=== PATIENT | female | born 1950 | race Caucasian/White ===

== ENCOUNTER 2023-09-30 16:57 | Inpatient (IN) | payer OTHER, SELFPAY ==
[2023-09-30] VITALS (10 sets, daily range): BP systolic 121–159; BP diastolic 58–87; BMI 33.6; BMI 32.7
[2023-09-30] MEDS: ZOFRAN 4 MG IV (11:13)
[2023-09-30 11:35] LABS: % Basophils 0.6 % (0-2); % Eosinophils 1.1 % (0-6); % Immature Granulocytes 0.6 % (0-0.5); % Lymphocytes 16.3 % (20.5-51.1); % Monocytes 6.3 % (1.7-9.3); % Neutrophils 75.1 % (42.2-75.2); Absolute Eosinophils 0.1 10^3/uL (0-0.7); Absolute Lymphocytes 0.9 10^3/uL (1.2-3.4); Absolute Monocytes 0.3 10^3/uL (0.1-0.6); Absolute Neutrophils 3.9 10^3/uL (1.4-6.5); Hematocrit 38.8 % (37.0-47.0); Hemoglobin 13.8 g/dL (12.0-16.0); Mean Corp Hgb Conc. 35.6 g/dL (33.0-37.0); Mean Corpuscular Hgb 33.4 pg (27.0-31.0); Mean Corpuscular Volume 93.9 fL (81.0-99.0); Nucleated Red Blood Cells % 0 %; Red Blood Cell Count 4.13 10^6/uL (4.20-5.40); Red Cell Dist. Width 13.9 % (11.5-14.5); White Blood Cell Count 5.2 10^3/uL (4.8-10.8)
--- NOTE | 2023-09-30 11:46 | ED.GENMED ---
History of Present Illness
General
Chief Complaint: Chest Pain
Source: patient
Exam Limitations: none
Time Seen by Provider: 09/30/23 11:06
Nursing documentation reviewed up to this point in time: agreed with
History of Present Illness
History of Present Illness:
73 y/o F with h/o , cardiomyopathy , stroke with L sided hemiparesis, nonambulatory
lives at home with son who is primary caregiver
here with nausea and epigastric pain around 8 am after pt was already awake
she had not yet had her breakfast. she say the pain was coming in waves and initially she thought it was GERD but didn't really feel too similar
then she felt it get better so she thought it was gone. then the pain returned and she had nausea and thought it could be her heart
her son called 911 and they told her to take baby aspirin but she couldn't chew them becuase she doesn' thave teeth so she spit them out
sh ehas not had chest pain, back pain, black stool
she has not had known GI bleed before, she doesn't remmeber having previous endoscoppy
she still has her gallbladder
only previous surgery is a hysterectomy
previous charts from earlier visits show that pt has sludge in her GB and elevated liver enzymes. she also has had pancreatitis
Past History
Past History
ED Past Medical History: CVA (Left sided weakness), HTN, Hypercholesterolemia, Psychiatric (Depression) and Other (Nonischemic cardiomyopathy, Fracture ankle, GJ tube, gastroparesis C-diff)
ED Past Surgical History: Gynecological (Hysterectomy)
Social History
Tobacco: Non-smoker
Alcohol: Daily (Beer 4)
Personal:
Living: correction ([facility] and [facility])
Employment: Not employed
Family History
Family History: Other (Noncontributory)
Review of Systems
Review of Systems
Allergies reviewed?: Yes
All Other Systems: Not applicable
Phy Exam
Physical Exam
Physical Exam:
GENERAL: Alert, comfortable
Neck: supple
CARDIAC: Regular rate and rhythm +systolic murmur
LUNGS: Clear breath sounds bilaterally, no acute respiratory distress, no wheezes/rales/rhonchi
ABDOMEN: Soft, epigastric and RUQ tenderness, no guarding, no rebound, neg cash's
rectal: stool heme neg light brown
NEUROLOGICAL: Alert and oriented, no focal neuro deficits
SKIN: Warm and dry, skin intact.
PSYCH: Normal and appropriate interaction.
Scores
Heart Score for Chest Pain Patients
STEMI patient?: No
History: Slightly or Non-Suspicious
ECG: Nonspecific Repolarization
Age: >/= 65 years
Risk Factors: 1 or 2 Risk Factors
Troponin: </= Normal Limit
Heart Score for Chest Pain Patients: 4
Heart Score Risk: 20.3% MACE over next 6 weeks
Course
Orders/Labs/Results
Orders:
Orders
09/30/23 11:00
Electrocardiogram (*1) Urgent
Reason for Study: Chest Pain
Cardiac Monitoring- Treatment ONCE
EKG- Treatment ONCE
IV Insert/Care/Rem.- Treatment PRN
O2 Therapy [RESP] Urgent
Titrate/Wean O2 to maintain O2 sat greater than (%): 90
Special Instructions: Maintain sats >/=90%
Pulse Ox/spot Check [RESP] Urgent
Quantity: 1
Special Instructions: ON ROOM AIR
09/30/23 11:10
Complete Blood Count/With Diff Urgent
Ondansetron Injectable [Zofran] 4 mg IV NOW STA
09/30/23 11:11
Ondansetron Injectable [Zofran] 4 mg .ROUTE .STK-MED ONE
09/30/23 11:33
Add On- LAB Urgent
Tests Added?: lipase
Pantoprazole [Protonix IV] 40 mg IV NOW STA
09/30/23 12:02
Comprehensive Metabolic Panel Urgent
Direct Bilirubin Urgent
Comment: ADD ON
Lipase Urgent
Comment: ADD ON
Troponin I Urgent
09/30/23 12:35
CT Abd/Pel (IV only)-DH only Urgent
Comment:
Reason For Exam: vomiting, h/o alcohol abuse ,pancreatitis
09/30/23 14:00
Lactated Ringers [Lr] 500 ml IV 100 mls/hr
09/30/23 Dinner
Clear Liquid
At Your Request: Full Participation
09/30/23 16:15
Admit/Transfer Patient As Directed
Co-Sign Provider:
Level of Care: Inpatient admission
Assign to:: Medical/Surgical
Physician / Group: Steven Ellison
Diagnosis: Acute pancreatitis, elevated LFTs
Reason for Hospitalization: Acute pancreatitis, possible gallstone etiology. Will need MRCP and possible ERCP
while here
Expected length of stay greater than two midnights?: Yes
ELOS- Estimated Length of Stay in days: 3
I certify the patient meets the requirements for IP care: Yes
PRN Pain Medication Management As Directed
May give lesser potent ordered pain med per pt: Yes
preference::
Protocol:: Medication orders for pain may be administered in a
manner that supports deferring to patient preference
when the pt is:
- Requesting an ordered lesser potent pain medication.
Least to most potent pain medications are defined
as: acetaminophen < NSAID < tramadol < opioids
(morphine, oxycodone, hydromorphone).
- Requesting a lesser dose of the same medication IF
ORDERED.
- Requesting a less intrusive route of administration
if both routes are prescribed by the provider (PO <
IV).
09/30/23 16:17
Code Status As Directed
Resuscitation Status: Full Code
09/30/23 17:00
Lactated Ringers [Lr] 1,000 ml IV 150 mls/hr
09/30/23 17:54
Famotidine [Pepcid] 20 mg PO DAILYPRN PRN
Morphine Sulfate 1 mg IV Q6HPRN PRN
Morphine Sulfate 2 mg IV Q6HPRN PRN
09/30/23 17:54
GASTROINTESTINAL CONSULT Routine
Consulting Provider: Paz Serrano
Was physician already notified: Yes
Reason for consult: Pancreatitis, biliary obstruction
Activity As Directed
Activity Level: Out of Bed-Early Mobility
I&O [Intake/ Output] As Directed
Frequency: q12h
Sequential Compression Device [Pneumatic Compression Sleeves] As Directed
Type: Knee high
DX Deep Vein Thrombosis Video Routine
09/30/23 18:45
Ondansetron Injectable [Zofran] 4 mg IV Q6HPRN PRN
09/30/23 18:46
Acetaminophen [Tylenol] 650 mg PO Q6HPRN PRN
09/30/23 20:00
Carvedilol [Coreg] 3.125 mg PO BID
09/30/23 22:00
Gabapentin [Neurontin] 800 mg PO HS
Lisinopril [Zestril] 20 mg PO HS
10/01/23 Breakfast
NPO
Allow oral meds: No
Allow clear liquids: No
10/01/23 06:46
Complete Blood Count/With Diff IN AM
10/01/23 08:00
Amlodipine [Norvasc] 10 mg PO DAILY
Cholecalciferol (Vitamin D3) [VITAMIN D3 (cholecalciferol)] 25 mcg PO DAILY
Abnormal Lab Results
09/30/23 09/30/23
11:10 12:02
RBC 4.13 L 10^6/uL
(4.20-5.40)
MCH 33.4 H pg
(27.0-31.0)
Plt Count 55 L 10^3/uL
(130-400)
MPV 11.3 H fL
(7.4-10.4)
Absolute Lymphs (auto) 0.9 L 10^3/uL
(1.2-3.4)
Immature Gran % 0.6 H %
(0-0.5)
Lymphocytes % 16.3 L %
(20.5-51.1)
Potassium 3.4 L mmol/L
(3.5-5.1)
Chloride 113 H mmol/L
(98-107)
Glucose 126 H mg/dl
(70-99)
Total Bilirubin 4.3 H mg/dl
(0.2-1.3)
Direct Bilirubin 2.9 H mg/dl
(0.0-0.4)
AST 212 H U/L
(14-36)
ALT 92 H U/L
(0-35)
Alkaline Phosphatase 171 H U/L
(38-126)
Lipase > 4000 H* U/L
(23-300)
09/30/23 11:10
09/30/23 12:02
Vital Signs
Initial and Last Documented VS:
Initial Vital Signs
Temp Pulse Resp Pulse Ox
98.2 F 74 16 96
09/30/23 11:01 09/30/23 11:01 09/30/23 11:01 09/30/23 11:01
Last Documented Vital Signs
Temp Pulse Resp BP Pulse Ox
98.3 F 75 12 128/58 95
10/01/23 07:05 10/01/23 07:05 10/01/23 07:05 10/01/23 07:05 10/01/23 07:05
MDM/Problems Addressed
Differential Diagnosis Includes:
pancreatitis, GI bleed, gerd, gastritis, gallstones
MDM/Problems Addressed:
73 y/o F with h/o former CVA, nonambulatory, aortic stenosis; minimal alcohol use now (used to be heavier)
epigastric pain and nausea this morning; does have known sluge/stones in gb on previous imaging; vomited x 1 on arrival, looked a little coffee grounds but her stool was heme neg
epigastric tenderness, no fever, stable vitals
ekg is abnormal but unchanged, trop neg
has had previous transaminitis and bili elevation which are elevated again today higher than most recent and lipase is >4000;
vomiting resolved with zofran, getting LR;
ct shows acute pancreatitis
may need gb imaging
s/o medicine
*Critical Care Note
Total Time (30-74mins, 75-104mins- exclusive of procedures): Not Applicable
ED Attending Note
-
Portions of this chart may have been created with voice recognition software.� Occasional wrong word or��sound alike� substitutions may have occurred due to the inherent limitations of voice recognition software.
Discharge Plan
Departure
Patient Disposition: Admit
Date of Disposition: 09/30/23
Time of Disposition: 15:18
Admit to: Med/Surg
Presentation/result/management discussed w/ accepting MD/DO: Hospitalist
Patient with high blood pressure during this ER visit?: No
Condition: Fair
Covid-19: Not Applicable
Discharge Problem:
Acute pancreatitis
Interventions
Interventions:
*Risk Screen - Suicide Last Done: 09/30/23 18:22
*General Assessment Last Done: 09/30/23 11:01
*Neglect/Abuse Screening Last Done: 09/30/23 11:01
*ED COVID-19 Vaccine History Last Done: 09/30/23 18:22
*Nursing Disposition Last Done: 09/30/23 17:58
ED- Cardiac Assessment Last Done: 09/30/23 11:01
Discharge Date and Time
Discharge Date/Time: 09/30/23 17:58
[2023-09-30 11:49] LABS: Mean Platelet Volume 11.3 fL (7.4-10.4); Platelet Count 55 10^3/uL (130-400)
[2023-09-30] MEDS: PROTONIX IV 40 MG IV (11:49)
[2023-09-30 12:31] LABS: ALT (SGPT) 92 U/L (0-35); AST (SGOT) 212 U/L (14-36); Albumin 3.5 g/dl (3.5-5.0); Alkaline Phosphatase 171 U/L (38-126); Blood Urea Nitrogen 9 mg/dl (7-17); Carbon Dioxide 24 mmol/L (22-30); Chloride 113 mmol/L (98-107); Estimated Creatinine Clearance 89 ml/min; Glucose 126 mg/dl (70-99); Potassium 3.4 mmol/L (3.5-5.1); Sodium 143 mmol/L (135-145); Total Bilirubin 4.3 mg/dl (0.2-1.3); Total Protein 7.2 g/dl (6.3-8.2); eGFR > 60.00
[2023-09-30 12:42] LABS: Troponin I < 0.012 ng/ml
[2023-09-30 13:57] LABS: Lipase > 4000 U/L (23-300)
--- NOTE | 2023-09-30 14:15 | PHANOTE ---
med rec note- patient explained that she only take her blood pressure medication when there home visit from her pcp office which in unusually once a month in the beginning of the month.
[2023-09-30] MEDS: LR 500 IV (14:42)
--- NOTE | 2023-09-30 16:08 | HPS.HSE ---
Family Physician
-
Family Physician: JESÚS Hercules
Chief Complaint
-
Epigastric pain, nausea
History of Present Illness
73-year-old female with ASCVD, aortic stenosis, HTN, HLD, alcohol use, malnutrition, H/O CVA with residual left-sided hemiparesis, H/O nonischemic cardiomyopathy (preserved EF on last echo), H/O GJ tube s/p removal, S/P MATTHEW that presented to the ED
today with complaint of pain in the abdomen
She presented to the ED with her son who is primary caregiver. States that the symptoms of epigastric pain started around 8 AM after the patient awoken. She was yet to eat breakfast, stated that the pain was coming in waves initially. Thought it
was consistent with GERD symptoms however later thought it could be her heart so her son called 911 and gave her a baby aspirin. Of note, the patient does not have teeth so she spit them out and did not take the aspirin. She denies chest pain,
dyspnea, back pain, bloody stools, melena. States that she still has her gallbladder. Previous studies have shown sludge in gallbladder. Mentions that she did have an occurrence of pancreatitis in the past.
Upon arrival to the ED she was afebrile, hemodynamically stable, on room air. Initial pertinent labs included platelet count of 55, potassium 3.4, ALP 171, total bilirubin 4.3, AST 212, ALT 92, lipase 4000. CT A/P was ordered, however images not
yet available and report is pending. In the ED she was started on IV fluids, given 40 mg pantoprazole and 4 mg IV Zofran
Medical History
Past Medical History
Past Medical History: Reports CAD, CHF, CVA, HTN and Hypercholesterolemia
Past Surgical History: Reports Gynocological
Additional Past Surgical History:
H/O PEG
Social History
Tobacco: Non-smoker
Alcohol: Occasional (Former heavy alcohol use, now occasional 'twisted tea')
Drug: None
Family History
Family History: Not pertinent
Allergies / Home Medications
Allergies reflects when Allergies were last updated in [facility].
Home Medications with original date entered in [facility]
Allergy/Medication List:
NKDA
Review of Systems
-
A 12 point ROS was completed and negative except as noted: Yes
Constitutional: Reports No Symptoms
Respiratory: Reports No Symptoms
Cardiac: Reports No Symptoms
Abdomen/GI: Reports Abdominal Pain and Nausea; Denies Diarrhea, Bloody Stools or Black Stools
: Reports No Symptoms
Musculoskeletal: Reports No Symptoms
Skin: Reports No Symptoms
Neurological: Reports No Symptoms
Endocrine: Reports No Symptoms
Hematologic/Lymphatic: Reports No Symptoms
Physical Exam
Vital Signs
Vital Signs
Temp Pulse Resp BP Pulse Ox
98.2 F 73 18 122/58 93
09/30/23 11:01 09/30/23 16:00 09/30/23 16:00 09/30/23 16:00 09/30/23 12:45
Physical Exam
General: Well Nourished and Pain; No Respiratory Distress
HEENT: NormoCephalic, Anicteric, Moist mucous membranes and Atraumatic
Respiratory: Clear and Non Labored Respirations; No Wheezes, Rales, Rhonchi or Accessory Resp Muscle Use
Cardiac: S1/S2 and Regular Rhythm; No Murmur, Rub, Gallop, Peripheral Edema or JVD
GI: Soft, Non Distended, Normal Bowel Sounds and Tender (Epigastrum, no peritoneal signs); No Organomegaly
Musculoskeletal: No Clubbing, No Cyanosis and No Edema
Skin: Warm and Dry; No Rash or Jaundice
Neuro: AO x 3, Cranial Nerves Intact and No Sensory Deficits
Laboratory Results
-
09/30/23 11:10
09/30/23 12:02
Laboratory Results
Total Bilirubin 4.3 mg/dl (0.2-1.3) H 09/30/23 12:02
AST 212 U/L (14-36) H 09/30/23 12:02
ALT 92 U/L (0-35) H 09/30/23 12:02
Alkaline Phosphatase 171 U/L (38-126) H 09/30/23 12:02
Troponin I < 0.012 ng/ml 09/30/23 12:02
Lipase > 4000 U/L (23-300) H* 09/30/23 12:02
Data Reviewed
-
Diagnostic Radiology: Image Personally Visualized and interpreted
Lab Data: Labs Reviewed by me and Discussed with Patient
Impression/Plan
-
#Acute pancreatitis -- suspect gallstone etiology
#Elevated LFTs -- cholestatic pattern; suspect choledocholithiasis
-Presented with epigastric pain that began this morning after awakening
-Associated with nausea, denies any fevers or chills, no blood in the stool
-ED labs showed cholestatic pattern of LFT elevation, lipase >4000
-Does still have her gallbladder, previous scans showed sludge
-[place] score is very low; [place] score 0; low risk mortality
Plan
-Start IVF maintenance fluids at 150 mL/h for goal Hct <44%
-Follow-up CT results to rule out extrinsic causes of biliary obstruction
-Order MRCP to assess biliary duct anatomy
-Trend daily LFTs, avoid hepatotoxic agents as able
-Clear liquid diet for now, NPO after midnight
-PRNs for analgesia and antiemesis
-Consider surgery consult for cholecystectomy
#Thrombocytopenia -- DDx reactive/consumptive v. chronic process
-Platelet count on arrival was 55, no signs or symptoms of bleeding or clotting
-Per review of previous CBC, has persistently had low platelets back to November of 2017
-Platelet count on average seems to be near 80-90, which may represent baseline
-With previous drinking history, question if she has cirrhosis
-No recent heparin, suspicion for HIT very low; suspicion for hemolysis low
Plan
-Trend daily CBC, consider supportive transfusions if worsening or bleeding develops
-Follow-up CT images to assess for features of cirrhosis/portal hypertension
-Follow-up peripheral smear
-Avoid chemical DVT prophylaxis for now
#ASCVD
#HLD
-Diffuse vascular disease with CAD/PAD/carotid disease/CVA history
-Current medications do not include aspirin or statin currently
-No signs of acute ischemia causing this presentation
#Aortic stenosis
-No recent TTE/CLAU in system, last was in 2018
-Suspect this is not clinically severe disease per exam
#Hypertension
-Home medications include lisinopril, carvedilol, amlodipine
-No known hypertensive systemic disease, last echo without LVH
-Blood pressure on arrival 121/61 mmHg
#Alcohol use
-Previously was a heavy drinker though denies current heavy usage
-Will monitor for signs of withdrawal, consider as needed Ativan
#H/O nonischemic cardiomyopathy
-Unclear etiology; mentioned to not be ischemic even despite extensive ASCVD history; last TTE with LVEF >55%
-Home medications currently include NEEL inhibitor, beta-loretta; no statin or antiplatelet therapy
-Is not currently on any standing dose diuretic therapy
DVT prophylaxis: SCDs
Diet: Clear liquids, n.p.o. after midnight
CODE STATUS: Full code
Disposition: Admit to Med/Surg
I will be admitting Sonya Patrick to general med/surgery for acute pancreatitis with presumed choledocholithiasis. I have spoken to the emergency department staff and the GI consultants in regards to the case. She is at elevated risk for
morbidity and mortality due to acute pancreatitis of likely obstructive origin. Will need admission for symptomatic control, trending of LFTs, MRCP and possible ERCP while here. May also require cholecystectomy if gallstone etiology of
pancreatitis confirmed.
[2023-09-30] MEDS: LR 1000 IV (16:37)
--- NOTE | 2023-09-30 16:39 | CON.GI ---
Addendum entered and electronically signed by Paz Serrano MD 09/30/23 20:23:
I saw and examined the patient.
The APARTMENT MAINTENANCE SUPERVISOR or PA's note was reviewed and I agree with the note.
Comment: 73-year-old female with history of CVA and left-sided weakness, history of gastroparesis-needing GJ tube previously, C. difficile, presenting with sudden onset epigastric abdominal pain which started around 8 AM this morning, nausea and 1
episode of vomit. No previous similar results. Prior to this episode, reports feeling well. No abdominal pain, heartburn, trouble swallowing. She is bedbound and has a diaper and reports having normal stool in the diaper without any constipation
or diarrhea. No blood in the stool or black stool. In the emergency room, CBC shows normal hemoglobin, platelets low at 55, seems to be chronic,, mild hypokalemia, elevated LFTs including total bilirubin of 4.3, AST of 212, ALT of 92, alkaline
phosphatase of 171 lipase of more than 4000.History of elevated LFTs in 2018 including total bilirubin between 2.5 and 5, AST, ALT in the 200-400 range, alkaline phosphatase in the 200-600 range, repeat LFTs in 2020 in normal range
CT scan of the abdomen pelvis with IV contrast only in the emergency room, minor peripancreatic edematous changes suggestive of acute hepatitis without any fluid collections, multicystic pelvic lesions noted.
Patient admitted in 2018 at that time possibly significant alcohol use, elevated LFTs noted with workup including MRI/liver biopsy.
MRI in 2018 for elevated LFTs showing large amount of sludge in the gallbladder lumen mild evidence of pancreatic empiric pancreatic edema suggestive of acute pancreatitis.Abdominal ultrasound in 2018 also showing moderate amount of sludge and
stones in the gallbladder. 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
Patient denies any previous history of pancreatitis.
-Acute epigastric pain, elevated LFTs, elevated lipase suggesting acute pancreatitis
Imaging showed mild pancreatitis without any fluid collections
Rule out gallstones causing pancreatitis, patient denies any significant alcohol use
Monitor LFTs, lipase
Will do abdominal ultrasound to look for possible gallstones causing mild pancreatitis.
If LFTs continue to trend up, will do MRI/MRCP.
Okay for clear liquid diet. IV hydration, monitor creatinine/hematocrit
If no further pain, will advance as tolerated to low-fat diet.
Will follow-up on triglyceride levels
Previous workup for elevated LFTs including hepatitis serologies, AMA, ASMA, LK M, celiac panel negative In 2018 and prior liver biopsy showing possible drug-induced liver disease
Previous history of gastroparesis needing GJ tube but currently resolved.
Chronic thrombocytosis, unclear etiology.
Will follow
-
Original Note:
Consultation
-
Date/Time Consultation Requested: 09/30/23 1620
Date/Time Consultation Performed: 09/30/23 1640
Requesting Provider: Steven Ellison MD
Performing Provider: JESÚS Stephens, Paz Serrano MD
Reason for Consultation: pancreatitis
Medical History
Chief Complaint / HPI
Chief Complaint: abdominal pain
History of Present Illness:
Pt is a 73yo with hx CVA with left sided weakness, , HTN, hypercholesterolemia, depression, nonischemic CM, prior GJ tube gastroparesis(now improved), c-diff, prior hysterectomy with onset of epigastric abdominal pain. No prior pain in past.
Pain was severe up to 8/10 and improved after ER evaluation. On admission noted with K 3.4, with elevated LFT's and lipase( bili 4.3, AST 212, ALT 92, alk phos 171 and lipase >4000). Pt also noted with continued low platelets 55,000.
At this time patient admits to vomiting on admission and occasional GERD. She denies current dysphagia, diarrhea, constipation, blood or black in stools. + ETOH use heavy prior to CVA now 1 drink every 2 weeks. No change in medication or
family hx pancreatic CA. Hx EGD/colon in 2018. No anticoagulation prior to admission.
Past Medical History
Past Medical History: CVA (left sided weakness ), HTN, Hypercholesterolemia, Valvular Disease (), Psychiatric (depression ) and Other (Nonischemic cardiomyopathy, Fracture ankle, GJ tube with initial T fastener placement, gastroparesis,
esophagitis, C-diff, gastritis, duodenitis, chronic thrombocytopenia)
Past Surgical History: Gynecological (hysterectomy)
Social History
Tobacco: Non-Smoker
Alcohol: Occasional (1 drink every 2 weeks heavy prior to CVA)
Drug: None
Living: With Family (son)
Employment: Retired
Family History
Family History: Other (no family hx pancreatitis or pancreatic problems mother with hx ag )
Allergies / Home Medications
Allergy/AdvReac Type Severity Reaction Status Date / Time
No Known Drug Allergies Allergy Unknown Verified 10/21/20 16:31
�Medication �Instructions �Recorded
amlodipine 10 mg tablet 10 mg PO DAILY Blood pressure 10/21/20
carvedilol 3.125 mg tablet 3.125 mg PO BID Heart Failure 10/21/20
famotidine 20 mg tablet 20 mg PO DAILYPRN PRN indigestion 10/23/20
lisinopril 20 mg tablet 20 mg PO HS Blood pressure 10/23/20
multivitamin-ferrous 1 ea PO DAILY Supplement 10/23/20
fumarate-folic acid 18 mg-400 mcg
tablet (Centrum)
potassium chloride 10 mEq 10 meq PO DAILY ##30 10/24/20
tablet,extended release
sodium bicarbonate 650 mg tablet 650 mg PO BID #100 tabs 10/24/20
cholecalciferol (vitamin D3) 25 25 mcg PO DAILY 09/30/23
mcg (1,000 unit) tablet (Vitamin
D3)
gabapentin 400 mg capsule 800 mg PO HS 09/30/23
Review of Systems
-
History Source: Patient
Constitutional: Reports No Symptoms
EENT: Reports No Symptoms
Respiratory: Reports No Symptoms
Cardiac: Reports No Symptoms
Abdomen/GI: Reports Abdominal Pain, Nausea and Vomiting
: Reports No Symptoms
Musculoskeletal: Reports No Symptoms
Skin: Reports No Symptoms
Neurological: Reports Weakness (left sided )
Endocrine: Reports No Symptoms
Hematologic/Lymphatic: Reports No Symptoms
Vital Signs
Temp Pulse Resp BP Pulse Ox
98.2 F 73 18 122/58 93
09/30/23 11:01 09/30/23 16:00 09/30/23 16:00 09/30/23 16:00 09/30/23 12:45
Physical Exam
Exam
General: Well Developed, Well Nourished and No Apparent Distress
HEENT: Normocephalic and Anicteric
Respiratory: Clear
Cardiac: Regular Rhythm
GI: Soft, Non Distended and Normal Bowel Sounds
Genito-urinary: No Costovertebral Tender
Musculoskeletal: No Clubbing and No Cyanosis
Skin: Warm and Dry
Neuro: Awake, Alert, AO x 3 and Other (left shilpa )
Psych: Calm
Results
WBC 5.2 10^3/uL (4.8-10.8) 09/30/23 11:10
Hgb 13.8 g/dL (12.0-16.0) 09/30/23 11:10
Hct 38.8 % (37.0-47.0) 09/30/23 11:10
MCV 93.9 fL (81.0-99.0) 09/30/23 11:10
Plt Count 55 10^3/uL (130-400) L 09/30/23 11:10
Absolute Neuts (auto) 3.9 10^3/uL (1.4-6.5) 09/30/23 11:10
Sodium 143 mmol/L (135-145) 09/30/23 12:02
Potassium 3.4 mmol/L (3.5-5.1) L 09/30/23 12:02
Chloride 113 mmol/L (98-107) H 09/30/23 12:02
Carbon Dioxide 24 mmol/L (22-30) 09/30/23 12:02
BUN 9 mg/dl (7-17) 09/30/23 12:02
Creatinine 0.6 mg/dL (0.6-1.0) 09/30/23 12:02
Calcium 9.0 mg/dl (8.4-10.2) 09/30/23 12:02
Total Bilirubin 4.3 mg/dl (0.2-1.3) H 09/30/23 12:02
AST 212 U/L (14-36) H 09/30/23 12:02
ALT 92 U/L (0-35) H 09/30/23 12:02
Alkaline Phosphatase 171 U/L (38-126) H 09/30/23 12:02
Lipase > 4000 U/L (23-300) H* 09/30/23 12:02
Diagnostic Image Results:
Prior GI Procedures:
EGD: 12/2017 - Normal duodenal bulb and second portion of the
duodenum.
- Erythematous mucosa in the greater curvature of the
gastric body and lesser curvature of the gastric body.
Biopsied.
- Small hiatal hernia.
- LA Grade A reflux esophagitis.
- 300 ml of bilious gastric fluid.
- A gastric tube was found in the stomach.
- S/P placement of 3 T fasteners percutaneously using
endoscopic guidance by Dr Tony
Colonoscopy: 11/2017 - Non-bleeding external and internal hemorrhoids.
- Poor prep unable to rule out small <5mm polyps
- No specimens collected.
Assessment / Plan
-
Pt is a 73yo with hx CVA with left sided weakness, , HTN, hypercholesterolemia, depression, nonischemic CM, prior GJ tube gastroparesis(now improved), c-diff, prior hysterectomy with onset of epigastric abdominal pain. No prior pain in past.
Pain was severe up to 8/10 and improved after ER evaluation. On admission noted with K 3.4, with elevated LFT's and lipase( bili 4.3, AST 212, ALT 92, alk phos 171 and lipase >4000). Pt also noted with continued low platelets 55,000.
-sudden onset of epigastric abdominal pain
-elevated LFT's and lipase
-thrombocytopenia, etiology unclear
-hypokalemia
other medical problems:
-CVA
-
-HTN
-GERD
-hypercholesterolemia
-depression
-non ischemic CM
-prior GJ tube
-gastroparesis
-c-diff
-hysterectomy
PLAN:
Etiology of pain with elevated LFT and lipase related to pancreatitis- gallstone, ETOH(pt reports only minimal use), no medication, calcium normal on admission vs other
await CT may need MRI/MRCP
trend labs
aggressive IVF cont LR at 150ml/hr
pain control- already feeling improved
NPO
add TG in AM if etiology unclear add IGG4
Etiology of low platelets unclear - albumin normal, check INR in AM
will follow
-
-
Thank you for consultation and allowing me to participate in the patient's care. Please call the decoration checker GI physician during the after hours with any questions or concerns.
--- NOTE | 2023-09-30 18:45 | PTCARENOTE ---
Received pt from ER.Pt awake, alert and oriented x3. pt was having nausea with epigastric pain in ER, improved since arrival to floor. Pt VSS 96% on RA.Pt is bedbound at baseline, weakness in left arm and leg r/t previous CVA. Pt oriented to room,
call casarez within reach, plan of care continues.
[2023-09-30 20:49] LABS: Direct Bilirubin 2.9 mg/dl (0.0-0.4)
[2023-09-30] MEDS: ZESTRIL 20 MG PO (20:51)
[2023-09-30] MEDS: COREG 3.125 MG PO (20:51)
[2023-09-30] MEDS: KCL 40 MEQ PO (22:31)
[2023-09-30] MEDS: NEURONTIN 800 MG PO (22:32)
[2023-10-01] MEDS: LR 1000 IV ×3 (00:12→12:44)
[2023-10-01 03:10] VITALS: BP 115/57
[2023-10-01 06:00] VITALS: BMI 33.0
[2023-10-01 07:05] VITALS: BP 128/58
[2023-10-01 07:33] LABS: PT 15.3 Sec (11.4-14.6)
[2023-10-01 07:34] LABS: % Basophils 0.3 % (0-2); % Eosinophils 0.9 % (0-6); % Immature Granulocytes 0.3 % (0-0.5); % Lymphocytes 17.9 % (20.5-51.1); % Monocytes 7.4 % (1.7-9.3); % Neutrophils 73.2 % (42.2-75.2); Absolute Lymphocytes 0.6 10^3/uL (1.2-3.4); Absolute Monocytes 0.3 10^3/uL (0.1-0.6); Absolute Neutrophils 2.6 10^3/uL (1.4-6.5); Hematocrit 33.8 % (37.0-47.0); Hemoglobin 11.5 g/dL (12.0-16.0); Mean Corpuscular Hgb 32.8 pg (27.0-31.0); Mean Corpuscular Volume 96.3 fL (81.0-99.0); Mean Platelet Volume 10.7 fL (7.4-10.4); Nucleated Red Blood Cells % 0 %; Platelet Count 40 10^3/uL (130-400); Red Blood Cell Count 3.51 10^6/uL (4.20-5.40); Red Cell Dist. Width 14.2 % (11.5-14.5); White Blood Cell Count 3.5 10^3/uL (4.8-10.8)
[2023-10-01 08:14] LABS: ALT (SGPT) 91 U/L (0-35); AST (SGOT) 176 U/L (14-36); Alkaline Phosphatase 156 U/L (38-126); Blood Urea Nitrogen 7 mg/dl (7-17); Calcium 9.1 mg/dl (8.4-10.2); Carbon Dioxide 25 mmol/L (22-30); Chloride 110 mmol/L (98-107); Direct Bilirubin 4.9 mg/dl (0.0-0.4); Estimated Creatinine Clearance 76 ml/min; Glucose 93 mg/dl (70-99); Potassium 4.2 mmol/L (3.5-5.1); Sodium 139 mmol/L (135-145); Total Bilirubin 6.5 mg/dl (0.2-1.3); Total Protein 6.3 g/dl (6.3-8.2); Triglycerides 66 mg/dl (10-149); eGFR > 60.00
[2023-10-01] MEDS: DESENEX/MITRAZOL/ZEASORB 1 APPLIC TOPICAL ×2 (09:13→20:28)
[2023-10-01] MEDS: COREG PO (09:14)
[2023-10-01] MEDS: NORVASC PO (09:14)
[2023-10-01] MEDS: VITAMIN D3 (cholecalciferol) PO (09:14)
--- NOTE | 2023-10-01 11:45 | W.PN.GI.CBS2 ---
Addendum entered and electronically signed by Paz Serrano MD 10/01/23 13:35:
I saw and examined the patient.
The AGRICULTURAL AGENT or PA's note was reviewed and I agree with the note.
Comment: Patient without any abdominal pain, nausea or vomiting. Had a bowel movement yesterday morning but not since. Passing gas. No fevers or chills.
10/01/23 MRI/MRCP-Choledocholithiasis with 4 stones present in the common bile duct with the largest measuring 7 mm. There is associated dilation of the common bile duct measuring 8 mm.
There is peripancreatic edema likely due to acute pancreatitis. There are multiple enlarged upper abdominal lymph nodes measuring up to 1.2 cm in short axis which are likely reactive.
Will need ERCP which will be done tomorrow. Subsequent lap ag.
Patient with platelet count of 40 with underlying chronic thrombocytopenia. Heme evaluation requested and consideration of platelet transfusion if platelets still low prior to ERCP tomorrow.
Primary team aware. N.p.o. past midnight.
Continue to monitor LFTs and lipase. If fevers or elevated white count, need to start antibiotics.
Will follow
Original Note:
Today's Communication / Plan
-
Await reults MRI
As per plan
Assessment / Plan
-
Pt is a 73yo with hx CVA with left sided weakness, , HTN, hypercholesterolemia, depression, nonischemic CM, prior GJ tube gastroparesis(now improved), c-diff, prior hysterectomy with onset of epigastric abdominal pain. No prior pain in past.
Pain was severe up to 10/02 and improved after ER evaluation. On admission noted with K 3.4, with elevated LFT's and lipase( bili 4.3, AST 212, ALT 92, alk phos 171 and lipase >4000). Pt also noted with continued low platelets 55,000.
-sudden onset of epigastric abdominal pain
-elevated LFT's and lipase
-thrombocytopenia, etiology unclear
-hypokalemia
other medical problems:
-CVA
-
-HTN
-GERD
-hypercholesterolemia
-depression
-non ischemic CM
-prior GJ tube
-gastroparesis
-c-diff
-hysterectomy
PLAN:
Etiology of pain with elevated LFT and lipase related to pancreatitis- gallstone, ETOH(pt reports only minimal use), no medication, calcium normal on admission vs other
Await results of MRI/MRCP
trend labs
aggressive IVF cont LR at 150ml/hr
pain control- already feeling improved
Start clear liquid diet
Check IgG4
Trend PLT, consider Heme consult.
Incentive sprirometer
will follow
Subjective
Subjective
Date of Service: October 01, 2023
Patient with RUQ tenderness and bilirubinuria. WBC count low 3.5, PLT 40, INR 1.2, T Bili 6.5 (4.3), D Bili 4.9 (2.9), AST 176 (212) ALT 91 (92), ALk Phos 156 (171), Trig 66. Patient had MRI/MRCP. Results pending.
Objective
Data Reviewed
Laboratory Data:
Laboratory Results
10/01/23 06:46
10/01/23 06:46
Laboratory Results
PT 15.3 Sec (11.4-14.6) H 10/01/23 06:46
INR 1.20 10/01/23 06:46
Total Bilirubin 6.5 mg/dl (0.2-1.3) H D 10/01/23 06:46
AST 176 U/L (14-36) H 10/01/23 06:46
ALT 91 U/L (0-35) H 10/01/23 06:46
Alkaline Phosphatase 156 U/L (38-126) H 10/01/23 06:46
Lipase > 4000 U/L (23-300) H* 09/30/23 12:02
Vital Signs and I&O:
Vital Signs
Temp Pulse Resp BP Pulse Ox
98.3 F 75 12 128/55 95
10/01/23 07:05 10/01/23 09:14 10/01/23 07:05 10/01/23 09:14 10/01/23 11:20
I&O
09/30/23 10/01/23 10/02/23
06:59 06:59 06:59
Intake Total 480 / 480
Output Total 200 / 200
Balance 280 / 280
Physical Exam
Physical Exam
HEENT: Anicteric
Cardiology: Normal Sinus Rhythm
Pulmonary: Clear (anterior)
GI: Soft, Non Distended, Tender (RUQ) and Normal Bowel Sounds
Neuro: Non Focal
--- NOTE | 2023-10-01 12:12 | W.PN.HOSP.TC ---
Today's Communication/Plan
-
N.p.o. pending GI assessment, may need ERCP today versus tomorrow
Trend LFTs daily, avoid hepatotoxins
Plan for surgery consult for cholecystectomy
Assessment / Plan
Assessment / Plan
#Acute gallstone pancreatitis -- Colby score 0, [place] score low
#Choledocholithiasis
-Presented with epigastric pain, cholestatic LFT elevation with worsening this morning
-Associated with nausea, CT A/P showed pancreatic inflammation, lipase >4000
-Does still have her gallbladder, previous scans showed sludge though suspicion for stones remains high
-MRCP this morning showed 4 gallstones in the CBD with CBD dilation
-Remains on IV fluids at 150 mL/h, clinically her pain has improved labs were sent
-Remains hemodynamically stable, no fevers, WBC count stable
Plan
-Continue IVF maintenance fluids at 150 mL/h for goal Hct <44%
-Trend daily LFTs, avoid hepatotoxic agents as able
-NPO pending GI evaluation today, likely need ERCP
-PRNs for analgesia and antiemesis
-Plan for surgery consultation for cholecystectomy
#Chronic thrombocytopenia
-Platelet count on arrival was 55, no signs or symptoms of bleeding or clotting
-Platelet count on average seems to be near 80-90, which may represent baseline
-With previous drinking history, question if she has cirrhosis, imaging showed splenomegaly
-No recent heparin, suspicion for HIT very low; suspicion for hemolysis low
-Stable and chronic
#ASCVD
#HLD
-Diffuse vascular disease with CAD/PAD/carotid disease/CVA history
-Current medications do not include aspirin or statin currently
-No signs of acute ischemia causing this presentation
#Aortic stenosis
-No recent TTE/CLAU in system, last was in 2018
-Suspect this is not clinically severe disease per exam
#Hypertension
-Home medications include lisinopril, carvedilol, amlodipine
-No known hypertensive systemic disease, last echo without LVH
-Blood pressure on arrival 121/61 mmHg
#Alcohol use
-Previously was a heavy drinker though denies current heavy usage
-Will monitor for signs of withdrawal, consider as needed Ativan
#H/O nonischemic cardiomyopathy
-Unclear etiology; mentioned to not be ischemic even despite extensive ASCVD history; last TTE with LVEF >55%
-Home medications currently include NEEL inhibitor, beta-loretta; no statin or antiplatelet therapy
-Is not currently on any standing dose diuretic therapy
DVT prophylaxis: SCDs
Diet: Clear liquids, n.p.o. after midnight
CODE STATUS: Full code
Anticipated Discharge: > 48 hours
Subjective/Interval History
-
Date of Service: October 01, 2023
Seen and examined at the bedside. She states that she feels well and wants to go home. LFTs continue to rise with jump in bilirubin this morning. MRCP demonstrating evidence of choledocholithiasis with 4 stones mentioned in the CBD with
associated CBD dilation.
When speaking with the patient she denies any fevers or chills, chest pain, shortness of breath, palpitations, lightheadedness, nausea or vomiting, diarrhea, paresthesias, abdominal pain. Did have some reproducible epigastric pain to palpation
Objective Data
-
Labs:
Laboratory Results
10/01/23
06:46
WBC 3.5 L
Hgb 11.5 L
Hct 33.8 L
Plt Count 40 L D
PT 15.3 H
INR 1.20
Sodium 139
Potassium 4.2
Chloride 110 H
Carbon Dioxide 25
BUN 7
Creatinine 0.7
Glucose 93
Calcium 9.1
Total Bilirubin 6.5 H D
AST 176 H
ALT 91 H
Alkaline Phosphatase 156 H
Vital Signs:
Vital Signs
Temp Pulse Resp BP Pulse Ox
98.3 F 75 12 128/55 95
10/01/23 07:05 10/01/23 09:14 10/01/23 07:05 10/01/23 09:14 10/01/23 11:20
I&O
09/30/23 10/01/23 10/02/23
06:59 06:59 06:59
Intake Total 480 / 480
Output Total 200 / 200
Balance 280 / 280
Review of Systems
-
History Source: Patient
All other systems: Reviewed and negative
Physical Exam
-
General: No Apparent Distress, Comfortable and Obese; Negative Pain
HEENT: Normocephalic, Atraumatic, Moist Mucous Membranes and Anicteric
Respiratory: Clear to Auscultation and Non Labored Respirations; Negative Wheezes, Rales or Rhonchi
Cardiac: Regular Rhythm, S1/S2 and Murmur (2/6 ROYA at RUSB)
GI: Soft, Nondistended, Normal Bowel Sounds and Tender (Tenderness to deep epigastric palpation, no peritoneal signs)
Musculoskeletal: No Clubbing, No Cyanosis and No Edema
Skin: Warm and Dry; Negative Rash or Jaundice
Neuro: AO x 3, Nonfocal/Grossly Intact and Central Nerve's Intact
Data Reviewed
-
MRI: Report Reviewed by me
Labs: Labs Reviewed by me and Discussed with Patient
[2023-10-01] MEDS: TYLENOL 650 MG PO ×2 (13:43→20:26)
[2023-10-01 15:10] VITALS: BP 115/57
[2023-10-01] MEDS: COREG 3.125 MG PO (20:25)
[2023-10-01] MEDS: ZESTRIL 20 MG PO (20:27)
[2023-10-01] MEDS: NEURONTIN 800 MG PO (22:11)
[2023-10-01 23:34] VITALS: BP 105/59
[2023-10-02] VITALS (15 sets, daily range): BP systolic 112–152; BP diastolic 46–69; BMI 33.5
[2023-10-02] MEDS: LR 1000 IV ×2 (01:16→09:18)
--- NOTE | 2023-10-02 08:12 | CON.ONC ---
Documented by User: JESÚS Paula 10/02/23 10:28
Impression
Impression
-acute onset of epigastric abdominal pain
-elevated LFT's and lipase
-thrombocytopenia
-mild normocytic anemia
-leukopenia/lymphopenia
-splenomegaly
Plan
Plan
acute pancreatitis per GI
check DIC panel
monitor for infection
check iron studies, retic, B12, folate
Consider platelet transfusion prior to ERCP if platelet count <50,000 to reduce risk of bleeding
Patient History
History of Present Illness
Consulted by Dr. Steven Ellison
Consult reason thrombocytopenia
73yo female presented 09/29 with acute onset abdominal pain. Her symptoms started at 8am upon awaking on the day of presentation. She tells me that her discomfort is in her epigastric region and associated with nausea, and vomiting x1 prior to
eating breakfast. The pain was initially intermittent, however, her son was concerned for a cardiac etiology of pain so called EMS. Initial evaluation showed platelet count of 55, ALP 171, total bilirubin 4.3, AST 212, ALT 92, lipase 4000. In the
ED she was started on IV fluids, given 40 mg pantoprazole and 4 mg IV Zofran. Her CT ab/pelvis without contrast shows an enlarged spleen at 16cm, possible acute pancreatitis , multicystic b/l true pelvic lesions measuring 8cm on the right and 4cm on
the left, possible mild bilateral renal atrophy, bilateral subcentimeter low-attenuation renal lesions too small to characterize. MRI of the abdomen revealed Choledocholithiasis with 4 stones present in the common bile duct with the largest
measuring 7 mm. There is associated dilation of the common bile duct measuring 8 mm. There is peripancreatic edema likely due to acute pancreatitis. There are multiple enlarged upper abdominal lymph nodes measuring up to 1.2 cm in short axis which
are likely reactive. There is a 1.1 cm stone within the right UPJ with associated mild right-sided hydronephrosis. There are additional left-sided UPJ stones measuring up to 7 mm without associated hydronephrosis. There is edema and enhancement
along the bilateral ureters which may be due to the above-described stones however infection cannot be excluded. Partially visualized multiseptated cystic lesions within the bilateral adnexa, larger on the right. 7 mm T2 hyperintense focus within
the lateral right hepatic lobe which demonstrates enhancement. This is nonspecific and may represent small shunt or a small flash filling hemangioma however consider follow-up to ensure stability.
Thrombocytopenia appears somewhat intermittent and perhaps chronic with platelet count 60-70,000 in September 2020 and 45-120,000 in November 2017. She also chronic leukopenia and anemia. Leukopenia seems more related to lymphopenia. Hgb range in
2017 was 7.5g/dL-9.5g/dL. Hgb range in 2020 was 11.5g/dL-12.6g/dL. There results reflect hospitalizations that she was treated for infections. She had a liver biopsy December 2017 that was diagnostic for chronic hepatitis, portal fibrosis, acute
pericholangitis, and mild bile duct proliferation.
Clinically, denies fever, chills, cough, sob at rest, weight loss, or changes in appetite. Her nausea has resolved. She reports bedbound at baseline. She denies any overt bleeding.
Afebrile, no hypoxia, no hypotension
Past-Medical/Surgical History
Past Medical History: CVA (left sided weakness ), HTN, Hypercholesterolemia, Valvular Disease (), Psychiatric (depression ) and Other (Nonischemic cardiomyopathy, Fracture ankle, GJ tube with initial T fastener placement, gastroparesis,
esophagitis, C-diff, gastritis, duodenitis, chronic thrombocytopenia)
Past Surgical History: Gynecological (hysterectomy)
Social Former 'heavy' ETOH, now 1-2 ETOH weekly, retired, non-smoker
Family: non-contributory
Patient Medication
�Medication �Instructions �Recorded �Confirmed �Last Taken �Type
amlodipine 10 mg tablet 10 mg PO DAILY Blood pressure 10/21/20 09/30/23 Unknown History
carvedilol 3.125 mg tablet 3.125 mg PO BID Heart Failure 10/21/20 09/30/23 10/21/20 History
famotidine 20 mg tablet 20 mg PO DAILYPRN PRN indigestion 10/23/20 09/30/23 Unknown History
lisinopril 20 mg tablet 20 mg PO HS Blood pressure 10/23/20 09/30/23 Unknown History
multivitamin-ferrous 1 ea PO DAILY Supplement 10/23/20 09/30/23 09/29/23 History
fumarate-folic acid 18 mg-400 mcg
tablet (Centrum)
potassium chloride 10 mEq 10 meq PO DAILY ##30 10/24/20 09/30/23 09/29/23 Rx
tablet,extended release
sodium bicarbonate 650 mg tablet 650 mg PO BID #100 tabs 10/24/20 09/30/23 09/29/23 Rx
cholecalciferol (vitamin D3) 25 25 mcg PO DAILY 09/30/23 09/30/23 Unknown History
mcg (1,000 unit) tablet (Vitamin
D3)
gabapentin 400 mg capsule 800 mg PO HS 09/30/23 09/30/23 09/29/23 History
Active Medications
Generic Name Dose Route Start Last Admin
Trade Name Freq PRN Reason Stop Dose Admin
Acetaminophen 650 mg 09/30/23 18:46 10/01/23 20:26
Acetaminophen 325 Mg Tablet PO 10/28/23 18:45 650 mg
Q6HPRN PRN Administration
mild pain/ fever>100.5F
Amlodipine Besylate 10 mg 10/01/23 08:00 10/01/23 09:14
Amlodipine 10 Mg Tablet PO 10/29/23 07:59 Not Given
DAILY AMANDEEP
Carvedilol 3.125 mg 09/30/23 20:00 10/01/23 20:25
Carvedilol 3.125 Mg Tablet PO 10/28/23 19:59 3.125 mg
BID AMANDEEP Administration
Cholecalciferol 25 mcg 10/01/23 08:00 10/01/23 09:14
Cholecalciferol (Vitamin D3) 25 Mcg Tablet (1,000 Units) PO 10/29/23 07:59 Not Given
DAILY AMANDEEP
Famotidine 20 mg 09/30/23 17:54
Famotidine 20 Mg Tablet PO 10/28/23 17:53
DAILYPRN PRN
indigestion
Gabapentin 800 mg 09/30/23 22:00 10/01/23 22:11
Gabapentin 400 Mg Capsule PO 10/28/23 21:59 800 mg
HS AMANDEEP Administration
Lactated Ringer's 1,000 mls @ 150 mls/hr 10/02/23 02:00 10/02/23 03:04
Lr IV Not Given
.[id number] AMANDEEP
Lactated Ringer's 1,000 mls @ 80 mls/hr 10/02/23 08:00
Lr IV
.[id number] AMANDEEP
Lisinopril 20 mg 09/30/23 22:00 10/01/23 20:27
Lisinopril 20 Mg Tablet PO 10/28/23 21:59 20 mg
HS AMANDEEP Administration
Miconazole Nitrate 0 applic 10/01/23 08:00 10/01/23 20:28
Miconazole Powder Bottle TOPICAL 10/29/23 07:59 1 applic
BID AMANDEEP Administration
Morphine Sulfate 2 mg 09/30/23 17:54
Morphine 2 Mg/Ml Syringe IV 10/14/23 17:53
Q6HPRN PRN
Severe pain
Morphine Sulfate 1 mg 09/30/23 17:54
Morphine 2 Mg/Ml Syringe IV 10/14/23 17:53
Q6HPRN PRN
moderate pain
Ondansetron HCl 4 mg 09/30/23 18:45
Ondansetron 4 Mg/2 Ml Vial IV 10/28/23 18:44
Q6HPRN PRN
NAUSEA/VOMITING
Sodium Chloride 0 flush 09/30/23 22:00
Sodium Chloride 0.9% (Flush) Syringe IV 10/28/23 21:59
PER PROTOCOL AMANDEEP
Review of Systems
-
Review of systems notable for HPI, otherwise negative
Physical Exam
-
General: No Apparent Distress and Conversant
HEENT: Moist Mucous Membranes and Other (no teeth); Negative Jaundice
Cardiology: S1 and S2
Pulmonary: Clear
GI: Soft
Extremities: Pulses Present and Other (poor podiatry care); Negative Edema
Neurology: Other (left hemiparesis)
Skin: Warm
Labs
Lab Results
WBC 3.5 10^3/uL (4.8-10.8) L 10/01/23 06:46
RBC 3.51 10^6/uL (4.20-5.40) L 10/01/23 06:46
Hgb 11.5 g/dL (12.0-16.0) L 10/01/23 06:46
Hct 33.8 % (37.0-47.0) L 10/01/23 06:46
MCV 96.3 fL (81.0-99.0) 10/01/23 06:46
MCH 32.8 pg (27.0-31.0) H 10/01/23 06:46
MCHC 34.0 g/dL (33.0-37.0) 10/01/23 06:46
RDW 14.2 % (11.5-14.5) 10/01/23 06:46
Plt Count 40 10^3/uL (130-400) L D 10/01/23 06:46
MPV 10.7 fL (7.4-10.4) H 10/01/23 06:46
Abs Immat Gran (auto) 0.0 10^3/uL (0-0.05) 10/01/23 06:46
Absolute Neuts (auto) 2.6 10^3/uL (1.4-6.5) 10/01/23 06:46
Absolute Lymphs (auto) 0.6 10^3/uL (1.2-3.4) L 10/01/23 06:46
Absolute Monos (auto) 0.3 10^3/uL (0.1-0.6) 10/01/23 06:46
Absolute Eos (auto) 0.0 10^3/uL (0-0.7) 10/01/23 06:46
Absolute Basos (auto) 0.0 10^3/uL (0-0.2) 10/01/23 06:46
Immature Gran % 0.3 % (0-0.5) 10/01/23 06:46
Neutrophils % 73.2 % (42.2-75.2) 10/01/23 06:46
Lymphocytes % 17.9 % (20.5-51.1) L 10/01/23 06:46
Monocytes % 7.4 % (1.7-9.3) 10/01/23 06:46
Eosinophils % 0.9 % (0-6) 10/01/23 06:46
Basophils % 0.3 % (0-2) 10/01/23 06:46
Creatinine 0.7 mg/dL (0.6-1.0) 10/01/23 06:46
Vital Signs
Vital Signs
Temp Pulse Resp BP Pulse Ox
97.9 F 61 18 105/59 96
10/01/23 23:34 10/01/23 23:34 10/01/23 23:34 10/01/23 23:34 10/01/23 23:34

Documented by User: Steven Pearl MD 10/02/23 12:34
Plan
Plan
acute pancreatitis per GI
check DIC panel
monitor for infection
check iron studies, retic, B12, folate
Consider platelet transfusion prior to ERCP if platelet count <50,000 to reduce risk of bleeding
Hematology Addendum:
Patient seen and evaluated and agree w/ DATA PROCESSOR note and plan as outlined
-chronic thrombocytopenia dating back several years w/ h/o chronic liver disease
-plts lower than baseline - 39,000 today - potentially related to ongoing gallstone pancreatitis
-for plt transfution prior to ERCP today
-additional laboratory studies pending
-follow CBC
[2023-10-02 08:16] LABS: INR 1.23; PT 15.4 Sec (11.4-14.6)
[2023-10-02 08:36] LABS: % Basophils 0.3 % (0-2); % Eosinophils 1.7 % (0-6); % Immature Granulocytes 0.3 % (0-0.5); % Lymphocytes 18.6 % (20.5-51.1); % Monocytes 7.8 % (1.7-9.3); % Neutrophils 71.3 % (42.2-75.2); Absolute Eosinophils 0.1 10^3/uL (0-0.7); Absolute Lymphocytes 0.6 10^3/uL (1.2-3.4); Absolute Monocytes 0.2 10^3/uL (0.1-0.6); Absolute Neutrophils 2.1 10^3/uL (1.4-6.5); Hematocrit 33.4 % (37.0-47.0); Hemoglobin 11.7 g/dL (12.0-16.0); Mean Corpuscular Hgb 33.4 pg (27.0-31.0); Mean Corpuscular Volume 95.4 fL (81.0-99.0); Mean Platelet Volume 11.8 fL (7.4-10.4); Nucleated Red Blood Cells % 0 %; Platelet Count 39 10^3/uL (130-400); Red Cell Dist. Width 14.1 % (11.5-14.5)
[2023-10-02 08:55] LABS: ALT (SGPT) 106 U/L (0-35); AST (SGOT) 211 U/L (14-36); Alkaline Phosphatase 160 U/L (38-126); Blood Urea Nitrogen 5 mg/dl (7-17); Calcium 8.8 mg/dl (8.4-10.2); Carbon Dioxide 27 mmol/L (22-30); Chloride 109 mmol/L (98-107); Direct Bilirubin 4.9 mg/dl (0.0-0.4); Estimated Creatinine Clearance 89 ml/min; Glucose 88 mg/dl (70-99); Lipase 226 U/L (23-300); Potassium 3.9 mmol/L (3.5-5.1); Sodium 139 mmol/L (135-145); Total Bilirubin 6.6 mg/dl (0.2-1.3); Total Protein 6.5 g/dl (6.3-8.2); eGFR > 60.00
[2023-10-02 09:00] LABS: Fibrinogen 306 MG/DL (199-459)
[2023-10-02 09:03] LABS: D-Dimer 0.55 ug/mlFEU (0.00-0.50)
[2023-10-02] MEDS: NORVASC 10 MG PO (09:18)
[2023-10-02] MEDS: COREG 3.125 MG PO ×2 (09:18→20:20)
[2023-10-02] MEDS: VITAMIN D3 (cholecalciferol) 25 MCG PO (09:18)
[2023-10-02] MEDS: DESENEX/MITRAZOL/ZEASORB 1 APPLIC TOPICAL ×2 (09:19→20:21)
--- NOTE | 2023-10-02 09:47 | CON.GS ---
Addendum entered and electronically signed by Paul Byrd MD 10/02/23 13:46:
Patient is a 73 yo F with a PMH of HTN, , CVA with residual LEFT hemiparesis, chronic thrombocytopenia, s/p MATTHEW, and prior issues with failure to thrive and gastroparesis s/p endoscopically placed G-tube by Dr. Tony back in 2018. Ms. Patrick
presented to the hospital with upper abdominal pain radiating to her back. Symptoms came on acutely 2 days ago. She reports persistent discomfort. She denies any prior attacks of epigastric or RUQ abdominal pain. She denies any issues with
tolerating oral intake. No nausea or vomiting. No fevers or chills. She denies any jaundice, pale stools, or tea colored urine.
Gen: NAD
Abd: soft, tender to palpation in epigastrium, obese, non-peritoneal, prior G-tube site well healed
Patient is a 73 yo F p/w choledocholithiasis and gallstone pancreatitis
Natural history and pathophysiology of biliary and stone disease was briefly reviewed. The role of cholecystectomy in preventing future episodes of cholecystitis, choledocholithiasis, gallstone pancreatitis was reviewed. She is at increased risk
for operative complications given her obesity, thrombocytopenia, and general medical condition. Plans for ERCP with stent placement today. She will need clearance of her CBD at a later date following correction of her thrombocytopenia. Timing and
desire to proceed with cholecystectomy TBD. Will continue to follow.
-- GI consult noted, plan for ERCP today
-- NPO, IVF
-- Zosyn
-- Timing of cholecystectomy TBD
Original Note:
Consultation
-
Date/Time Consultation Requested: 10/02/23 0802
Requesting Provider: Jeet
Reason for Consultation: Eval for Cholecystectomy, Gallstone panc/choledocho
Medical History
-
Chief Complaint: Abdominal discomfort
History of Present Illness:
Ms Patrick is a 73 yo female with a h/o CVA with residual left hemiparesis, HTN, , known to our service from an admission in 2018 with FTT with endoscopically placed G-tube by Dr. Tony at that time which has subsequently been removed who
presented 2 days ago with upper right/epigastric abdominal pain which radiated into her back. She notes she began vomiting on admission but denies active nausea. She has been afebrile with stable vital signs. She notes pain has improved since
presentation. She has had elevated LFT's in the past in the setting of heavy ETOH use with significantly elevated LFTs this admission as well with MRCP done in follow up demonstrating choledocholithiasis. She is seen in evaluation today for
discussion of cholecystectomy.
Past Medical History
Past Medical History: CVA (left hemiparesis ), HTN, Valvular Disease (as) and Other (NICM, gastroparesis, thrombocytopenia)
Past Surgical History: Gynecological (MATTHEW) and Other (G-tube for FTT 2018: subsequently removed)
Social History
Tobacco: Non-Smoker
Alcohol: Occasional (former heavy drinker now drinks twisted tea about once a week)
Living: With Family (lives with her son)
Family History
Family History: Reviewed & Not Pertinent
Allergies / Home Medications
Allergy/AdvReac Type Severity Reaction Status Date / Time
No Known Drug Allergies Allergy Unknown Verified 10/21/20 16:31
�Medication �Instructions �Recorded �Confirmed �Type
amlodipine 10 mg tablet 10 mg PO DAILY Blood pressure 10/21/20 09/30/23 History
carvedilol 3.125 mg tablet 3.125 mg PO BID Heart Failure 10/21/20 09/30/23 History
famotidine 20 mg tablet 20 mg PO DAILYPRN PRN indigestion 10/23/20 09/30/23 History
lisinopril 20 mg tablet 20 mg PO HS Blood pressure 10/23/20 09/30/23 History
multivitamin-ferrous 1 ea PO DAILY Supplement 10/23/20 09/30/23 History
fumarate-folic acid 18 mg-400 mcg
tablet (Centrum)
potassium chloride 10 mEq 10 meq PO DAILY ##30 10/24/20 09/30/23 Rx
tablet,extended release
sodium bicarbonate 650 mg tablet 650 mg PO BID #100 tabs 10/24/20 09/30/23 Rx
cholecalciferol (vitamin D3) 25 25 mcg PO DAILY 09/30/23 09/30/23 History
mcg (1,000 unit) tablet (Vitamin
D3)
gabapentin 400 mg capsule 800 mg PO HS 09/30/23 09/30/23 History
Review of Systems
-
History Source: Patient
All other systems: Negative unless noted
A 10 point review of systems was completed, and was negative except as per HPI.
Physical Exam
Vital Signs
Temp Pulse Resp BP Pulse Ox
99.3 F 70 16 131/60 94
10/02/23 07:05 10/02/23 09:18 10/02/23 07:05 10/02/23 09:18 10/02/23 09:11
10/01/23 10/02/23 10/03/23
06:59 06:59 06:59
Actual Weight 84.425 kg 85.814 kg
Body Mass Index (BMI) 33.5
Lab Results
10/02/23 06:57
10/02/23 06:57
WBC 3.0 10^3/uL (4.8-10.8) L 10/02/23 06:57
Hgb 11.7 g/dL (12.0-16.0) L 10/02/23 06:57
Hct 33.4 % (37.0-47.0) L 10/02/23 06:57
Plt Count 39 10^3/uL (130-400) L 10/02/23 06:57
Abs Immat Gran (auto) 0.0 10^3/uL (0-0.05) 10/02/23 06:57
Neutrophils % 71.3 % (42.2-75.2) 10/02/23 06:57
Physical Exam
General: Well Developed and Comfortable
HEENT: Moist Mucous Membranes
Respiratory: Non Labored Respirations
GI: Soft, Tender (mild epigastric) and Other (enlarged liver)
Skin: Warm and Dry
Neuro: Awake, Alert, AO x 3 and Other (left facial droop/hemiparesis)
Data Reviewed
-
CT Scan: Image Personally Visualized and interpreted, Report Reviewed by me, Discussed with Physician and Discussed with Patient
MRI: Image Personally Visualized and interpreted, Report Reviewed by me, Discussed with Physician and Discussed with Patient
Labs: Labs Reviewed by me, Discussed with Physician and Discussed with Patient
Old Records: Reviewed
Assessment / Plan
-
Ms Patrick is a 73 yo female with a h/o CVA with residual left hemiparesis, HTN, , G-tube by Dr. Tony for FTT in 2018 which was subsequently able to be removed and prior ETOH abuse now reporting 1-2x week ETOH consuption who presented with
epigastric and right abdominal pain radiating into her back
AFVSS
She has had elevated LFT's in the past in the setting of heavy ETOH use with significantly elevated LFTs this admission as well.
MRCP with choledocholithiasis with no further stones noted within the gallbladder with no acute cholecystitis. Incidentally there are bilateral UPJ stones on the MRCP vs pelvic calcifications noted on CT on admission.
ERCP planned with gastroenterology today
Acute on chronic thrombocytopenia present and being followed by hematology
--Ongoing discussion with patient and family regarding if benefit of surgical cholecystectomy to prevent future stones outweigh risks. Will follow her recovery from ERCP expectantly.
--Appreciate hematology addressing thrombocytopenia, currently platelets too low for surgery
--Medical management as per primary team
--- NOTE | 2023-10-02 10:56 | W.PN.HOSP.TC ---
Addendum entered and electronically signed by Steven Ellison DO 10/02/23 11:02:
Subjective: Seen at the bedside, no acute events overnight. She denies any active pain, denies nausea or vomiting as well. Denies any acute complaints, ERCP planned for today.
ROS: Negative unless otherwise stated above
Physical exam:
NAD, AAO x 4 obese female
Clear to auscultation, nonlabored breathing
RRR, normal S1 and S2, 2/6 ROYA at RUSB
Soft, nontender to deep palpation, nondistended, slightly reduced bowel sounds
No gross deformity, 2+ pulses, no edema
No new focal deficits, cranial nerves grossly intact
Calm, oriented
Original Note:
Today's Communication/Plan
-
Transfusion of platelets for goal >50,000 with ERCP plan
ERCP to be performed today
Surgery consulted for cholecystectomy consideration
Trend LFTs daily
Assessment / Plan
Assessment / Plan
#Acute gallstone pancreatitis -- Colby score 0, Whittier score low
#Choledocholithiasis
-Presented with epigastric pain, cholestatic LFT elevation with worsening this morning
-Associated with nausea, CT A/P showed pancreatic inflammation, lipase >4000
-Does still have her gallbladder, previous scans showed sludge though suspicion for stones remains high
-MRCP this morning showed 4 gallstones in the CBD with CBD dilation
-Remains on IV fluids at 150 mL/h, clinically her pain has improved labs were sent
-Remains hemodynamically stable, no fevers, WBC count stable
Plan
-Continue IVF maintenance fluids at 150 mL/h for goal Hct <44%
-Trend daily LFTs, avoid hepatotoxic agents as able
-NPO pending GI evaluation today, likely need ERCP
-PRNs for analgesia and antiemesis
-Plan for surgery consultation for cholecystectomy
#Thrombocytopenia -- suspect chronic, previous labs with baseline 70-90
-Platelet count on arrival was 55, no signs or symptoms of bleeding or clotting
-With EtOH history, question if she has cirrhosis, imaging showed splenomegaly
-No recent heparin, suspicion for HIT very low; suspicion for hemolysis low
-Hematology following, recommended nutritional workup and R/O with DIC
-DIC panel was unremarkable, nutritional panel ordered for tomorrow morning
-Ordered unit of platelets for transfusion, with ERCP plan today
Plan
-Follow-up iron studies, reticulocytes, B12, folate tomorrow morning
-Monitor daily PT/INR, PTT, fibrinogen level
-Trend CBC, supportive transfusions as needed
#ASCVD
#HLD
-Diffuse vascular disease with CAD/PAD/carotid disease/CVA history
-Current medications do not include aspirin or statin currently
-No signs of acute ischemia causing this presentation
#Aortic stenosis
-No recent TTE/CLAU in system, last was in 2018
-Suspect this is not clinically severe disease per exam
#Hypertension
-Home medications include lisinopril, carvedilol, amlodipine
-No known hypertensive systemic disease, last echo without LVH
-Blood pressure on arrival 121/61 mmHg
#Alcohol use
-Previously was a heavy drinker though denies current heavy usage
-Will monitor for signs of withdrawal, consider as needed Ativan
#H/O nonischemic cardiomyopathy
-Unclear etiology; mentioned to not be ischemic even despite extensive ASCVD history; last TTE with LVEF >55%
-Home medications currently include NEEL inhibitor, beta-loretta; no statin or antiplatelet therapy
-Is not currently on any standing dose diuretic therapy
DVT prophylaxis: SCDs
Diet: Clear liquids, n.p.o. after midnight
CODE STATUS: Full code
Anticipated Discharge: 24 - 48 hours
Subjective/Interval History
-
Date of Service: October 02, 2023
Objective Data
-
Labs:
Laboratory Results
10/02/23
06:57
WBC 3.0 L
Hgb 11.7 L
Hct 33.4 L
Plt Count 39 L
PT 15.4 H
INR 1.23
Sodium 139
Potassium 3.9
Chloride 109 H
Carbon Dioxide 27
BUN 5 L
Creatinine 0.6
Glucose 88
Calcium 8.8
Total Bilirubin 6.6 H
AST 211 H
ALT 106 H
Alkaline Phosphatase 160 H
Vital Signs:
Vital Signs
Temp Pulse Resp BP Pulse Ox
99.3 F 70 16 131/60 94
10/02/23 07:05 10/02/23 09:18 10/02/23 07:05 10/02/23 09:18 10/02/23 09:11
I&O
10/01/23 10/02/23 10/03/23
06:59 06:59 06:59
Intake Total 480 / 480 2220 / 2220
Output Total 200 / 200 1800 / 1800
Balance 280 / 280 420 / 420
[2023-10-02 11:00] LABS: Urine Albumin Negative (Neg - Trace); Urine Bilirubin Negative (Negative); Urine Character Clear (Clear); Urine Color Yellow; Urine Glucose Negative (Negative); Urine Ketone Negative (Negative); Urine Leukocyte Negative (Negative); Urine Nitrite Negative (Negative); Urine Occult Blood 1+ (Negative); Urine Urobilinogen 1+ (Neg - 1+)
--- NOTE | 2023-10-02 11:06 | W.PN.UPDATE ---
Update Note
Progress Note Update
discussed with hematology, Dr. Vela and patient. Still with low platelets. Plan is platelet transfusion today then ERCP with stent placement for decompression. Will need repeat ERCP when Platelets improved for removal of stones. Pt agreeable
and aware of risk/benefits of procedure.
[2023-10-02 11:20] LABS: Urine Mucus Few; Urine Squamous Cell >30 /LPF (Few)
[2023-10-02 11:25] LABS: Urine Red Blood Cell 30-40 /HPF (0-2); Urine White Cell 0-2 /HPF (0-5)
--- NOTE | 2023-10-02 12:27 | PTOTSP ---
orders recieved, spoke with pt. pt reports being total care regarding functional, physical tasks. pt reports she spends most of her time in bed, lounge chair and requires total assistance for transfers. her son is her caregiver. pt declines any
acute OT needs, will sign off.
--- NOTE | 2023-10-02 12:56 | PTOTSP ---
Patient reports son is her caregiver and dependently transfers her occasionally to a wheelchair, she spends all her time in bed/lounge chair, physical therapy is not warranted, will sign off.
--- NOTE | 2023-10-02 14:22 | PTCARENOTE ---
Platelets unit # [id number] infusing via Rt AC site without sx of infiltration, VSS, no adverse reactions noted. Will continue to monitor.
--- NOTE | 2023-10-02 16:31 | PTCARENOTE ---
Pt AAO x3, moves Rt arm /leg; LUE/LLE hemiparesis; Lt arm contracted. Does not assist w/positioning. VSS. On room air- pulse ox 95%, no SOB noted. Abd obese, non-tender, pt remains NPO for ERCP. Incont large amts jairo urine; Purewick in place.
Platelet infusion completed without adverse effect. resting in bed at present; awaiting ERCP. IVF's RL @ 80 ml/hr infusing via Rt AC site without sx of infiltration. Will continue to monitor.
--- NOTE | 2023-10-02 18:39 | PTCARENOTE ---
Received pt from PACU s/p ERCP via stretcher, accompanied by PACU staff x2. Pt AAO x3, moves RUE/RLE; has Lt hemiparesis/Lt arm contracted. VSS. On room air- pulse ox 93%, lungs with decreased BS posteriorly, no SOB noted. Abd obese, soft, to
remain NPO except meds/ice chips. Incont urine, Purewick replaced. Afebrile, warm and dry, Lt sacral foam intact. IV RL @ 80 ml/hr infusing via Rt AC site without sx of infiltration. Resting comfortably at present. Will continue to monitor.
[2023-10-02] MEDS: ZESTRIL 20 MG PO (20:20)
[2023-10-02] MEDS: NEURONTIN 800 MG PO (22:07)
[2023-10-03 03:24] VITALS: BP 156/80
[2023-10-03] MEDS: LR 1000 IV (05:16)
[2023-10-03 05:52] VITALS: BMI 33.5
[2023-10-03 07:10] VITALS: BP 146/68
[2023-10-03] MEDS: COREG 3.125 MG PO ×2 (08:13→20:20)
[2023-10-03] MEDS: VITAMIN D3 (cholecalciferol) 25 MCG PO (08:13)
[2023-10-03] MEDS: NORVASC 10 MG PO (08:13)
[2023-10-03] MEDS: DESENEX/MITRAZOL/ZEASORB 1 APPLIC TOPICAL ×2 (08:13→20:19)
[2023-10-03] MEDS: LR IV (08:14)
[2023-10-03 08:23] LABS: APTT 33.5 Sec (23.4-35.0); INR 1.17; PT 14.7 Sec (11.4-14.6)
[2023-10-03 08:26] LABS: Fibrinogen 385 MG/DL (199-459)
[2023-10-03 08:52] LABS: ALT (SGPT) 95 U/L (0-35); AST (SGOT) 134 U/L (14-36); Albumin 3.1 g/dl (3.5-5.0); Alkaline Phosphatase 159 U/L (38-126); Blood Urea Nitrogen 10 mg/dl (7-17); Calcium 8.6 mg/dl (8.4-10.2); Carbon Dioxide 20 mmol/L (22-30); Chloride 108 mmol/L (98-107); Direct Bilirubin 1.9 mg/dl (0.0-0.4); Estimated Creatinine Clearance 89 ml/min; Glucose 120 mg/dl (70-99); Iron 67 ug/dl (37-170); Potassium 3.8 mmol/L (3.5-5.1); Sodium 136 mmol/L (135-145); Total Bilirubin 3.1 mg/dl (0.2-1.3); Total Protein 6.7 g/dl (6.3-8.2); eGFR > 60.00
[2023-10-03 08:55] LABS: Hematocrit 31.9 % (37.0-47.0); Hemoglobin 11.4 g/dL (12.0-16.0); Mean Corp Hgb Conc. 35.7 g/dL (33.0-37.0); Mean Corpuscular Hgb 33.8 pg (27.0-31.0); Mean Corpuscular Volume 94.7 fL (81.0-99.0); Mean Platelet Volume 11.6 fL (7.4-10.4); Platelet Count 49 10^3/uL (130-400); Red Blood Cell Count 3.37 10^6/uL (4.20-5.40); Red Cell Dist. Width 13.5 % (11.5-14.5); White Blood Cell Count 1.8 10^3/uL (4.8-10.8)
[2023-10-03 09:15] LABS: Percent Saturation 31 % (20-50); Total Iron Binding Capacity 211 ug/dl (265-497)
[2023-10-03 09:33] LABS: Vitamin B12 419 pg/ml (239-931)
[2023-10-03 09:57] LABS: % Immature Granulocytes 0.5 % (0-0.5); % Lymphocytes 16.3 % (20.5-51.1); % Monocytes 2.7 % (1.7-9.3); % Neutrophils 80.5 % (42.2-75.2); Absolute Lymphocytes 0.3 10^3/uL (1.2-3.4); Absolute Monocytes 0.1 10^3/uL (0.1-0.6); Absolute Neutrophils 1.5 10^3/uL (1.4-6.5); Nucleated Red Blood Cells % 0 %
[2023-10-03 10:09] LABS: Reticulocyte Count 2.4 % (0.4-2.8)
[2023-10-03 10:47] LABS: Folate 7.7 ng/ml (2.76-20)
--- NOTE | 2023-10-03 11:30 | W.PN.GI.CBS2 ---
Today's Communication / Plan
-
clear liquids
trend labs
repeat ERCP next week
Assessment / Plan
-
Pt is a 73yo with hx CVA with left sided weakness, , HTN, hypercholesterolemia, depression, nonischemic CM, prior GJ tube gastroparesis(now improved), c-diff, prior hysterectomy with onset of epigastric abdominal pain. No prior pain in past.
Pain was severe up to 10/02 and improved after ER evaluation. On admission noted with K 3.4, with elevated LFT's and lipase( bili 4.3, AST 212, ALT 92, alk phos 171 and lipase >4000). Pt also noted with continued low platelets 55,000.
-sudden onset of epigastric abdominal pain
-elevated LFT's and lipase
-thrombocytopenia, etiology unclear
-hypokalemia
other medical problems:
-CVA
-
-HTN
-GERD
-hypercholesterolemia
-depression
-non ischemic CM
-prior GJ tube
-gastroparesis
-c-diff
-hysterectomy
PLAN:
Acute GS pancreatitis with choledocholithiasis
Status post ERCP 10/01 with stent placement, sphincterotomy not performed because of thrombocytopenia.
LFTS are trending down and pain is improved, lipase normalized
Will need repeat ERCP next week once platelet count is improved with Dr. Berman to remove the stones and for sphincterotomy
Eventual cholecystectomy timing per surgery
Will start clear liquids today and advance to low-fat diet as tolerated
Now also with leukopenia hematology on board
Check IgG4- P, nl Calcium and TG nl
Subjective
Subjective
Date of Service: October 03, 2023
Denies abdominal pain, status post ERCP yesterday with stent placement, LFTs are trending down
Objective
Data Reviewed
Laboratory Data:
Laboratory Results
10/03/23 06:52
10/03/23 06:52
Laboratory Results
PT 14.7 Sec (11.4-14.6) H 10/03/23 06:52
INR 1.17 10/03/23 06:52
APTT 33.5 Sec (23.4-35.0) 10/03/23 06:52
Total Bilirubin 3.1 mg/dl (0.2-1.3) H D 10/03/23 06:52
AST 134 U/L (14-36) H 10/03/23 06:52
ALT 95 U/L (0-35) H 10/03/23 06:52
Alkaline Phosphatase 159 U/L (38-126) H 10/03/23 06:52
Lipase 226 U/L (23-300) 10/02/23 06:57
Vital Signs and I&O:
Vital Signs
Temp Pulse Resp BP Pulse Ox
97.3 F 60 16 143/65 100
10/03/23 07:10 10/03/23 08:13 10/03/23 07:10 10/03/23 08:13 10/03/23 10:12
I&O
10/02/23 10/03/23 10/04/23
06:59 06:59 06:59
Intake Total 2220 / 2220 1309 / 1309
Output Total 1800 / 1800 1450 / 1450
Balance 420 / 420 -141 / -141
10/02/23 ERCP
Impression: - A filling defect consistent with multiple stones was
seen on the cholangiogram.
- The common bile duct was moderately dilated.
- The examination was suspicious for
choledocholithiasis. Removal was not attempted (
severe thrombocytopenia- platelets this am 39k )
- One plastic stent was placed into the common bile
duct.
Physical Exam
Physical Exam
Cardiology: Normal Sinus Rhythm and Murmur (ROYA)
Pulmonary: Clear
GI: Soft, Non Distended, Non Tender and Normal Bowel Sounds
--- NOTE | 2023-10-03 12:03 | W.PN.HOSP.TC ---
Today's Communication/Plan
-
Trend daily LFTs and CBC
Plan for repeat ERCP next week
Planning for cholecystectomy with surgery
Supportive transfusions of platelets as needed for procedures
Assessment / Plan
Assessment / Plan
#Acute gallstone pancreatitis -- Col[place] score 0, [place] score low
#Choledocholithiasis -- S/P ERCP with biliary stent
-Associated with nausea, CT A/P showed pancreatic inflammation, lipase >4000
-MRCP showed 4 gallstones in the CBD with CBD dilation; no signs of extrinsic compression on CT
-Was treated with aggressive IV fluids, analgesics for pancreatitis; GI consulted for ERCP
-S/p ERCP with stent placement yesterday, LFTs downtrending today, lipase normalized
-Remains hemodynamically stable, no fevers
Plan
-Plan for repeat ERCP and stone removal next week
-Trend daily LFTs, avoid hepatotoxic agents as able
-Continue with clear liquid diet for now
-PRNs for analgesia and antiemesis
-Planning for cholecystectomy with surgery
#Pancytopenia -- Likely multifactorial; chronic thrombocytopenia, mild anemia, new leukopenia
#Chronic thrombocytopenia -- suspect chronic, previous labs with baseline 70-90 though has been normal on occasion
-No signs of iron deficiency or other nutritional deficiency on labs today; labs yesterday without signs of DIC
-Previous labs do show chronicity to thrombocytopenia, previously in 70-90 range
-Developed a new leukopenia this morning; hemoglobin has been stable and mildly low
-Suspect leukopenia is reactive to her choledocholithiasis/pancreatitis
Plan
-Heme following, can consider outpatient bone marrow biopsy if indicated
-Will defer full serological workup for now
-Trend daily CBC, supportive transfusions if needed
-Platelet goal for ERCP, cholecystectomy >50
#ASCVD
#HLD
-Diffuse vascular disease with CAD/PAD/carotid disease/CVA history
-Current medications do not include aspirin or statin currently
-No signs of acute ischemia causing this presentation
#Aortic stenosis
-No recent TTE/CLAU in system, last was in 2018
-Suspect this is not clinically severe disease per exam
#Hypertension
-Home medications include lisinopril, carvedilol, amlodipine
-No known hypertensive systemic disease, last echo without LVH
-BP has been adequately controlled for hospitalization
#Alcohol use
-Previously was a heavy drinker though denies current heavy usage
-Will monitor for signs of withdrawal, consider as needed Ativan
#H/O nonischemic cardiomyopathy
-Unclear etiology; mentioned to not be ischemic even despite extensive ASCVD history; last TTE with LVEF >55%
-Home medications currently include NEEL inhibitor, beta-loretta; no statin or antiplatelet therapy
-Not currently on any standing dose diuretic therapy
DVT prophylaxis: SCDs
Diet: Clear liquids, n.p.o. after midnight
CODE STATUS: Full code
Anticipated Discharge: > 48 hours
Subjective/Interval History
-
Date of Service: October 03, 2023
Seen and examined at bedside. No acute events. ERCP yesterday with successful with stent placed. She feels well today and has no acute complaints. Denies any active abdominal pain, nausea, vomiting, diarrhea, other gastrointestinal complaints
including bleeding. She denies chest pain, shortness of breath, fevers or chills, paresthesias, weakness.
States that when she is able to eat real food again that she would like a bag of sour cream and onion chips. I advised her that she could have a diet as a treat when she is through this, but should not have that as part of her routine diet
Objective Data
-
Labs:
Laboratory Results
10/03/23
06:52
WBC 1.8 L*
Hgb 11.4 L
Hct 31.9 L
Plt Count 49 L D
PT 14.7 H
INR 1.17
APTT 33.5
Sodium 136
Potassium 3.8
Chloride 108 H
Carbon Dioxide 20 L
BUN 10
Creatinine 0.5 L
Glucose 120 H
Calcium 8.6
Total Bilirubin 3.1 H D
AST 134 H
ALT 95 H
Alkaline Phosphatase 159 H
Vital Signs:
Vital Signs
Temp Pulse Resp BP Pulse Ox
97.3 F 60 16 143/65 100
10/03/23 07:10 10/03/23 08:13 10/03/23 07:10 10/03/23 08:13 10/03/23 10:12
I&O
10/02/23 10/03/23 10/04/23
06:59 06:59 06:59
Intake Total 2220 / 2220 1309 / 1309
Output Total 1800 / 1800 1450 / 1450
Balance 420 / 420 -141 / -141
Review of Systems
-
History Source: Patient
All other systems: Reviewed and negative
Physical Exam
-
General: No Apparent Distress and Comfortable
HEENT: Normocephalic, Atraumatic, Moist Mucous Membranes and Anicteric
Respiratory: Clear to Auscultation and Non Labored Respirations
Cardiac: Regular Rhythm, S1/S2 and Murmur (Systolic, 3/6); Negative Rub or Gallop
GI: Soft, Nontender, Nondistended and Normal Bowel Sounds
Musculoskeletal: No Clubbing, No Cyanosis and No Edema
Skin: Warm and Dry; Negative Rash or Jaundice
Neuro: AO x 3, Nonfocal/Grossly Intact and Central Nerve's Intact
Data Reviewed
-
Labs: Labs Reviewed by me
[2023-10-03] MEDS: TYLENOL 650 MG PO (15:13)
[2023-10-03 15:16] VITALS: BP 136/56
--- NOTE | 2023-10-03 17:17 | CM ---
ELIZABETH met with Sonya to complete IA. She lives with her son in a ranch style home with no entry steps. Sonya's son is her caregiver. Sonya has been in need of total care at home; dependent with transfers, stays mainly in bed/recliner. She has also
had [facility] in the past.
CM will follow to coordinate needs based on hospital course. Sonya anticipates one of her sons will pick her up at discharge.
Plan: Discharge to home, possible referral to [facility].
[2023-10-03] MEDS: ZESTRIL 20 MG PO (21:20)
[2023-10-03] MEDS: NEURONTIN 800 MG PO (21:20)
[2023-10-03 23:43] VITALS: BP 139/64
[2023-10-04 04:15] LABS: IgG Subclass 4 80 mg/dL (1-123)
[2023-10-04 06:00] VITALS: BMI 33.7
[2023-10-04 07:05] VITALS: BP 134/65
[2023-10-04 08:01] LABS: % Immature Granulocytes 0.4 % (0-0.5); % Lymphocytes 17.9 % (20.5-51.1); % Neutrophils 75.7 % (42.2-75.2); Absolute Lymphocytes 0.5 10^3/uL (1.2-3.4); Absolute Monocytes 0.2 10^3/uL (0.1-0.6); Hematocrit 34.3 % (37.0-47.0); Mean Corpuscular Hgb 33.9 pg (27.0-31.0); Mean Corpuscular Volume 96.9 fL (81.0-99.0); Mean Platelet Volume 10.9 fL (7.4-10.4); Nucleated Red Blood Cells % 0 %; Platelet Count 59 10^3/uL (130-400); Red Blood Cell Count 3.54 10^6/uL (4.20-5.40); Red Cell Dist. Width 13.5 % (11.5-14.5); White Blood Cell Count 2.7 10^3/uL (4.8-10.8)
[2023-10-04 08:18] LABS: ALT (SGPT) 85 U/L (0-35); AST (SGOT) 118 U/L (14-36); Albumin 3.2 g/dl (3.5-5.0); Alkaline Phosphatase 163 U/L (38-126); Blood Urea Nitrogen 12 mg/dl (7-17); Carbon Dioxide 25 mmol/L (22-30); Chloride 109 mmol/L (98-107); Direct Bilirubin 1.4 mg/dl (0.0-0.4); Estimated Creatinine Clearance 90 ml/min; Glucose 102 mg/dl (70-99); Potassium 3.5 mmol/L (3.5-5.1); Sodium 139 mmol/L (135-145); Total Bilirubin 2.4 mg/dl (0.2-1.3); Total Protein 6.7 g/dl (6.3-8.2); eGFR > 60.00
[2023-10-04] MEDS: VITAMIN D3 (cholecalciferol) 25 MCG PO (08:37)
[2023-10-04] MEDS: NORVASC 10 MG PO (08:37)
[2023-10-04] MEDS: COREG 3.125 MG PO ×2 (08:39→19:55)
[2023-10-04] MEDS: DESENEX/MITRAZOL/ZEASORB 1 APPLIC TOPICAL ×2 (08:39→19:53)
[2023-10-04] MEDS: KCL 270 MEQ IV (08:40)
[2023-10-04] MEDS: TYLENOL 650 MG PO ×2 (08:41→16:08)
--- NOTE | 2023-10-04 10:44 | W.PN.HOSP.TC ---
Today's Communication/Plan
-
Start low-fat diet
Trend daily LFTs
Plan for ERCP with stone removal this week
Plan for cholecystectomy
Platelet goal >50
Assessment / Plan
Assessment / Plan
#Acute gallstone pancreatitis -- Colby score 0, [place] score low
#Choledocholithiasis -- S/P ERCP with biliary stent
-Associated with nausea, CT A/P showed pancreatic inflammation, lipase >4000
-MRCP showed 4 gallstones in the CBD with CBD dilation; no signs of extrinsic compression on CT
-Was treated with aggressive IV fluids, analgesics for pancreatitis; GI consulted for ERCP
-S/p ERCP with stent placement yesterday, LFTs downtrending today, lipase normalized
-Remains hemodynamically stable, no fevers, not symptomatic
Plan
-Plan for repeat ERCP and stone removal this week
-Trend daily LFTs, avoid hepatotoxic agents as able
-Continue with low-fat diet
-PRNs for analgesia and antiemesis
-Planning for cholecystectomy with surgery
#H/O Fatty liver -- Alcohol vs metabolic/NAFLD
-Patient states she has a history of fatty liver, unspecified etiology
-Suspect that this is progressed to cirrhosis with her blood counts
-Should have follow-up outpatient with GI for further evaluation, elastography
Plan
-Ordered lipid panel for tomorrow, consider statin
-Consider inpatient ultrasound if deemed beneficial
#Pancytopenia -- Likely multifactorial; chronic thrombocytopenia, mild anemia, new leukopenia
#Chronic thrombocytopenia -- suspect chronic, previous labs with baseline 70-90 though has been normal on occasion
-No signs of iron deficiency or other nutritional deficiency on labs today; labs yesterday without signs of DIC
-Developed a new leukopenia, suspect leukopenia is reactive to her choledocholithiasis/pancreatitis
-Improving, WBC count and platelets are both uptrending now
-Consider hematology follow-up, may need BM biopsy
-Platelet goal for procedures this week > 50
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
#HLD
-Diffuse vascular disease with CAD/PAD/carotid disease/CVA history
-Current medications do not include aspirin or statin currently
-No signs of acute ischemia causing this presentation
#Aortic stenosis
-No recent TTE/CLAU in system, last was in 2018
-Suspect this is not clinically severe disease per exam
#Hypertension
-Home medications include lisinopril, carvedilol, amlodipine
-No known hypertensive systemic disease, last echo without LVH
-BP has been adequately controlled for hospitalization
#Alcohol use
-Previously was a heavy drinker though denies current heavy usage
-Will monitor for signs of withdrawal, consider as needed Ativan
#H/O nonischemic cardiomyopathy
-Unclear etiology; mentioned to not be ischemic even despite extensive ASCVD history; last TTE with LVEF >55%
-Home medications currently include NEEL inhibitor, beta-loretta; no statin or antiplatelet therapy
-Not currently on any standing dose diuretic therapy
DVT prophylaxis: SCDs
Diet: Low-fat diet
CODE STATUS: Full code
Anticipated Discharge: > 48 hours
Subjective/Interval History
-
Date of Service: October 04, 2023
Seen and examined at bedside. No acute events. LFTs continue to downtrend. She feels well today and denies any acute complaints. No abdominal pain, no fevers or chills, no chest pain, no nausea/vomiting/diarrhea, no urinary issues.
She states that she wants to go home. I spoke with her about how finishing up her procedures here would likely prevent her from having to come back to the hospital, ultimately leading to her being home more.
Objective Data
-
Labs:
Laboratory Results
10/04/23
06:46
WBC 2.7 L
Hgb 12.0
Hct 34.3 L
Plt Count 59 L D
Sodium 139
Potassium 3.5
Chloride 109 H
Carbon Dioxide 25
BUN 12
Creatinine 0.6
Glucose 102 H
Calcium 9.0
Total Bilirubin 2.4 H
AST 118 H
ALT 85 H
Alkaline Phosphatase 163 H
Vital Signs:
Vital Signs
Temp Pulse Resp BP Pulse Ox
97.8 F 56 18 134/65 95
10/04/23 07:05 10/04/23 07:05 10/04/23 07:05 10/04/23 07:05 10/04/23 07:05
I&O
10/03/23 10/04/23 10/05/23
06:59 06:59 06:59
Intake Total 1309 / 1309 540 / 540
Output Total 1450 / 1450 1075 / 1075
Balance -141 / -141 -535 / -535
Review of Systems
-
History Source: Patient
All other systems: Reviewed and negative
Physical Exam
-
General: No Apparent Distress, Comfortable and Obese
HEENT: Normocephalic, Atraumatic, Moist Mucous Membranes and Anicteric
Respiratory: Clear to Auscultation and Non Labored Respirations; Negative Wheezes or Rales
Cardiac: Regular Rhythm, S1/S2 and Murmur; Negative Rub or Gallop
GI: Soft, Nontender, Nondistended and Normal Bowel Sounds
Musculoskeletal: No Clubbing, No Cyanosis and No Edema
Skin: Warm and Dry; Negative Rash or Jaundice
Neuro: AO x 3, Nonfocal/Grossly Intact and Central Nerve's Intact
Data Reviewed
-
Labs: Labs Reviewed by me and Discussed with Patient
--- NOTE | 2023-10-04 10:46 | W.PN.GI.CBS2 ---
Today's Communication / Plan
-
trend labs
low fat diet
Assessment / Plan
-
Pt is a 73yo with hx CVA with left sided weakness, , HTN, hypercholesterolemia, depression, nonischemic CM, prior GJ tube gastroparesis(now improved), c-diff, prior hysterectomy with onset of epigastric abdominal pain. No prior pain in past.
Pain was severe up to 10/02 and improved after ER evaluation. On admission noted with K 3.4, with elevated LFT's and lipase( bili 4.3, AST 212, ALT 92, alk phos 171 and lipase >4000). Pt also noted with continued low platelets 55,000.
-sudden onset of epigastric abdominal pain
-elevated LFT's and lipase
-thrombocytopenia, etiology unclear
-hypokalemia
other medical problems:
-CVA
-
-HTN
-GERD
-hypercholesterolemia
-depression
-non ischemic CM
-prior GJ tube
-gastroparesis
-c-diff
-hysterectomy
PLAN:
Acute GS pancreatitis with choledocholithiasis
Status post ERCP 10/01 with stent placement, sphincterotomy not performed because of thrombocytopenia.
LFTS are trending down and pain is improved, lipase normalized
Will need repeat ERCP next week once platelet count is improved with Dr. Berman to remove the stones and for sphincterotomy
Eventual cholecystectomy timing per surgery
Will advance diet to low-fat diet as tolerated
Now also with leukopenia - improving, hematology on board
Check IgG4- P, nl Calcium and TG nl
Subjective
Subjective
Date of Service: October 04, 2023
Denies abdominal pain, tolerating clear liquids, platelet count is improving
Objective
Data Reviewed
Laboratory Data:
Laboratory Results
10/04/23 06:46
10/04/23 06:46
Laboratory Results
PT 14.7 Sec (11.4-14.6) H 10/03/23 06:52
INR 1.17 10/03/23 06:52
APTT 33.5 Sec (23.4-35.0) 10/03/23 06:52
Total Bilirubin 2.4 mg/dl (0.2-1.3) H 10/04/23 06:46
AST 118 U/L (14-36) H 10/04/23 06:46
ALT 85 U/L (0-35) H 10/04/23 06:46
Alkaline Phosphatase 163 U/L (38-126) H 10/04/23 06:46
Lipase 226 U/L (23-300) 10/02/23 06:57
Vital Signs and I&O:
Vital Signs
Temp Pulse Resp BP Pulse Ox
97.8 F 56 18 134/65 95
10/04/23 07:05 10/04/23 07:05 10/04/23 07:05 10/04/23 07:05 10/04/23 07:05
I&O
10/03/23 10/04/23 10/05/23
06:59 06:59 06:59
Intake Total 1309 / 1309 540 / 540
Output Total 1450 / 1450 1075 / 1075
Balance -141 / -141 -535 / -535
Physical Exam
Physical Exam
Cardiology: Normal Sinus Rhythm
Pulmonary: Clear
GI: Soft, Non Distended, Non Tender and Normal Bowel Sounds
[2023-10-04 15:05] VITALS: BP 113/53
--- NOTE | 2023-10-04 16:24 | CHAP ---
Ms. Patrick was quietly accepting of her situation. She welcomed prayer. Emotional and spiritual support provided.
[2023-10-04] MEDS: NEURONTIN 800 MG PO (22:41)
[2023-10-04] MEDS: ZESTRIL 20 MG PO (22:41)
[2023-10-04 23:36] VITALS: BP 113/54
[2023-10-05] MEDS: TYLENOL 650 MG PO ×2 (05:49→20:55)
[2023-10-05 05:52] VITALS: BMI 33.7
[2023-10-05 06:55] LABS: % Eosinophils 0.5 % (0-6); % Immature Granulocytes 0.5 % (0-0.5); % Lymphocytes 35.6 % (20.5-51.1); % Monocytes 10.5 % (1.7-9.3); % Neutrophils 52.9 % (42.2-75.2); Absolute Lymphocytes 0.8 10^3/uL (1.2-3.4); Absolute Monocytes 0.2 10^3/uL (0.1-0.6); Absolute Neutrophils 1.2 10^3/uL (1.4-6.5); Hematocrit 32.6 % (37.0-47.0); Mean Corp Hgb Conc. 33.7 g/dL (33.0-37.0); Mean Corpuscular Hgb 33.2 pg (27.0-31.0); Mean Corpuscular Volume 98.5 fL (81.0-99.0); Nucleated Red Blood Cells % 0 %; Platelet Count 60 10^3/uL (130-400); Red Blood Cell Count 3.31 10^6/uL (4.20-5.40); Red Cell Dist. Width 14.3 % (11.5-14.5); White Blood Cell Count 2.2 10^3/uL (4.8-10.8)
[2023-10-05 07:05] LABS: ALT (SGPT) 89 U/L (0-35); AST (SGOT) 115 U/L (14-36); Albumin 2.9 g/dl (3.5-5.0); Alkaline Phosphatase 141 U/L (38-126); Blood Urea Nitrogen 12 mg/dl (7-17); Calcium 8.7 mg/dl (8.4-10.2); Carbon Dioxide 27 mmol/L (22-30); Chloride 110 mmol/L (98-107); Direct Bilirubin 0.9 mg/dl (0.0-0.4); Estimated Creatinine Clearance 77 ml/min; Glucose 85 mg/dl (70-99); Potassium 3.6 mmol/L (3.5-5.1); Sodium 141 mmol/L (135-145); Total Bilirubin 1.5 mg/dl (0.2-1.3); Total Protein 6.1 g/dl (6.3-8.2); eGFR > 60.00
[2023-10-05 07:57] VITALS: BP 128/63
[2023-10-05] MEDS: VITAMIN D3 (cholecalciferol) 25 MCG PO (08:14)
[2023-10-05] MEDS: DESENEX/MITRAZOL/ZEASORB 1 APPLIC TOPICAL ×2 (08:14→20:54)
[2023-10-05] MEDS: NORVASC 10 MG PO (08:15)
[2023-10-05] MEDS: COREG 3.125 MG PO ×2 (08:15→20:56)
--- NOTE | 2023-10-05 09:11 | W.PN.GS2 ---
Addendum entered and electronically signed by Paul Byrd MD 10/05/23 10:43:
Patient seen and examined.
No complaints. Abdominal pain has improved. No nausea or vomiting. No fevers.
Gen: NAD
Abd: soft, NT/ND, obese, non-peritoneal, negative Collins's sign
Patient is a 73 yo F p/w gallstone pancreatitis and choledocholithiasis
PPD#3 s/p ERCP with stent placement only d/t low platelets
AFVSS
LFT's improving
Platelet count improving (hematology following)
--GI following for ERCP for sphincterotomy and stone removal, NPO for possible procedure today
--Will plan lap cholecystectomy at some point after ERCP pending stability of platelet count
Original Note:
Today's Communication / Plan
-
--
Assessment / Plan
-
73 yo female with PMH of HTN, , CVA with residual LEFT hemiparesis, chronic thrombocytopenia, s/p MATTHEW and prior Gtube for FTT now presenting with choledocholithiasis and gallstone pancreatitis.
S/P ERCP 10/01 with stent placement only d/t low platelets
AFVSS
LFT's improving
Platelet count improving (hematology following)
--GI following for ERCP for sphincterotomy and stone removal, NPO for possible procedure today
--Will plan lap cholecystectomy at some point after ERCP pending stability of platelet count
Subjective Data
-
Date of Service: October 05, 2023
Patient seen and examined at bedside with Dr. Byrd. Denies n/v. Feeling much better since ERCP. Tolerated regular diet yesterday.
Objective Data
-
Intake and Output
10/04/23 10/05/23 10/06/23
06:59 06:59 06:59
Intake Total 540 / 540 600 / 600
Output Total 1075 / 1075 550 / 550
Balance -535 / -535 50 / 50
Intake:
Oral fluids 540 / 540 600 / 600
Output:
Urine, Voided 1075 / 1075 550 / 550
Other:
How many times incontinent 2 2
MODERATE amount urine
How many times incontinent 1
SATURATED amount urine
Vital Signs
Temp Pulse Resp BP Pulse Ox
97.9 F 54 18 128/63 97
10/05/23 07:57 10/05/23 08:15 10/05/23 07:57 10/05/23 08:15 10/05/23 07:57
Lab Results
10/05/23 04:48
10/05/23 04:48
Calcium 8.7 mg/dl (8.4-10.2) 10/05/23 04:48
Total Bilirubin 1.5 mg/dl (0.2-1.3) H 10/05/23 04:48
Direct Bilirubin 0.9 mg/dl (0.0-0.4) H 10/05/23 04:48
AST 115 U/L (14-36) H 10/05/23 04:48
ALT 89 U/L (0-35) H 10/05/23 04:48
Alkaline Phosphatase 141 U/L (38-126) H 10/05/23 04:48
Total Protein 6.1 g/dl (6.3-8.2) L 10/05/23 04:48
Albumin 2.9 g/dl (3.5-5.0) L 10/05/23 04:48
Physical Exam
-
NAD
ABD soft, nt, nd
--- NOTE | 2023-10-05 09:11 | W.PN.ONC2 ---
Today's Communication / Plan
-
monitor CBC
Impression
Impression
-acute onset of epigastric abdominal pain
-elevated LFT's and lipase
-thrombocytopenia
-mild normocytic anemia
-leukopenia/lymphopenia
-splenomegaly
Plan
Plan
acute pancreatitis
s/p ERCP with stent placement 10/01
repeat ERCP planned with Dr. Berman to remove the stones and for sphincterotomy
Eventual cholecystectomy timing per surgery
Chronic thrombocytopenia. No evidence of chronic DIC. No B12 or folate deficiency.
monitor for infection
Subjective/Objective
Chief Complaint
none
Subjective
denies pain, nausea or bleeding
Vital Signs:
Vital Signs
Temp Pulse Resp BP Pulse Ox
97.9 F 54 18 128/63 97
10/05/23 07:57 10/05/23 08:15 10/05/23 07:57 10/05/23 08:15 10/05/23 07:57
Lab Results:
Laboratory Data
WBC 2.2 10^3/uL (4.8-10.8) L* 10/05/23 04:48
Hgb 11.0 g/dL (12.0-16.0) L 10/05/23 04:48
Plt Count 60 10^3/uL (130-400) L 10/05/23 04:48
PT 14.7 Sec (11.4-14.6) H 10/03/23 06:52
INR 1.17 10/03/23 06:52
APTT 33.5 Sec (23.4-35.0) 10/03/23 06:52
eGFR > 60.00 10/05/23 04:48
Physical Exam
General: No Apparent Distress and Conversant
HEENT: Moist Mucous Membranes and Other (no teeth); Negative Jaundice
Cardiology: S1 and S2
Pulmonary: Clear
GI: Soft
Extremities: Pulses Present and Other (poor podiatry care); Negative Edema
Neurology: Other (left hemiparesis)
Skin: Warm
Review of Systems
Review of Systems
review of systems notable for subjective, otherwise negative
--- NOTE | 2023-10-05 09:44 | W.PN.HOSP.TC ---
Today's Communication/Plan
-
see bold
Assessment / Plan
Assessment / Plan
#Acute gallstone pancreatitis -- Col[place] score 0, [place] score low
#Choledocholithiasis -- S/P ERCP with biliary stent
-Associated with nausea, CT A/P showed pancreatic inflammation, lipase >4000
-MRCP showed 4 gallstones in the CBD with CBD dilation; no signs of extrinsic compression on CT
-Was treated with aggressive IV fluids, analgesics for pancreatitis; GI consulted for ERCP
-S/p ERCP with stent placement 10/01, LFTs downtrending today, lipase normalized
-Remains hemodynamically stable, no fevers, not symptomatic
-Will need repeat ERCP with sphincterotomy this week, followed by cholecystectomy by general surgery
#H/O Fatty liver -- Alcohol vs metabolic/NAFLD
-Patient states she has a history of fatty liver, unspecified etiology
-Suspect that this is progressed to cirrhosis with her blood counts
-Should have follow-up outpatient with GI for further evaluation, elastography
#Pancytopenia -- Likely multifactorial; chronic thrombocytopenia, mild anemia, new leukopenia
#Chronic thrombocytopenia -- suspect chronic, previous labs with baseline 70-90 though has been normal on occasion
-No signs of iron deficiency or other nutritional deficiency on labs today; labs yesterday without signs of DIC
-Developed a new leukopenia, suspect leukopenia is reactive to her choledocholithiasis/pancreatitis
-Improving, WBC count and platelets are both uptrending now
-Appreciate hematology input, no evidence of DIC, no B12 or folate deficiency
-Platelet goal for procedures this week > 50
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
#HLD
-Diffuse vascular disease with CAD/PAD/carotid disease/CVA history
-Current medications do not include aspirin or statin currently
-No signs of acute ischemia causing this presentation
#Aortic stenosis
-No recent TTE/CLAU in system, last was in 2018
-Suspect this is not clinically severe disease per exam
#Hypertension
-Home medications include lisinopril, carvedilol, amlodipine
#Alcohol use
-Previously was a heavy drinker though denies current heavy usage
-Will monitor for signs of withdrawal, consider as needed Ativan
#H/O nonischemic cardiomyopathy
-Unclear etiology; mentioned to not be ischemic even despite extensive ASCVD history; last TTE with LVEF >55%
-Home medications currently include NEEL inhibitor, beta-loretta; no statin or antiplatelet therapy
-Not currently on any standing dose diuretic therapy
#Chronic ambulatory dysfunction
Wheelchair-bound, son provides all care
DVT prophylaxis�subcu heparin
Full code
Total time spent to see the patient on the floor, examine the patient, review data and lab results, discuss treatment plan with patient, nursing staff around 38 minutes.
Physical Exam
General: Obese, no acute distress
HEENT: Normocephalic, Atraumatic, EOMI, MMM
Respiratory: Clear to Auscultation bilaterally
Cardiac: Normal S1/S2, Regular Rate and Rhythm
GI: Soft, Nontender, Nondistended, Normal Bowel Sounds
Extremities: No Clubbing, Cyanosis
Musculoskeletal: Atrophy of bilateral lower extremities noted
Neuro: Nonfocal/Grossly Intact
Psych: Calm, Cooperative
Anticipated Discharge: > 48 hours
Subjective/Interval History
-
Date of Service: October 05, 2023
Patient denies pain, denies nausea, denies vomiting. No diarrhea, no constipation. No fever.
Objective Data
-
Labs:
Laboratory Results
10/05/23
04:48
WBC 2.2 L*
Hgb 11.0 L
Hct 32.6 L
Plt Count 60 L
Sodium 141
Potassium 3.6
Chloride 110 H
Carbon Dioxide 27
BUN 12
Creatinine 0.7
Glucose 85
Calcium 8.7
Total Bilirubin 1.5 H
AST 115 H
ALT 89 H
Alkaline Phosphatase 141 H
Vital Signs:
Vital Signs
Temp Pulse Resp BP Pulse Ox
97.9 F 54 18 128/63 97
10/05/23 07:57 10/05/23 08:15 10/05/23 07:57 10/05/23 08:15 10/05/23 07:57
I&O
10/04/23 10/05/23 10/06/23
06:59 06:59 06:59
Intake Total 540 / 540 600 / 600
Output Total 1075 / 1075 550 / 550
Balance -535 / -535 50 / 50
[2023-10-05 17:45] VITALS: BP 127/70; BP 128/63
[2023-10-05 18:00] VITALS: BP 129/60
[2023-10-05 18:38] VITALS: BP 97/54
--- NOTE | 2023-10-05 19:21 | PTCARENOTE ---
At 1800, pt back from GI lab s/p ERCP. pt is AAO*3, Vss room air. pt denies any pain or discomfort. pt on clears. oriented to the room. call casarez within the reach. plan of care ongoing.
[2023-10-05] MEDS: NEURONTIN 800 MG PO (20:55)
[2023-10-05] MEDS: ZESTRIL 20 MG PO (20:56)
[2023-10-05 23:23] VITALS: BP 102/49
[2023-10-06] VITALS (14 sets, daily range): BP systolic 40–160; BP diastolic 49–88; BMI 33.7
[2023-10-06 07:04] LABS: Hematocrit 31.9 % (37.0-47.0); Hemoglobin 11.7 g/dL (12.0-16.0); Mean Corp Hgb Conc. 36.7 g/dL (33.0-37.0); Mean Corpuscular Hgb 34.3 pg (27.0-31.0); Mean Corpuscular Volume 93.5 fL (81.0-99.0); Mean Platelet Volume 10.4 fL (7.4-10.4); Platelet Count 58 10^3/uL (130-400); Red Blood Cell Count 3.41 10^6/uL (4.20-5.40); Red Cell Dist. Width 14.4 % (11.5-14.5); White Blood Cell Count 1.9 10^3/uL (4.8-10.8)
[2023-10-06 07:42] LABS: ALT (SGPT) 117 U/L (0-35); AST (SGOT) 176 U/L (14-36); Albumin 2.9 g/dl (3.5-5.0); Alkaline Phosphatase 179 U/L (38-126); Blood Urea Nitrogen 8 mg/dl (7-17); Calcium 8.2 mg/dl (8.4-10.2); Carbon Dioxide 24 mmol/L (22-30); Chloride 112 mmol/L (98-107); Estimated Creatinine Clearance 90 ml/min; Glucose 83 mg/dl (70-99); Potassium 3.4 mmol/L (3.5-5.1); Sodium 140 mmol/L (135-145); Total Bilirubin 1.7 mg/dl (0.2-1.3); Total Protein 6.2 g/dl (6.3-8.2); eGFR > 60.00
[2023-10-06] MEDS: DESENEX/MITRAZOL/ZEASORB 1 APPLIC TOPICAL ×2 (08:23→21:40)
[2023-10-06] MEDS: NORVASC 10 MG PO (08:28)
[2023-10-06] MEDS: VITAMIN D3 (cholecalciferol) 25 MCG PO (08:28)
[2023-10-06] MEDS: COREG 3.125 MG PO ×2 (08:29→19:47)
[2023-10-06] MEDS: TYLENOL 650 MG PO (08:34)
--- NOTE | 2023-10-06 08:37 | W.PN.GS2 ---
Today's Communication / Plan
-
-- Laparoscopic cholecystectomy with possible cholangiogram
Assessment / Plan
-
73 yo female with PMH of HTN, , CVA with residual LEFT hemiparesis, chronic thrombocytopenia, s/p MATTHEW and prior Gtube for FTT now presenting with choledocholithiasis and gallstone pancreatitis.
S/P ERCP 10/01 with stent placement only d/t low platelets
S/P ERCP 10/04 with stone removal
AFVSS
LFT's and bilirubin slight bump following ERCP
Platelet count improving (>50 K for surgery), leukopenia noted likely stress response, Heme following
The natural history and pathophysiology of biliary stone disease was discussed. Role of cholecystectomy in preventing future episodes of cholecystitis, choledocholithiasis, gallstone pancreatitis have been previously reviewed. She has recovered
well from her previous ERCPs and is currently symptom-free. Her platelet count is greater than 50K. Recommending plan for cholecystectomy.
Plan for a laparoscopic cholecystectomy with possible cholangiogram. The procedure itself, as well as the risks, benefits, and alternatives was discussed. Specifically, we discussed the risks of bleeding, infection, injury to surrounding
structures (bowel, bile duct), CBD injury, need for open procedure. Typical postprocedure recovery was discussed. All questions answered. Consent signed.
-- Laparoscopic cholecystectomy with possible cholangiogram
-- Antibiotics: Ancef for prophylaxis
-- NPO, IVF
Subjective Data
-
Date of Service: October 06, 2023
No complaints. Denies abdominal pain. No nausea or emesis. No fevers.
Objective Data
-
Intake and Output
10/05/23 10/06/23 10/07/23
06:59 06:59 06:59
Intake Total 600 / 600 580 / 580
Output Total 550 / 550 1125 / 1125
Balance 50 / 50 -545 / -545
Intake:
Oral fluids 600 / 600 480 / 480
IV fluids (Total) 100 / 100
LR 100 / 100
Output:
Urine, Voided 550 / 550 1125 / 1125
Other:
How many times incontinent 2
MODERATE amount urine
How many times incontinent 1
SATURATED amount urine
Vital Signs
Temp Pulse Resp BP Pulse Ox
97.9 F 60 16 140/67 94
10/06/23 07:20 10/06/23 08:28 10/06/23 07:20 10/06/23 08:28 10/06/23 07:20
Lab Results
10/06/23 06:35
10/06/23 06:35
Calcium 8.2 mg/dl (8.4-10.2) L 10/06/23 06:35
Total Bilirubin 1.7 mg/dl (0.2-1.3) H 10/06/23 06:35
Direct Bilirubin 0.9 mg/dl (0.0-0.4) H 10/05/23 04:48
AST 176 U/L (14-36) H 10/06/23 06:35
ALT 117 U/L (0-35) H 10/06/23 06:35
Alkaline Phosphatase 179 U/L (38-126) H 10/06/23 06:35
Total Protein 6.2 g/dl (6.3-8.2) L 10/06/23 06:35
Albumin 2.9 g/dl (3.5-5.0) L 10/06/23 06:35
Physical Exam
-
Gen: NAD
Abd: soft, NT/ND, non-peritoneal, prior incision (G-tube site) well healed
--- NOTE | 2023-10-06 08:43 | W.PN.GI.CBS2 ---
Today's Communication / Plan
-
trend LFTS
low fat diet
timing of CCY per surgery
Assessment / Plan
-
Pt is a 73yo with hx CVA with left sided weakness, , HTN, hypercholesterolemia, depression, nonischemic CM, prior GJ tube gastroparesis(now improved), c-diff, prior hysterectomy with onset of epigastric abdominal pain. No prior pain in past.
Pain was severe up to 10/02 and improved after ER evaluation. On admission noted with K 3.4, with elevated LFT's and lipase( bili 4.3, AST 212, ALT 92, alk phos 171 and lipase >4000). Pt also noted with continued low platelets 55,000.
-sudden onset of epigastric abdominal pain
-elevated LFT's and lipase
-thrombocytopenia, etiology unclear
-hypokalemia
other medical problems:
-CVA
-
-HTN
-GERD
-hypercholesterolemia
-depression
-non ischemic CM
-prior GJ tube
-gastroparesis
-c-diff
-hysterectomy
PLAN:
Acute GS pancreatitis with choledocholithiasis
Status post ERCP 10/01 with stent placement, s/p repeat ERCP 10/04 with stent removal, sphincterotomy and stone extraction
Lipase normalized LFTs were trending down slight bump today
Eventual cholecystectomy timing per surgery
Will advance diet to low-fat diet
IgG4-80 (nl), nl Calcium and TG nl
Will s/o and will be available as needed
Subjective
Subjective
Date of Service: October 06, 2023
Denies pain no nausea or vomiting tolerated clear liquids yesterday
Objective
Data Reviewed
Laboratory Data:
Laboratory Results
10/06/23 06:35
10/06/23 06:35
Laboratory Results
PT 14.7 Sec (11.4-14.6) H 10/03/23 06:52
INR 1.17 10/03/23 06:52
APTT 33.5 Sec (23.4-35.0) 10/03/23 06:52
Total Bilirubin 1.7 mg/dl (0.2-1.3) H 10/06/23 06:35
AST 176 U/L (14-36) H 10/06/23 06:35
ALT 117 U/L (0-35) H 10/06/23 06:35
Alkaline Phosphatase 179 U/L (38-126) H 10/06/23 06:35
Lipase 226 U/L (23-300) 10/02/23 06:57
Vital Signs and I&O:
Vital Signs
Temp Pulse Resp BP Pulse Ox
97.9 F 60 16 140/67 94
10/06/23 07:20 10/06/23 08:28 10/06/23 07:20 10/06/23 08:28 10/06/23 07:20
I&O
10/05/23 10/06/23 10/07/23
06:59 06:59 06:59
Intake Total 600 / 600 580 / 580
Output Total 550 / 550 1125 / 1125
Balance 50 / 50 -545 / -545
10/05/23 ERCP
Impression: - One stent from the biliary tree was seen in the
major papilla.
- Multiple filling defects consistent with stones were
seen on the cholangiogram.
- The upper third of the main bile duct was mildly
dilated.
- Choledocholithiases were found. Complete removal was
accomplished by biliary sphincterotomy and balloon
extraction.
- One stent was removed from the biliary tree.
- A biliary sphincterotomy was performed.
- The biliary tree was swept.
Physical Exam
Physical Exam
Cardiology: Normal Sinus Rhythm
Pulmonary: Clear
GI: Soft, Non Distended, Non Tender and Normal Bowel Sounds
--- NOTE | 2023-10-06 09:25 | W.PN.HOSP.TC ---
Today's Communication/Plan
-
For cholecystectomy today
Assessment / Plan
Assessment / Plan
#Acute gallstone pancreatitis -- Colby score 0, [place] score low
#Choledocholithiasis -- S/P ERCP with biliary stent
-Associated with nausea, CT A/P showed pancreatic inflammation, lipase >4000
-MRCP showed 4 gallstones in the CBD with CBD dilation; no signs of extrinsic compression on CT
-Was treated with aggressive IV fluids, analgesics for pancreatitis; GI consulted for ERCP
-S/p ERCP with stent placement 10/01, LFTs downtrending today, lipase normalized
-S/p repeat ERCP with sphincterotomy 10/04
-For cholecystectomy today
#H/O Fatty liver -- Alcohol vs metabolic/NAFLD
-Patient states she has a history of fatty liver, unspecified etiology
-Suspect that this is progressed to cirrhosis with her blood counts
-Should have follow-up outpatient with GI for further evaluation, elastography
#Pancytopenia -- Likely multifactorial; chronic thrombocytopenia, mild anemia, new leukopenia
#Chronic thrombocytopenia -- suspect chronic, previous labs with baseline 70-90 though has been normal on occasion
-No signs of iron deficiency or other nutritional deficiency on labs today; labs yesterday without signs of DIC
-Developed a new leukopenia, suspect leukopenia is reactive to her choledocholithiasis/pancreatitis
-Improving, WBC count and platelets are both uptrending now
-Appreciate hematology input, no evidence of DIC, no B12 or folate deficiency
-Platelet goal for procedures this week > 50
Hypokalemia
-Replete, recheck a.m.
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
#HLD
-Diffuse vascular disease with CAD/PAD/carotid disease/CVA history
-No on aspirin or statin currently
-No signs of acute ischemia causing this presentation
#Aortic stenosis
-No recent TTE/CLAU in system, last was in 2018
-Suspect this is not clinically severe disease per exam
#Hypertension
-Continue home medications include lisinopril, carvedilol, amlodipine
#Alcohol use
-Previously was a heavy drinker though denies current heavy usage
-Will monitor for signs of withdrawal, consider as needed Ativan
#H/O nonischemic cardiomyopathy
-Unclear etiology; mentioned to not be ischemic even despite extensive ASCVD history; last TTE with LVEF >55%
-Home medications currently include NEEL inhibitor, beta-loretta; no statin or antiplatelet therapy
-Not currently on any standing dose diuretic therapy
#Chronic ambulatory dysfunction
Wheelchair-bound, son provides all care
DVT prophylaxis�subcu heparin
Full code
Total time spent to see the patient on the floor, examine the patient, review data and lab results, discuss treatment plan with patient, nursing staff around 39 minutes.
Physical Exam
General: Obese, no acute distress
HEENT: Normocephalic, Atraumatic, EOMI, MMM
Respiratory: Clear to Auscultation bilaterally
Cardiac: Normal S1/S2, Regular Rate and Rhythm
GI: Soft, Nontender, Nondistended, Normal Bowel Sounds
Extremities: No Clubbing, Cyanosis
Musculoskeletal: Atrophy of bilateral lower extremities noted
Neuro: Nonfocal/Grossly Intact
Psych: Calm, Cooperative
Anticipated Discharge: Within 24 hours
Subjective/Interval History
-
Date of Service: October 06, 2023
No abdominal pain, no nausea, no vomiting. No chest pain, no shortness of breath. No fever.
Objective Data
-
Labs:
Laboratory Results
10/06/23
06:35
WBC 1.9 L*
Hgb 11.7 L
Hct 31.9 L
Plt Count 58 L
Sodium 140
Potassium 3.4 L
Chloride 112 H
Carbon Dioxide 24
BUN 8
Creatinine 0.5 L
Glucose 83
Calcium 8.2 L
Total Bilirubin 1.7 H
AST 176 H
ALT 117 H
Alkaline Phosphatase 179 H
Vital Signs:
Vital Signs
Temp Pulse Resp BP Pulse Ox
97.9 F 60 16 140/67 94
10/06/23 07:20 10/06/23 08:28 10/06/23 07:20 10/06/23 08:28 10/06/23 07:20
I&O
10/05/23 10/06/23 10/07/23
06:59 06:59 06:59
Intake Total 600 / 600 580 / 580
Output Total 550 / 550 1125 / 1125
Balance 50 / 50 -545 / -545
--- NOTE | 2023-10-06 09:44 | W.PN.ONC2 ---
Today's Communication / Plan
-
daily CBC with differential
Impression
Impression
-Acute GS pancreatitis with choledocholithiasis
-pancytopenia -chronic thrombocytopenia, mild normocytic anemia, leukopenia/lymphopenia
-splenomegaly
Plan
Plan
acute pancreatitis
s/p ERCP with stent placement 10/01 and repeat ERCP 10/04 with stent removal, sphincterotomy and stone extraction
Eventual cholecystectomy timing per surgery
Pancytopenia -No evidence of chronic DIC. No B12 or folate deficiency. Splenomegaly. Hx ETOH/chronic liver dz. s/p 1unit SDP 10/01 prior to ERCP for plt <50
UTI management per primary service
Subjective/Objective
Chief Complaint
no new complaints
Subjective
denies pain
Vital Signs:
Vital Signs
Temp Pulse Resp BP Pulse Ox
97.9 F 60 16 140/67 94
10/06/23 07:20 10/06/23 08:28 10/06/23 07:20 10/06/23 08:28 10/06/23 08:00
Lab Results:
Laboratory Data
WBC 1.9 10^3/uL (4.8-10.8) L* 10/06/23 06:35
Hgb 11.7 g/dL (12.0-16.0) L 10/06/23 06:35
Plt Count 58 10^3/uL (130-400) L 10/06/23 06:35
PT 14.7 Sec (11.4-14.6) H 10/03/23 06:52
INR 1.17 10/03/23 06:52
APTT 33.5 Sec (23.4-35.0) 10/03/23 06:52
eGFR > 60.00 10/06/23 06:35
Physical Exam
General: No Apparent Distress and Conversant
HEENT: Moist Mucous Membranes and Other (no teeth); Negative Jaundice
Cardiology: S1 and S2
Pulmonary: Clear
GI: Soft
Extremities: Pulses Present and Other (poor podiatry care); Negative Edema
Neurology: Other (left hemiparesis)
Skin: Warm
Review of Systems
Review of Systems
ROS notable for subjective, otherwise negative
--- NOTE | 2023-10-06 11:20 | PN.CDI ---
CDI
- -
CDI:
Physician Documentation Request
Admit Date: 09/30/23 16:57
Dear Doctor Do,
Patient admitted for gallstone pancreatitis.
10/01 PT/OT/SP Note: 'pt reports being total care regarding functional, physical tasks. pt reports she spends most of her time in bed, lounge chair and requires total assistance for transfers.'
10/02 Case Management note: 'Sonya has been in need of total care at home; dependent with transfers, stays mainly in bed/recliner.'
10/04 Hospitalist PN: 'Chronic ambulatory dysfunction, Wheelchair-bound, son provides all care'
Which, if any, of the following is a likely etiology of the above abnormalities and treatment rendered:
- Functional quadriplegia (complete immobility due to severe physical disability or iudmmao-[id number] cause)
- Age related weakness or frailty - without complete immobility
- Generalized weakness - indicate known or suspected etiology
- Other (please specify):
- Unable to determine
Use of terms such as suspected, likely, concern for, or probable (associated with a specific diagnosis that is being evaluated, monitored, or treated as if it exists) are acceptable and can be coded in the inpatient setting, when documented at the
time of discharge.
Thank you,
Evelyn Pelayo RN, BSN
CDI Specialist
Available via [facility] text
Please use your independent medical judgment in providing your response.
--- NOTE | 2023-10-06 11:57 | W.SUR.PREOP ---
Pre-Operative Surgical Note
-
I have examined this patient prior to the performance of the scheduled procedure.
The patient's condition is unchanged from the time of the current History and
Physical and the patient is able to undergo the scheduled procedure.
--- NOTE | 2023-10-06 12:15 | CM ---
Sonya continues hospitalization s/p ERCP on 10/01 and a repeat ERCP on 10/04. Plan for laparoscopic cholecystectomy with possible cholangiogram anticipated today.
Attempted to meet with Sonya prior to procedure; she was sleeping soundly and did not wake. Will attempt again later today prior to procedure if able.
--- NOTE | 2023-10-06 16:05 | W.IMMPOSTOP ---
Addendum entered and electronically signed by Paul Byrd MD 10/07/23 07:43:
[facility]# [id number]
Original Note:
Surgical Immed Post Op Note
-
Primary Surgeon: Carson
Assisting Surgeon: None
Pre-op Diagnosis: Choledocholithiasis
Post-op Diagnosis: Choledocholithiasis
Procedure Performed: Laparoscopic cholecystectomy with IOC
Anesthesia Type: General
Specimen / Cultures:
1. Gallbladder
Estimated Blood Loss: 101 cc
Complications: None
Operative Findings:
1. Chronically inflamed GB with omental adhesions and thickened wall
2. Critical view, IOC with anatomy confirmed and no filling defects
3. Diffuse ooze, hemostasis well maintained at conclusion of procedure, Surgicel left in operative bed, 19 Fr BABAR into operative field
[2023-10-06] MEDS: SUBLIMAZE 25 MCG IV ×2 (16:14→16:29)
--- NOTE | 2023-10-06 17:30 | PTCARENOTE ---
Pt returned from PACU.Report from Mai PIÑA, Pt awake, alert and oriented x3. Pt VSS 98% on 3L. Pt c/o 8-10/10 pain in right abd, medicated per orders, Pt has 4 lap sites with surgi glue and BABAR to right Abd. No active bleeding noted. Repeat CBC
stable. Pt oriented to room, call casarez with reach, sister at bedside, plan of care continues.
[2023-10-06 17:41] LABS: Hematocrit 37.9 % (37.0-47.0); Hemoglobin 13.5 g/dL (12.0-16.0); Mean Corp Hgb Conc. 35.6 g/dL (33.0-37.0); Mean Corpuscular Hgb 33.8 pg (27.0-31.0); Mean Corpuscular Volume 94.8 fL (81.0-99.0); Mean Platelet Volume 10.7 fL (7.4-10.4); Platelet Count 68 10^3/uL (130-400); Red Cell Dist. Width 14.8 % (11.5-14.5); White Blood Cell Count 4.6 10^3/uL (4.8-10.8)
[2023-10-06] MEDS: NORMOSOL-R 1000 IV (17:44)
[2023-10-06] MEDS: MORPHINE SULFATE 2 MG IV (17:52)
[2023-10-06] MEDS: ANESTHETIC LOZENGE 1 LOZENGE PO (19:47)
[2023-10-06] MEDS: KCL 40 MEQ PO (19:47)
[2023-10-06] MEDS: ULTRAM 50 MG PO (19:47)
[2023-10-06] MEDS: NEURONTIN 800 MG PO (21:40)
[2023-10-06] MEDS: ZESTRIL 20 MG PO (21:41)
[2023-10-07 03:18] VITALS: BP 143/74
[2023-10-07] MEDS: NORMOSOL-R 1000 IV ×2 (05:05→13:34)
[2023-10-07] MEDS: NORMOSOL-R IV (05:07)
[2023-10-07 06:00] VITALS: BMI 33.8
[2023-10-07] MEDS: MORPHINE SULFATE 2 MG IV ×2 (06:09→21:42)
[2023-10-07 07:20] VITALS: BP 132/71
--- NOTE | 2023-10-07 07:31 | W.PN.GS2 ---
Today's Communication / Plan
-
-- LFD
-- Labs pending
-- OK for DC later today if tolerates diet and labs look OK
-- Plan for DC BABAR prior to DC
-- DC instructions updated
Assessment / Plan
-
73 yo female with PMH of HTN, , CVA with residual LEFT hemiparesis, chronic thrombocytopenia, s/p MATTHEW and prior Gtube for FTT now presenting with choledocholithiasis and gallstone pancreatitis.
S/P ERCP / with stent placement only d/t low platelets
S/P ERCP 12 with stone removal
POD#1 s/p laparoscopic cholecystectomy with IOC
AFVSS
LFT's and bilirubin slight bump following ERCP, repeat pending today
Platelet >50 K, leukopenia noted likely stress response, Heme following
Recovering well, no post-operative concerns
-- LFD
-- Pain control: Tylenol and Tramadol
-- IVF
-- Labs pending
-- OK for DC later today if tolerates diet and labs look OK
-- Plan for DC BABAR prior to DC
-- DC instructions updated
Subjective Data
-
Date of Service: October 07, 2023
Imaging point. Reports some abdominal soreness. Denies nausea or vomiting. No fevers. Denies dizziness or lightheadedness.
Objective Data
-
Intake and Output
10/06/23 10/07/23 10/08/23
06:59 06:59 06:59
Intake Total 580 / 580 1420 / 1420
Output Total 1125 / 1125 940 / 940
Balance -545 / -545 480 / 480
Intake:
Oral fluids 480 / 480 120 / 120
IV fluids (Total) 100 / 100 1300 / 1300
LR 100 / 100
NS 100 / 100
Output:
Drain Output (Total) 140 / 140
Right Lower Abdomen Pankaj- 140 / 140
Vann
Urine, Voided 1125 / 1125 800 / 800
Other:
How many times incontinent 2
SMALL amount urine
How many times incontinent 1 3
SATURATED amount urine
Vital Signs
Temp Pulse Resp BP Pulse Ox
98.0 F 75 24 143/74 93
10/07/23 03:18 10/07/23 03:18 10/07/23 03:18 10/07/23 03:18 10/07/23 03:18
Calcium 8.2 mg/dl (8.4-10.2) L 10/06/23 06:35
Total Bilirubin 1.7 mg/dl (0.2-1.3) H 10/06/23 06:35
Direct Bilirubin 0.9 mg/dl (0.0-0.4) H 10/05/23 04:48
AST 176 U/L (14-36) H 10/06/23 06:35
ALT 117 U/L (0-35) H 10/06/23 06:35
Alkaline Phosphatase 179 U/L (38-126) H 10/06/23 06:35
Total Protein 6.2 g/dl (6.3-8.2) L 10/06/23 06:35
Albumin 2.9 g/dl (3.5-5.0) L 10/06/23 06:35
Physical Exam
-
Gen: NAD
Abd: soft, soft, mild tenderness, ND, non-peritoneal, incisions c/d/i - no eryethema, ecchymosis or drainage, BABAR serosang, non-bilious
--- NOTE | 2023-10-07 08:35 | W.PN.HOSP.TC ---
Today's Communication/Plan
-
Discharge home tomorrow
Assessment / Plan
Assessment / Plan
#Acute gallstone pancreatitis -- Colby score 0, [place] score low
#Choledocholithiasis -- S/P ERCP with biliary stent
-Associated with nausea, CT A/P showed pancreatic inflammation, lipase >4000
-MRCP showed 4 gallstones in the CBD with CBD dilation; no signs of extrinsic compression on CT
-Was treated with aggressive IV fluids, analgesics for pancreatitis; GI consulted for ERCP
-S/p ERCP with stent placement 10/01, LFTs downtrending today, lipase normalized
-S/p repeat ERCP with sphincterotomy 10/04
-Status postcholecystectomy 10/05
-Patient is dependent on her son for all care, plan for discharge home tomorrow 10/07
#H/O Fatty liver -- Alcohol vs metabolic/NAFLD
-Patient states she has a history of fatty liver, unspecified etiology
-Suspect that this is progressed to cirrhosis with her blood counts
-Should have follow-up outpatient with GI for further evaluation, elastography
#Pancytopenia -- Likely multifactorial; chronic thrombocytopenia, mild anemia, new leukopenia
#Chronic thrombocytopenia -- suspect chronic, previous labs with baseline 70-90 though has been normal on occasion
-No signs of iron deficiency or other nutritional deficiency on labs today; labs yesterday without signs of DIC
-Developed a new leukopenia, suspect leukopenia is reactive to her choledocholithiasis/pancreatitis
-Improving, WBC count and platelets are both uptrending now
-Appreciate hematology input, no evidence of DIC, no B12 or folate deficiency
-Platelet goal for procedures > 50
Hypokalemia
-Repleted and resolved
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
#HLD
-Diffuse vascular disease with CAD/PAD/carotid disease/CVA history
-No on aspirin or statin currently
-No signs of acute ischemia causing this presentation
#Aortic stenosis
-No recent TTE/CLAU in system, last was in 2018
-Suspect this is not clinically severe disease per exam
#Hypertension
-Continue home medications include lisinopril, carvedilol, amlodipine
#Alcohol use
-Previously was a heavy drinker though denies current heavy usage
-Will monitor for signs of withdrawal, consider as needed Ativan
#H/O nonischemic cardiomyopathy
-Unclear etiology; mentioned to not be ischemic even despite extensive ASCVD history; last TTE with LVEF >55%
-Home medications currently include NEEL inhibitor, beta-loretta; no statin or antiplatelet therapy
-Not currently on any standing dose diuretic therapy
# Functional quadriplegia
Wheelchair-bound, son provides all care
DVT prophylaxis�subcu lovenox
Full code
Updated family 10/06
Total time spent to see the patient on the floor, examine the patient, review data and lab results, discuss treatment plan with patient, nursing staff around 41 minutes.
Physical Exam
General: Obese, no acute distress
HEENT: Normocephalic, Atraumatic, EOMI, MMM
Respiratory: Clear to Auscultation bilaterally
Cardiac: Normal S1/S2, Regular Rate and Rhythm
GI: Soft, appropriately tender, mildly distended, normal bowel sounds
Drain in place, incisions clean/dry/intact
Extremities: No Clubbing, Cyanosis
Musculoskeletal: Atrophy of bilateral lower extremities noted
Neuro: Nonfocal/Grossly Intact
Psych: Calm, Cooperative
Anticipated Discharge: Within 24 hours
Subjective/Interval History
-
Date of Service: October 07, 2023
Patient reports her pain is tolerable. No gas, no bowel movement. No fever, no vomiting.
Objective Data
-
Labs:
Laboratory Results
10/07/23
08:09
WBC Pending
Hgb Pending
Hct Pending
Plt Count Pending
Sodium Pending
Potassium Pending
Chloride Pending
Carbon Dioxide Pending
BUN Pending
Creatinine Pending
Glucose Pending
Calcium Pending
Total Bilirubin Pending
AST Pending
ALT Pending
Alkaline Phosphatase Pending
Vital Signs:
Vital Signs
Temp Pulse Resp BP Pulse Ox
98.0 F 70 20 132/71 97
10/07/23 07:20 10/07/23 07:20 10/07/23 07:20 10/07/23 07:20 10/07/23 07:20
I&O
10/06/23 10/07/23 10/08/23
06:59 06:59 06:59
Intake Total 580 / 580 1420 / 1420
Output Total 1125 / 1125 940 / 940
Balance -545 / -545 480 / 480
[2023-10-07 09:00] LABS: Hematocrit 32.2 % (37.0-47.0); Hemoglobin 11.5 g/dL (12.0-16.0); Mean Corp Hgb Conc. 35.7 g/dL (33.0-37.0); Mean Corpuscular Hgb 33.8 pg (27.0-31.0); Mean Corpuscular Volume 94.7 fL (81.0-99.0); Platelet Count 57 10^3/uL (130-400); Red Cell Dist. Width 14.6 % (11.5-14.5); White Blood Cell Count 2.8 10^3/uL (4.8-10.8)
[2023-10-07] MEDS: COREG 3.125 MG PO ×2 (09:20→21:40)
[2023-10-07] MEDS: NORVASC 10 MG PO (09:20)
[2023-10-07] MEDS: DESENEX/MITRAZOL/ZEASORB 1 APPLIC TOPICAL ×2 (09:20→21:43)
[2023-10-07] MEDS: VITAMIN D3 (cholecalciferol) 25 MCG PO (09:20)
[2023-10-07] MEDS: ULTRAM 50 MG PO (09:30)
[2023-10-07 10:36] LABS: ALT (SGPT) 93 U/L (0-35); AST (SGOT) 118 U/L (14-36); Albumin 2.9 g/dl (3.5-5.0); Alkaline Phosphatase 162 U/L (38-126); Blood Urea Nitrogen 8 mg/dl (7-17); Calcium 7.8 mg/dl (8.4-10.2); Carbon Dioxide 23 mmol/L (22-30); Chloride 109 mmol/L (98-107); Estimated Creatinine Clearance 90 ml/min; Glucose 102 mg/dl (70-99); Potassium 3.9 mmol/L (3.5-5.1); Sodium 138 mmol/L (135-145); Total Bilirubin 1.3 mg/dl (0.2-1.3); Total Protein 6.1 g/dl (6.3-8.2); eGFR > 60.00
[2023-10-07 11:46] VITALS: BP 125/71
[2023-10-07 15:51] VITALS: BP 118/65
[2023-10-07] MEDS: LOVENOX 40 MG SC (16:34)
[2023-10-07] MEDS: ROXICODONE 5 MG PO (16:36)
--- NOTE | 2023-10-07 17:40 | PTCARENOTE ---
Patient refusing to be repositioned. RN explained the importance of repositioning, patient agreeable to be turned. Roxicodone given for abdominal pain 08/02 with good relief.
[2023-10-07] MEDS: ZESTRIL 20 MG PO (21:39)
[2023-10-07] MEDS: NEURONTIN 800 MG PO (21:40)
[2023-10-07 23:58] VITALS: BP 129/75
[2023-10-08] MEDS: NORMOSOL-R IV (00:24)
[2023-10-08] MEDS: TYLENOL 650 MG PO (06:07)
[2023-10-08] MEDS: ROXICODONE 5 MG PO ×3 (06:08→17:22)
[2023-10-08 07:05] VITALS: BP 138/58
[2023-10-08 08:20] LABS: Hematocrit 33.8 % (37.0-47.0); Mean Corp Hgb Conc. 35.5 g/dL (33.0-37.0); Mean Corpuscular Hgb 33.8 pg (27.0-31.0); Mean Corpuscular Volume 95.2 fL (81.0-99.0); Mean Platelet Volume 11.1 fL (7.4-10.4); Platelet Count 78 10^3/uL (130-400); Red Blood Cell Count 3.55 10^6/uL (4.20-5.40); Red Cell Dist. Width 14.9 % (11.5-14.5); White Blood Cell Count 4.1 10^3/uL (4.8-10.8)
[2023-10-08 08:45] LABS: ALT (SGPT) 86 U/L (0-35); AST (SGOT) 108 U/L (14-36); Albumin 3.1 g/dl (3.5-5.0); Alkaline Phosphatase 165 U/L (38-126); Blood Urea Nitrogen 7 mg/dl (7-17); Calcium 8.5 mg/dl (8.4-10.2); Carbon Dioxide 22 mmol/L (22-30); Chloride 111 mmol/L (98-107); Estimated Creatinine Clearance 90 ml/min; Glucose 80 mg/dl (70-99); Potassium 3.5 mmol/L (3.5-5.1); Sodium 138 mmol/L (135-145); Total Bilirubin 1.5 mg/dl (0.2-1.3); Total Protein 6.3 g/dl (6.3-8.2); eGFR > 60.00
[2023-10-08] MEDS: COREG 3.125 MG PO (08:45)
[2023-10-08] MEDS: VITAMIN D3 (cholecalciferol) 25 MCG PO (08:45)
[2023-10-08] MEDS: NORVASC 10 MG PO (08:45)
[2023-10-08] MEDS: DESENEX/MITRAZOL/ZEASORB 1 APPLIC TOPICAL (08:47)
--- NOTE | 2023-10-08 08:49 | W.PN.SURGUPD ---
Surgical Update
Surgical Update
Patient seen and examined this a.m.
She offers no complaints. Tolerating dietary advancement.
Postoperative pain controlled.
No nausea, no vomiting.
AFVSS
NAD AAOx3
ABD: Soft, obese, mild incisional tenderness. No rebound rigidity or guarding.
BABAR light serosanguineous fluid. Nonbilious, nonbloody.
A/P: POD #2 status post lap ag with normal IOC
Doing well with postoperative recovery
CBC counts recovering
BABAR removed
Stable for discharge on low-fat diet from surgical standpoint. Outpatient follow-up with Dr. Myrick. Surgical discharge instructions reviewed with patient
--- NOTE | 2023-10-08 08:52 | W.PN.HOSP.TC ---
Today's Communication/Plan
-
Discharge today
Assessment / Plan
Assessment / Plan
#Acute gallstone pancreatitis -- Colby score 0, Tejinder score low
#Choledocholithiasis -- S/P ERCP with biliary stent
-Associated with nausea, CT A/P showed pancreatic inflammation, lipase >4000
-MRCP showed 4 gallstones in the CBD with CBD dilation; no signs of extrinsic compression on CT
-Was treated with aggressive IV fluids, analgesics for pancreatitis; GI consulted for ERCP
-S/p ERCP with stent placement 10/01, LFTs downtrending today, lipase normalized
-S/p repeat ERCP with sphincterotomy 10/04
-Status post cholecystectomy 10/05
-Patient is dependent on her son for all care, plan for discharge home today 10/07
-Drains removed 10/07, f/u w/ surg in office in 2 weeks, PCP in 1 week
#H/O Fatty liver -- Alcohol vs metabolic/NAFLD
-Patient states she has a history of fatty liver, unspecified etiology
-Suspect that this is progressed to cirrhosis with her blood counts
-Should have follow-up outpatient with GI for further evaluation, elastography
#Pancytopenia -- Likely multifactorial; chronic thrombocytopenia, mild anemia, new leukopenia
#Chronic thrombocytopenia -- suspect chronic, previous labs with baseline 70-90 though has been normal on occasion
-No signs of iron deficiency or other nutritional deficiency on labs today; labs yesterday without signs of DIC
-Developed a new leukopenia, suspect leukopenia is reactive to her choledocholithiasis/pancreatitis
-Improving, WBC count and platelets are both uptrending now
-Appreciate hematology input, no evidence of DIC, no B12 or folate deficiency
-Platelet goal for procedures > 50
Hypokalemia
-Repleted and resolved
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
#HLD
-Diffuse vascular disease with CAD/PAD/carotid disease/CVA history
-No on aspirin or statin currently
-No signs of acute ischemia causing this presentation
#Aortic stenosis
-No recent TTE/CLAU in system, last was in 2018
-Suspect this is not clinically severe disease per exam
#Hypertension
-Continue home medications include lisinopril, carvedilol, amlodipine
#Alcohol use
-Previously was a heavy drinker though denies current heavy usage
-Will monitor for signs of withdrawal, consider as needed Ativan
#H/O nonischemic cardiomyopathy
-Unclear etiology; mentioned to not be ischemic even despite extensive ASCVD history; last TTE with LVEF >55%
-Home medications currently include NEEL inhibitor, beta-loretta; no statin or antiplatelet therapy
-Not currently on any standing dose diuretic therapy
# Functional quadriplegia
Wheelchair-bound, son provides all care
DVT prophylaxis�subcu lovenox
Full code
Updated family 10/06
Physical Exam
General: Obese, no acute distress
HEENT: Normocephalic, Atraumatic, EOMI, MMM
Respiratory: Clear to Auscultation bilaterally
Cardiac: Normal S1/S2, Regular Rate and Rhythm
GI: Soft, appropriately tender, mildly distended, normal bowel sounds, incisions clean/dry/intact
Extremities: No Clubbing, Cyanosis
Musculoskeletal: Atrophy of bilateral lower extremities noted
Neuro: Nonfocal/Grossly Intact
Psych: Calm, Cooperative
Anticipated Discharge: Today
Subjective/Interval History
-
Date of Service: October 08, 2023
Objective Data
-
Labs:
Laboratory Results
10/08/23
06:28
WBC 4.1 L
Hgb 12.0
Hct 33.8 L
Plt Count 78 L D
Sodium 138
Potassium 3.5
Chloride 111 H
Carbon Dioxide 22
BUN 7
Creatinine 0.6
Glucose 80
Calcium 8.5
Total Bilirubin 1.5 H
AST 108 H
ALT 86 H
Alkaline Phosphatase 165 H
Vital Signs:
Vital Signs
Temp Pulse Resp BP Pulse Ox
97.6 F 59 20 138/58 95
10/08/23 07:05 10/08/23 07:05 10/08/23 07:05 10/08/23 07:05 10/08/23 07:05
I&O
10/07/23 10/08/23 10/09/23
06:59 06:59 06:59
Intake Total 1420 / 1420 1760 / 1760
Output Total 940 / 940 760 / 760 600 / 600
Balance 480 / 480 1000 / 1000 -600 / -600
[2023-10-08] MEDS: KCL 20 MEQ PO (10:33)
[2023-10-08 10:36] VITALS: BMI 36.4
--- NOTE | 2023-10-08 11:00 | W.DCSUMMARY ---
Discharge Summary
Discharge Data
Date of Admission: 09/30/23
Date of Discharge: 10/08/23
-
Pending Results: No
Hospital Course
Discharge diagnosis:
Acute gallstone pancreatitis
Choledocholithiasis
Transaminitis
Pancytopenia
Chronic thrombocytopenia
Hypokalemia
Coronary artery disease
Hyperlipidemia
Aortic stenosis
Benign essential hypertension
History of heavy alcohol use
History of nonischemic cardiomyopathy
Functional quadriplegia
Consults: GI, hematology, general surgery
Procedures:
10/02/2023 ERCP with stent placement
10/05/2023 ERCP with sphincterotomy
10/06/2023 laparoscopic cholecystectomy
Abd MRI:
Choledocholithiasis with 4 stones present in the common bile duct with the largest measuring 7 mm. There is associated dilation of the common bile duct measuring 8 mm.
There is peripancreatic edema likely due to acute pancreatitis. There are multiple enlarged upper abdominal lymph nodes measuring up to 1.2 cm in short axis which are likely reactive.
There is a 1.1 cm stone within the right UPJ with associated mild right-sided hydronephrosis. There are additional left-sided UPJ stones measuring up to 7 mm without associated hydronephrosis. There is edema and enhancement along the bilateral
ureters which may be due to the above-described stones however infection cannot be excluded. Recommend correlation with urinalysis.
Partially visualized multiseptated cystic lesions within the bilateral adnexa, larger on the right.
7 mm T2 hyperintense focus within the lateral right hepatic lobe which demonstrates enhancement. This is nonspecific and may represent small shunt or a small flash filling hemangioma however consider follow-up to ensure stability.
Hospital course:
73-year-old female with ASCVD, aortic stenosis, HTN, HLD, alcohol use, malnutrition, H/O CVA with residual left-sided hemiparesis, H/O nonischemic cardiomyopathy (preserved EF on last echo), and H/O GJ tube s/p removal, who presented with abdominal
pain, was found to have gallstone pancreatitis.
Patient was seen in conjunction with GI. She received bowel rest, IV fluids, supportive care. Abdominal MRI confirms choledocholithiasis. She underwent 2 ERCPs, her LFTs trended down.
Patient was noted to have pancytopenia with chronic thrombocytopenia. She was seen in conjunction with hematology. There is no evidence of DIC, no B12 or folate deficiency. She does have splenomegaly. Her platelets dipped as low as 39. She
received 1 unit of SDP on 10/01 prior to her ERCP for platelets less than 50. Her platelets improved to greater than 50, and she could have her procedures. Her platelets were monitored, and was 78 on the day of discharge.
Patient was seen in conjunction with general surgery, and underwent laparoscopic cholecystectomy on 10/06/2023. She did well postoperatively. She tolerated her diet. Her pain was controlled.
Patient has functional quadriplegia. She lives at home and is wheelchair-bound. Her son provides all her care for her. She will be discharged home with home care.
Patient is medically stable and cleared by general surgery for discharge. She needs to eat a low-fat diet, and follow-up with general surgery in the office in 2 weeks. She also needs to follow-up with her primary care doctor in 1 week.
Disposition: Home with home care
Discharge planning: Required 43 minutes
Discharge Plan
-
Patient Disposition: Home with Home Care
Discharge Diagnosis/Procedures: Choledocholithiasis s/p ERCP and laparoscopic cholecystectomy with cholangiogram, pancreatitis, history of fatty liver, pancytopenia, hypokalemia
Diet: Low Fat
Activity: No strenuous activity
Additional Activity: No heavy lifting (>20 lbs) or strenuous activities for 2 weeks postoperatively
Driving Restrictions: No driving if too sore taking narcotics
Bathing Restrictions: OK to Shower
Wound Care: Keep incisions clean and dry. Glue will flake off in 2 to 3 weeks. Stitches will dissolve. Cover all drain site with dry gauze and tape as needed.
Activity Restrictions/Additional Instructions:
Call for fevers (>100.5), nausea or vomiting, worsening abdominal pain, yellowing of the eyes or skin.
Follow-up with your primary care doctor in 1 week, general surgery in the office in 2 weeks, and GI in 4-6 weeks for fatty liver.
Referrals:
Paul Byrd MD [Active] - in two to four weeks
Edilma Collins CRNP [Family Provider] - in one week
Paz Serrano MD [Active] - in four to six weeks
Prescriptions:
New
oxycodone 5 mg Tablet
5 mg PO Q4HPRN PRN (Reason: severe pain) Qty: 20 0RF
polyethylene glycol 3350 17 gram/dose powder
17 g PO DAILY Qty: 510 0RF
Continued
carvedilol 3.125 MG tablet
3.125 mg PO BID
amlodipine 10 MG tablet
10 mg PO DAILY
lisinopril 20 MG tablet
20 mg PO HS
famotidine 20 MG tablet
20 mg PO DAILYPRN PRN (Reason: indigestion)
Centrum 1 EACH tablet
1 ea PO DAILY
potassium chloride 10 MEQ tablet extended release
10 meq PO DAILY Qty: 30 0RF
gabapentin 400 mg Capsule
800 mg PO HS
cholecalciferol (vitamin D3) [Vitamin D3] 25 mcg (1,000 unit) Tablet
25 mcg PO DAILY
Discontinued
sodium bicarbonate 650 MG tablet
650 mg PO BID Qty: 100 0RF
Discharge Orders:
Discharge Patient (As Directed); Ordered 10/08/23
Ordered By: Willie uAgustine
Discharge Date and Time
Print Language: NAMIBIAN
--- NOTE | 2023-10-08 13:15 | VNURNOTE ---
Home Health Liaison spoke with patient over the phone to discuss [facility] nurse/therapy, visits, schedule and homebound status. Patient is agreeable and understands that visits at home will be 1-2 x per week to assess and teach medical management.
Patient is aware that [facility] will contact them for start of care within a few days after discharge from . This author received updates the she was told the patient doesn't have running water at home and mice and bugs in the house. This author spoke
to the patient directly and she stated that she ran out of oil and has no running HOT water. She denies that it is a financial issues. [facility] Athletic Monitor Patricia notified. [facility] referral completed in [facility].
--- NOTE | 2023-10-08 14:41 | CM ---
ELIZABETH met with Sonya earlier today to discuss discharge to home. Several family members were there at the time, however none were able to speak to how Sonya would return home. In the past her son would come to pick her up, but he is not able to do so
today.
One of the family members pulled me aside outside the room to report concerns about discharge to home. Concerns include bugs and mice visible in the home and ignored as a problem. There is no running water, the electricity frequently gets
disconnected, and recently there was a letter delivered regarding foreclosure on the home.
It is reported that there are several adults living in the home with Sonya and her son; including children. It was also reported that the adults appear to be impaired with drug or alcohol usage.
Family member advised that a report would be made to the [facility] for investigation.
Referral made to [facility] for services at home after discharge. Above concerns shared with them and case has been accepted.
ELIZABETH called [facility] to report the above reported concerns. I spoke to Shena to provide the reported concerns.
Ambulance transport will be arranged for discharge to home today.
Plan: Discharge to [facility] with [facility] via ambulance.
--- NOTE | 2023-10-08 15:16 | CM ---
Sonya is ready for discharge to home; family unable to transport and with bedbound status, ambulance transport is being arranged. Sonya will let her family know when she is going to be leaving.
Ambulance PMNC completed along with transport picking machine operator form.
Plan: Discharge to home via ambulance and [facility] to provide services.
[2023-10-08 15:25] VITALS: BP 107/60
[2023-10-08] MEDS: LOVENOX 40 MG SC (17:22)
--- NOTE | 2023-10-09 11:38 | CM ---
Call received from Feng, [employer] Protective power lineworker with [facility]. He was interested in clarification about the home circumstances as well as discharge plan.
I advised Feng that Sonya was discharged home on 10/08/2023 via ambulance with referral to [facility] and start of care anticipated in 2-3 days after discharge. Feng will be going out to the home today to investigate the concerns raised by Sonya's
granddaughter.
No further CM intervention at this time.
== END 2023-10-08 19:32 | disposition home health service (06) | DRG 417 ==
LOC: 4 EAST ACU 16:57
PROVIDERS: Internal Medicine Gastroenterology; Nurse Practitioner; Nurse Practitioner Acute Care; Nurse Practitioner Adult Health; Registered Nurse; ADMITTING PHYSICIAN Internal Medicine; ATTENDING PHYSICIAN Family Medicine; CONSULT PHYSICIAN Internal Medicine Gastroenterology; CONSULT PHYSICIAN Internal Medicine Hematology & Oncology; CONSULT PHYSICIAN Surgery; EMERGENCY PHYSICIAN Student in an Organized Health Care Education/Training Program; FAMILY PHYSICIAN Nurse Practitioner Adult Health
PROC: BF141ZZ Fluoroscopy of Gallbladder, Bile Ducts and Pancreatic Ducts using Low Osmolar Contrast (ICD-10-PCS; 2023-09-30)
PROC: 0FT44ZZ Resection of Gallbladder, Percutaneous Endoscopic Approach (ICD-10-PCS; 2023-09-30)
PROC: 30233R1 Transfusion of Nonautologous Platelets into Peripheral Vein, Percutaneous Approach (ICD-10-PCS; 2023-10-02)
PROC: 0F798DZ Dilation of Common Bile Duct with Intraluminal Device, Via Natural or Artificial Opening Endoscopic (ICD-10-PCS; 2023-10-02)
PROC: 0FC98ZZ Extirpation of Matter from Common Bile Duct, Via Natural or Artificial Opening Endoscopic (ICD-10-PCS; 2023-10-05)
DX: K85.10 Biliary acute pancreatitis without necrosis or infection (principal); R53.2 Functional quadriplegia; K80.61 Calculus of gallbladder and bile duct with cholecystitis, unspecified, with obstruction; D61.818 Other pancytopenia; I42.8 Other cardiomyopathies; I69.354 Hemiplegia and hemiparesis following cerebral infarction affecting left non-dominant side; E46 Unspecified protein-calorie malnutrition; N13.2 Hydronephrosis with renal and ureteral calculous obstruction; I50.9 Heart failure, unspecified; D75.839 Thrombocytosis, unspecified; K66.0 Peritoneal adhesions (postprocedural) (postinfection); I25.10 Atherosclerotic heart disease of native coronary artery without angina pectoris; E78.00 Pure hypercholesterolemia, unspecified; I35.0 Nonrheumatic aortic (valve) stenosis; E87.6 Hypokalemia; K21.00 Gastro-esophageal reflux disease with esophagitis, without bleeding; F32.A Depression, unspecified; K31.84 Gastroparesis; Z99.3 Dependence on wheelchair; I11.0 Hypertensive heart disease with heart failure; Z46.59 Encounter for fitting and adjustment of other gastrointestinal appliance and device; R62.7 Adult failure to thrive; Z74.01 Bed confinement status
CPT/HCPCS: 88304; 74177; 74183; 74300; 74330; 76000; 80048; 80053; 80076; 81003; 81015; 82248; 82607; 82728; 82746; 82787; 83540; 83550; 83690; 84478; 84484; 85025; 85027; 85045; 85379; 85384; 85610; 85730; 86850; 86900; 86901; 93005; 96361; 96374; 96375; 99285; A9575; C1769; C2625; P9073; Q9967

== ENCOUNTER 2024-02-21 16:00 | Inpatient (IN) | payer OTHER, SELFPAY ==
[2024-02-21] VITALS (11 sets, daily range): BP systolic 98–139; BP diastolic 44–98; BMI 28.4; BMI 28.3
[2024-02-21] MEDS: ZOFRAN 4 MG IV (11:55)
[2024-02-21 12:15] LABS: % Basophils 0.6 % (0-2); % Eosinophils 1.1 % (0-6); % Immature Granulocytes 1.1 % (0-0.5); % Lymphocytes 29.8 % (20.5-51.1); % Monocytes 5.6 % (1.7-9.3); % Neutrophils 61.8 % (42.2-75.2); Absolute Lymphocytes 1.1 10^3/uL (1.2-3.4); Absolute Monocytes 0.2 10^3/uL (0.1-0.6); Absolute Neutrophils 2.2 10^3/uL (1.4-6.5); Hematocrit 35.5 % (37.0-47.0); Hemoglobin 13.1 g/dL (12.0-16.0); Mean Corp Hgb Conc. 36.9 g/dL (33.0-37.0); Mean Corpuscular Hgb 35.8 pg (27.0-31.0); Mean Platelet Volume 11.3 fL (7.4-10.4); Nucleated Red Blood Cells % 0 %; Platelet Count 45 10^3/uL (130-400); Red Blood Cell Count 3.66 10^6/uL (4.20-5.40); Red Cell Dist. Width 16.3 % (11.5-14.5); White Blood Cell Count 3.6 10^3/uL (4.8-10.8)
[2024-02-21 12:45] LABS: ALT (SGPT) 26 U/L (0-35); AST (SGOT) 74 U/L (14-36); Albumin 3.3 g/dl (3.5-5.0); Alkaline Phosphatase 63 U/L (38-126); Blood Urea Nitrogen 7 mg/dl (7-17); Calcium 8.6 mg/dl (8.4-10.2); Carbon Dioxide 20 mmol/L (22-30); Chloride 105 mmol/L (98-107); Estimated Creatinine Clearance 85 ml/min; Glucose 93 mg/dl (70-99); Lipase 223 U/L (23-300); Potassium 2.6 mmol/L (3.5-5.1); Sodium 138 mmol/L (135-145); Total Bilirubin 1.9 mg/dl (0.2-1.3); Total Protein 7.6 g/dl (6.3-8.2); eGFR > 60.00
[2024-02-21] MEDS: MAGNESIUM SULFATE 100 IV (13:13)
[2024-02-21] MEDS: KCL 40 MEQ PO (13:16)
--- NOTE | 2024-02-21 13:55 | ED.GENMED ---
History of Present Illness
General
Chief Complaint: Abdominal Symptoms
Source: patient
Exam Limitations: none
Time Seen by Provider: 02/21/24 11:34
Nursing documentation reviewed up to this point in time: agreed with
History of Present Illness
History of Present Illness:
73 y/o h/o , CHF, HTN, HLD, strok e with L sided weakness
here from home
vomiting for 10 days
intermittently but she says she really hasn't kep tmuch down in t2 days
her doctor makes house calls and visited her about 4-5 days ago an wanted her to come in but pt refused; she also empirically started oral macrobid desptie that pt has not had any mention of urinary symtoms
pt had previous gallstone pancreatiis and had ERCP and cholecysstectomy in september
she used to drink alcohol but tells me she doesn't any more
she has no focal abdomiank lpai
no cp, sob, fever, chills, dysuria
Past History
Past History
ED Past Medical History: CVA (Left sided weakness), HTN, Hypercholesterolemia, Psychiatric (Depression) and Other (Nonischemic cardiomyopathy, Fracture ankle, GJ tube, gastroparesis C-diff)
ED Past Surgical History: Gynecological (Hysterectomy)
Social History
Tobacco: Non-smoker
Alcohol: Daily (Beer 4)
Personal:
[facility]
Employment: Not employed
Family History
Family History: Other (Noncontributory)
Review of Systems
Review of Systems
Allergies reviewed?: Yes
All Other Systems: Not applicable
Phy Exam
Physical Exam
Physical Exam:
GENERAL: Alert , actively vomiting bilious emesis
EYE: pupils equal and reactive
NECK: Supple
ENT: o/p clr, mmm.
CARDIAC: Regular rate and rhythm .
LUNGS: Clear breath sounds bilaterally, no acute respiratory distress, no wheezes/rales/rhonchi
ABDOMEN: Soft, mildly distended but nontender, no r/g, no cvat, normal bowel sounds
NEUROLOGICAL: Alert and oriented, no focal neuro deficits
SKIN: Warm and dry, skin intact.
MUSCULOSKELETAL: Mild pitting trace edema lower extremities, well perfused. neg patricia's sign
PSYCH: Normal and appropriate interaction.
Course
Orders/Labs/Results
Orders:
Orders
02/21/24 11:48
Ondansetron Injectable [Zofran] 4 mg .ROUTE .STK-MED ONE
02/21/24 11:54
Electrocardiogram (*1) Urgent
Reason for Study: Tachycardia
02/21/24 11:55
EKG- Treatment ONCE
Ondansetron Injectable [Zofran] 4 mg IV NOW STA
02/21/24 11:57
Complete Blood Count/With Diff Routine
Comprehensive Metabolic Panel Urgent
Lipase Urgent
02/21/24 11:59
CT Abd/Pel (IV only)-[facility] only Urgent
Comment:
Reason For Exam: vomiting x 10 days, ho pancreatitis; ag previo
02/21/24 13:02
Add On- LAB Urgent
Tests Added?: magnesium
Magnesium Sulfate 1 G/D5w [Magnesium Sulfate] 1 gm in 100 ml IV NOW
02/21/24 13:06
Potassium Chloride [KCl] 40 meq PO NOW STA
02/21/24 13:34
Potassium Chloride [KCl] 40 meq 0.9% Sodium Chloride 250 ml [Nss] 250 ml IV NOW
02/21/24 14:00
Flush (0.9% Sodium Chloride) [Flush (Nss)] See Dose Instructions IV PER PROTOCOL
02/21/24 Dinner
NPO
Allow oral meds: Yes
Allow clear liquids: Sips of Clears
02/21/24 15:22
Admit/Transfer Patient As Directed
Co-Sign Provider:
Level of Care: Inpatient admission
Assign to:: Medical/Surgical
Physician / Group: catalina
Diagnosis: acute pancolitis
Reason for Hospitalization: pancolitis, portal vein thrombosis
Expected length of stay greater than two midnights?: Yes
ELOS- Estimated Length of Stay in days: 2
I certify the patient meets the requirements for IP care: Yes
PRN Pain Medication Management As Directed
May give lesser potent ordered pain med per pt: Yes
preference::
Protocol:: Medication orders for pain may be administered in a
manner that supports deferring to patient preference
when the pt is:
- Requesting an ordered lesser potent pain medication.
Least to most potent pain medications are defined
as: acetaminophen < NSAID < tramadol < opioids
(morphine, oxycodone, hydromorphone).
- Requesting a lesser dose of the same medication IF
ORDERED.
- Requesting a less intrusive route of administration
if both routes are prescribed by the provider (PO <
IV).
02/21/24 15:23
Code Status As Directed
Resuscitation Status: Do not resuscitate
Reached after discussion with pt or family/Healthcare POA: Yes
DNR Bracelet Application ONCE
02/21/24 16:34
Acetaminophen [Tylenol] 650 mg PO Q6HPRN PRN
Famotidine [Pepcid] 20 mg PO DAILYPRN PRN
02/21/24 16:34
GASTROINTESTINAL CONSULT Routine
Consulting Provider: Romana Vela
Was physician already notified: Yes
Activity As Directed
Activity Level: As Tolerated
Sequential Compression Device [Pneumatic Compression Sleeves] As Directed
Type: Knee high
Vital Signs As Directed
Frequency: Per unit guidelines
DX Deep Vein Thrombosis Video Routine
02/21/24 20:00
Carvedilol [Coreg] 3.125 mg PO BID
02/21/24 22:00
Gabapentin [Neurontin] 800 mg PO HS
Lisinopril [Zestril] 20 mg PO HS
02/22/24 07:35
Complete Blood Count/With Diff IN AM
Comprehensive Metabolic Panel IN AM
02/22/24 08:00
Amlodipine [Norvasc] 10 mg PO DAILY
Multivitamin [Theragran] 1 tablet PO DAILY
Abnormal Lab Results
02/21/24
11:57
WBC 3.6 L 10^3/uL
(4.8-10.8)
RBC 3.66 L 10^6/uL
(4.20-5.40)
Hct 35.5 L %
(37.0-47.0)
MCH 35.8 H pg
(27.0-31.0)
RDW 16.3 H %
(11.5-14.5)
Plt Count 45 L 10^3/uL
(130-400)
MPV 11.3 H fL
(7.4-10.4)
Absolute Lymphs (auto) 1.1 L 10^3/uL
(1.2-3.4)
Immature Gran % 1.1 H %
(0-0.5)
Potassium 2.6 L* mmol/L
(3.5-5.1)
Carbon Dioxide 20 L mmol/L
(22-30)
Creatinine 0.5 L mg/dL
(0.6-1.0)
Total Bilirubin 1.9 H mg/dl
(0.2-1.3)
AST 74 H U/L
(14-36)
Albumin 3.3 L g/dl
(3.5-5.0)
02/21/24 11:57
02/21/24 11:57
Vital Signs
Initial and Last Documented VS:
Initial Vital Signs
Temp Pulse Resp BP Pulse Ox
36.4 C 95 18 139/85 98
02/21/24 11:25 02/21/24 11:25 02/21/24 11:25 02/21/24 11:25 02/21/24 11:25
Last Documented Vital Signs
Temp Pulse Resp BP Pulse Ox
36.6 C 77 17 126/72 97
02/24/24 07:00 02/24/24 07:00 02/24/24 07:00 02/24/24 07:00 02/24/24 07:00
MDM/Problems Addressed
Differential Diagnosis Includes:
SBO, uti, pancreatitis, gastrtiis; dehydration
MDM/Problems Addressed:
73-year-old female coming from home history of CHF preserved EF, hypertension, hyperlipidemia, aortic insufficiency, stroke left-sided weakness and gallstone pancreatitis status postcholecystectomy several months ago presents for vomiting over the
past 10 days intermittently. Patient had few days in the middle where she was not vomiting but it picked up recently. She is on empiric antibiotics for presumed UTI despite the fact that she has no urinary tract symptoms. Patient is on her last
day of Macrobid. She was vomiting repeatedly today and had been told by her doctor who did a housecall that if she continued to vomit she needs to come in. Patient has some PVCs on the monitor and was mildly tachycardic but she was vomiting
initially. She has no focal abdominal tenderness but some distention. Her labs show a potassium of 2.6
She had already received a dose of Zofran
Her QT is prolonged at 538 so she was given empiric magnesium and potassium repletion. Her magnesium level is pending. Her AST is down from previous and her lipase is normal. Her CT shows findings consistent with a colitis. She also has a
nonocclusive portal vein thrombosis. She is not anticoagulated
Will admit for IV fluids, electrolytes,
*Critical Care Note
Total Time (30-74mins, 75-104mins- exclusive of procedures): Not Applicable
ED Attending Note
-
Portions of this chart may have been created with voice recognition software.� Occasional wrong word or��sound alike� substitutions may have occurred due to the inherent limitations of voice recognition software.
Discharge Plan
Departure
Patient Disposition: Admit
Date of Disposition: 02/21/24
Time of Disposition: 14:36
Admit to: Telemetry
Presentation/result/management discussed w/ accepting MD/DO: Hospitalist
Condition: Fair
Covid-19: Not Applicable
Discharge Problem:
Acute hypokalemia, Thrombocytopenia, Vomiting, Prolonged QT interval
Interventions
Interventions:
*Risk Screen - Suicide Last Done: 02/21/24 12:00
*General Assessment Last Done: 02/21/24 12:00
*Neglect/Abuse Screening Last Done: 02/21/24 12:00
ED- Fall Risk Assessment Last Done: 02/21/24 16:32
*ED COVID-19 Vaccine History Last Done: 02/21/24 12:00
*Nursing Disposition Last Done: 02/21/24 16:32
FP-Zvavte-Sceqvlvzeg Assessment Last Done: 02/21/24 12:00
Discharge Date and Time
Discharge Date/Time: 02/21/24 16:59
[2024-02-21] MEDS: KCL 270 MEQ IV (14:44)
--- NOTE | 2024-02-21 15:30 | HPS.HSE ---
Family Physician
-
Family Physician: Edilma Collins PA-C
Chief Complaint
-
vomiting
History of Present Illness
73-year-old female past medical history of likely alcoholic cirrhosis, CVA with left-sided weakness, hypertension, hypercholesteremia, depression, nonischemic cardiomyopathy, gallstone pancreatitis, choledocholithiasis, hepatic steatosis,
pancytopenia, nonobstructive CAD, aortic stenosis, hypertension, alcohol use disorder, functional quadriplegia, presenting with vomiting for 10 days. She has not able to keep much down in the past 2 days. Denies diarrhea. Denies fevers or chills.
Denies chest pain or shortness of breath.
She has not had any alcohol in 3 weeks. She denies smoking.
Her primary care physician visited her at her home and noted abdominal tenderness with palpation to started Bactrim 5 days ago for presumed UTI. Patient denied urinary symptoms at any time.
Medical History
Past Medical History
Past Medical History: Reports Other (alcoholic cirrhosis, CVA with left-sided weakness, hypertension, hypercholesteremia, depression, nonischemic cardiomyopathy, gallstone pancreatitis, choledocholithiasis, hepatic steatosis, pancytopenia,
nonobstructive CAD, aortic stenosis, hypertension, alcohol use disorder, functional quadriplegia)
Past Surgical History: Reports Other (Gynecological (Hysterectomy))
Social History
Tobacco: Non-smoker
Alcohol: Former
Drug: None
Family History
Family History: Not pertinent
Allergies / Home Medications
Allergies reflects when Allergies were last updated in [facility].
Home Medications with original date entered in [facility]
Allergy/Medication List:
Allergies
Allergy/AdvReac Type Severity Reaction Status Date / Time
No Known Drug Allergies Allergy Unknown Verified 10/21/20 16:31
Home Medications
amlodipine 10 mg tablet 10 mg PO DAILY Blood pressure 10/21/20
carvedilol 3.125 mg tablet 3.125 mg PO BID Heart Failure 10/21/20
famotidine 20 mg tablet 20 mg PO DAILYPRN PRN indigestion 10/23/20
lisinopril 20 mg tablet 20 mg PO HS Blood pressure 10/23/20
gabapentin 400 mg capsule 800 mg PO HS 09/30/23
acetaminophen 325 mg tablet 650 mg PO Q6HPRN PRN mild pain 02/21/24
nitrofurantoin monohydrate/macrocrystals 100 mg capsule 100 mg PO BID 02/21/24
therapeutic multivitamin 1 tab PO DAILY 02/21/24
Review of Systems
-
History Source: Patient
A 12 point ROS was completed and negative except as noted: Yes
Constitutional: Reports No Symptoms
EENT: Reports No Symptoms
Respiratory: Reports No Symptoms
Cardiac: Reports No Symptoms
Abdomen/GI: Reports See HPI
: Reports No Symptoms
Musculoskeletal: Reports No Symptoms
Skin: Reports No Symptoms
Neurological: Reports No Symptoms
Endocrine: Reports No Symptoms
Hematologic/Lymphatic: Reports No Symptoms
Psych: Reports No Symptoms
Physical Exam
Vital Signs
Vital Signs
Temp Pulse Resp BP Pulse Ox
97.5 F 85 19 115/98 98
02/21/24 11:25 02/21/24 13:15 02/21/24 13:15 02/21/24 13:00 02/21/24 13:15
Physical Exam
General: Well Developed, Well Nourished and No Apparent Distress
HEENT: NormoCephalic, Moist mucous membranes and Atraumatic
Respiratory: Clear
Cardiac: S1/S2 and Regular Rhythm; No Murmur or Rub
GI: Soft, Non Distended, Normal Bowel Sounds and Tender (diffusely ); No Organomegaly
Rectal: Deferred by Provider
Musculoskeletal: No Clubbing, No Cyanosis and No Edema
Skin: No Rash
Neuro: Nonfocal/grossly intact
Laboratory Results
-
02/21/24 11:57
02/21/24 11:57
Laboratory Results
Total Bilirubin 1.9 mg/dl (0.2-1.3) H 02/21/24 11:57
AST 74 U/L (14-36) H 02/21/24 11:57
ALT 26 U/L (0-35) 02/21/24 11:57
Alkaline Phosphatase 63 U/L (38-126) 02/21/24 11:57
Lipase 223 U/L (23-300) 02/21/24 11:57
Data Reviewed
-
Lab Data: Labs Reviewed by me
Old Records: Reviewed
Impression/Plan
-
IMPRESSION:
PLAN:
# Acute pancolitis possibly infectious colitis
-No diarrhea
-N.p.o.
-Hold off antibiotics
-Check stool studies if diarrhea
-GI consulted
# Severe hypokalemia secondary to GI loss
-Potassium repletion
-Check magnesium
-Magnesium empirically being given
# Portal vein thrombosis
-Difficult to anticoagulate due to thrombocytopenia
-GI input
# Recent treatment for UTI
-Doubt she ever had UTI, hold Bactrim
Former alcohol use disorder
-Patient denies any alcohol use
-Continue gabapentin
History of gallstone pancreatitis
History of choledocholithiasis
Hepatic steatosis/cirrhosis likely secondary to alcohol
Pancytopenia
-Counts roughly stable
CAD likely nonobstructive
Nonischemic cardiomyopathy
Aortic stenosis
Essential hypertension
-Continue amlodipine
-Continue lisinopril
-Continue Coreg
Hyperlipidemia
Functional quadriplegia
History of CVA with left-sided weakness
Anxiety/depression
DNR/DNI
DVT prophylaxis�heparin
Regular diet
--- NOTE | 2024-02-21 16:40 | PTCARENOTE ---
Received pt from ED via stretcher. Pt pulled over to bed with assist x3. AAOx3. No complaints of pain. VSS. K rider infusing. L sided paralysis. Assessed and oriented to room. Pt verbalized understanding of call casarez. Call casarez within close reach.
[2024-02-21 19:49] LABS: Magnesium 1.9 mg/dl (1.6-2.3)
[2024-02-21] MEDS: COREG 3.125 MG PO (20:28)
[2024-02-21] MEDS: DESENEX/MITRAZOL/ZEASORB 1 APPLIC TOPICAL (20:29)
[2024-02-21] MEDS: NEURONTIN 800 MG PO (21:52)
[2024-02-21] MEDS: ZESTRIL 20 MG PO (21:52)
[2024-02-22] VITALS (7 sets, daily range): BP systolic 93–111; BP diastolic 44–67; BMI 27.7
--- NOTE | 2024-02-22 08:52 | W.PN.HOSP.TC ---
Addendum entered and electronically signed by Julio Matos MD 02/22/24 13:32:
Acute pancolitis, no further vomiting episodes no diarrheal episodes. Likely has resolved at this point.
Start clear liquid diet advance as tolerated
GI consulted
Severe hypokalemia secondary to GI losses
Slowly improving now 3.1 from 2.6
Continue to aggressively replete with 120 mEq and p.o. and IV formulation to be provided today
Portal vein thrombosis�acute
She is chronically thrombocytopenic with a platelet count of less than 50. Unable to provide any anticoagulation at this time due to this fact. Will consult hematology for additional recommendations. GI following and they also recommended
hematology
Original Note:
Today's Communication/Plan
-
.
Assessment / Plan
Assessment / Plan
Ms. Sonya Patrick is a 73yoF h nonischemic cardiomyopathy, CAD, aortic stenosis, HTN, HLD, functional quadriplegia, and hx alcohol use disorder admitted for hypokalemia and prolonged vomiting.
Acute pancolitis possibly infectious colitis
-No diarrhea
-advance diet as tolerated
-Hold off antibiotics for now
-Check stool studies if diarrhea develops
-GI consulted
Severe hypokalemia secondary to GI loss
- Potassium repletion
- magnesium wnl
- Mg was empirically given
Portal vein thrombosis
-Difficult to anticoagulate due to thrombocytopenia
-GI, hematology consulted
Recent treatment for UTI
-Unlikely she ever had UTI, hold nitrofurantoin
Former alcohol use disorder
-Patient denies any current alcohol use
-Continue gabapentin
Pancytopenia
-Counts roughly stable
Nonischemic cardiomyopathy
Aortic stenosis
CAD
HTN/HLD
-Continue amlodipine
-Continue lisinopril
-Continue Coreg
Functional quadriplegia
History of CVA with left-sided weakness
- monitor
Anxiety/depression
- monitor
Diet: clear liquid
DVT ppx: heparin
Code status: DNR/DNI
Anticipated Discharge: > 48 hours
Subjective/Interval History
-
Date of Service: February 22, 2024
Ms. Sonya Patrick is a 73yoF pmh nonischemic cardiomyopathy, CAD, aortic stenosis, HTN, HLD, functional quadriplegia, and hx alcohol use disorder admitted for hypokalemia and prolonged vomiting. Pt vomited for 10 days prior to admission. PCP did a
home visit 4-5 days earlier, urged her to come into the ED, and started her on nitrofurantoin despite no UTI sx.
Objective Data
-
Labs:
Laboratory Results
02/22/24
07:35
WBC Pending
Hgb Pending
Hct Pending
Plt Count Pending
Sodium Pending
Potassium Pending
Chloride Pending
Carbon Dioxide Pending
BUN Pending
Creatinine Pending
Glucose Pending
Calcium Pending
Total Bilirubin Pending
AST Pending
ALT Pending
Alkaline Phosphatase Pending
Vital Signs:
Vital Signs
Temp Pulse Resp BP Pulse Ox
97.9 F 67 16 97/49 94
02/22/24 07:43 02/22/24 08:49 02/22/24 07:43 02/22/24 08:49 02/22/24 07:43
[2024-02-22] MEDS: COREG PO ×2 (09:02→20:23)
[2024-02-22] MEDS: NORVASC PO (09:03)
[2024-02-22] MEDS: THERAGRAN 1 TABLET PO (09:03)
[2024-02-22] MEDS: DESENEX/MITRAZOL/ZEASORB 1 APPLIC TOPICAL ×2 (09:03→20:26)
[2024-02-22 09:43] LABS: % Basophils 0.8 % (0-2); % Immature Granulocytes 1.8 % (0-0.5); % Monocytes 8.5 % (1.7-9.3); % Neutrophils 57.9 % (42.2-75.2); Absolute Immature Granulocytes 0.1 10^3/uL (0-0.05); Absolute Lymphocytes 1.2 10^3/uL (1.2-3.4); Absolute Monocytes 0.3 10^3/uL (0.1-0.6); Absolute Neutrophils 2.2 10^3/uL (1.4-6.5); Hematocrit 31.3 % (37.0-47.0); Hemoglobin 11.1 g/dL (12.0-16.0); Mean Corp Hgb Conc. 35.5 g/dL (33.0-37.0); Mean Corpuscular Hgb 36.3 pg (27.0-31.0); Mean Corpuscular Volume 102.3 fL (81.0-99.0); Mean Platelet Volume 10.1 fL (7.4-10.4); Nucleated Red Blood Cells % 0 %; Platelet Count 47 10^3/uL (130-400); Red Blood Cell Count 3.06 10^6/uL (4.20-5.40); Red Cell Dist. Width 17.3 % (11.5-14.5); White Blood Cell Count 3.9 10^3/uL (4.8-10.8)
[2024-02-22 09:56] LABS: ALT (SGPT) 23 U/L (0-35); AST (SGOT) 51 U/L (14-36); Albumin 2.6 g/dl (3.5-5.0); Alkaline Phosphatase 62 U/L (38-126); Blood Urea Nitrogen 8 mg/dl (7-17); Calcium 8.1 mg/dl (8.4-10.2); Carbon Dioxide 17 mmol/L (22-30); Chloride 110 mmol/L (98-107); Estimated Creatinine Clearance 81 ml/min; Glucose 76 mg/dl (70-99); Potassium 3.1 mmol/L (3.5-5.1); Sodium 140 mmol/L (135-145); Total Bilirubin 1.4 mg/dl (0.2-1.3); Total Protein 6.2 g/dl (6.3-8.2); eGFR > 60.00
[2024-02-22] MEDS: KCL 520 MEQ IV (13:50)
--- NOTE | 2024-02-22 15:25 | CON.GI ---
Addendum entered and electronically signed by Karsten Lucero MD 02/22/24 20:11:
I saw and examined the patient.
The FORECLOSURE [employer]ALEGAL or PA's note was reviewed and I agree with the note.
Comment: 73-year-old female past medical history of stroke, wheelchair-bound, aortic stenosis, cardiomyopathy, gastroparesis with prior PEG placement pancytopenia who presents with nausea and vomiting. PCP was concerned for UTI and she was placed
on Bactrim. Nausea and vomiting have improved and she has tolerated clear liquids today. If her n/v improve, we can advance her diet tomorrow. N/v may be from a gastroenteritis or possibly related to the UTI.
Incidentally, she was found on CT scan to have a nonocclusive thrombus in the distal main portal vein extending to the right portal vein. Reviewing her prior imaging from her MRI and CT in September there is no mention of a portal vein thrombosis at
that time. Her liver was previously normal in morphology on her MRI in September 2023. She did have a liver biopsy done in 2017 which showed chronic hepatitis with portal fibrosis and mild bile duct proliferation felt likely drug-induced liver
injury. Per patient, she previously did drink a case of beer a day for years unclear when she stopped this but she states more recently she drinks 2-3 beers a day and the last 2 to 3 weeks she has not drank at all. She thinks perhaps she was told
she had cirrhosis in past. the CT scan, the liver is within normal limits however there is report of possible prominent enhancement along distal esophagus possible paraesophageal varices. She does have chronic thrombocytopenia. Coags are normal.
I do not suspect her nausea and vomiting are related to her portal vein thrombosis but rather this was a incidental finding. I discussed with patient, she does not want any procedures done in regards to potential EGD. She did have an ERCP done
earlier this year in September 2023 for choledocholithiasis but I do not see an endoscopy performed at that time. She will likely benefit from a FibroScan outpatient to further evaluate for possible cirrhosis. Hematology and oncology have been
consulted and we can discuss with them tomorrow regarding possible anticoagulation although given the fact that she may have cirrhosis will need to weigh risks and benefits of potential bleeding and ideally would do EGD prior to assess for varices.
Also given her severe thrombocytopenia, nonocclusive PVT, asymptomatic most likely would not recommend AC at this time.
Also incidentally pancolitis noted on CT. No diarrhea if has diarrhea recommend stool studies.
Upon discharge, outpatient GI follow up will be needed.
Original Note:
Consultation
-
Date/Time Consultation Requested: 02/21/24 1634
Date/Time Consultation Performed: 02/22/24 1500
Requesting Provider: Dr. Zimmerman
Performing Provider: Dr. Lucero/JESÚS Javier
Reason for Consultation: pancolitis
Medical History
Chief Complaint / HPI
Chief Complaint: abdominal pain
History of Present Illness:
73yo with hx CVA with left sided weakness, wheelchair bound, , HTN, hypercholesterolemia, depression, nonischemic CM, prior GJ tube gastroparesis with removal, c-diff, pancreatitis, ETOH use (states she recently has not had as much as in the
past), pancytopenia, s/p ERCP 10/02/23 with stent placement, lap cholecystectomy 10/06/23 presents to the emergency room for a 2-week history of vomiting. The patient states that she has been unable to keep much down. She would sip on some liquids.
She was seen by her PCP at home visit and it was felt that she may have had a UTI. She was prescribed Bactrim. Patient denied any dysuria or pelvic discomfort. She has had no diarrhea. We are asked to wait for pancolitis seen on imaging. At the
present time the patient is tolerating clear liquids. She denies any sick contacts within her house. She states she lives with 6 family members. None of them are sick. She denies any fevers, chills, melena, hematochezia, hematemesis, dysphagia
or dyne aphasia. No early satiety or unintentional weight loss. She denies any changes in medication except for the recent antibiotic that was prescribed to her. She does state that she stopped drinking alcohol a couple weeks ago. She states she
lost the taste for beer and did have a twisted tea. WBC 3.9, hemoglobin 11.1, hematocrit 31.3, platelets 47, sodium 140, potassium 3.1 (up from 2.6), chloride 101, CO2 17, BUN 8, creatinine 0.6, glucose 76, calcium 8.1, magnesium 1.9, total
bilirubin 1.4, direct 0.5, AST 51 (down from 74), ALT 23, ALT 62, albumin 2.6.
Past Medical History
Past Medical History: CVA (left sided weakness ), HTN, Hypercholesterolemia, Valvular Disease (), Psychiatric (depression ) and Other (Nonischemic cardiomyopathy, Fracture ankle, GJ tube with initial T fastener placement, gastroparesis,
esophagitis, C-diff, gastritis, duodenitis, chronic thrombocytopenia)
Past Surgical History: Gynecological (hysterectomy)
Social History
Tobacco: Non-Smoker
Alcohol: Occasional (1 drink every 2 weeks heavy prior to CVA)
Drug: None
Living: With Family (son)
Employment: Retired
Family History
Family History: Other (no family hx pancreatitis or pancreatic problems mother with hx ag )
Allergies / Home Medications
Allergy/AdvReac Type Severity Reaction Status Date / Time
No Known Drug Allergies Allergy Unknown Verified 10/21/20 16:31
�Medication �Instructions �Recorded
amlodipine 10 mg tablet 10 mg PO DAILY Blood pressure 10/21/20
carvedilol 3.125 mg tablet 3.125 mg PO BID Heart Failure 10/21/20
famotidine 20 mg tablet 20 mg PO DAILYPRN PRN indigestion 10/23/20
lisinopril 20 mg tablet 20 mg PO HS Blood pressure 10/23/20
gabapentin 400 mg capsule 800 mg PO HS pain 09/30/23
acetaminophen 325 mg tablet 650 mg PO Q6HPRN PRN mild pain 02/21/24
nitrofurantoin 100 mg PO BID infection/UTI 02/21/24
monohydrate/macrocrystals 100 mg
capsule
therapeutic multivitamin 1 tab PO DAILY Supplement 02/21/24
Review of Systems
-
All other systems: A 12 pt ROS was Negative except as stated above in HPI
Vital Signs
Temp Pulse Resp BP Pulse Ox
98 F 70 16 107/67 94
02/22/24 11:09 02/22/24 11:09 02/22/24 11:09 02/22/24 11:09 02/22/24 11:09
Physical Exam
Exam
General: No Apparent Distress
HEENT: Anicteric
Respiratory: Clear (Anterior)
Cardiac: Regular Rhythm
GI: Soft, Non Tender, Non Distended and Normal Bowel Sounds
Skin: Warm and Dry
Neuro: AO x 3
Psych: Calm
Results
WBC 3.9 10^3/uL (4.8-10.8) L 02/22/24 07:35
Hgb 11.1 g/dL (12.0-16.0) L 02/22/24 07:35
Hct 31.3 % (37.0-47.0) L 02/22/24 07:35
MCV 102.3 fL (81.0-99.0) H 02/22/24 07:35
Plt Count 47 10^3/uL (130-400) L 02/22/24 07:35
Absolute Neuts (auto) 2.2 10^3/uL (1.4-6.5) 02/22/24 07:35
Sodium 140 mmol/L (135-145) 02/22/24 07:35
Potassium 3.1 mmol/L (3.5-5.1) L 02/22/24 07:35
Chloride 110 mmol/L (98-107) H 02/22/24 07:35
Carbon Dioxide 17 mmol/L (22-30) L 02/22/24 07:35
BUN 8 mg/dl (7-17) 02/22/24 07:35
Creatinine 0.6 mg/dL (0.6-1.0) 02/22/24 07:35
Calcium 8.1 mg/dl (8.4-10.2) L 02/22/24 07:35
Total Bilirubin 1.4 mg/dl (0.2-1.3) H 02/22/24 07:35
AST 51 U/L (14-36) H 02/22/24 07:35
ALT 23 U/L (0-35) 02/22/24 07:35
Alkaline Phosphatase 62 U/L (38-126) 02/22/24 07:35
Lipase 223 U/L (23-300) 02/21/24 11:57
Diagnostic Image Results:
CT abdomen and pelvis with IV contrast only:Lower Chest: Bibasilar atelectasis, more pronounced on the left.. No pleural effusion. Coronary artery calcifications.
Abdomen:
Liver: within normal limits.
Bile Ducts: Within normal limits.
Gallbladder: Surgically absent.
Pancreas: Within normal limits.
Spleen: Enlarged measuring 15.6 cm, similar to prior.
Adrenals: No discrete nodule.
Kidneys/Ureters: Mildly atrophic. There are multiple stones within the left renal hilum as well as a stone in the right renal hilum which measures 2 1.5 cm on the right, similar to prior. There is no hydronephrosis. There are additional
nonobstructing stones bilaterally. Bilateral renal cysts.
Bowel: No obstruction. There is wall thickening with mild mucosal hyperenhancement throughout the colon most pronounced in the ascending and transverse colon. Scattered colonic diverticulosis. Normal appendix.
Peritoneum: No ascites or free air.
Reproductive Organs: There is an unchanged multicystic lesion within the right adnexa measuring 7.9 x 4.3 x 3.6 cm, similar to prior. There is similar appearance of the multicystic lesion within the left adnexa measuring 4.3 x 3.0 x 3.2 cm.
Bladder: Mildly distended.
Vessels: Moderate scattered atherosclerotic calcifications. There is prominent enhancement along the distal esophagus favored to represent paraesophageal varices. There is a filling defect within the distal main portal vein extending into the right
portal vein.
Retroperitoneum: Within normal limits.
Abdominal Wall: Within normal limits.
Bones: No suspicious lesions. Diffuse osteopenia. There is a mild superior endplate deformity of the L1 vertebral body, unchanged from prior. There is multilevel moderate degenerative changes.
Prior GI Procedures:
EGD: 12/2017 - Normal duodenal bulb and second portion of the
duodenum.
- Erythematous mucosa in the greater curvature of the
gastric body and lesser curvature of the gastric body.
Biopsied.
- Small hiatal hernia.
- LA Grade A reflux esophagitis.
- 300 ml of bilious gastric fluid.
- A gastric tube was found in the stomach.
- S/P placement of 3 T fasteners percutaneously using
endoscopic guidance by Dr Tony
Colonoscopy: 11/2017 - Non-bleeding external and internal hemorrhoids.
- Poor prep unable to rule out small <5mm polyps
- No specimens collected.
ERCP 10/05/2023 (Dr. Berman): - One stent from the biliary tree was seen in the
major papilla.
- Multiple filling defects consistent with stones were
seen on the cholangiogram.
- The upper third of the main bile duct was mildly
dilated.
- Choledocholithiases were found. Complete removal was
accomplished by biliary sphincterotomy and balloon
extraction.
- One stent was removed from the biliary tree.
- A biliary sphincterotomy was performed.
- The biliary tree was swept.
Assessment / Plan
-
73yo with hx CVA with left sided weakness, wheelchair bound, , HTN, hypercholesterolemia, depression, nonischemic CM, prior GJ tube gastroparesis with removal, c-diff, pancreatitis, ETOH use (states she recently has not had as much as in the
past), pancytopenia, s/p ERCP 10/02/23 with stent placement, lap cholecystectomy 10/06/23 presents to the emergency room for a 2-week history of vomiting. The patient states that she has been unable to keep much down. She would sip on some liquids.
She was seen by her PCP at home visit and it was felt that she may have had a UTI. She was prescribed Bactrim. Patient denied any dysuria or pelvic discomfort. She has had no diarrhea. We are asked to wait for pancolitis seen on imaging. At the
present time the patient is tolerating clear liquids.
Impression:
Nausea/vomiting-> resolved, tolerating clear liquids
Pancolitis seen on CT imaging, no bowel movement
Hypokalemia-> repletion as per internal medicine
Portal vein thrombosis-> hematology to evaluate
Thrombocytopenia
CT with prominent enhancement along the distal esophagus favored to represent paraesophageal varices.
History of alcohol use
Plan:
-Obtain ultrasound of abdomen, rule out cirrhosis. All prior imaging of liver including MRI in September and current CT without signs of cirrhosis.
-Hematology consult pending
-Clear liquids, advance as tolerated
-Stool studies if with diarrhea
-Check PT/INR
-Trend labs
-Patient already on Coreg twice daily
-Famotidine 20 mg daily
-Further recommendations to be forthcoming
-
-
Thank you for consultation and allowing me to participate in the patient's care. Please call the applications packager GI physician during the after hours with any questions or concerns.
[2024-02-22 15:45] LABS: Direct Bilirubin 0.5 mg/dl (0.0-0.4)
[2024-02-22 16:25] LABS: INR 1.18; PT 15.5 Sec (11.4-14.6)
[2024-02-22] MEDS: KCL ELIXIR 40 MEQ PO (17:03)
[2024-02-22 17:45] LABS: Alcohol None Detected
--- NOTE | 2024-02-22 21:59 | CON.ONC ---
Impression
Impression
Portal vein thrombosis, new since 09/30/23
Nausea/vomiting, now improved
Alcoholic cirrhosis
Possible esophageal varices
Splenomegaly
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
Macrocytic anemia
Alcoholism, states she only has an occasional drink with her son
Plan
Plan
Patient's cytopenias, with thrombocytopenia out of proportion to anemia, are consistent with splenic sequestration.
In this setting, patients may not have bleeding complications as total body platelet number may be normal.
Nevertheless, with platelets less than 50 and no symptoms of acute portal vein thrombosis such as abdominal pain, would err on the side of caution and not start anticoagulation.
Ideally she would be reimaged in the next 6 to 8 weeks with consideration of anticoagulation at that time if clot is noted to have progressed.
Thank you for consult, will follow along with you
Patient History
History of Present Illness
Patient is a 73-year-old woman with history of alcoholic cirrhosis, CVA with left-sided weakness, wheelchair-bound, and multiple other medical issues. She came to the hospital with a 10-day history of vomiting. Imaging was consistent with
enteritis but also incidentally noted nonocclusive thrombus in distal main portal vein extending to the right portal vein. There was a suggestion of esophageal varices. Spleen was noted to be enlarged at 15.6 cm, similar to prior. Patient denies
black tarry stools or coffee-ground emesis. She denies abdominal pain. She has no prior history of blood clots and is unaware of any family history. We are consulted regarding the possibility of anticoagulation. Patient denies falls at home. It
sounds as though her home situation is somewhat chaotic with multiple generations living in a 2 bedroom home.
Past-Medical/Surgical History
Past Medical History:
CVA (left sided weakness ), HTN, Hypercholesterolemia, Valvular Disease (), Psychiatric (depression ) and Other (Nonischemic cardiomyopathy, Fracture ankle, GJ tube with initial T fastener placement, gastroparesis, esophagitis, C-diff, gastritis,
duodenitis, chronic thrombocytopenia)
Past Surgical History:
Gynecological (hysterectomy)
Social History
Tobacco: Non-Smoker
Alcohol: Occasional (1 drink every 2 weeks heavy prior to CVA)
Drug: None
Living: With Family (son)
Employment: Retired
Family History
Family History: Denies family history of cancer or blood disorders
Patient Medication
�Medication �Instructions �Recorded �Confirmed �Last Taken �Type
amlodipine 10 mg tablet 10 mg PO DAILY Blood pressure 10/21/20 02/21/24 02/20/24 History
carvedilol 3.125 mg tablet 3.125 mg PO BID Heart Failure 10/21/20 02/21/24 02/20/24 History
famotidine 20 mg tablet 20 mg PO DAILYPRN PRN indigestion 10/23/20 02/21/24 Unknown History
lisinopril 20 mg tablet 20 mg PO HS Blood pressure 10/23/20 02/21/24 02/20/24 History
gabapentin 400 mg capsule 800 mg PO HS pain 09/30/23 02/21/24 02/20/24 History
acetaminophen 325 mg tablet 650 mg PO Q6HPRN PRN mild pain 02/21/24 02/21/24 Unknown History
nitrofurantoin 100 mg PO BID infection/UTI 02/21/24 02/21/24 02/21/24 History
monohydrate/macrocrystals 100 mg
capsule
therapeutic multivitamin 1 tab PO DAILY Supplement 02/21/24 02/21/24 02/20/24 History
Active Medications
Generic Name Dose Route Start Last Admin
Trade Name Freq PRN Reason Stop Dose Admin
Acetaminophen 650 mg 02/21/24 16:34
Acetaminophen 325 Mg Tablet PO 03/20/24 16:33
Q6HPRN PRN
mild pain
Amlodipine Besylate 10 mg 02/22/24 08:00 02/22/24 09:03
Amlodipine 10 Mg Tablet PO 03/21/24 07:59 Not Given
DAILY AMANDEEP
Carvedilol 3.125 mg 02/21/24 20:00 02/22/24 20:23
Carvedilol 3.125 Mg Tablet PO 03/20/24 19:59 Not Given
BID AMANDEEP
Famotidine 20 mg 02/21/24 16:34
Famotidine 20 Mg Tablet PO 03/20/24 16:33
DAILYPRN PRN
indigestion
Gabapentin 800 mg 02/21/24 22:00 02/21/24 21:52
Gabapentin 400 Mg Capsule PO 03/20/24 21:59 800 mg
HS AMANDEEP Administration
Lisinopril 20 mg 02/21/24 22:00 02/21/24 21:52
Lisinopril 20 Mg Tablet PO 03/20/24 21:59 20 mg
HS AMANDEEP Administration
Miconazole Nitrate 0 applic 02/21/24 20:00 02/22/24 20:26
Miconazole Powder Bottle TOPICAL 03/20/24 19:59 1 applic
BID AMANDEEP Administration
Multivitamins Therapeutic 1 tablet 02/22/24 08:00 02/22/24 09:03
Multivitamin Tablet PO 03/21/24 07:59 1 tablet
DAILY AMANDEEP Administration
Sodium Chloride 0 flush 02/21/24 14:00
Sodium Chloride 0.9% (Flush) Syringe IV 03/20/24 13:59
PER PROTOCOL AMANDEEP
Trimethobenzamide HCl 200 mg 02/21/24 18:29
Trimethobenzamide 200 Mg/2 Ml Vial IM 03/20/24 18:28
Q8HPRN PRN
NAUSEA / VOMITING
Review of Systems
-
History Source: Patient
All Other Systems: Reviewed and Negative
Constitutional: Reports Fatigue and Weakness
EENT: Reports No Symptoms
Respiratory: Reports No Symptoms
Cardiac: Reports No Symptoms
GI: Reports Nausea and Vomiting; Denies Abdominal Pain, Diarrhea, Bloody Stools or Black Stools
Breast: Reports No Symptoms
: Reports No Symptoms
Musculoskeletal: Reports Muscle Weakness
Skin: Reports No Symptoms
Neuro: Reports Weakness
Endocrine: Reports No Symptoms
Hematologic/Lymphatic: Reports No Symptoms
Allergy / Immunology: Reports No Symptoms
Psych: Reports No Symptoms
Physical Exam
-
Patient is sleepy but arousable, chronically ill-appearing
Heart rate and rhythm regular
Lungs clear
Abdomen soft and nontender
Extremities no edema
Labs
Lab Results
WBC 3.9 10^3/uL (4.8-10.8) L 02/22/24 07:35
RBC 3.06 10^6/uL (4.20-5.40) L 02/22/24 07:35
Hgb 11.1 g/dL (12.0-16.0) L 02/22/24 07:35
Hct 31.3 % (37.0-47.0) L 02/22/24 07:35
MCV 102.3 fL (81.0-99.0) H 02/22/24 07:35
MCH 36.3 pg (27.0-31.0) H 02/22/24 07:35
MCHC 35.5 g/dL (33.0-37.0) 02/22/24 07:35
RDW 17.3 % (11.5-14.5) H 02/22/24 07:35
Plt Count 47 10^3/uL (130-400) L 02/22/24 07:35
MPV 10.1 fL (7.4-10.4) 02/22/24 07:35
Abs Immat Gran (auto) 0.1 10^3/uL (0-0.05) H 02/22/24 07:35
Absolute Neuts (auto) 2.2 10^3/uL (1.4-6.5) 02/22/24 07:35
Absolute Lymphs (auto) 1.2 10^3/uL (1.2-3.4) 02/22/24 07:35
Absolute Monos (auto) 0.3 10^3/uL (0.1-0.6) 02/22/24 07:35
Absolute Eos (auto) 0.0 10^3/uL (0-0.7) 02/22/24 07:35
Absolute Basos (auto) 0.0 10^3/uL (0-0.2) 02/22/24 07:35
Immature Gran % 1.8 % (0-0.5) H 02/22/24 07:35
Neutrophils % 57.9 % (42.2-75.2) 02/22/24 07:35
Lymphocytes % 30.0 % (20.5-51.1) 02/22/24 07:35
Monocytes % 8.5 % (1.7-9.3) 02/22/24 07:35
Eosinophils % 1.0 % (0-6) 02/22/24 07:35
Basophils % 0.8 % (0-2) 02/22/24 07:35
Creatinine 0.6 mg/dL (0.6-1.0) 02/22/24 07:35
Vital Signs
Vital Signs
Temp Pulse Resp BP Pulse Ox
97.7 F 78 20 111/45 97
02/22/24 19:43 02/22/24 19:43 02/22/24 19:43 02/22/24 20:23 02/22/24 20:30
[2024-02-22] MEDS: NEURONTIN 800 MG PO (22:58)
[2024-02-22] MEDS: ZESTRIL PO (22:58)
[2024-02-23] MEDS: ZESTRIL PO (00:04)
[2024-02-23 03:16] VITALS: BP 99/51
[2024-02-23 05:54] VITALS: BMI 28.0
[2024-02-23 07:35] VITALS: BP 130/58
--- NOTE | 2024-02-23 07:58 | W.PN.HOSP.TC ---
Addendum entered and electronically signed by Julio Matos MD 02/23/24 16:21:
Acute pancolitis, no further vomiting episodes no diarrheal episodes. Likely has resolved at this point.
Start clear liquid diet advance as tolerated
GI following
Severe hypokalemia secondary to GI losses
resolved.
Portal vein thrombosis�acute
She is chronically thrombocytopenic with a platelet count of less than 50. Unable to provide any anticoagulation at this time due to this fact. Will consult hematology for additional recommendations. GI following and they also recommended
hematology
Reepat imaging in 6-8 weeks if no related symtpoms or if symtpoms repeat imaging study sooner
If tolerates diet DC home
Original Note:
Today's Communication/Plan
-
.
Assessment / Plan
Assessment / Plan
Ms. Sonya Patrick is a 73yoF h nonischemic cardiomyopathy, CAD, aortic stenosis, HTN, HLD, functional quadriplegia, and hx alcohol use disorder admitted for hypokalemia and prolonged vomiting.
Acute pancolitis possibly infectious colitis
-No diarrhea
-advance diet as tolerated
-Hold off antibiotics for now
-Check stool studies if diarrhea develops
-GI consulted
Severe hypokalemia secondary to GI loss
- Potassium repletion
- magnesium wnl
- Mg was empirically given
Portal vein thrombosis
-Difficult to anticoagulate due to thrombocytopenia
-not anticoagulating
-GI, hematology consulted
Recent treatment for UTI
-Unlikely she ever had UTI, hold nitrofurantoin
Former alcohol use disorder
-Patient denies any current alcohol use
-Continue gabapentin
Pancytopenia
-Counts roughly stable
Nonischemic cardiomyopathy
Aortic stenosis
CAD
HTN/HLD
-Continue amlodipine
-Continue lisinopril
-Continue Coreg
Functional quadriplegia
History of CVA with left-sided weakness
- monitor
Anxiety/depression
- monitor
Diet: low residue
DVT ppx: heparin
Code status: DNR/DNI
Anticipated Discharge: Within 24 hours
Subjective/Interval History
-
Date of Service: February 23, 2024
Ms. Sonya Patrick is a 73yoF pmh nonischemic cardiomyopathy, CAD, aortic stenosis, HTN, HLD, functional quadriplegia, and hx alcohol use disorder admitted for hypokalemia and prolonged vomiting. No acute overnight events.
Objective Data
-
Labs:
Laboratory Results
02/23/24
06:58
WBC Pending
Hgb Pending
Hct Pending
Plt Count Pending
Sodium Pending
Potassium Pending
Chloride Pending
Carbon Dioxide Pending
BUN Pending
Creatinine Pending
Glucose Pending
Calcium Pending
Total Bilirubin Pending
AST Pending
ALT Pending
Alkaline Phosphatase Pending
Vital Signs:
Vital Signs
Temp Pulse Resp BP Pulse Ox
98.2 F 73 18 130/58 98
02/23/24 07:35 02/23/24 07:35 02/23/24 07:35 02/23/24 07:35 02/23/24 07:35
I&O
02/22/24 02/23/24 02/24/24
06:59 06:59 06:59
Intake Total 540 / 540
Output Total 50 / 50
Balance 490 / 490
Review of Systems
-
History Source: Patient
Constitutional: Reports No Symptoms
EENT: Reports No Symptoms Reported
Respiratory: Reports No Symptoms
Cardiac: Reports No Symptoms
Abdomen/GI: Reports No Symptoms
Genitourinary: Reports No Symptoms
Musculoskeletal: Reports No Symptoms
Skin: Reports No Symptoms
Neuro: Reports No Symptoms
Hematologic / Lymphatic: Reports No Symptoms
Physical Exam
-
General: Well Developed, Well Nourished and Comfortable
HEENT: Normocephalic, Atraumatic and Moist Mucous Membranes
Respiratory: Clear to Auscultation
Cardiac: Regular Rhythm, S1/S2 and Murmur
GI: Soft, Nontender, Nondistended and Other (hypoactive BS)
Musculoskeletal: No Clubbing, No Cyanosis and No Edema
Skin: Warm and Dry
Neuro: AO x 3
Psych: Calm
[2024-02-23 08:07] LABS: Hematocrit 33.1 % (37.0-47.0); Hemoglobin 12.4 g/dL (12.0-16.0); Mean Corp Hgb Conc. 37.5 g/dL (33.0-37.0); Mean Corpuscular Hgb 37.7 pg (27.0-31.0); Mean Corpuscular Volume 100.6 fL (81.0-99.0); Red Blood Cell Count 3.29 10^6/uL (4.20-5.40); Red Cell Dist. Width 17.1 % (11.5-14.5)
[2024-02-23 08:35] LABS: Platelet Count 49 10^3/uL (130-400)
[2024-02-23] MEDS: NORVASC 10 MG PO (09:21)
[2024-02-23] MEDS: COREG 3.125 MG PO ×2 (09:21→20:23)
[2024-02-23] MEDS: THERAGRAN 1 TABLET PO (09:21)
[2024-02-23] MEDS: DESENEX/MITRAZOL/ZEASORB 1 APPLIC TOPICAL ×2 (09:22→20:23)
--- NOTE | 2024-02-23 09:53 | W.PN.ONC ---
Today's Communication / Plan
-
Patient's cytopenias, with thrombocytopenia out of proportion to anemia, are consistent with splenic sequestration.
In this setting, patients may not have bleeding complications as total body platelet number may be normal.
Nevertheless, with platelets less than 50 and no symptoms of acute portal vein thrombosis such as abdominal pain, would err on the side of caution and not start anticoagulation.
Would consider re-imaging if any signs/symptoms suggestive of progression
Will sign off
Impression
Impression
Portal vein thrombosis, nonocclusive, new since 09/30/23
Nausea/vomiting, now improved
Alcoholic cirrhosis
Possible esophageal varices
Splenomegaly
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
Macrocytic anemia
Alcoholism, states she only has an occasional drink with her son
Plan
Plan
Patient's cytopenias, with thrombocytopenia out of proportion to anemia, are consistent with splenic sequestration.
In this setting, patients may not have bleeding complications as total body platelet number may be normal.
Nevertheless, with platelets less than 50 and no symptoms of acute portal vein thrombosis such as abdominal pain, would err on the side of caution and not start anticoagulation.
Would consider re-imaging if any signs/symptoms suggestive of progression
Will sign off
Subjective/Objective
Subjective/Objective
feeling better, appetite good, eating without difficulty
Vital Signs:
Vital Signs
Temp Pulse Resp BP Pulse Ox
98.2 F 73 18 130/58 98
02/23/24 07:35 02/23/24 07:35 02/23/24 07:35 02/23/24 07:35 02/23/24 07:35
Lab Results:
Laboratory Data
WBC 4.0 10^3/uL (4.8-10.8) L 02/23/24 06:58
Hgb 12.4 g/dL (12.0-16.0) 02/23/24 06:58
Plt Count 49 10^3/uL (130-400) L 02/23/24 06:58
PT 15.5 Sec (11.4-14.6) H 02/22/24 15:56
INR 1.18 02/22/24 15:56
eGFR Cancelled 02/23/24 06:58
[2024-02-23 11:16] VITALS: BP 104/76
--- NOTE | 2024-02-23 12:03 | CM ---
Addendum entered by TEJA Billingsley 02/23/24 19:00:
Received notification that patient's granddaughter will not be able to worm picker. Per RN, she stated that attending stated he would get an ambulance. Discussed with 3 friends hospitalcoating and embossing unit operator. Patient will have to wait for family as she does not meet criteria
for ambulance.
Addendum entered by KATHERINE BillingsleyW 02/23/24 17:05:
Received notification from RN that resident stated patient medically stable for discharge. Met with patient, she signed IMM. Its now on chart. Patient stated that she needed family to be called to pick her up. Called patient's son however there was
an outgoing message that stated number no longer in service. Placed a call to patient's granddaughter, Yonny # in chart who stated that she has too many medical concerns and does not want patient home until they are addressed. Attending
updated as well as RN.
Original Note:
Met with patient to obtain information for assessment. Patient stated that she lives in a single one story home with ramp access and a basement. She lives with two of her sons and 4 of her grandchildren. Her son Lauri, assists patient with
bathing, dressing, all ADLs and personal care. He does the laundry, production supervisor off shift, cooking and cleaning. He transports her to her appointments and does all of the shopping. Patient uses a w/c and stated that she is not ambulatory at baseline.
Patient has not had VN services.
She has not been to SNF.
She has a prescription plan and uses, [facility] for all medications.
Patient's PCP is, Edilma Romero.
Patient stated that she would like to return home when stable and does not anticipate any needs at discharge.
Plan: Case management will continue to follow and assist with discharge planning. Home when stable. She stated that her family will transport home.
[2024-02-23 12:19] LABS: ALT (SGPT) 25 U/L (0-35); AST (SGOT) 58 U/L (14-36); Albumin 2.8 g/dl (3.5-5.0); Alkaline Phosphatase 72 U/L (38-126); Blood Urea Nitrogen 7 mg/dl (7-17); Calcium 8.5 mg/dl (8.4-10.2); Carbon Dioxide 17 mmol/L (22-30); Chloride 111 mmol/L (98-107); Direct Bilirubin 0.6 mg/dl (0.0-0.4); Estimated Creatinine Clearance 82 ml/min; Glucose 116 mg/dl (70-99); Sodium 137 mmol/L (135-145); Total Bilirubin 1.6 mg/dl (0.2-1.3); Total Protein 6.9 g/dl (6.3-8.2); eGFR > 60.00
--- NOTE | 2024-02-23 13:20 | W.PN.GI.CBS2 ---
Addendum entered and electronically signed by Delta Chowdhury DO 02/23/24 15:41:
I saw and examined the patient.
The RADIOISOTOPE TECHNICIAN's note was reviewed and I agree with the note as detailed below.
Comment: Patient is currently refusing any further imaging including recent US and offered possible repeat MRI as well but declining any further testing. Offered patient an EGD as well for risk-stratification given concern for PVT particularly if
anticoagulation were to be started as patient should have an endoscopic evaluation to r/o any EV or GV especially given CT imaging with concern for varices. Discussed with patient extensively this AM regarding this. Reviewed Hematology recs and in
further agreement in holding of anticoagulation if patient declines further testing, severe thrombocytopenia and refusal of EGD. Ultimately, should have outpatient follow-up given her suspected chronic liver disease with an eventual Fibroscan given
concern for cirrhosis. Although I am somewhat concerned about her adherence to follow-up as an outpatient. Otherwise, patient is without any symptoms of diarrhea or other findings to suggest colitis. Personally reviewed imaging and suspect likely
clinically from portal colopathy secondary to portal-HTN rather than colitis. However, if concern for loose stools and/or diarrhea would obtain stool studies.
See rest of care as outlined below.
GI team will sign-off. Please call back with any questions or concerns.
Original Note:
Today's Communication / Plan
-
as per plan
Assessment / Plan
-
73yo with hx CVA with left sided weakness, wheelchair bound, , HTN, hypercholesterolemia, depression, nonischemic CM, prior GJ tube gastroparesis with removal, c-diff, pancreatitis, ETOH use (states she recently has not had as much as in the
past), pancytopenia, s/p ERCP 10/02/23 with stent placement, lap cholecystectomy 10/06/23 presents to the emergency room for a 2-week history of vomiting. The patient states that she has been unable to keep much down. She would sip on some liquids.
She was seen by her PCP at home visit and it was felt that she may have had a UTI. She was prescribed Bactrim. Patient denied any dysuria or pelvic discomfort. She has had no diarrhea. We are asked to wait for pancolitis seen on imaging. Patient
tolerating diet. No BMs. Previous hx of ETOH abuse with cessation about 3 weeks ago. he was found on CT scan to have a nonocclusive thrombus in the distal main portal vein extending to the right portal vein. Reviewing her prior imaging from her MRI
and CT in September there is no mention of a portal vein thrombosis at that time. Her liver was previously normal in morphology on her MRI in September 2023. She did have a liver biopsy done in 2018 which showed chronic hepatitis with portal fibrosis
and mild bile duct proliferation felt likely drug-induced liver injury. Patient does not wish to have US at this time. But may follow up as outpatient for FibroScan. Possible prominent enhancement along distal esophagus possible paraesophageal
varices. She does have chronic thrombocytopenia. Coags are normal. She is on Coreg as outpatient. Patient is declining EGD. She did have an ERCP done earlier this year in September 2023 for choledocholithiasis but I do not see an endoscopy performed
at that time. No anticoagulation was recommended for non occlusive PVT.
Impression:
Nausea/vomiting-> resolved, tolerating full liquid diet and now being advanced to solid
Pancolitis seen on CT imaging, no bowel movement
Hypokalemia-> repletion as per internal medicine
Portal vein thrombosis-> hematology evaluated, no abd pain. no role for AC per Heme.
Thrombocytopenia --> seen by Heme and felt to se secondary to splenic sequestration
CT with prominent enhancement along the distal esophagus favored to represent paraesophageal varices--> Patient declines EGD. On Coreg already per PCP for HTN.
History of alcohol use--> recent cessation 3 weeks ago.
Plan:
-Outpatient follow up recommended. Would like patient to have FibroScan.
-Patient declining EGD and US at present time.
-Stool studies if with diarrhea
-Famotidine 20 mg daily
Subjective
Subjective
Date of Service: February 23, 2024
Patient tolerating diet without any further N/V. She denies any abdominal pain. No stools at the present time. Discussed having US abdomen and she does not want any testing to keep her in the hospital longer. Discussed FibroScan as an outpatient.
told her about the test, what it is for, how it is performed. Discussed this is to evaluate for possible cirrhosis. She said that she would consider this. I told her that we would leave our information in her DC paperwork for follow up.
Objective
Data Reviewed
Laboratory Data:
Laboratory Results
02/23/24 06:58
02/23/24 11:24
Laboratory Results
PT 15.5 Sec (11.4-14.6) H 02/22/24 15:56
INR 1.18 02/22/24 15:56
Magnesium 1.9 mg/dl (1.6-2.3) 02/21/24 19:22
Total Bilirubin 1.6 mg/dl (0.2-1.3) H 02/23/24 11:24
AST 58 U/L (14-36) H 02/23/24 11:24
ALT 25 U/L (0-35) 02/23/24 11:24
Alkaline Phosphatase 72 U/L (38-126) 02/23/24 11:24
Lipase 223 U/L (23-300) 02/21/24 11:57
Vital Signs and I&O:
Vital Signs
Temp Pulse Resp BP Pulse Ox
98.2 F 76 16 104/76 97
02/23/24 11:16 02/23/24 11:16 02/23/24 11:16 02/23/24 11:16 02/23/24 11:16
I&O
02/22/24 02/23/24 02/24/24
06:59 06:59 06:59
Intake Total 540 / 540
Output Total 50 / 50
Balance 490 / 490
Physical Exam
Physical Exam
Cardiology: Normal Sinus Rhythm
Pulmonary: Clear (anterior)
GI: Soft, Non Distended, Non Tender and Normal Bowel Sounds
[2024-02-23 15:20] VITALS: BP 105/57
--- NOTE | 2024-02-23 16:24 | W.DCSUMMARY ---
Discharge Summary
Discharge Data
Date of Admission: 02/21/24
Date of Discharge: 02/24/24
-
Pending Results: No
Hospital Course
Discharging Physician : Dr. Niyah Garcia, Dr. Julio Matos
Disposition : home
Primary care physician : Edilma Collins PA-C
Principal Discharge diagnosis : pancolitis
Chronic Discharge diagnosis : nonischemic cardiomyopathy, CAD, aortic stenosis, HTN, HLD, functional quadriplegia, and hx alcohol use disorder
Hospital Course : Admitted 02/20 for intractable vomiting and hypokalemia. Pt vomited for 10 days prior to admission. PCP did a home visit 4-5 days earlier, urged her to come into the ED, and started her on nitrofurantoin. Pt last vomited in the
ED, never had diarrhea. Hypokalemia resolved. Pt tolerated advancing diet. Hemodynamically stable, afebrile.
Important imaging findings :
CT abdomen/pelvis:
There is nonocclusive thrombus within the distal main portal vein extending into the right portal veins.
There is pancolonic wall thickening and mucosal hyperenhancement with surrounding stranding favored to represent colitis.
Mild bilateral renal atrophy with nonobstructing stones bilaterally which measures up to 1.5 cm in the right renal pelvis and 0.9 cm in the left renal pelvis, similar to prior.
Stable cystic lesions in the bilateral adnexa measuring up to 7.9 cm on the right and 4.3 cm in the left.
Splenomegaly, similar to prior.
Procedure findings : n/a
Discharge Plan
-
Patient Disposition: Home (Routine Discharge)
Discharge Diagnosis/Procedures: Pancolitis
Condition: Good
Diet: As tolerated
Additional Diets: Continue advancing your diet as tolerated at home.
Activity: As tolerated
Driving Restrictions: As prior to admission
Bathing Restrictions: None
Activity Restrictions/Additional Instructions:
Please have your PCP repeat a CT scan of your abdomen and pelvis in 6-8 weeks.
Instructions: Lowering the risk of a blood clot, Low-FODMAP diet
Referrals:
Romana Vela MD [Active] - in four to six weeks (FibroScan )
Edilma Collins PA-C [Family Provider] - in one week
Prescriptions:
Continued
carvedilol 3.125 MG tablet
3.125 mg PO BID
amlodipine 10 MG tablet
10 mg PO DAILY
lisinopril 20 MG tablet
20 mg PO HS
famotidine 20 MG tablet
20 mg PO DAILYPRN PRN (Reason: indigestion)
gabapentin 400 mg Capsule
800 mg PO HS
acetaminophen 325 mg Tablet
650 mg PO Q6HPRN PRN (Reason: mild pain)
therapeutic multivitamin Tablet
1 tab PO DAILY
Discontinued
nitrofurantoin monohyd/m-cryst 100 mg capsule
100 mg PO BID
Discharge Orders:
Discharge Patient (As Directed); Ordered 02/23/24
Ordered By: Niyah Garcia
Discharge Date and Time
Print Language: SERBIAN
[2024-02-23 19:18] VITALS: BP 116/65
[2024-02-23] MEDS: ZESTRIL 20 MG PO (22:26)
[2024-02-23] MEDS: NEURONTIN 800 MG PO (22:26)
[2024-02-23 23:15] VITALS: BP 100/63
[2024-02-24 03:56] VITALS: BP 121/90
[2024-02-24 06:00] VITALS: BMI 28.4
[2024-02-24 06:58] LABS: Hematocrit 32.9 % (37.0-47.0); Hemoglobin 12.1 g/dL (12.0-16.0); Mean Corp Hgb Conc. 36.8 g/dL (33.0-37.0); Mean Corpuscular Hgb 36.9 pg (27.0-31.0); Mean Corpuscular Volume 100.3 fL (81.0-99.0); Mean Platelet Volume 10.5 fL (7.4-10.4); Platelet Count 54 10^3/uL (130-400); Red Blood Cell Count 3.28 10^6/uL (4.20-5.40); Red Cell Dist. Width 17.1 % (11.5-14.5)
[2024-02-24 07:00] VITALS: BP 126/72
[2024-02-24 07:14] LABS: ALT (SGPT) 27 U/L (0-35); AST (SGOT) 65 U/L (14-36); Albumin 2.6 g/dl (3.5-5.0); Alkaline Phosphatase 63 U/L (38-126); Blood Urea Nitrogen 7 mg/dl (7-17); Calcium 8.5 mg/dl (8.4-10.2); Carbon Dioxide 19 mmol/L (22-30); Chloride 112 mmol/L (98-107); Estimated Creatinine Clearance 82 ml/min; Glucose 104 mg/dl (70-99); Potassium 3.9 mmol/L (3.5-5.1); Sodium 138 mmol/L (135-145); Total Bilirubin 1.5 mg/dl (0.2-1.3); Total Protein 6.3 g/dl (6.3-8.2); eGFR > 60.00
[2024-02-24] MEDS: THERAGRAN 1 TABLET PO (07:52)
[2024-02-24] MEDS: NORVASC 10 MG PO (07:52)
[2024-02-24] MEDS: COREG 3.125 MG PO (07:52)
[2024-02-24] MEDS: DESENEX/MITRAZOL/ZEASORB 1 APPLIC TOPICAL (07:54)
--- NOTE | 2024-02-24 08:31 | W.PN.HOSP.TC ---
Addendum entered and electronically signed by Julio Matos MD 02/24/24 11:56:
dc home. unclear as to why she was not discharged home last night
but today she is cleared
no furthr nv
electrolyte abnormalities resolved
pvt will need repeat imaging in 6-8weeks
-as thrombocytopenic and asymptomatic no indication for AC per Hem
Original Note:
Today's Communication/Plan
-
.
Assessment / Plan
Assessment / Plan
Ms. Sonya Patrick is a 73yoF h nonischemic cardiomyopathy, CAD, aortic stenosis, HTN, HLD, functional quadriplegia, and hx alcohol use disorder admitted for hypokalemia and prolonged vomiting.
Acute pancolitis possibly infectious colitis
-No diarrhea
-advance diet as tolerated
-Hold off antibiotics for now
-Check stool studies if diarrhea develops
-GI consulted
Severe hypokalemia secondary to GI loss
- Potassium repletion
- magnesium wnl
- Mg was empirically given
Portal vein thrombosis
-Difficult to anticoagulate due to thrombocytopenia
-not anticoagulating
-GI, hematology consulted
Recent treatment for UTI
-Unlikely she ever had UTI, hold nitrofurantoin
Former alcohol use disorder
-Patient denies any current alcohol use
-Continue gabapentin
Pancytopenia
-Counts roughly stable
Nonischemic cardiomyopathy
Aortic stenosis
CAD
HTN/HLD
-Continue amlodipine
-Continue lisinopril
-Continue Coreg
Functional quadriplegia
History of CVA with left-sided weakness
- monitor
Anxiety/depression
- monitor
Diet: low residue
DVT ppx: heparin
Code status: DNR/DNI
Anticipated Discharge: Today
Subjective/Interval History
-
Date of Service: February 24, 2024
Ms. Sonya Patrick is a 73yoF pmh nonischemic cardiomyopathy, CAD, aortic stenosis, HTN, HLD, functional quadriplegia, and hx alcohol use disorder admitted for hypokalemia and prolonged vomiting. Pt refused to eat low residue diet. Transportation
unable to be set up yesterday for discharge. Granddaughter is able to pick her up today.
Objective Data
-
Labs:
Laboratory Results
02/24/24
06:13
WBC 4.0 L
Hgb 12.1
Hct 32.9 L
Plt Count 54 L
Sodium 138
Potassium 3.9
Chloride 112 H
Carbon Dioxide 19 L
BUN 7
Creatinine 0.4 L
Glucose 104 H
Calcium 8.5
Total Bilirubin 1.5 H
AST 65 H
ALT 27
Alkaline Phosphatase 63
Vital Signs:
Vital Signs
Temp Pulse Resp BP Pulse Ox
97.8 F 77 17 126/72 97
02/24/24 07:00 02/24/24 07:00 02/24/24 07:00 02/24/24 07:00 02/24/24 07:00
I&O
02/23/24 02/24/24 02/25/24
06:59 06:59 06:59
Intake Total 540 / 540 840 / 840
Output Total 50 / 50 250 / 250
Balance 490 / 490 590 / 590
Review of Systems
-
History Source: Patient
Constitutional: Reports No Symptoms
EENT: Reports No Symptoms Reported
Respiratory: Reports No Symptoms
Cardiac: Reports No Symptoms
Abdomen/GI: Reports No Symptoms
Genitourinary: Reports No Symptoms
Musculoskeletal: Reports No Symptoms
Skin: Reports No Symptoms
Neuro: Reports No Symptoms
Endocrine: Reports No Symptoms
Hematologic / Lymphatic: Reports No Symptoms
Physical Exam
-
General: Well Developed, Well Nourished and Comfortable
HEENT: Normocephalic, Atraumatic and Moist Mucous Membranes
Respiratory: Clear to Auscultation
Cardiac: Regular Rhythm and S1/S2
GI: Soft, Nontender, Nondistended and Normal Bowel Sounds
Musculoskeletal: No Clubbing, No Cyanosis and No Edema
Skin: Warm and Dry
Neuro: AO x 3
Psych: Calm
--- NOTE | 2024-02-24 08:32 | W.DCSUMMARY ---
Documented by User: Niyah Garcia DO, Resident 02/24/24 10:39
Discharge Summary
Discharge Data
Date of Admission: 02/21/24
Date of Discharge: 02/24/24
-
Pending Results: No
Hospital Course
Discharging Physician : Dr. Niyah Garcia, Dr. Julio Matos
Disposition : home
Primary care physician : Edilma Collins PA-C
Principal Discharge diagnosis : pancolitis
Chronic Discharge diagnosis : nonischemic cardiomyopathy, CAD, aortic stenosis, HTN, HLD, functional quadriplegia, and hx alcohol use disorder
Hospital Course : Admitted 02/20 for intractable vomiting and hypokalemia. Pt vomited for 10 days prior to admission. PCP did a home visit 4-5 days earlier, urged her to come into the ED, and started her on nitrofurantoin. Pt last vomited in the
ED, never had diarrhea. Hypokalemia resolved. Pt tolerated advancing diet. Hemodynamically stable, afebrile.
Important imaging findings :
CT abdomen/pelvis:
There is nonocclusive thrombus within the distal main portal vein extending into the right portal veins.
There is pancolonic wall thickening and mucosal hyperenhancement with surrounding stranding favored to represent colitis.
Mild bilateral renal atrophy with nonobstructing stones bilaterally which measures up to 1.5 cm in the right renal pelvis and 0.9 cm in the left renal pelvis, similar to prior.
Stable cystic lesions in the bilateral adnexa measuring up to 7.9 cm on the right and 4.3 cm in the left.
Splenomegaly, similar to prior.
Procedure findings : n/a
Discharge Plan
-
Patient Disposition: Home (Routine Discharge)
Discharge Diagnosis/Procedures: Pancolitis
Condition: Good
Diet: As tolerated
Additional Diets: Continue advancing your diet as tolerated at home.
Activity: As tolerated
Driving Restrictions: As prior to admission
Bathing Restrictions: None
Activity Restrictions/Additional Instructions:
Please have your PCP repeat a CT scan of your abdomen and pelvis in 6-8 weeks.
Instructions: Lowering the risk of a blood clot, Low-FODMAP diet
Referrals:
Romana Vela MD [Active] - in four to six weeks (FibroScan )
Edilma Collins PA-C [Family Provider] - in one week
Prescriptions:
Continued
carvedilol 3.125 MG tablet
3.125 mg PO BID
amlodipine 10 MG tablet
10 mg PO DAILY
lisinopril 20 MG tablet
20 mg PO HS
famotidine 20 MG tablet
20 mg PO DAILYPRN PRN (Reason: indigestion)
gabapentin 400 mg Capsule
800 mg PO HS
acetaminophen 325 mg Tablet
650 mg PO Q6HPRN PRN (Reason: mild pain)
therapeutic multivitamin Tablet
1 tab PO DAILY
Discontinued
nitrofurantoin monohyd/m-cryst 100 mg capsule
100 mg PO BID
Discharge Orders:
Discharge Patient (As Directed); Ordered 02/24/24
Ordered By: Niyah Garcia
Discharge Date and Time
Discharge Date/Time: 02/24/24 10:46
Print Language: CHINESE

Documented by User: Julio Matos MD 02/24/24 11:54
Discharge Summary
Discharge Data
Date of Admission: 02/21/24
Date of Discharge: 02/24/24
Discharge Plan
-
Patient Disposition: Home (Routine Discharge)
Discharge Diagnosis/Procedures: Pancolitis
Condition: Good
Diet: As tolerated
Additional Diets: Continue advancing your diet as tolerated at home.
Activity: As tolerated
Driving Restrictions: As prior to admission
Bathing Restrictions: None
Activity Restrictions/Additional Instructions:
Please have your PCP repeat a CT scan of your abdomen and pelvis in 6-8 weeks.
Instructions: Lowering the risk of a blood clot, Low-FODMAP diet
Referrals:
Romana Vela MD [Active] - in four to six weeks (FibroScan )
Edilma Collins PA-C [Family Provider] - in one week
Prescriptions:
Continued
carvedilol 3.125 MG tablet
3.125 mg PO BID
amlodipine 10 MG tablet
10 mg PO DAILY
lisinopril 20 MG tablet
20 mg PO HS
famotidine 20 MG tablet
20 mg PO DAILYPRN PRN (Reason: indigestion)
gabapentin 400 mg Capsule
800 mg PO HS
acetaminophen 325 mg Tablet
650 mg PO Q6HPRN PRN (Reason: mild pain)
therapeutic multivitamin Tablet
1 tab PO DAILY
Discontinued
nitrofurantoin monohyd/m-cryst 100 mg capsule
100 mg PO BID
Discharge Orders:
Discharge Patient (As Directed); Ordered 02/24/24
Ordered By: Niyah Garcia
Discharge Date and Time
Discharge Date/Time: 02/24/24 10:46
Print Language: CHINESE
== END 2024-02-24 10:46 | disposition home or self-care (01) | DRG 391 ==
LOC: 3 WEST ACU 16:00
PROVIDERS: Nurse Practitioner; Physician Assistant; ADMITTING PHYSICIAN Hospitalist; ATTENDING PHYSICIAN Hospitalist; EMERGENCY PHYSICIAN Emergency Medicine; FAMILY PHYSICIAN Physician Assistant Medical; OTHER PHYSICIAN Internal Medicine Gastroenterology; OTHER PHYSICIAN Internal Medicine Hematology & Oncology
DX: A09 Infectious gastroenteritis and colitis, unspecified (principal); I81 Portal vein thrombosis; R53.2 Functional quadriplegia; I42.8 Other cardiomyopathies; D61.818 Other pancytopenia; I85.10 Secondary esophageal varices without bleeding; J98.11 Atelectasis; I50.9 Heart failure, unspecified; E78.00 Pure hypercholesterolemia, unspecified; I11.0 Hypertensive heart disease with heart failure; F32.A Depression, unspecified; E87.6 Hypokalemia; R94.31 Abnormal electrocardiogram [ECG] [EKG]; K70.30 Alcoholic cirrhosis of liver without ascites; K76.0 Fatty (change of) liver, not elsewhere classified; N28.1 Cyst of kidney, acquired; K57.30 Diverticulosis of large intestine without perforation or abscess without bleeding; M85.80 Other specified disorders of bone density and structure, unspecified site; K44.9 Diaphragmatic hernia without obstruction or gangrene; D53.9 Nutritional anemia, unspecified; N26.1 Atrophy of kidney (terminal); N20.0 Calculus of kidney; R16.1 Splenomegaly, not elsewhere classified; K21.00 Gastro-esophageal reflux disease with esophagitis, without bleeding; I35.0 Nonrheumatic aortic (valve) stenosis; I25.10 Atherosclerotic heart disease of native coronary artery without angina pectoris; F10.20 Alcohol dependence, uncomplicated; F41.9 Anxiety disorder, unspecified; Z66 Do not resuscitate; Z99.3 Dependence on wheelchair; Z90.49 Acquired absence of other specified parts of digestive tract; Z86.73 Personal history of transient ischemic attack (TIA), and cerebral infarction without residual deficits
CPT/HCPCS: 74177; 80053; 82077; 82248; 83690; 83735; 85025; 85027; 85610; 93005; 96365; 96367; 96375; 99285; Q9967

== ENCOUNTER 2024-04-09 18:32 | Inpatient (IN) | payer MEDICARE, OTHER, SELFPAY ==
[2024-04-09] VITALS (10 sets, daily range): BP systolic 93–137; BP diastolic 64–113; BMI 27.1; BMI 24.3
[2024-04-09 15:01] LABS: ALT (SGPT) 24 U/L (0-35); AST (SGOT) 55 U/L (14-36); Albumin 3.2 g/dl (3.5-5.0); Alkaline Phosphatase 76 U/L (38-126); Blood Urea Nitrogen 12 mg/dl (7-17); Carbon Dioxide 11 mmol/L (22-30); Chloride 104 mmol/L (98-107); Estimated Creatinine Clearance 80 ml/min; Glucose 97 mg/dl (70-99); Lipase 173 U/L (23-300); Potassium 3.1 mmol/L (3.5-5.1); Sodium 136 mmol/L (135-145); Total Bilirubin 2.4 mg/dl (0.2-1.3); Total Protein 7.7 g/dl (6.3-8.2); eGFR > 60.00
[2024-04-09 15:08] LABS: % Basophils 0.5 % (0-2); % Eosinophils 0.5 % (0-6); % Immature Granulocytes 1.5 % (0-0.5); % Lymphocytes 30.1 % (20.5-51.1); % Monocytes 8.1 % (1.7-9.3); % Neutrophils 59.3 % (42.2-75.2); Absolute Immature Granulocytes 0.1 10^3/uL (0-0.05); Absolute Lymphocytes 1.2 10^3/uL (1.2-3.4); Absolute Monocytes 0.3 10^3/uL (0.1-0.6); Absolute Neutrophils 2.4 10^3/uL (1.4-6.5); Hematocrit 35.5 % (37.0-47.0); Hemoglobin 13.4 g/dL (12.0-16.0); Mean Corp Hgb Conc. 37.7 g/dL (33.0-37.0); Mean Corpuscular Volume 95.4 fL (81.0-99.0); Mean Platelet Volume 9.6 fL (7.4-10.4); Nucleated Red Blood Cells % 0.5 %; Platelet Count 87 10^3/uL (130-400); Red Blood Cell Count 3.72 10^6/uL (4.20-5.40); Red Cell Dist. Width 13.7 % (11.5-14.5); White Blood Cell Count 4.1 10^3/uL (4.8-10.8)
--- NOTE | 2024-04-09 15:46 | ED.GENMED ---
History of Present Illness
General
Chief Complaint: Abdominal Pain
Time Seen by Provider: 04/09/24 15:28
History of Present Illness
History of Present Illness:
Patient is a 73-year-old woman with history of CHF, hypertension, hyperlipidemia presenting to the emergency room with vomiting. Patient states that she has been having problems with vomiting in the past month. It did resolve up until 3 days ago
when it restarted. She has countless episodes of vomiting. She did have 1 episode of diarrhea today. No fevers or chills. No recent travel. No recent sick contacts. She does feel dehydrated. However she denies any lightheadedness or dizziness.
Past History
Past History
ED Past Medical History: CVA (Left sided weakness), HTN, Hypercholesterolemia, Psychiatric (Depression) and Other (Nonischemic cardiomyopathy, Fracture ankle, GJ tube, gastroparesis C-diff)
ED Past Surgical History: Gynecological (Hysterectomy)
Social History
Tobacco: Non-smoker
Alcohol: Daily (Beer 4)
Personal:
Living: skilled nursing ([facility]
Employment: Not employed
Family History
Family History: Other (Noncontributory)
Phy Exam
Physical Exam
Physical Exam:
GENERAL: in no acute distress
HEENT: normocephalic, extraocular movements intact, dry oral mucosa
NECK: normal inspection
RESPIRATORY: no respiratory distress, clear to auscultation bilaterally
CARDIOVASCULAR: regular rhythm, tachycardic rate
ABDOMEN/: soft, non-distended, diffusely tender,, no rebound or guarding
EXTREMITIES: non-tender, no edema/swelling
NEUROLOGIC: awake and alert, moves all extremities
SKIN: warm
Course
Orders/Labs/Results
Orders:
Orders
04/09/24 14:37
Complete Blood Count/With Diff Urgent
Comprehensive Metabolic Panel Urgent
Direct Bilirubin Urgent
Comment: ADDON
Lipase Urgent
04/09/24 15:04
CT Abd/pelvis W Iv Cont Urgent
Comment:
Reason For Exam: Abdominal pain, Nausea, Vomiting
04/09/24 15:11
EKG [Electrocardiogram (*1)] Urgent
Reason for Study: Tachycardia
EKG- Treatment ONCE
04/09/24 15:29
Lactated Ringers [Lr] 1,000 ml IV BOLUS
Trimethobenzamide [Tigan] 200 mg IM NOW STA
04/09/24 15:47
Add On- LAB Urgent
Tests Added?: direct billirubin
04/09/24 16:03
Potassium Chloride [KCl] 40 meq 0.9% Sodium Chloride 250 ml [Nss] 250 ml IV NOW
04/09/24 16:29
COVID-19 Antigen Urgent
Source: Nasal Swab
Influenza A+B Rapid Molecular Urgent
JAMEE Source: Nasal Swab
Specimen Description:
Abnormal Lab Results
04/09/24
14:37
WBC 4.1 L 10^3/uL
(4.8-10.8)
RBC 3.72 L 10^6/uL
(4.20-5.40)
Hct 35.5 L %
(37.0-47.0)
MCH 36.0 H pg
(27.0-31.0)
MCHC 37.7 H g/dL
(33.0-37.0)
Plt Count 87 L 10^3/uL
(130-400)
Abs Immat Gran (auto) 0.1 H 10^3/uL
(0-0.05)
Immature Gran % 1.5 H %
(0-0.5)
Potassium 3.1 L mmol/L
(3.5-5.1)
Carbon Dioxide 11 L* mmol/L
(22-30)
Creatinine 0.4 L mg/dL
(0.6-1.0)
Total Bilirubin 2.4 H mg/dl
(0.2-1.3)
Direct Bilirubin 0.9 H mg/dl
(0.0-0.4)
AST 55 H U/L
(14-36)
Albumin 3.2 L g/dl
(3.5-5.0)
04/09/24 14:37
04/09/24 14:37
Vital Signs
Initial and Last Documented VS:
Initial Vital Signs
BP Pulse Ox
137/113 98
04/09/24 14:25 04/09/24 14:25
Last Documented Vital Signs
Temp Pulse Resp BP Pulse Ox
97.5 F 124 20 137/113 98
04/09/24 14:30 04/09/24 14:30 04/09/24 14:30 04/09/24 14:30 04/09/24 14:46
MDM/Problems Addressed
Differential Diagnosis Includes:
Patient is a 73-year-old woman presenting to the emergency department with multiple days of vomiting and 1 day of diarrhea. Vitals are notable for tachycardia and blood pressure is normal. On exam patient with dry oral mucosa diffuse abdominal
tenderness. Differential consists of gastroenteritis versus obstruction though less likely. Could also be viral illness. Blood work obtained prior to evaluation does show significant metabolic acidosis with bicarb of 11. She does have an
elevated total bilirubin. Will add on direct bilirubin and obtain CT scan. EKG per my interpretation with slightly prolonged QTc. Will give Tigan as well as fluid bolus. Will also check COVID flu.
*Critical Care Note
Total Time (30-74mins, 75-104mins- exclusive of procedures): Not Applicable
Update Note
Update Note:
Direct bilirubin normal. CT scan consistent with colitis. Given patient's degree of metabolic acidosis patient will need admission. Discussed with hospitalist who excepted patient to their service
ED Attending Note
-
Portions of this chart may have been created with voice recognition software.� Occasional wrong word or��sound alike� substitutions may have occurred due to the inherent limitations of voice recognition software.
Discharge Plan
Departure
Patient Disposition: Admit
Date of Disposition: 04/09/24
Time of Disposition: 17:01
Presentation/result/management discussed w/ accepting MD/DO: Hospitalist
Discharge Problem:
Metabolic acidosis, Dehydration
Prescriptions:
No Action
carvedilol 3.125 MG tablet
3.125 mg PO BID
amlodipine 10 MG tablet
10 mg PO DAILY
lisinopril 20 MG tablet
20 mg PO HS
famotidine 20 MG tablet
20 mg PO DAILYPRN PRN (Reason: indigestion)
gabapentin 400 mg Capsule
800 mg PO HS
acetaminophen 325 mg Tablet
650 mg PO Q6HPRN PRN (Reason: mild pain)
therapeutic multivitamin Tablet
1 tab PO DAILY
Referrals:
Edilma Collins CRNP [Family Provider] -
Interventions
Interventions:
*Risk Screen - Suicide Last Done: 04/09/24 14:26
*General Assessment Last Done: 04/09/24 14:27
*Neglect/Abuse Screening Last Done: 04/09/24 14:26
ED- Fall Risk Assessment Last Done: 04/09/24 14:28
*ED COVID-19 Vaccine History Last Done: 04/09/24 14:27
CP-Odtbcl-Imfmwwqunw Assessment Last Done: 04/09/24 14:28
Discharge Date and Time
Print Language: TAJIK
[2024-04-09] MEDS: LR 1000 IV ×2 (16:18→19:25)
[2024-04-09] MEDS: TIGAN 200 MG IM (16:28)
[2024-04-09] MEDS: KCL 270 MEQ IV (16:28)
[2024-04-09 16:48] LABS: Direct Bilirubin 0.9 mg/dl (0.0-0.4)
[2024-04-09 17:02] LABS: COVID-19 Antigen Negative (Negative)
--- NOTE | 2024-04-09 17:06 | HPS.HSE ---
Addendum entered and electronically signed by Leoncio Gamble MD 04/10/24 12:22:
see update note
Original Note:
Family Physician
-
Family Physician: JESÚS Hercules
Chief Complaint
-
Vomiting x 3 days, 1 episode diarrhea
History of Present Illness
73-year-old female presenting to the ER complaining of vomiting over the past 3 days with 1 episode of diarrhea today. During my exam she vomited coffee-ground emesis approximately 200 cc guaiac positive at bedside. She denies headache, fever,
chills, chest pain, palpitations, shortness breath, cough, urinary symptoms. She complains of a fungal rash underneath of her neck fold. She has markedly overgrown toenails bilateral feet with skin plaques. She was advised to follow-up with
podiatry. She states her sons pick her up and put her into a wheelchair and take her to appointments. She denies any alcohol use states she stopped before her admission 02/20/2025.
She was admitted 02/20 - 02/24/2024 for acute pancolitis with 10 days of nausea and vomiting but no diarrhea. She was given IV fluid support potassium replacement. She denies headache, sore throat, fever, chills, chest pain, palpitations, cough,
shortness of breath, abdominal pain, diarrhea, urinary symptoms.
She has past medical history Nonischemic cardiomyopathy 2009 resolved 2017 on echo EF 30%�EF 55%, CAD, aortic stenosis, HTN, HLD, functional quadriplegia, Alcohol use disorder stopped January 2024, Viral Pancolitis February 24, 2024, portal vein
thrombosis , 02/23/2024 Nonocclusive thrombus in the distal main portal vein extending to the right portal vein , chronic pancytopenia, Anxiety, Depression CVA with left-sided weakness wheelchair-bound, C. difficile 12/26/2017, prior gastroparesis
with GJ tube and removal, ERCP status post stent placement 10/02/2023, lap cholecystectomy 10/06/2023, Chronic Hepatitis with portal fibrosis mild bile duct proliferation liver biopsy 2017, choledocholithiasis September 2023,Hx Citrobacter Youngae
10/21/2020, Enterococcus faecalis, Meli albicans 01/12/2018
Medical History
Past Medical History
Past Medical History: Reports Other (alcoholic cirrhosis, CVA with left-sided weakness, hypertension, hypercholesteremia, depression, nonischemic cardiomyopathy, gallstone pancreatitis, choledocholithiasis, hepatic steatosis, pancytopenia,
nonobstructive CAD, aortic stenosis, hypertension, alcohol use disorder, functional quadriplegia)
Additional Past Medical History:
Viral pancolitis 02/23/2024
alcoholic cirrhosis
Chronic hepatitis with portal fibrosis mild bile duct proliferation liver biopsy 2017
hepatic steatosis
C. difficile 12/26/2017
CVA with left-sided weakness sojugqoidr-eexqe-crocohfbir quadriplegia
Left hand wrist drop, left arm contracture
Hypertension
Hypercholesteremia
Depression
Nonischemic cardiomyopathy-2009 EF 30%, echo 20 1855-60%
Gallstone pancreatitis-status post ERCP 10/02/2023 with stent
choledocholithiasis
Chronic pancytopenia
Nonobstructive CAD
Aortic stenosis
Alcohol use disorder stopped January 2024
Past Surgical History: Reports Other (Gynecological (Hysterectomy))
Additional Past Surgical History:
prior gastroparesis with GJ tube and removal
ERCP status post stent placement 10/02/2023
lap cholecystectomy 10/06/2023
Social History
Tobacco: Non-smoker
Alcohol: Former (Drink heavily 6 beers prior to 2011 then sujatha ronald with root beer or 1 glass until 02/21/2024)
Drug: None
Personal: Single
Living: With Family (Sons)
Employment: Retired
Family History
Family History: Not pertinent
Allergies / Home Medications
Allergies reflects when Allergies were last updated in [facility].
Home Medications with original date entered in [facility]
Allergy/Medication List:
Allergies
Allergy/AdvReac Type Severity Reaction Status Date / Time
No Known Drug Allergies Allergy Unknown Verified 04/09/24 14:26
Home Medications
amlodipine 10 mg tablet 10 mg PO DAILY Blood pressure 10/21/20
carvedilol 3.125 mg tablet 3.125 mg PO BID Heart Failure 10/21/20
famotidine 20 mg tablet 20 mg PO DAILYPRN PRN indigestion 10/23/20
lisinopril 20 mg tablet 20 mg PO HS Blood pressure 10/23/20
gabapentin 400 mg capsule 800 mg PO HS pain 09/30/23
therapeutic multivitamin 1 tab PO DAILY Supplement 02/21/24
acetaminophen 500 mg tablet (Tylenol Extra Strength) 1,000 mg PO Q6HPRN PRN mild pain 04/09/24
gabapentin 100 mg capsule 100 mg PO DAILYPRN PRN if 800mg dose ineffective 04/09/24
potassium chloride 10 mEq tablet,extended release 5 meq PO BID 04/09/24
Review of Systems
-
History Source: Patient
A 12 point ROS was completed and negative except as noted: Yes
Constitutional: Denies Fever or Chills
EENT: Denies Sore Throat or Runny Nose
Respiratory: Denies Cough or Trouble Breathing
Cardiac: Denies Chest Pain, Diaphoresis or Palpitations
Abdomen/GI: Reports Abdominal Pain, Nausea and Vomiting (Coffee-ground emesis); Denies Diarrhea, Constipated, Bloody Stools or Black Stools
: Denies Dysuria, Frequency, Flank Pain, Incontinence, Difficulty Voiding or Urgency
Musculoskeletal: Denies Joint Pain or Edema
Skin: Reports Rash (Under neck fold) and Other (Left upper bicep lipoma chronic); Denies Itching
Neurological: Denies Dizzy, Headache or Weakness
Endocrine: Reports No Symptoms
Hematologic/Lymphatic: Reports No Symptoms
Psych: Reports Calm
Physical Exam
Vital Signs
Vital Signs
Temp Pulse Resp BP Pulse Ox
97.5 F 124 20 137/113 98
04/09/24 14:30 04/09/24 14:30 04/09/24 14:30 04/09/24 14:30 04/09/24 14:46
Physical Exam
General: Comfortable and Conversant; No Fever or Chills
HEENT: NormoCephalic, Anicteric, PERRLA, Medon Conjunctivae, No Ptosis and Other (Fungal rash under neck fold)
Respiratory: Clear; No Wheezes, Rales or Rhonchi
Cardiac: S1/S2 and Tachycardia (Sinus 117 bpm); No Murmur, Rub, Gallop or Peripheral Edema
Breast: Deferred by me
GI: Soft, Non Distended, Normal Bowel Sounds and Tender (Epigastric area)
Rectal: Deferred by Provider
Genito-urinary: Deferred by me
Musculoskeletal: No Clubbing, No Cyanosis, No Edema and Other (Chronic left wrist drop, chronic left arm contracture, functional quadriplegia from prior CVA)
Skin: Warm, Dry and Rash (Under neck fold)
Neuro: AO x 3, Cranial Nerves Intact, No Sensory Deficits and Other (Chronic left wrist drop, chronic left arm contracture, functional quadriplegia from prior CVA); No Slurred Speech, Facial Droop or Tremors
Psych: Calm
Laboratory Results
-
04/09/24 14:37
04/09/24 14:37
Laboratory Results
Total Bilirubin 2.4 mg/dl (0.2-1.3) H 04/09/24 14:37
AST 55 U/L (14-36) H 04/09/24 14:37
ALT 24 U/L (0-35) 04/09/24 14:37
Alkaline Phosphatase 76 U/L (38-126) 04/09/24 14:37
Lipase 173 U/L (23-300) 04/09/24 14:37
Impression/Plan
-
Impression/plan:
Admit to telemetry
# Upper GI bleed-vomiting coffee-ground emesis history of cirrhosis
#Nonspecific colitis per CT
#Metabolic acidosis 2/2 vomiting
#Pancolitis viral 02/20 - 02/24/2024(with 10 days of nausea and vomiting
#Hx C. difficile 12/26/2017
-Diarrhea x1 follow
Hgb 13.4
-N.p.o.
-IV LR 1 L given in ER, then IV LR 75 cc/h
-IM Tigan given in ER, continue IV Zofran monitor QTc
-IV Protonix PPI twice daily
-Octreotide drip
-Rocephin 1 g daily
-Consult GI
-Repeat CBC, BMP at 8 PM follow bicarb
# Acute hypokalemia secondary to GI loss
K 3.1
-IV K rider 40 mEq given in ER
-Follow BMP
#Fungal rash under neck fold
-Nystatin powder or cream
# Hx Portal vein thrombosis
-Difficult to anticoagulate due to thrombocytopenia
-not anticoagulating-heme was consulted January 2024
#Former alcohol use disorder stopped January 2024
-Patient denies any current alcohol use
-Continue gabapentin
#Chronic Hepatitis with portal fibrosis mild bile duct proliferation liver biopsy 2017
#Chronic pancytopenia hx
-Counts roughly stable
-WBC 4.1, Hgb 13.4, RBC 3.72 PLT 87
#Nonischemic cardiomyopathy-resolved
Aortic stenosis
CAD nonobstructive
-Follows with [facility]
2D echo 12/31/2009: EF 30%, global hypokinesis, concentric LVH
2D echo 11/30/2017: EF 55 to 60%, normal LVS LVSF, no wall abnormalities, mild AR
#HTN-benign
BP 137/113
-Continue carvedilol 3.125 mg p.o. twice daily
-HOLD amlodipine 10 mg daily, lisinopril 20 mg at bedtime
#HLD
No medications listed
#Functional quadriplegia
#History of CVA with left-sided smipoezi-esvkwyhjkx-tyzvo
-PT/OT consult
#Anxiety/depression
No current medication
#Chronic overgrown toenails
-Recommend patient see linen worker for footcare
Other PMH:
Gastroparesis with GJ tube and removal
ERCP status post stent placement 10/02/2023
Lap cholecystectomy 10/06/2023
choledocholithiasis
DVT prophylaxis
Scd's
DNR
[2024-04-09 17:58] LABS: Lactic Acid 2.7 mmol/L (0.7-2.0)
--- NOTE | 2024-04-09 18:05 | W.PN.UPDATE ---
Update Note
Progress Note Update
I saw and examined the patient.
The JOURNEYMAN MEAT CUTTER or PA's note was reviewed and I agree with the note.
Comment:
73-year-old female past medical history of stroke, wheelchair-bound, aortic stenosis, cardiomyopathy, gastroparesis with prior PEG placement, pancytopenia, Probable alcohol cirrhosis, CVA with left sided weakness, who presents with nausea and
vomiting. �Did have similar symptoms 1 month ago and found to have acute pancolitis along with incidental portal vein thrombosis.� Was held off on antibiotics at that time.� Patient symptoms did resolve until 3 days ago when it restarted.� Has had
multiple episodes of vomiting, 1 episode of diarrhea today.� Denies fever, chills, nausea, vomiting, sick contacts, recent travel.� Noted to be tachycardic with heart rate of 124, blood pressure 137/113, afebrile.� Physical exam noted for diffuse
tenderness on palpation of the abdomen.� Of note, has had coffee ground emesis in ED. . Thrombocytopenia, chronic noted, otherwise hyperkalemic, bicarb of 11, with anion gap metabolic acidosis, elevated LFTs with bilirubin 2.4 which is the highest
it has been in quite some time.� Lactate and beta-hydroxybutyrate pending.� Imaging consistent with colitis and incidental portal vein thrombosis has resolved.�
Plan�follow-up lactate, beta hydroxybutyrate, procalcitonin.� Ceftriaxone, octeotride ggt, PPI IV BID. �NPO. �LR bolus, with continued IV fluid at 75 cc/h and repeat BMP monitoring bicarb.� If lactate high, trend with resuscitation including fluid
and blood products if need be.� Follow-up stool cultures, ova and parasites, norovirus if diarrhea. Repeat CBC this evening and in the morning. Agreed to EGD� - GI aware. continue Coreg(Suspected varices).� Hold lisinopril, amlodipine for now. Hold
BB if BP drops. F/u US of abdomen and spleen/gastric vein Doppler�s.
[2024-04-09 18:21] LABS: Procalcitonin 0.07 ng/ml (0.0-0.25)
[2024-04-09] MEDS: NSS (PRESERVATIVE FREE) 10 ML IV (19:09)
[2024-04-09] MEDS: PROTONIX IV 40 MG IV (19:09)
[2024-04-09] MEDS: SANDOSTATIN 50 MCG IV (19:09)
[2024-04-09] MEDS: ZOFRAN 4 MG IV (19:27)
[2024-04-09] MEDS: ROCEPHIN 1000 MG IV (19:32)
[2024-04-09] MEDS: FLUSH (NSS) 1 FLUSH IV ×2 (19:32→19:37)
[2024-04-09] MEDS: STERILE WATER FOR INJECTION 10 ML IV (19:32)
[2024-04-09] MEDS: SANDOSTATIN 500.6 MCG IV (21:36)
[2024-04-09 21:52] LABS: % Basophils 0.2 % (0-2); % Lymphocytes 11.9 % (20.5-51.1); % Monocytes 8.8 % (1.7-9.3); % Neutrophils 78.1 % (42.2-75.2); Absolute Immature Granulocytes 0.1 10^3/uL (0-0.05); Absolute Lymphocytes 0.7 10^3/uL (1.2-3.4); Absolute Monocytes 0.5 10^3/uL (0.1-0.6); Absolute Neutrophils 4.7 10^3/uL (1.4-6.5); Hematocrit 30.6 % (37.0-47.0); Hemoglobin 11.3 g/dL (12.0-16.0); Mean Corp Hgb Conc. 36.9 g/dL (33.0-37.0); Mean Corpuscular Hgb 35.6 pg (27.0-31.0); Mean Corpuscular Volume 96.5 fL (81.0-99.0); Mean Platelet Volume 9.9 fL (7.4-10.4); Nucleated Red Blood Cells % 0.3 %; Platelet Count 64 10^3/uL (130-400); Red Blood Cell Count 3.17 10^6/uL (4.20-5.40); Red Cell Dist. Width 14.1 % (11.5-14.5); White Blood Cell Count 6.1 10^3/uL (4.8-10.8)
--- NOTE | 2024-04-09 22:17 | PTCARENOTE ---
Pt arrived onto floor @2217. Pt AAOx3 and a assembler for puller over hand to the bed. Pt with no complaints of pain or SOB at this time. Pt oriented to room and call casarez, will continue to monitor
[2024-04-09 23:53] LABS: Lactic Acid 2.6 mmol/L (0.7-2.0)
[2024-04-10] VITALS (16 sets, daily range): BP systolic 83–130; BP diastolic 24–73; BMI 24.5
--- NOTE | 2024-04-10 | W.PN.UPDATE ---
Update Note
Progress Note Update
BMP follow-up
-Original specimen 8 PM was hemolyzed redraw was noted to nurse 2230, pending CO2 level
-Repeat lactate 2.6 will follow every 4 hours
-B hydroxy 5.6-will continue Rocephin
#History of GI bleed
Hemoglobin 13.4 at 1437> 11.3 at 2141 dropped 2 gm
Will follow H&H every 6 hours
-Will check type and screen
-House PACKER INSPECTOR Jane Lizarraga will obtain blood consent
[2024-04-10] MEDS: MYCOLOG CREAM 1 APPLIC TOPICAL ×4 (00:23→22:41)
[2024-04-10] MEDS: NEURONTIN 800 MG PO (00:23)
[2024-04-10] MEDS: COREG 3.125 MG PO ×2 (00:23→07:42)
[2024-04-10 00:30] LABS: Blood Urea Nitrogen 10 mg/dl (7-17); Calcium 8.4 mg/dl (8.4-10.2); Carbon Dioxide 11 mmol/L (22-30); Chloride 107 mmol/L (98-107); Estimated Creatinine Clearance 74 ml/min; Glucose 107 mg/dl (70-99); Potassium 4.3 mmol/L (3.5-5.1); Sodium 138 mmol/L (135-145); eGFR > 60.00
--- NOTE | 2024-04-10 05:49 | PTCARENOTE ---
Pt refused AM labs, will offer again at a later time
[2024-04-10] MEDS: SANDOSTATIN 500.6 MCG IV ×2 (07:40→19:30)
[2024-04-10] MEDS: NSS (PRESERVATIVE FREE) 10 ML IV ×2 (07:41→19:45)
[2024-04-10] MEDS: PROTONIX IV 40 MG IV ×2 (07:41→19:45)
--- NOTE | 2024-04-10 09:42 | CON.GI ---
Consultation
-
Date/Time Consultation Requested: 04/09/2024, 5:40 pm
Date/Time Consultation Performed: 04/10/2024, 8am
Requesting Provider: Dr. Gamble
Performing Provider: Dr. Lucero
Reason for Consultation: coffee ground emesis
Medical History
Chief Complaint / HPI
Chief Complaint: vomiting
History of Present Illness:
73yo with hx CVA with left sided weakness, wheelchair bound, , HTN, hypercholesterolemia, depression, nonischemic CM, prior GJ tube gastroparesis with removal, c-diff, pancreatitis, ETOH use (states she recently has not had as much as in the
past), pancytopenia, s/p ERCP 10/02/23 with stent placement, lap cholecystectomy 10/06/23 who was recently hospitalized January 2024 and saw me during that admission for nausea and vomiting. She was found to have a nonocclusive thrombus in the main
portal vein. There was concern perhaps she could have cirrhosis. The liver in the past on imaging has all been within her normal limits although last report mention there was possible prominent enhancement along the distal esophagus which could
represent paraesophageal varices. She has chronic thrombocytopenia and her coags have been normal. She had a distant liver biopsy in 2018 with chronic hepatitis with portal fibrosis and mild bile duct proliferation. This was thought to be due to
a drug-induced liver injury. In regards to the PVT, I discussed with hematology and the decision was made to hold off on anticoagulation. Patient at that time did not want an upper endoscopy outpatient, FibroScan or any follow-up.
She now is readmitted again with nausea and vomiting. There is also a possibility of some diarrhea although she did not elicit this to me. Patient was told the vomit was dark in appearance but she did not look at the vomit. She was found on
admission to have a hemoglobin of 13.4, repeat 11.3. Her platelets initially were 87, repeat 64. INR is pending. Bicarb is 11, repeat is pending. Lactic acid was 2.6. She had elevated total bilirubin to 2.4 with direct bilirubin of 0.9, AST of
55.
Past Medical History
Past Medical History: CVA, HTN, Hypercholesterolemia, Valvular Disease (), Psychiatric (depression) and Other (Nonischemic cardiomyopathy, gastroparesis, esophagitis, C-diff, gastritis, duodenitis, chronic thrombocytopenia)
Past Surgical History: Gynecological (hysterectomy) and Other (GJ tube)
Social History
Tobacco: Non-Smoker
Alcohol: Occasional
Drug: None
Family History
Family History: Reviewed & Not Pertinent
Allergies / Home Medications
Allergy/AdvReac Type Severity Reaction Status Date / Time
No Known Drug Allergies Allergy Unknown Verified 04/09/24 14:26
�Medication �Instructions �Recorded
amlodipine 10 mg tablet 10 mg PO DAILY Blood pressure 10/21/20
carvedilol 3.125 mg tablet 3.125 mg PO BID Heart Failure 10/21/20
famotidine 20 mg tablet 20 mg PO DAILYPRN PRN indigestion 10/23/20
lisinopril 20 mg tablet 20 mg PO HS Blood pressure 10/23/20
gabapentin 400 mg capsule 800 mg PO HS pain 09/30/23
therapeutic multivitamin 1 tab PO DAILY Supplement 02/21/24
acetaminophen 500 mg tablet 1,000 mg PO Q6HPRN PRN mild pain 04/09/24
(Tylenol Extra Strength)
gabapentin 100 mg capsule 100 mg PO DAILYPRN PRN if 800mg 04/09/24
dose ineffective
potassium chloride 10 mEq 5 meq PO BID 04/09/24
tablet,extended release
Review of Systems
-
All other systems: A 12 pt ROS was Negative except as stated above in HPI
Vital Signs
Temp Pulse Resp BP Pulse Ox
98 F 72 20 106/55 100
04/10/24 07:49 04/10/24 07:49 04/10/24 07:49 04/10/24 07:49 04/10/24 07:49
Physical Exam
Exam
General: Well Developed
HEENT: Normocephalic
Respiratory: Clear
Cardiac: S1/S2
GI: Non Tender and Non Distended
Musculoskeletal: No Clubbing
Skin: Warm
Neuro: AO x 3
Hematologic/Lymphatic: Lymphadenopathy
Psych: Calm
Results
WBC 6.1 10^3/uL (4.8-10.8) 04/09/24 21:41
Hgb Cancelled 04/10/24 03:00
Hct Cancelled 04/10/24 03:00
MCV 96.5 fL (81.0-99.0) 04/09/24 21:41
Plt Count 64 10^3/uL (130-400) L D 04/09/24 21:41
Absolute Neuts (auto) 4.7 10^3/uL (1.4-6.5) 04/09/24 21:41
Sodium 138 mmol/L (135-145) 04/09/24 22:24
Potassium 4.3 mmol/L (3.5-5.1) D 04/09/24 22:24
Chloride 107 mmol/L (98-107) 04/09/24 22:24
Carbon Dioxide 11 mmol/L (22-30) L* 04/09/24 22:24
BUN 10 mg/dl (7-17) 04/09/24 22:24
Creatinine 0.4 mg/dL (0.6-1.0) L 04/09/24 22:24
Calcium 8.4 mg/dl (8.4-10.2) 04/09/24 22:24
Total Bilirubin 2.4 mg/dl (0.2-1.3) H 04/09/24 14:37
AST 55 U/L (14-36) H 04/09/24 14:37
ALT 24 U/L (0-35) 04/09/24 14:37
Alkaline Phosphatase 76 U/L (38-126) 04/09/24 14:37
Lipase 173 U/L (23-300) 04/09/24 14:37
Diagnostic Image Results:
Prior GI Procedures:
EGD:
Colonoscopy:
Assessment / Plan
-
This is a 73-year-old female past medical history of stroke, , gastroparesis with prior GJ tube presenting with nausea and vomiting and possibly coffee-ground emesis. My suspicion is she is having recurrent nausea and vomiting with her underlying
diagnosis of gastroparesis. I have lower suspicion of bleeding but given the fact she has this questionable cirrhosis I do think we need to ensure there is no active bleeding especially history of ? varices on prior CT. However, her bicarb is low
and I will discuss with anesthesia if we are able to proceed today (repeat this AM is pending). No vomiting this AM (d/w hospitalist it was dark last night in ER).
We discussed the risk, benefits, and alternatives to upper endoscopy. The risks include bleeding, infection, perforation, missed lesion, and cardiopulmonary complications from anesthesia. Patient is now agreeable to the procedure. I will also d/w
her DNR will need to be reversed during procedure and immediate post op recovery.
In the interim, continue PPI IV twice daily, octreotide drip, ceftriaxone. If EGD is normal, recommend gastric emptying study as outpatient as well as FibroScan to further evaluate her liver.
With possible diarrhea stool studies also ordered ensure this is not infectious in etiology.
D/w hospitalist.
-
-
Thank you for consultation and allowing me to participate in the patient's care. Please call the data control assistant GI physician during the after hours with any questions or concerns.
[2024-04-10 12:01] LABS: Lactic Acid 1.1 mmol/L (0.7-2.0)
--- NOTE | 2024-04-10 12:22 | W.PN.HOSP.TC ---
Today's Communication/Plan
-
EGD today after labs
IV resuscitation, monitor hco3
trend cbc
octreotide ggt, ppi iv, ceftriaxone for now
Assessment / Plan
Assessment / Plan
Physical Exam
General: Comfortable and Conversant; No Fever or Chills
HEENT: NormoCephalic, Anicteric, PERRLA, [place] Conjunctivae, No Ptosis and Other (Fungal rash under neck fold)
Respiratory: Clear; No Wheezes, Rales or Rhonchi
Cardiac: S1/S2 and Tachycardia; No Murmur, Rub, Gallop or Peripheral Edema
Breast: Deferred by me
GI: Soft, Non Distended, Normal Bowel Sounds and Tender (Epigastric area)
Rectal: Deferred by Provider
Genito-urinary: Deferred by me
Musculoskeletal: No Clubbing, No Cyanosis, No Edema and Other (Chronic left wrist drop, chronic left arm contracture, functional quadriplegia from prior CVA)
Skin: Warm, Dry and Rash (Under neck fold)
Neuro: AO x 3, Cranial Nerves Intact, No Sensory Deficits and Other (Chronic left wrist drop, chronic left arm contracture, functional quadriplegia from prior CVA); No Slurred Speech, Facial Droop or Tremors
Psych: Calm
#Coffee-ground emesis
#Acute blood loss anemia
� In setting of suspected cirrhosis
� N.p.o.
� EGD today
� Trend CBC
� Maintain hemoglobin greater than 7, transfuse as necessary
� Maintain 2 peripheral IVs
�Continue octreotide, PPI IV twice daily, ceftriaxone
�GI on board
�Patient refused labs this morning, educated on importance
#Upper/mid epigastric pain and tenderness
� No clear source of infectious etiology this time, possibly secondary to gastritis/ulcer
� Continue PPI IV
� Already on ceftriaxone
� Colitis seen on imaging, seen on last CT as well, and etiology likely noninfectious and more likely portal colopathy
� No obvious diarrhea
#Anion gap metabolic acidosis
� Probably secondary to starvation ketoacidosis with beta-hydroxybutyrate at 5.6
�IV resuscitation, may need bicarb solution in the interim
- see plan above
#Transaminitis
� Follow-up blood ultrasound
-F/u dopplers
# Hx Portal vein thrombosis
-no now evidence on repeat imaging
-Difficult to anticoagulate due to thrombocytopenia, probable cirrhosis
-not anticoagulating-heme was consulted January 2024
-F/u portal vein, gastric, and hepatic vein dopplers
# Acute hypokalemia
� Monitor and treat
#Fungal rash under neck fold
-Nystatin powder or cream
#Former alcohol use disorder stopped January 2024
-Patient denies any current alcohol use
-Continue gabapentin
#Chronic Hepatitis with portal fibrosis mild bile duct proliferation liver biopsy 2017
#Chronic pancytopenia hx
#Nonischemic cardiomyopathy-resolved
Aortic stenosis
CAD nonobstructive
-Follows with [facility]
2D echo 12/31/2009: EF 30%, global hypokinesis, concentric LVH
2D echo 11/30/2017: EF 55 to 60%, normal LVS LVSF, no wall abnormalities, mild AR
#HTN-benign
-Continue carvedilol for now due to possible varices; can stop if bp trending down
-HOLD amlodipine 10 mg daily, lisinopril 20 mg at bedtime
#HLD
No medications listed
#Functional quadriplegia
#History of CVA with left-sided [id number]-hotya
-PT/OT consult
#Anxiety/depression
No current medication
#Chronic overgrown toenails
-f/u newspaper or periodical editor outpt
Other PMH:
Gastroparesis with GJ tube and removal
ERCP status post stent placement 10/02/2023
Lap cholecystectomy 10/06/2023
choledocholithiasis
DVT prophylaxis
Scd's
DNR
Total time spent on today's encounter was 51 minutes which included time spent in counseling the patient/family regarding diagnosis and treatment plan as listed above, goals of care, and symptom management. Case was discussed with nursing staff,
specialists, and care coordinators/case management. All labs and imaging personally reviewed by me. Remainder the time spent in detailed review of previous records, lab data, imaging, and other medical provider documentation.
Anticipated Discharge: 24 - 48 hours
Subjective/Interval History
-
Date of Service: April 10, 2024
refused labs, no acute events overnight
Objective Data
-
Labs:
Laboratory Results
04/09/24 04/10/24 04/10/24
22:24 03:00 11:31
WBC Cancelled
Hgb Cancelled
Hct Cancelled
Plt Count
PT
INR
Sodium 138
Potassium 4.3 D
Chloride 107
Carbon Dioxide 11 L*
BUN 10
Creatinine 0.4 L
Glucose 107 H
Calcium 8.4
Total Bilirubin
AST
ALT
Alkaline Phosphatase
04/10/24 04/10/24 04/10/24
11:31 11:31 11:31
WBC Cancelled
Hgb Cancelled Cancelled Cancelled
Hct Cancelled
Plt Count
PT
INR
Sodium
Potassium
Chloride
Carbon Dioxide
BUN
Creatinine
Glucose
Calcium
Total Bilirubin
AST
ALT
Alkaline Phosphatase
04/10/24 04/10/24 04/10/24
11:31 11:31 11:31
WBC
Hgb
Hct Cancelled Cancelled
Plt Count Cancelled Cancelled
PT Cancelled
INR Cancelled
Sodium Cancelled
Potassium
Chloride
Carbon Dioxide
BUN
Creatinine
Glucose
Calcium
Total Bilirubin
AST
ALT
Alkaline Phosphatase
04/10/24 04/10/24 04/10/24
11:31 11:31 11:31
WBC
Hgb
Hct
Plt Count
PT
INR
Sodium Cancelled
Potassium Cancelled Cancelled
Chloride Cancelled Cancelled
Carbon Dioxide Cancelled
BUN
Creatinine
Glucose
Calcium
Total Bilirubin
AST
ALT
Alkaline Phosphatase
04/10/24 04/10/24 04/10/24
11:31 11:31 11:31
WBC
Hgb
Hct
Plt Count
PT
INR
Sodium
Potassium
Chloride
Carbon Dioxide Cancelled
BUN Cancelled Cancelled
Creatinine Cancelled Cancelled
Glucose Cancelled
Calcium
Total Bilirubin
AST
ALT
Alkaline Phosphatase
04/10/24 04/10/24 04/10/24
11:31 11:31 11:31
WBC
Hgb
Hct
Plt Count
PT
INR
Sodium
Potassium
Chloride
Carbon Dioxide
BUN
Creatinine
Glucose Cancelled
Calcium Cancelled Cancelled
Total Bilirubin Cancelled Cancelled
AST Cancelled
ALT
Alkaline Phosphatase
04/10/24 04/10/24 04/10/24
11:31 11:31 11:31
WBC
Hgb
Hct
Plt Count
PT
INR
Sodium
Potassium
Chloride
Carbon Dioxide
BUN
Creatinine
Glucose
Calcium
Total Bilirubin
AST Cancelled
ALT Cancelled Cancelled
Alkaline Phosphatase Cancelled Cancelled
04/10/24
12:12
WBC Pending
Hgb Pending
Hct Pending
Plt Count Pending
PT Pending
INR Pending
Sodium Pending
Potassium Pending
Chloride Pending
Carbon Dioxide Pending
BUN Pending
Creatinine Pending
Glucose Pending
Calcium Pending
Total Bilirubin Pending
AST Pending
ALT Pending
Alkaline Phosphatase Pending
Vital Signs:
Vital Signs
Temp Pulse Resp BP Pulse Ox
98 F 76 20 110/58 98
04/10/24 11:34 04/10/24 11:34 04/10/24 11:34 04/10/24 11:34 04/10/24 11:34
I&O
04/09/24 04/10/24 04/11/24
06:59 06:59 06:59
Intake Total 0 / 0
Balance 0 / 0
Review of Systems
-
History Source: Patient
All other systems: Not reviewed unless documented
Physical Exam
-
General: Well Developed, Well Nourished and Comfortable
HEENT: Normocephalic, Atraumatic and Moist Mucous Membranes
Respiratory: Clear to Auscultation
Cardiac: Regular Rhythm and S1/S2
GI: Soft, Nontender, Nondistended and Normal Bowel Sounds
Musculoskeletal: No Clubbing, No Cyanosis and No Edema
Skin: Warm and Dry
Neuro: AO x 3
Psych: Calm
[2024-04-10] MEDS: LR 1000 IV (15:03)
--- NOTE | 2024-04-10 15:48 | CM ---
Addendum entered by Camila Lozada 04/10/24 15:49:
denies VN or SNF, reports her son is her supervisor boarding. Patient confirms PCP Edilma Collins, [facility], confirms prescription coverage. Patient denies insecurities at home. CM will continue to follow for all discharge planning needs.
Plan; home with family likely
Original Note:
CM reviewed chart, patient seen bedside. Patient resides with her two sons and grandchildren in a single story home, ramp to enter. Patient ambulates with wheelchair, denes
[2024-04-10 16:58] LABS: Hematocrit 25.9 % (37.0-47.0); Hemoglobin 9.4 g/dL (12.0-16.0); Mean Corp Hgb Conc. 36.3 g/dL (33.0-37.0); Mean Corpuscular Hgb 36.3 pg (27.0-31.0); Mean Platelet Volume 10.2 fL (7.4-10.4); Platelet Count 46 10^3/uL (130-400); Red Blood Cell Count 2.59 10^6/uL (4.20-5.40); Red Cell Dist. Width 14.6 % (11.5-14.5); White Blood Cell Count 3.6 10^3/uL (4.8-10.8)
[2024-04-10 17:04] LABS: INR 1.31; PT 16.5 Sec (11.4-14.6)
[2024-04-10 17:22] LABS: Lactic Acid 1.4 mmol/L (0.7-2.0)
[2024-04-10 17:27] LABS: ALT (SGPT) 17 U/L (0-35); AST (SGOT) 38 U/L (14-36); Albumin 2.4 g/dl (3.5-5.0); Alkaline Phosphatase 45 U/L (38-126); Blood Urea Nitrogen 9 mg/dl (7-17); Calcium 8.2 mg/dl (8.4-10.2); Carbon Dioxide 13 mmol/L (22-30); Chloride 106 mmol/L (98-107); Direct Bilirubin 0.7 mg/dl (0.0-0.4); Estimated Creatinine Clearance 74 ml/min; Glucose 103 mg/dl (70-99); Potassium 3.4 mmol/L (3.5-5.1); Sodium 136 mmol/L (135-145); Total Bilirubin 1.6 mg/dl (0.2-1.3); Total Protein 5.9 g/dl (6.3-8.2); eGFR > 60.00
[2024-04-10] MEDS: SODIUM BICARBONATE 1150 MEQ IV (19:30)
[2024-04-10] MEDS: STERILE WATER FOR INJECTION 10 ML IV (19:45)
[2024-04-10] MEDS: ROCEPHIN 1000 MG IV (19:45)
[2024-04-10] MEDS: FLUSH (NSS) 1 FLUSH IV (19:45)
[2024-04-10] MEDS: FLUSH (NSS) 10 FLUSH IV (19:45)
[2024-04-10] MEDS: NEURONTIN PO ×2 (22:41→22:43)
[2024-04-11] MEDS: LR IV (02:38)
[2024-04-11 03:05] VITALS: BP 111/63
[2024-04-11 05:43] LABS: % Basophils 0.4 % (0-2); % Eosinophils 1.9 % (0-6); % Immature Granulocytes 0.7 % (0-0.5); % Lymphocytes 29.3 % (20.5-51.1); % Monocytes 8.1 % (1.7-9.3); % Neutrophils 59.6 % (42.2-75.2); Absolute Eosinophils 0.1 10^3/uL (0-0.7); Absolute Lymphocytes 0.8 10^3/uL (1.2-3.4); Absolute Monocytes 0.2 10^3/uL (0.1-0.6); Absolute Neutrophils 1.6 10^3/uL (1.4-6.5); Hematocrit 26.1 % (37.0-47.0); Hemoglobin 9.1 g/dL (12.0-16.0); Mean Corp Hgb Conc. 34.9 g/dL (33.0-37.0); Mean Corpuscular Hgb 35.1 pg (27.0-31.0); Mean Corpuscular Volume 100.8 fL (81.0-99.0); Mean Platelet Volume 10.1 fL (7.4-10.4); Nucleated Red Blood Cells % 0 %; Platelet Count 37 10^3/uL (130-400); Red Blood Cell Count 2.59 10^6/uL (4.20-5.40); Red Cell Dist. Width 14.6 % (11.5-14.5); White Blood Cell Count 2.7 10^3/uL (4.8-10.8)
[2024-04-11 05:44] LABS: INR 1.26; PT 16.1 Sec (11.4-14.6)
[2024-04-11 05:54] LABS: ALT (SGPT) 18 U/L (0-35); AST (SGOT) 39 U/L (14-36); Albumin 2.3 g/dl (3.5-5.0); Alkaline Phosphatase 45 U/L (38-126); Blood Urea Nitrogen 8 mg/dl (7-17); Calcium 7.4 mg/dl (8.4-10.2); Carbon Dioxide 22 mmol/L (22-30); Chloride 105 mmol/L (98-107); Estimated Creatinine Clearance 74 ml/min; Glucose 163 mg/dl (70-99); Potassium 3.3 mmol/L (3.5-5.1); Sodium 137 mmol/L (135-145); Total Bilirubin 1.2 mg/dl (0.2-1.3); Total Protein 5.7 g/dl (6.3-8.2); eGFR > 60.00
[2024-04-11 06:00] VITALS: BMI 24.9
[2024-04-11 07:15] VITALS: BP 100/54
[2024-04-11] MEDS: FLUSH (NSS) 2 FLUSH IV (08:18)
[2024-04-11] MEDS: NSS (PRESERVATIVE FREE) 10 ML IV ×2 (08:18→20:08)
[2024-04-11] MEDS: PROTONIX IV 40 MG IV ×2 (08:18→20:10)
[2024-04-11] MEDS: MYCOLOG CREAM 1 APPLIC TOPICAL ×3 (08:19→21:13)
[2024-04-11 11:10] VITALS: BP 109/67
[2024-04-11] MEDS: SANDOSTATIN 500.6 MCG IV (12:24)
--- NOTE | 2024-04-11 12:59 | W.PN.GI.CBS2 ---
Addendum entered and electronically signed by Karsten Lucero MD 04/11/24 18:11:
likely benefit from fibroscan outpatient as well
Addendum entered and electronically signed by Karsten Lucero MD 04/11/24 15:33:
MELD 10 reviewed with granddaughter no need for liver transplant eval at this time
Addendum entered and electronically signed by Karsten Lucero MD 04/11/24 15:31:
Ammonia level is low so less likely PSE.
I was able to reach her granddaughter Marie and updated her.
Addendum entered and electronically signed by Karsten Lucero MD 04/11/24 14:23:
I saw and examined the patient.
The MATCHER or PA's note was reviewed and I agree with the note.
Comment: 73-year-old female past medical history of stroke, , gastroparesis with prior GJ tube presenting with nausea and vomiting and possibly coffee-ground emesis. Underwent EGD 04/10 found to have portal HTN gastropathy and grade II EV s/p 2
bands placed.
More somnolent today but oriented
Recommendations:
- octreotide gtt
- clears today
- advance diet tomorrow if Hb stable
- ceftriaxone
- PPI IV BID
- with somnolence I added lactulose and Anusha added on ammonia level
- will need beta loretta resumed on discharge (on coreg)
attempted to call family unable to reach son or granddaughter
will need OV ideally week of 04/25 or 05/02 currently we have no openings my front desk receptionist will be watching for a cancellation; needs full liver work up outpatient
tentative egd with me 05/17-05/19 for repeat banding needs ov prior ensure compliance
Original Note:
Today's Communication / Plan
-
s/p EGD with noted grade II EV with banding
hbg stable 9.1
cont octeotide gtt
cont PPI BID
cont clear diet
trend labs some drop in platelets cont to trend
US as noted
will add ammonia level with some lethargy in exam
cont rocephin with cirrhosis and GI bleeding
Assessment / Plan
-
This is a 73-year-old female past medical history of stroke, , gastroparesis with prior GJ tube, hx PVT, thombocytopenia, ETOH use presenting with nausea and vomiting and possibly coffee-ground emesis. She completed EGD on admission with concern
for Grade II esophageal varices. Completely eradicated with banding, portal HTN gastropathy, normal duodenum.
04/10/24 US doppler
Markedly limited study as detailed above
The liver is relatively small measuring 11 cm in length consistent with patient's history of cirrhosis
The spleen is enlarged measuring 16 x 7 x 15.5 cm
There is a 1 cm nonobstructing calculus in the lower pole left kidney
-coffee ground emesis
-s/p eGD with grade II EV with banding
-cirrhosis
-hx PVT
-thrombocytopenia
other medical problems:
-hx prior ERCP with stenting 09/2023
-CVA
-
-HTN
-GERD
-hypercholesterolemia
-depression
-non ischemic CM
-prior GJ tube
-gastroparesis
-c-diff
-hysterectomy
-non obs renal stones
PLAN:
s/p EGD with noted grade II EV with banding
hbg stable 9.1
cont octeotide gtt
cont PPI BID
cont clear diet
trend labs some drop in platelets cont to trend
US as noted
will add ammonia level with some lethargy in exam
cont rocephin with cirrhosis and GI bleeding
Subjective
Subjective
Date of Service: April 11, 2024
no stool, on clear diet , sleeping but arousable to answer some yes/no questions
Objective
Data Reviewed
Laboratory Data:
Laboratory Results
04/11/24 05:14
04/11/24 05:14
Laboratory Results
PT 16.1 Sec (11.4-14.6) H 04/11/24 05:14
INR 1.26 04/11/24 05:14
Total Bilirubin 1.2 mg/dl (0.2-1.3) 04/11/24 05:14
AST 39 U/L (14-36) H 04/11/24 05:14
ALT 18 U/L (0-35) 04/11/24 05:14
Alkaline Phosphatase 45 U/L (38-126) 04/11/24 05:14
Lipase 173 U/L (23-300) 04/09/24 14:37
Vital Signs and I&O:
Vital Signs
Temp Pulse Resp BP Pulse Ox
97.5 F 76 16 109/67 100
04/11/24 11:10 04/11/24 11:10 04/11/24 11:10 04/11/24 11:10 04/11/24 11:10
I&O
04/10/24 04/11/24 04/12/24
06:59 06:59 06:59
Intake Total 0 / 0 1380.5 / 1380.5
Balance 0 / 0 1380.5 / 1380.5
Physical Exam
Physical Exam
HEENT: Anicteric and Moist mucous membranes
Cardiology: Normal Sinus Rhythm
Pulmonary: Clear
GI: Soft, Distended (minimal ) and Tender
Neuro: Other (sleepy but arousable )
[2024-04-11 14:31] LABS: Ammonia < 9 umol/L (9-30)
--- NOTE | 2024-04-11 14:45 | W.PN.HOSP.TC ---
Today's Communication/Plan
-
f/u hbg level
maintain ppi/octreotide
diet per GI
Assessment / Plan
Assessment / Plan
EHD
Grade II varices were found in the lower third of the esophagus. They
were large in size. Two bands were successfully placed with complete
eradication, resulting in deflation of varices. A slow ooze remained at
the end of the procedure.
Moderate portal hypertensive gastropathy was found in the entire
examined stomach. Very friable. Bile seen in stomach.
The examined duodenum was normal.

#Coffee-ground emesis
#Esophageal varices
#Acute blood loss anemia
�Maintain hemoglobin greater than 7, transfuse as necessary
�Continue octreotide, PPI IV twice daily, ceftriaxone
�EGD showing Grade II EV , banded successfully
#Upper/mid epigastric pain and tenderness
� No clear source of infectious etiology this time, possibly secondary to gastritis/ulcer
� Continue PPI IV
� Already on ceftriaxone
� Colitis seen on imaging, seen on last CT as well, and etiology likely noninfectious and more likely portal colopathy
� No obvious diarrhea
#Anion gap metabolic acidosis -resolved
�Probably secondary to starvation ketoacidosis with beta-hydroxybutyrate at 5.6
#Transaminitis
-Doppler poor study
-f/u labs clinically
# Hx Portal vein thrombosis
-no evidence on repeat imaging
-Difficult to anticoagulate due to thrombocytopenia, probable cirrhosis
-not anticoagulating-heme was consulted January 2024
-Repeat Doppler study on 04/10 could not visualize main portal vein/part of hepatic vein
# Hypokalemia
-replete PRN
#Fungal rash under neck fold
-Nystatin powder or cream
#Former alcohol use disorder stopped January 2024
-Patient denies any current alcohol use
-Continue gabapentin
#Chronic Hepatitis with portal fibrosis mild bile duct proliferation liver biopsy 2017
#Chronic pancytopenia hx
#Nonischemic cardiomyopathy-resolved
Aortic stenosis
CAD nonobstructive
-Follows with [facility]
2D echo 12/31/2009: EF 30%, global hypokinesis, concentric LVH
2D echo 11/30/2017: EF 55 to 60%, normal LVS LVSF, no wall abnormalities, mild AR
Essential HTN
HLD
Functional quadriplegia
History of CVA with left-sided [id number]
Anxiety/depression
Chronic overgrown toenails
Gastroparesis with GJ tube and removal
ERCP status post stent placement 10/02/2023
Lap cholecystectomy 10/06/2023
choledocholithiasis
DVT prophylaxis Scd's
DNR
Anticipated Discharge: 24 - 48 hours
Subjective/Interval History
-
Date of Service: April 11, 2024
Resting comfortably in bed
No reported melena/hematemesis
No other acute issues reported
Objective Data
-
Labs:
Laboratory Results
04/11/24
05:14
WBC 2.7 L
Hgb 9.1 L
Hct 26.1 L
Plt Count 37 L
PT 16.1 H
INR 1.26
Sodium 137
Potassium 3.3 L
Chloride 105
Carbon Dioxide 22
BUN 8
Creatinine 0.4 L
Glucose 163 H
Calcium 7.4 L
Total Bilirubin 1.2
AST 39 H
ALT 18
Alkaline Phosphatase 45
Vital Signs:
Vital Signs
Temp Pulse Resp BP Pulse Ox
97.5 F 76 16 109/67 100
04/11/24 11:10 04/11/24 11:10 04/11/24 11:10 04/11/24 11:10 04/11/24 11:10
I&O
04/10/24 04/11/24 04/12/24
06:59 06:59 06:59
Intake Total 0 / 0 1380.5 / 1380.5
Balance 0 / 0 1380.5 / 1380.5
Review of Systems
-
Respiratory: Reports No Symptoms
Cardiac: Reports No Symptoms
Abdomen/GI: Reports No Symptoms
Physical Exam
-
General: No Apparent Distress and Comfortable
HEENT: Negative Oxygen
Respiratory: Clear to Auscultation
Cardiac: Regular Rhythm and S1/S2; Negative Murmur or Rub
GI: Soft, Nontender and Nondistended
Musculoskeletal: No Edema
Neuro: Awake, Alert, Oriented, No Motor Deficits and Nonfocal/Grossly Intact
Psych: Calm
--- NOTE | 2024-04-11 15:46 | CM ---
Chart reviewed
Clears today
Following Hgb
IV antibiotics
CM will follow for discharge planning
Plan - anticipate home to previous setting
[2024-04-11 18:10] VITALS: BMI 24.9
[2024-04-11 19:00] VITALS: BP 112/57
[2024-04-11] MEDS: ROCEPHIN 1000 MG IV (20:09)
[2024-04-11] MEDS: FLUSH (NSS) 1 FLUSH IV ×2 (20:09→20:16)
[2024-04-11] MEDS: STERILE WATER FOR INJECTION 10 ML IV (20:10)
[2024-04-11] MEDS: DUPHALAC/CHRONULAC 20 GRAMS PO (20:16)
[2024-04-11] MEDS: NEURONTIN 800 MG PO (21:14)
[2024-04-11] MEDS: ZOFRAN 4 MG IV (21:21)
[2024-04-11 23:00] VITALS: BP 104/56
[2024-04-12] MEDS: SANDOSTATIN 500.6 MCG IV ×2 (00:24→15:04)
[2024-04-12 06:00] VITALS: BMI 24.8
[2024-04-12 07:15] VITALS: BP 116/64
[2024-04-12 07:24] LABS: % Basophils 0.8 % (0-2); % Eosinophils 1.1 % (0-6); % Immature Granulocytes 1.6 % (0-0.5); % Lymphocytes 24.3 % (20.5-51.1); % Neutrophils 60.2 % (42.2-75.2); Absolute Immature Granulocytes 0.1 10^3/uL (0-0.05); Absolute Lymphocytes 0.9 10^3/uL (1.2-3.4); Absolute Monocytes 0.5 10^3/uL (0.1-0.6); Absolute Neutrophils 2.3 10^3/uL (1.4-6.5); Hematocrit 35.2 % (37.0-47.0); Hemoglobin 12.9 g/dL (12.0-16.0); Mean Corp Hgb Conc. 36.6 g/dL (33.0-37.0); Mean Corpuscular Volume 98.3 fL (81.0-99.0); Nucleated Red Blood Cells % 0.8 %; Platelet Count 40 10^3/uL (130-400); Red Blood Cell Count 3.58 10^6/uL (4.20-5.40); Red Cell Dist. Width 14.7 % (11.5-14.5); White Blood Cell Count 3.7 10^3/uL (4.8-10.8)
[2024-04-12] MEDS: PROTONIX IV 40 MG IV ×2 (09:16→21:34)
[2024-04-12] MEDS: DUPHALAC/CHRONULAC PO ×4 (09:16→21:48)
[2024-04-12] MEDS: MYCOLOG CREAM 1 APPLIC TOPICAL ×3 (09:16→21:40)
[2024-04-12] MEDS: NSS (PRESERVATIVE FREE) 10 ML IV ×2 (09:16→21:34)
--- NOTE | 2024-04-12 09:27 | CM ---
Patient seen at bedside
Lives with son & grandchildren
hgb 12.9 today
PLAN: anticipate home to previous setting
[2024-04-12 09:42] LABS: ALT (SGPT) 24 U/L (0-35); AST (SGOT) 50 U/L (14-36); Albumin 2.5 g/dl (3.5-5.0); Alkaline Phosphatase 57 U/L (38-126); Blood Urea Nitrogen 7 mg/dl (7-17); Calcium 7.9 mg/dl (8.4-10.2); Carbon Dioxide 20 mmol/L (22-30); Chloride 111 mmol/L (98-107); Estimated Creatinine Clearance 74 ml/min; Glucose 127 mg/dl (70-99); Potassium 2.5 mmol/L (3.5-5.1); Sodium 143 mmol/L (135-145); Total Bilirubin 1.6 mg/dl (0.2-1.3); Total Protein 6.2 g/dl (6.3-8.2); eGFR > 60.00
[2024-04-12 11:10] VITALS: BP 132/77
[2024-04-12] MEDS: KCL 40 MEQ PO ×3 (11:28→21:57)
--- NOTE | 2024-04-12 12:11 | W.PN.HOSP.TC ---
Today's Communication/Plan
-
diet per GI
discharge once cleared by GI
Assessment / Plan
Assessment / Plan
EHD
Grade II varices were found in the lower third of the esophagus. They
were large in size. Two bands were successfully placed with complete
eradication, resulting in deflation of varices. A slow ooze remained at
the end of the procedure.
Moderate portal hypertensive gastropathy was found in the entire
examined stomach. Very friable. Bile seen in stomach.
The examined duodenum was normal.

#Coffee-ground emesis
#Esophageal varices
#Acute blood loss anemia
�Maintain hemoglobin greater than 7, transfuse as necessary
�Continue octreotide, PPI IV twice daily, ceftriaxone
�EGD showing Grade II EV , banded successfully
-Diet per GI
#Upper/mid epigastric pain and tenderness
� No clear source of infectious etiology this time, possibly secondary to gastritis/ulcer
� Continue PPI IV
� Already on ceftriaxone
� Colitis seen on imaging, seen on last CT as well, and etiology likely noninfectious and more likely portal colopathy
� No obvious diarrhea
#Anion gap metabolic acidosis -resolved
�Probably secondary to starvation ketoacidosis with beta-hydroxybutyrate at 5.6
#Transaminitis
-Doppler poor study
-f/u labs clinically
# Hx Portal vein thrombosis
-no evidence on repeat imaging
-Difficult to anticoagulate due to thrombocytopenia, probable cirrhosis
-not anticoagulating-heme was consulted January 2024
-Repeat Doppler study on 04/10 could not visualize main portal vein/part of hepatic vein
# Hypokalemia
-replete PRN
#Fungal rash under neck fold
-Nystatin powder or cream
#Former alcohol use disorder stopped January 2024
-Patient denies any current alcohol use
-Continue gabapentin
#Chronic Hepatitis with portal fibrosis mild bile duct proliferation liver biopsy 2017
#Chronic pancytopenia hx
#Nonischemic cardiomyopathy-resolved
Aortic stenosis
CAD nonobstructive
-Follows with [facility]
2D echo 12/31/2009: EF 30%, global hypokinesis, concentric LVH
2D echo 11/30/2017: EF 55 to 60%, normal LVS LVSF, no wall abnormalities, mild AR
Essential HTN
HLD
Functional quadriplegia
History of CVA with left-sided [id number]-[id number]
Anxiety/depression
Chronic overgrown toenails
Gastroparesis with GJ tube and removal
ERCP status post stent placement 10/02/2023
Lap cholecystectomy 10/06/2023
choledocholithiasis
DVT prophylaxis Scd's
DNR
Anticipated Discharge: 24 - 48 hours
Subjective/Interval History
-
Date of Service: April 12, 2024
Patient denies of any specific problems
feeling lethargic/fatigued
had episode of vomiting in morning
Objective Data
-
Labs:
Laboratory Results
04/12/24 04/12/24 04/12/24
06:56 09:06 18:00
WBC 3.7 L
Hgb 12.9 D
Hct 35.2 L
Plt Count 40 L
Sodium Cancelled 143
Potassium Cancelled 2.5 L* Pending
Chloride Cancelled 111 H
Carbon Dioxide Cancelled 20 L
BUN Cancelled 7
Creatinine Cancelled 0.4 L
Glucose Cancelled 127 H
Calcium Cancelled 7.9 L
Total Bilirubin Cancelled 1.6 H
AST Cancelled 50 H
ALT Cancelled 24
Alkaline Phosphatase Cancelled 57
Vital Signs:
Vital Signs
Temp Pulse Resp BP Pulse Ox
98.2 F 77 18 132/77 97
04/12/24 11:10 04/12/24 11:10 04/12/24 11:10 04/12/24 11:10 04/12/24 11:10
I&O
04/11/24 04/12/24 04/13/24
06:59 06:59 06:59
Intake Total 1380.5 / 1380.5 980 / 980
Output Total 300 / 300
Balance 1380.5 / 1380.5 680 / 680
Review of Systems
-
Respiratory: Reports No Symptoms
Cardiac: Reports No Symptoms
Abdomen/GI: Reports Nausea and Vomiting; Denies Abdominal Pain
Physical Exam
-
General: No Apparent Distress and Comfortable
HEENT: Negative Oxygen
Respiratory: Clear to Auscultation
Cardiac: Regular Rhythm and S1/S2; Negative Murmur or Rub
GI: Soft, Nontender and Nondistended
Musculoskeletal: No Edema
Neuro: Awake, Alert, Oriented, No Motor Deficits and Nonfocal/Grossly Intact
Psych: Calm
[2024-04-12] MEDS: NEURONTIN 100 MG PO (13:05)
[2024-04-12 13:28] LABS: Magnesium 1.3 mg/dl (1.6-2.3)
[2024-04-12 15:30] VITALS: BP 124/87
--- NOTE | 2024-04-12 15:54 | W.PN.GI.CBS2 ---
Today's Communication / Plan
-
Regular diet
To complete 72hrs of octreotide gtt
To complete 7 days of abx
She has OP GI follow up scheduled 04/26 d/c paperwork updated. EGD in 4wks for FU on varices
Assessment / Plan
-
This is a 73-year-old female past medical history of stroke, , gastroparesis with prior GJ tube, hx PVT, thombocytopenia, ETOH use presenting with nausea and vomiting and possibly coffee-ground emesis. She completed EGD on admission with concern
for Grade II esophageal varices. Completely eradicated with banding, portal HTN gastropathy, normal duodenum.
04/10/24 US doppler
Markedly limited study as detailed above
The liver is relatively small measuring 11 cm in length consistent with patient's history of cirrhosis
The spleen is enlarged measuring 16 x 7 x 15.5 cm
There is a 1 cm nonobstructing calculus in the lower pole left kidney
-coffee ground emesis
-s/p eGD with grade II EV with banding
-cirrhosis
-hx PVT
-thrombocytopenia
other medical problems:
-hx prior ERCP with stenting 09/2023
-CVA
-
-HTN
-GERD
-hypercholesterolemia
-depression
-non ischemic CM
-prior GJ tube
-gastroparesis
-c-diff
-hysterectomy
-non obs renal stones
PLAN:
s/p EGD 04/10 with noted grade II EV with banding
Hemoglobin now normalized
C/w octreotide to complete 72hr drip
C/w CTX to complete 7 day course for bacterial translocation during variceal bleeding
C/w PPI daily
Adv to regular diet
She has GI FU 04/26 and d/c paperwork updated
Will benefit from repeat EGD in [address] Lucero. GI will sign off please call for ?
Subjective
Subjective
Date of Service: April 12, 2024
She is tolerating diet. Denies nausea/vomiting. She does have some epigastric discomfort post prandial
Objective
Data Reviewed
Laboratory Data:
Laboratory Results
04/12/24 06:56
Laboratory Results
PT 16.1 Sec (11.4-14.6) H 04/11/24 05:14
INR 1.26 04/11/24 05:14
Magnesium 1.3 mg/dl (1.6-2.3) L 04/12/24 09:06
Total Bilirubin 1.6 mg/dl (0.2-1.3) H 04/12/24 09:06
AST 50 U/L (14-36) H 04/12/24 09:06
ALT 24 U/L (0-35) 04/12/24 09:06
Alkaline Phosphatase 57 U/L (38-126) 04/12/24 09:06
Lipase 173 U/L (23-300) 04/09/24 14:37
Vital Signs and I&O:
Vital Signs
Temp Pulse Resp BP Pulse Ox
98.1 F 90 16 124/87 96
04/12/24 15:30 04/12/24 15:30 04/12/24 15:30 04/12/24 15:30 04/12/24 15:30
I&O
04/11/24 04/12/24 04/13/24
06:59 06:59 06:59
Intake Total 1380.5 / 1380.5 980 / 980
Output Total 300 / 300
Balance 1380.5 / 1380.5 680 / 680
Physical Exam
Physical Exam
GEN: No acute distress, conversant, pleasant
HEENT: anicteric, extraocular movements intact, clear oropharynx without exudates, poor dentition
GI: soft, non-distended, not tender to palpation, normal active bowel sounds, no hepatosplenomegaly
EXT: warm, well perfused, trace edema bilaterally
NEURO: AAOx3, non-focal
--- NOTE | 2024-04-12 16:46 | VATNOTE ---
Midline dsg. changed per protocol due to bloody bio patch. ELIZABETHNWinsome stated pump keeps alarming. Midline assessed for NO blood return at this time. Upper arm circumference measured and is now 28cm; was 25cm upon insertion. VAT to follow.
--- NOTE | 2024-04-12 18:25 | VATNOTE ---
Checked right arm midline 1 hr after dressing change done earlier and biopatch was soaked with clear fluid. Co worker also assessed SAHIL circumf. Decision made to pull infiltrated midline. Attempted to place another right arm midline in 3 diff.
veins; unable to thread wire. Aborted procedure. Right hand 24p. placed and labs obtained. PCN aware.
[2024-04-12] MEDS: MAGNESIUM SULFATE 50 IV (18:43)
[2024-04-12 19:00] VITALS: BP 115/85
[2024-04-12 20:13] LABS: Potassium 3.2 mmol/L (3.5-5.1)
--- NOTE | 2024-04-12 21:37 | VATNOTE ---
labs hemolyzed from 1600; this VAT RN called to redraw. Extremely difficult stick this patient; reached out to provider DIETETIC TECHNICIAN, Lindy and inquired of using left hand for labs; unsuccessful. Together Construction Equipment Operator & this VAT RN managed to obtain lab right hand.
Instructed day RN, night RN & DIETETIC TECHNICIAN that pt. would need IR consult in AM for vein access. Currently has right hand 24p over night.
[2024-04-12] MEDS: ROCEPHIN 1000 MG IV (21:40)
[2024-04-12] MEDS: STERILE WATER FOR INJECTION 10 ML IV (21:40)
[2024-04-12] MEDS: NEURONTIN 800 MG PO (21:41)
[2024-04-12 23:00] VITALS: BP 112/71
[2024-04-13 03:00] VITALS: BP 109/61
[2024-04-13 05:25] VITALS: BMI 24.8
--- NOTE | 2024-04-13 05:43 | PTCARENOTE ---
0140 Pt had 21 beat run vtach. Pt asymptomatic and asleep. VSS. House MEDIA SALES EXECUTIVE notified. order in for morning labs. continuing to monitor.
[2024-04-13 06:16] LABS: % Basophils 0.6 % (0-2); % Eosinophils 1.9 % (0-6); % Immature Granulocytes 3.1 % (0-0.5); % Lymphocytes 22.1 % (20.5-51.1); % Monocytes 8.3 % (1.7-9.3); Absolute Eosinophils 0.1 10^3/uL (0-0.7); Absolute Immature Granulocytes 0.2 10^3/uL (0-0.05); Absolute Lymphocytes 1.1 10^3/uL (1.2-3.4); Absolute Monocytes 0.4 10^3/uL (0.1-0.6); Absolute Neutrophils 3.1 10^3/uL (1.4-6.5); Hematocrit 28.4 % (37.0-47.0); Hemoglobin 10.2 g/dL (12.0-16.0); Mean Corp Hgb Conc. 35.9 g/dL (33.0-37.0); Mean Corpuscular Hgb 35.7 pg (27.0-31.0); Mean Corpuscular Volume 99.3 fL (81.0-99.0); Mean Platelet Volume 10.3 fL (7.4-10.4); Nucleated Red Blood Cells % 0.8 %; Platelet Count 54 10^3/uL (130-400); Red Blood Cell Count 2.86 10^6/uL (4.20-5.40); Red Cell Dist. Width 14.9 % (11.5-14.5); White Blood Cell Count 4.8 10^3/uL (4.8-10.8)
--- NOTE | 2024-04-13 06:16 | DOWNTIME ---
There was a [employer] Client [employer] Conductor Downtime on 04/13/2024 from 0100 to 04/13/2023 at 0235 . Downtime documentation of patient's care, including medication administrations, has been reconciled in the electronic record per guidelines. Refer to the
patient's paper chart under the miscellaneous tab to see printed paper medication records and downtime forms.
[2024-04-13 06:26] LABS: ALT (SGPT) 25 U/L (0-35); AST (SGOT) 45 U/L (14-36); Albumin 2.3 g/dl (3.5-5.0); Alkaline Phosphatase 60 U/L (38-126); Blood Urea Nitrogen 5 mg/dl (7-17); Calcium 7.8 mg/dl (8.4-10.2); Carbon Dioxide 18 mmol/L (22-30); Chloride 110 mmol/L (98-107); Estimated Creatinine Clearance 74 ml/min; Glucose 127 mg/dl (70-99); Magnesium 1.8 mg/dl (1.6-2.3); Sodium 136 mmol/L (135-145); Total Bilirubin 1.4 mg/dl (0.2-1.3); eGFR > 60.00
[2024-04-13] MEDS: SANDOSTATIN 500.6 MCG IV ×3 (06:33→20:01)
[2024-04-13 07:35] VITALS: BP 113/74
[2024-04-13] MEDS: DUPHALAC/CHRONULAC 20 GRAMS PO ×2 (08:29→21:33)
[2024-04-13] MEDS: NSS (PRESERVATIVE FREE) 10 ML IV ×2 (08:30→21:26)
[2024-04-13] MEDS: PROTONIX IV 40 MG IV ×2 (08:30→21:26)
[2024-04-13] MEDS: MYCOLOG CREAM 1 APPLIC TOPICAL ×3 (08:30→23:13)
[2024-04-13 11:20] VITALS: BP 131/57
--- NOTE | 2024-04-13 11:37 | CM ---
Chart reviewed
Regular diet
Hgb 10.2
Lives with sons, grandchildren
PLAN: discharge when stable, home, with family
--- NOTE | 2024-04-13 11:57 | W.PN.HOSP.TC ---
Today's Communication/Plan
-
continue octreotide drip
f/u hbg level
added sodium bicarb
discharge tomorrow once off of octreotide
Assessment / Plan
Assessment / Plan
EHD
Grade II varices were found in the lower third of the esophagus. They
were large in size. Two bands were successfully placed with complete
eradication, resulting in deflation of varices. A slow ooze remained at
the end of the procedure.
Moderate portal hypertensive gastropathy was found in the entire
examined stomach. Very friable. Bile seen in stomach.
The examined duodenum was normal.

#Coffee-ground emesis
#Esophageal varices
#Acute blood loss anemia
�Maintain hemoglobin greater than 7, transfuse as necessary
�Continue octreotide, stop time tomorrow afternoon
-PPI IV twice daily, ceftriaxone
�EGD showing Grade II EV , banded successfully
-Diet advanced to solid food
#Upper/mid epigastric pain and tenderness - resolved
� No clear source of infectious etiology this time, possibly secondary to gastritis/ulcer
� Continue PPI IV
� Already on ceftriaxone
� Colitis seen on imaging, seen on last CT as well, and etiology likely noninfectious and more likely portal colopathy
� No obvious diarrhea
#Anion gap metabolic acidosis -resolved
�Probably secondary to starvation ketoacidosis with beta-hydroxybutyrate at 5.6
-added oral bicarb to regimen
#Transaminitis
-Doppler poor study
-f/u labs clinically
# Hx Portal vein thrombosis
-no evidence on repeat imaging
-Difficult to anticoagulate due to thrombocytopenia, probable cirrhosis
-not anticoagulating-heme was consulted January 2024
-Repeat Doppler study on 04/10 could not visualize main portal vein/part of hepatic vein
# Hypokalemia
Hypomagnesemia
-repleted
#Fungal rash under neck fold
-Nystatin powder or cream
#Former alcohol use disorder stopped January 2024
-Patient denies any current alcohol use
-Continue gabapentin
#Chronic Hepatitis with portal fibrosis mild bile duct proliferation liver biopsy 2017
#Chronic pancytopenia hx
#Nonischemic cardiomyopathy-resolved
Aortic stenosis
CAD nonobstructive
-Follows with [facility]
2D echo 12/31/2009: EF 30%, global hypokinesis, concentric LVH
2D echo 11/30/2017: EF 55 to 60%, normal LVS LVSF, no wall abnormalities, mild AR
Essential HTN
HLD
Functional quadriplegia
History of CVA with left-sided [id number]-mwsusiipzu-[id number]
Anxiety/depression
Chronic overgrown toenails
Gastroparesis with GJ tube and removal
ERCP status post stent placement 10/02/2023
Lap cholecystectomy 10/06/2023
choledocholithiasis
DVT prophylaxis Scd's
DNR
Anticipated Discharge: Within 24 hours
Subjective/Interval History
-
Date of Service: April 13, 2024
denies abd pain/nausea/vomiting
no reported other issues
Objective Data
-
Labs:
Laboratory Results
04/13/24
05:52
WBC 4.8
Hgb 10.2 L D
Hct 28.4 L
Plt Count 54 L D
Sodium 136
Potassium 4.0
Chloride 110 H
Carbon Dioxide 18 L
BUN 5 L
Creatinine 0.5 L
Glucose 127 H
Calcium 7.8 L
Total Bilirubin 1.4 H
AST 45 H
ALT 25
Alkaline Phosphatase 60
Vital Signs:
Vital Signs
Temp Pulse Resp BP Pulse Ox
98.3 F 94 18 113/74 99
04/13/24 07:35 04/13/24 07:35 04/13/24 07:35 04/13/24 07:35 04/13/24 08:48
I&O
04/12/24 04/13/24 04/14/24
06:59 06:59 06:59
Intake Total 980 / 980 1020 / 1020
Output Total 300 / 300
Balance 680 / 680 1020 / 1020
Review of Systems
-
Respiratory: Reports No Symptoms
Cardiac: Reports No Symptoms
Abdomen/GI: Reports Nausea and Vomiting; Denies Abdominal Pain
Physical Exam
-
General: No Apparent Distress and Comfortable
HEENT: Negative Oxygen
Respiratory: Clear to Auscultation
Cardiac: Regular Rhythm and S1/S2; Negative Murmur or Rub
GI: Soft, Nontender and Nondistended
Musculoskeletal: No Edema
Neuro: Awake, Alert, Oriented, No Motor Deficits and Nonfocal/Grossly Intact
Psych: Calm
[2024-04-13 15:25] VITALS: BP 113/84
[2024-04-13] MEDS: SODIUM BICARBONATE 650 MG PO ×2 (16:16→21:34)
[2024-04-13] MEDS: NEURONTIN 100 MG PO (17:59)
--- NOTE | 2024-04-13 19:30 | PTCARENOTE ---
attempted to obtain 1600 labs. Pt refusing blood draw. Pt educated on importance and reason for needing labs to be drawn.
[2024-04-13 20:19] VITALS: BP 118/69
[2024-04-13] MEDS: ROCEPHIN 1000 MG IV (21:33)
[2024-04-13] MEDS: STERILE WATER FOR INJECTION 10 ML IV (21:33)
[2024-04-13] MEDS: NEURONTIN 800 MG PO (21:34)
[2024-04-13 23:21] VITALS: BP 108/65
[2024-04-14 03:37] VITALS: BP 105/56
[2024-04-14 03:38] VITALS: BMI 25.0
[2024-04-14] MEDS: PROTONIX IV 40 MG IV ×2 (07:50→20:07)
[2024-04-14] MEDS: DUPHALAC/CHRONULAC 20 GRAMS PO ×2 (07:50→20:07)
[2024-04-14] MEDS: NSS (PRESERVATIVE FREE) 10 ML IV ×2 (07:50→20:07)
[2024-04-14] MEDS: SODIUM BICARBONATE 650 MG PO ×3 (07:51→21:12)
[2024-04-14] MEDS: MYCOLOG CREAM 1 APPLIC TOPICAL ×3 (07:51→21:11)
[2024-04-14 08:29] VITALS: BP 137/67
--- NOTE | 2024-04-14 09:56 | W.PN.HOSP.TC ---
Today's Communication/Plan
-
d/c home
Assessment / Plan
Assessment / Plan
EHD
Grade II varices were found in the lower third of the esophagus. They
were large in size. Two bands were successfully placed with complete
eradication, resulting in deflation of varices. A slow ooze remained at
the end of the procedure.
Moderate portal hypertensive gastropathy was found in the entire
examined stomach. Very friable. Bile seen in stomach.
The examined duodenum was normal.

#Coffee-ground emesis
#Esophageal varices
#Acute blood loss anemia
�Maintain hemoglobin greater than 7, transfuse as necessary
�Continue octreotide, stop time tomorrow afternoon
-PPI IV twice daily, ceftriaxone
�EGD showing Grade II EV , banded successfully
-Diet advanced to solid food
#Upper/mid epigastric pain and tenderness - resolved
� No clear source of infectious etiology this time, possibly secondary to gastritis/ulcer
� Continue PPI IV
� Already on ceftriaxone
� Colitis seen on imaging, seen on last CT as well, and etiology likely noninfectious and more likely portal colopathy
� No obvious diarrhea
#Anion gap metabolic acidosis -resolved
�Probably secondary to starvation ketoacidosis with beta-hydroxybutyrate at 5.6
-added oral bicarb to regimen
#Transaminitis
-Doppler poor study
-f/u labs clinically
# Hx Portal vein thrombosis
-no evidence on repeat imaging
-Difficult to anticoagulate due to thrombocytopenia, probable cirrhosis
-not anticoagulating-heme was consulted January 2024
-Repeat Doppler study on 04/10 could not visualize main portal vein/part of hepatic vein
# Hypokalemia
Hypomagnesemia
-repleted
#Fungal rash under neck fold
-Nystatin powder or cream
#Former alcohol use disorder stopped January 2024
-Patient denies any current alcohol use
-Continue gabapentin
#Chronic Hepatitis with portal fibrosis mild bile duct proliferation liver biopsy 2017
#Chronic pancytopenia hx
#Nonischemic cardiomyopathy-resolved
Aortic stenosis
CAD nonobstructive
-Follows with [facility]
2D echo 12/31/2009: EF 30%, global hypokinesis, concentric LVH
2D echo 11/30/2017: EF 55 to 60%, normal LVS LVSF, no wall abnormalities, mild AR
Essential HTN
HLD
Functional quadriplegia
History of CVA with left-sided rrofqprn-ehtlitupva-mqzso
Anxiety/depression
Chronic overgrown toenails
Gastroparesis with GJ tube and removal
ERCP status post stent placement 10/02/2023
Lap cholecystectomy 10/06/2023
choledocholithiasis
DVT prophylaxis Scd's
DNR
Patient is in need of a semi-electric hospital bed wiht foam mattress due to the need to elevate head of bed above 30 degrees to prevent aspiration
and to facilitate frequent repositioning to prevent bed ulcers and pressure points.
More than 30 minutes spent in discharge including
Final examination of the patient
Summarizing hospital stay
Instructions for continuing care to all relevant caregivers
Preparation of discharge records, prescriptions, and referral forms
Total time spent (in minutes): 38 mins
Anticipated Discharge: Today
Subjective/Interval History
-
Date of Service: April 14, 2024
no complains overnight
Objective Data
-
Labs:
Laboratory Results
04/14/24
06:00
WBC Pending
Hgb Pending
Hct Pending
Plt Count Pending
Sodium Pending
Potassium Pending
Chloride Pending
Carbon Dioxide Pending
BUN Pending
Creatinine Pending
Glucose Pending
Calcium Pending
Vital Signs:
Vital Signs
Temp Pulse Resp BP Pulse Ox
98.1 F 85 18 137/67 100
04/14/24 08:29 04/14/24 08:29 04/14/24 08:29 04/14/24 08:29 04/14/24 08:29
I&O
04/13/24 04/14/24 04/15/24
06:59 06:59 06:59
Intake Total 1020 / 1020 1530 / 1530
Balance 1020 / 1020 1530 / 1530
Review of Systems
-
Respiratory: Reports No Symptoms
Cardiac: Reports No Symptoms
Abdomen/GI: Reports No Symptoms
Physical Exam
-
General: No Apparent Distress and Comfortable
HEENT: Negative Oxygen
Respiratory: Clear to Auscultation
Cardiac: Regular Rhythm and S1/S2; Negative Murmur or Rub
GI: Soft, Nontender and Nondistended
Musculoskeletal: No Edema
Neuro: Awake, Alert, Oriented, No Motor Deficits and Nonfocal/Grossly Intact
Psych: Calm
--- NOTE | 2024-04-14 10:25 | WOUNDNOTE ---
[facility] RN note: Patient admitted with esophageal varices
See H&P for complete history.
PMH: Cirrhosis, past ETOH abuse, HTN, functional quadriplegia, history of CVA and wheelchair bound
Wound Location and type/assessment: Patient with stage 2 of sacrum. Wound likely result of a combination of pressure and incontinence MASD due to frequent loose stools (patient taking Lactulose). Buttocks blanchable red. Patient could not tolerate
removal of adhesive foam to heels. Incontinence care provided during assessment with assistance of RNJillian.
Appetite: Reports poor.
Pressure redistribution devices in place: Static air overlay added to bed, heels off-loaded with pillows under calves, turning schedule.
Plan: Calazime can be used on open areas on sacrum and on buttocks due to frequent loose stools. Patient needs frequent incontinence care and turning assistance. Per chart review and discussion with CM, patient has hospital bed at home and is cared
for by her son. Will confirm orders with hospitalist and update nurse. Updated care plan and will follow as needed.
Note to case management of equipment requested for discharge:
Recommend follow up at wound care center upon discharge.
[2024-04-14 11:50] LABS: Hematocrit 29.4 % (37.0-47.0); Mean Corpuscular Hgb 35.3 pg (27.0-31.0); Mean Corpuscular Volume 103.9 fL (81.0-99.0); Mean Platelet Volume 10.6 fL (7.4-10.4); Platelet Count 47 10^3/uL (130-400); Red Blood Cell Count 2.83 10^6/uL (4.20-5.40); Red Cell Dist. Width 15.1 % (11.5-14.5)
[2024-04-14 12:04] LABS: Blood Urea Nitrogen 5 mg/dl (7-17); Carbon Dioxide 21 mmol/L (22-30); Chloride 104 mmol/L (98-107); Estimated Creatinine Clearance 74 ml/min; Glucose 123 mg/dl (70-99); Potassium 3.6 mmol/L (3.5-5.1); Sodium 133 mmol/L (135-145); eGFR > 60.00
--- NOTE | 2024-04-14 12:05 | VNURNOTE ---
Addendum entered by Ronda Jaime RN 04/14/24 12:28:
Clinicals and Rx faxed to Christofer at [facility] for hospital bed. She can deliver to house tomorrow.
Original Note:
Home Health Liaison spoke with patient's granddaughter Marie to discuss [facility] nurse/therapy, visits, schedule and homebound status. She is familiar with [facility] and agreeable and understands that visits at home will be 2-3 x per week to assess and
teach medical management. Granddaughter is aware that [facility] will contact them for start of care in 1-2 days after discharge from . She is requesting a hospital bed. She stated they have a Temperpedic bed in bedroom upstairs but mattress is very
old. Granddaughter aware that it may take a few days until hospital bed can be delivered. Granddaughter verbalized understanding. She is also aware that DME co will contact her directly with insurance coverage and delivery arrangements.
Granddaughter also requesting Palliative Care. ELIZABETH Mcelroy updated.
[facility] referral completed in [facility].
[2024-04-14 12:09] VITALS: BP 105/68
--- NOTE | 2024-04-14 12:32 | CM ---
Addendum entered by Carmen Stock 04/14/24 14:33:
hospital bed being delivered tomorrow - family wants bed at home before patient is discharged.
tt hospitalist - he states discharge patient tomorrow
Notified unit aide tech & grand-daughter
Addendum entered by Carmen Stock 04/14/24 14:16:
5:45PM berry picker - notified grand-daughter Marie
Original Note:
CM consult completed for [facility]-stage 2 PI
Discussed with patient prefer [facility]N
Notified Elise Liaison from [facility]-she spoke with grand-daughter Marie agreeable to [facility]
Request Hospital bed -script/progress note to be faxed to [facility].
Requested palliative care as well - Spoke with Yvette from Palliative Care & she stated to add referral in careport.
PLAN: home with family, VN, Palliative Care
transportation forms on chart
[2024-04-14 16:00] VITALS: BP 104/51
--- NOTE | 2024-04-14 16:27 | PN.CDI ---
CDI
- -
CDI:
Physician Documentation Request
Admit Date: 04/09/24 18:32
Dear Doctor Carlo,
Please review the following and provide your response in the progress notes.
Clinical Indicators:
Pt admitted with esophageal varices s/p banding
Documented per Nursing wound care documentation 04/10-04/14, Pressure injury sacrum pressure injury stage 2 ... treatment provided silicone border. '
Physician documentation of the type and location of wounds is required for compliant documentation. Based on the above clinical findings and your assessment, please provide the following in your progress note:
1. Location of the ulcer/wound, including laterality.
2. Type (etiology) of ulcer/wound:
- Pressure (decubitus) ulcer
- Non-pressure ulcer
- Other ( please specify)
Use of terms such as suspected, likely, concern for, or probable (associated with a specific diagnosis that is being evaluated, monitored, or treated as if it exists) are acceptable and can be coded in the inpatient setting, when documented at the
time of discharge.
Thank you,
Barbara Laughlin RN
CDI Specialist
[place] [facility]
Please use your independent medical judgment in providing your response.
*Source: National Pressure Ulcer Advisory Panel (NPUAP)
--- NOTE | 2024-04-14 18:37 | PTCARENOTE ---
patient noted to have run of vtach on telemetry. MD made aware. no new orders at this time
[2024-04-14 19:50] VITALS: BP 132/83
[2024-04-14] MEDS: ROCEPHIN 1000 MG IV (20:06)
[2024-04-14] MEDS: STERILE WATER FOR INJECTION 10 ML IV (20:08)
[2024-04-14] MEDS: NEURONTIN 800 MG PO (21:12)
[2024-04-14 23:21] VITALS: BP 108/73
[2024-04-15 03:35] VITALS: BP 106/76
[2024-04-15 06:00] VITALS: BMI 25.1
[2024-04-15 06:23] LABS: Hematocrit 28.6 % (37.0-47.0); Hemoglobin 10.2 g/dL (12.0-16.0); Mean Corp Hgb Conc. 35.7 g/dL (33.0-37.0); Mean Corpuscular Hgb 35.4 pg (27.0-31.0); Mean Corpuscular Volume 99.3 fL (81.0-99.0); Mean Platelet Volume 11.8 fL (7.4-10.4); Platelet Count 35 10^3/uL (130-400); Red Blood Cell Count 2.88 10^6/uL (4.20-5.40); White Blood Cell Count 3.8 10^3/uL (4.8-10.8)
[2024-04-15 07:40] VITALS: BP 118/61
[2024-04-15] MEDS: SODIUM BICARBONATE 650 MG PO (08:11)
[2024-04-15] MEDS: MYCOLOG CREAM 1 APPLIC TOPICAL (08:12)
[2024-04-15] MEDS: DUPHALAC/CHRONULAC 20 GRAMS PO (08:13)
[2024-04-15] MEDS: PROTONIX IV IV (08:17)
[2024-04-15] MEDS: NSS (PRESERVATIVE FREE) IV (08:17)
[2024-04-15 09:05] LABS: Blood Urea Nitrogen 6 mg/dl (7-17); Carbon Dioxide 22 mmol/L (22-30); Chloride 104 mmol/L (98-107); Estimated Creatinine Clearance 74 ml/min; Glucose 112 mg/dl (70-99); Potassium 3.5 mmol/L (3.5-5.1); Sodium 131 mmol/L (135-145); eGFR > 60.00
--- NOTE | 2024-04-15 09:50 | VNURNOTE ---
Chart reviewed. DC order noted. [facility] with Christofer at [employer]. She stated estimated delivery time for bed would be before noon. Liaison spoke to granddaughter Marie - provided rep's number as well as [facility]
office number. Instructed her that someone has to be available at home to accept bed.
[2024-04-15 11:35] VITALS: BP 99/65
[2024-04-15] MEDS: PROTONIX 40 MG PO (12:18)
--- NOTE | 2024-04-15 13:12 | W.PN.HOSP.TC ---
Addendum entered and electronically signed by Vladislav Matos MD 04/17/24 07:54:
Add to diagnosis list
Pressure injury sacrum pressure injury stage 2
Original Note:
Today's Communication/Plan
-
d/c home with VN
Assessment / Plan
Assessment / Plan
EHD
Grade II varices were found in the lower third of the esophagus. They
were large in size. Two bands were successfully placed with complete
eradication, resulting in deflation of varices. A slow ooze remained at
the end of the procedure.
Moderate portal hypertensive gastropathy was found in the entire
examined stomach. Very friable. Bile seen in stomach.
The examined duodenum was normal.

#Coffee-ground emesis
#Esophageal varices
#Acute blood loss anemia
�Maintain hemoglobin greater than 7, transfuse as necessary
-octreotide finished.
-PPI swithced to daily.
�EGD showing Grade II EV , banded successfully
-Diet advanced to solid food
#Upper/mid epigastric pain and tenderness - resolved
� No clear source of infectious etiology this time, possibly secondary to gastritis/ulcer
� Continue PPI IV
� finished rocephin course.
� Colitis seen on imaging, seen on last CT as well, and etiology likely noninfectious and more likely portal colopathy
#Anion gap metabolic acidosis -resolved
�Probably secondary to starvation ketoacidosis with beta-hydroxybutyrate at 5.6
-added oral bicarb to regimen
#Transaminitis
-Doppler poor study
-f/u labs clinically
# Hx Portal vein thrombosis
-no evidence on repeat imaging
-Difficult to anticoagulate due to thrombocytopenia, probable cirrhosis
-not anticoagulating-heme was consulted January 2024
-Repeat Doppler study on 04/10 could not visualize main portal vein/part of hepatic vein
# Hypokalemia
Hypomagnesemia
-repleted
#Fungal rash under neck fold
-Nystatin powder or cream
#Former alcohol use disorder stopped January 2024
-Patient denies any current alcohol use
-Continue gabapentin
#Chronic Hepatitis with portal fibrosis mild bile duct proliferation liver biopsy 2017
#Chronic pancytopenia hx
#Nonischemic cardiomyopathy-resolved
Aortic stenosis
CAD nonobstructive
-Follows with [facility]
2D echo 12/31/2009: EF 30%, global hypokinesis, concentric LVH
2D echo 11/30/2017: EF 55 to 60%, normal LVS LVSF, no wall abnormalities, mild AR
Essential HTN
HLD
Functional quadriplegia
History of CVA with left-sided xldlubnv-xonfqywleb-rzfak
Anxiety/depression
Chronic overgrown toenails
Gastroparesis with GJ tube and removal
ERCP status post stent placement 10/02/2023
Lap cholecystectomy 10/06/2023
choledocholithiasis
DVT prophylaxis Scd's
DNR
Patient is in need of a semi-electric hospital bed wiht foam mattress due to the need to elevate head of bed above 30 degrees to prevent aspiration
and to facilitate frequent repositioning to prevent bed ulcers and pressure points.
More than 30 minutes spent in discharge including
Final examination of the patient
Summarizing hospital stay
Instructions for continuing care to all relevant caregivers
Preparation of discharge records, prescriptions, and referral forms
Total time spent (in minutes): 37 mins
Anticipated Discharge: Today
Subjective/Interval History
-
Date of Service: April 15, 2024
no new reported problems overnight
Objective Data
-
Labs:
Laboratory Results
04/15/24 04/15/24
05:05 07:47
WBC 3.8 L
Hgb 10.2 L
Hct 28.6 L
Plt Count 35 L D
Sodium 131 L
Potassium 3.5
Chloride 104
Carbon Dioxide 22
BUN 6 L
Creatinine 0.4 L
Glucose 112 H
Calcium 8.0 L
Vital Signs:
Vital Signs
Temp Pulse Resp BP Pulse Ox
98.4 F 100 16 99/65 100
04/15/24 11:35 04/15/24 11:35 04/15/24 11:35 04/15/24 11:35 04/15/24 11:35
I&O
04/14/24 04/15/24 04/16/24
06:59 06:59 06:59
Intake Total 1530 / 1530 600 / 600
Balance 1530 / 1530 600 / 600
Review of Systems
-
Respiratory: Reports No Symptoms
Cardiac: Reports No Symptoms
Abdomen/GI: Reports No Symptoms
Physical Exam
-
General: No Apparent Distress and Comfortable
HEENT: Negative Oxygen
Respiratory: Clear to Auscultation
Cardiac: Regular Rhythm and S1/S2; Negative Murmur or Rub
GI: Soft, Nontender and Nondistended
Musculoskeletal: No Edema
Neuro: Awake, Alert, Oriented, No Motor Deficits and Nonfocal/Grossly Intact
Psych: Calm
--- NOTE | 2024-04-15 14:25 | CM ---
Reviewed the chart notes and spoke with the patient's granddaughter via telephone who confirmed bed delivery. CM continues to be available to patient/family and is monitoring medical plan for needs at discharge.
Plan: Discharge to home [facility].
--- NOTE | 2024-04-15 18:05 | W.DCSUMMARY ---
Discharge Summary
Discharge Data
Date of Admission: 04/09/24
Date of Discharge: 04/15/24
-
Pending Results: No
Hospital Course
Discharging Physician : Dr Vladislav Matos
Disposition : Home with VN
Primary care physician : Dr Edilma Collins
Principal Discharge diagnosis :
Esophageal varices requiring banding
Upper gastrointestinal bleed
Acute blood loss anemia
Anion gap metabolic acidosis
Hypokalemia
Hypomagnesemia
Chronic Discharge diagnosis :
History of portal vein thrombosis
Transaminitis
Former alcohol use
Alcoholic cirrhosis
Chronic hepatitis with portal fibrosis
Chronic pancytopenia
History of aortic stenosis
Nonobstructive coronary disease
History of stroke
Anxiety/depression
Gastroparesis
History of endoscopic retrograde cholangiopacreatography and stenting
History of laparoscopic cholecystectomy
Hospital Course :
Patient is 73-year-old female with mentioned past medical history came to ER with new onset of diarrhea and coffee-ground emesis. Based on previous imaging patient had possible cirrhosis. GI was involved in care and was recommended to undergo
endoscopy. On endoscopy patient was found to having grade 2 esophageal varices which were banded. Patient was noted to have signs of portal hypertensive gastropathy as well. Patient was started on octreotide/Rocephin/Protonix drip afterward.
Patient have also some transaminitis with recent history of portal vein thrombosis. Repeat Doppler study unable to visualize full hepatic/portal vasculature although visualized section did not show any clots. Patient has chronic thrombocytopenia
and not able to be anticoagulated nonetheless. Patient finished 72-hour of octreotide drip in hospital. Did not require any blood transfusion. Discharge patient was transition to oral Protonix therapy with patient instructed to follow-up in
gastroenterology office in 1 to 2-month for evaluation for repeat EGD.
Important imaging findings :
None
Procedure findings :
None
Discharge Plan
-
Patient Disposition: Home (Routine Discharge)
Discharge Diagnosis/Procedures: Esophageal varices, GI bleed
Condition: Fair
Diet: Regular
Activity: As tolerated
Driving Restrictions: No driving
Activity Restrictions/Additional Instructions:
Wound Care Instructions Sacrum- Clean as needed with incontinence care and apply Calazime to open areas.
Frequent turning/repositioning
Keep heels off-loaded with pillow or air cushion under calves
Frequent incontinence care
Referrals:
Chary Lewis CRNP [Specified Professional Personl] - 04/26/24 1:00 pm (Please call to confirm this appointment. Please call to reschedule if you can not keep this appointment. If your insurance requires a referral please contact
your primary care physician prior to your appointment. )
Edilma Collins CRNP [Family Provider] - in one week
Prescriptions:
New
lactulose 10 gram/15 mL Solution
20 g PO BID Qty: 1500 1RF
pantoprazole 40 mg tablet,delayed release (DR/EC)
40 mg PO DAILY Qty: 30 1RF
Continued
carvedilol 3.125 MG tablet
3.125 mg PO BID
amlodipine 10 MG tablet
10 mg PO DAILY
lisinopril 20 MG tablet
20 mg PO HS
gabapentin 400 mg Capsule
800 mg PO HS
therapeutic multivitamin Tablet
1 tab PO DAILY
potassium chloride 10 mEq Tablet Extended Release
5 meq PO BID
acetaminophen [Tylenol Extra Strength] 500 mg Tablet
1,000 mg PO Q6HPRN PRN (Reason: mild pain)
gabapentin 100 mg Capsule
100 mg PO DAILYPRN PRN (Reason: if 800mg dose ineffective)
Discontinued
famotidine 20 MG tablet
20 mg PO DAILYPRN PRN (Reason: indigestion)
Discharge Orders:
Discharge Patient (As Directed); Ordered 04/14/24
Ordered By: Vladislav Matos
Discharge Date and Time
Discharge Date/Time: 04/15/24 14:15
Print Language: CITIZEN [place]
== END 2024-04-15 14:15 | disposition home health service (06) | DRG 368 ==
LOC: 2 SOUTH 18:32
PROVIDERS: Clinical Nurse Specialist Family Health; Nurse Practitioner Adult Health; ADMITTING PHYSICIAN Internal Medicine; ATTENDING PHYSICIAN Hospitalist; CONSULT PHYSICIAN Internal Medicine Gastroenterology; EMERGENCY PHYSICIAN Student in an Organized Health Care Education/Training Program; FAMILY PHYSICIAN Nurse Practitioner Adult Health
PROC: 06L38CZ Occlusion of Esophageal Vein with Extraluminal Device, Via Natural or Artificial Opening Endoscopic (ICD-10-PCS; 2024-04-10)
DX: I85.01 Esophageal varices with bleeding (principal); I81 Portal vein thrombosis; R53.2 Functional quadriplegia; K76.6 Portal hypertension; I69.354 Hemiplegia and hemiparesis following cerebral infarction affecting left non-dominant side; D61.818 Other pancytopenia; E87.20 Acidosis, unspecified; D62 Acute posthemorrhagic anemia; I42.8 Other cardiomyopathies; K92.0 Hematemesis; K70.30 Alcoholic cirrhosis of liver without ascites; B36.9 Superficial mycosis, unspecified; I25.10 Atherosclerotic heart disease of native coronary artery without angina pectoris; I35.0 Nonrheumatic aortic (valve) stenosis; E78.00 Pure hypercholesterolemia, unspecified; F41.9 Anxiety disorder, unspecified; F32.A Depression, unspecified; Z99.3 Dependence on wheelchair; K73.9 Chronic hepatitis, unspecified; F10.11 Alcohol abuse, in remission; K76.0 Fatty (change of) liver, not elsewhere classified; M21.332 Wrist drop, left wrist; I50.9 Heart failure, unspecified; I11.0 Hypertensive heart disease with heart failure; Z90.710 Acquired absence of both cervix and uterus; E87.6 Hypokalemia; L89.152 Pressure ulcer of sacral region, stage 2; E83.42 Hypomagnesemia; Z66 Do not resuscitate; E87.5 Hyperkalemia; Z79.899 Other long term (current) drug therapy; Z86.718 Personal history of other venous thrombosis and embolism; Z11.52 Encounter for screening for COVID-19
CPT/HCPCS: 74177; 76700; 80048; 80053; 82010; 82140; 82248; 83605; 83690; 83735; 84132; 84145; 85025; 85027; 85610; 86850; 86900; 86901; 87502; 87811; 93005; 93975; 96361; 96372; 96374; 96375; 99285; Q9967

== ENCOUNTER 2024-04-24 23:14 | Inpatient (IN) | payer MEDICARE, OTHER, SELFPAY ==
[2024-04-24 19:49] VITALS: BP 101/77
--- NOTE | 2024-04-24 19:49 | ED.GENMED ---
History of Present Illness
General
Chief Complaint: Urinary Symptoms
Source: patient
Exam Limitations: none
Time Seen by Provider: 04/24/24 19:45
History of Present Illness
History of Present Illness:
See MDM
Past History
Past History
ED Past Medical History: CVA (Left sided weakness), HTN, Hypercholesterolemia, Psychiatric (Depression) and Other (Nonischemic cardiomyopathy, Fracture ankle, GJ tube, gastroparesis C-diff)
ED Past Surgical History: Gynecological (Hysterectomy)
Social History
Tobacco: Non-smoker
Alcohol: Daily (Beer 4)
Personal:
Living: long term ([facility] and [facility])
Employment: Not employed
Family History
Family History: Other (Noncontributory)
Phy Exam
Physical Exam
Physical Exam:
See MDM
Course
Orders/Labs/Results
Orders:
Orders
04/24/24 20:02
Urinalysis Reflex To Culture Urgent
Date Specimen was Collected: 04/24/24
Time Specimen was Collected: 19:58
Urine Microscopic Reflex Cult Urgent
Urine Culture Urgent
JAMEE Source: U
Specimen Description:
Date Specimen was Collected: 04/24/24
Time Specimen was Collected: 19:58
04/24/24 21:00
Ammonia Urgent
Complete Blood Count/With Diff Urgent
Comprehensive Metabolic Panel Urgent
Prothrombin Time Urgent
04/24/24 21:31
Cefepime HCl [Maxipime] 1,000 mg IV NOW STA
Abnormal Lab Results
04/24/24 04/24/24
20:02 21:00
RBC 2.82 L 10^6/uL
(4.20-5.40)
Hgb 10.3 L g/dL
(12.0-16.0)
Hct 30.8 L %
(37.0-47.0)
MCV 109.2 H fL
(81.0-99.0)
MCH 36.5 H pg
(27.0-31.0)
RDW 19.2 H %
(11.5-14.5)
Plt Count 38 L 10^3/uL
(130-400)
MPV 10.5 H fL
(7.4-10.4)
Abs Immat Gran (auto) 0.1 H 10^3/uL
(0-0.05)
Absolute Neuts (auto) 8.7 H 10^3/uL
(1.4-6.5)
Absolute Lymphs (auto) 0.8 L 10^3/uL
(1.2-3.4)
Immature Gran % 1.3 H %
(0-0.5)
Neutrophils % 85.4 H %
(42.2-75.2)
Lymphocytes % 8.2 L %
(20.5-51.1)
Sodium 132 L mmol/L
(135-145)
Carbon Dioxide 17 L mmol/L
(22-30)
BUN 35 H mg/dl
(7-17)
Total Bilirubin 2.3 H mg/dl
(0.2-1.3)
AST 85 H U/L
(14-36)
ALT 111 H U/L
(0-35)
Ammonia < 9 L umol/L
(9-30)
Total Protein 6.0 L g/dl
(6.3-8.2)
Albumin 2.3 L g/dl
(3.5-5.0)
Urine Ketones 2+ A
(Negative)
Ur Occult Blood Reflex 4+ A
(Negative)
Urine Bilirubin 1+ A
(Negative)
Leukocyte Esterase Rfl 1+ A
(Negative)
Urine RBC 16-20 A /HPF
(0-2)
Urine WBC (Reflex) 11-15 A /HPF
(0-5)
Urine Bacteria (Reflex) Moderate A
(Negative)
Urine Albumin (Reflex) 2+ A
(Neg - Trace)
04/24/24 21:00
04/24/24 21:00
Vital Signs
Initial and Last Documented VS:
Initial Vital Signs
Temp Pulse Resp Pulse Ox
97.6 F 112 20 99
04/24/24 19:36 04/24/24 19:36 04/24/24 19:36 04/24/24 19:36
Last Documented Vital Signs
Temp Pulse Resp BP Pulse Ox
97.6 F 73 17 96/58 100
04/24/24 19:36 04/24/24 21:23 04/24/24 21:23 04/24/24 20:03 04/24/24 21:23
MDM/Problems Addressed
Differential Diagnosis Includes:
HPI and MDM Narrative:
73-year-old female presenting for evaluation of possible UTI. Apparently, her grandson called 911 to have her evaluated. It appears more complicated than that. Prior records indicate that she was just here for esophageal varices banding. Patient
states her grandson is not caring for her appropriately. Patient has what appears to be self-inflicted scratch garzon to her buttock and thighs. They do appear mildly infected. Will Ancef. Patient is also covered in stool and foul-smelling urine
Given her recent history, will repeat blood work. Will obtain urinalysis and ultimately admit
Physical exam
General: Uncomfortable, agitated
HEENT: protecting airway
Neck: appears supple
CV: No evidence of cyanosis
Resp: No accessory muscle use
Abd: Non-distended and nontender
Extremities: No deformities
Neuro: alert
Psych: Anxious and irritable
Skin: Scratch garzon throughout her back and thigh
Problems Addressed including Acute and Chronic Conditions affecting care:
1. Foul-smelling urine
Acuity: acute
Prognosis: stable
Details: Will obtain urinalysis with concern for UTI
2. Superficial skin wounds
Acuity: acute
Prognosis: stable
Details: Will ultimately start antibiotic
3. [ ]
Acuity: acute
Prognosis: stable
Details:
4. [ ]
Acuity: acute
Prognosis: stable
Details:
5. [ ]
Acuity:
Prognosis:
Details:
Updates
Patient appears to have UTI. Based on prior urine cultures, will start cefepime. I did discuss the case with her granddaughter Marie who states that patient's son is her 24-hour caregiver and is unable to adequately care for her. Patient will
require evaluation for alternative living facility
Differential Diagnosis (but not limited to): UTI, cellulitis
Testing considered: Type and screen
Drug therapy (if applicable): OTC meds, please see d/c instruction regarding Rx drugs
Amount and/or Complexity of Data Reviewed
Clinical info obtained from: Patient
External data reviewed: recent admission that required esophageal variceal banding
Labs I independently reviewed (but not limited to): Urinalysis
Radiology: N/A
Pulse Ox: not hypoxic
EKG independently reviewed: N/A
Rehab Rn: N/A
Critical Care: N/A
Risk of Complication:
Social Determinants of health: Poor social support
Discussed with other providers: Hospitalist
Escalation of Care includes Admit/Obs: Given her chronic medical issues and poor living situation, will admit
Occasional wrong word or 'sound a like' substitutions may have occurred due to the inherent limitations of voice recognition software. Read the chart carefully and recognize, using context, where substitutions have occurred.
*Critical Care Note
Total Time (30-74mins, 75-104mins- exclusive of procedures): Not Applicable
ED Attending Note
-
Portions of this chart may have been created with voice recognition software.� Occasional wrong word or��sound alike� substitutions may have occurred due to the inherent limitations of voice recognition software.
Discharge Plan
Departure
Patient Disposition: Admit
Date of Disposition: 04/24/24
Time of Disposition: 21:36
Admit to: Med/Surg
Presentation/result/management discussed w/ accepting MD/DO: Hospitalist
Discharge Problem:
Acute UTI
Prescriptions:
No Action
carvedilol 3.125 MG tablet
3.125 mg PO BID
amlodipine 10 MG tablet
10 mg PO DAILY
lisinopril 20 MG tablet
20 mg PO HS
gabapentin 400 mg Capsule
800 mg PO HS
therapeutic multivitamin Tablet
1 tab PO DAILY
potassium chloride 10 mEq Tablet Extended Release
5 meq PO BID
acetaminophen [Tylenol Extra Strength] 500 mg Tablet
1,000 mg PO Q6HPRN PRN (Reason: mild pain)
gabapentin 100 mg Capsule
100 mg PO DAILYPRN PRN (Reason: if 800mg dose ineffective)
lactulose 10 gram/15 mL Solution
20 g PO BID Qty: 1500 1RF
pantoprazole 40 mg tablet,delayed release (DR/EC)
40 mg PO DAILY Qty: 30 1RF
Referrals:
UNKNOWN - PT DOES,NOT KNOW [Family Provider] -
Interventions
Interventions:
*Risk Screen - Suicide Last Done: 04/24/24 19:36
*General Assessment Last Done: 04/24/24 19:36
*Neglect/Abuse Screening Last Done: 04/24/24 19:36
ED- Fall Risk Assessment Last Done: 04/24/24 21:12
*ED COVID-19 Vaccine History Last Done: 04/24/24 21:23
ED-Female Genitourinary Assessment Last Done: 04/24/24 21:12
Discharge Date and Time
Print Language: ROMANIAN
[2024-04-24 20:03] VITALS: BP 96/58
[2024-04-24 20:15] LABS: Urine Albumin 2+ (Neg - Trace); Urine Bilirubin 1+ (Negative); Urine Character Cloudy (Clear); Urine Color Amber; Urine Glucose Negative (Negative); Urine Ketone 2+ (Negative); Urine Leukocyte 1+ (Negative); Urine Nitrite Negative (Negative); Urine Occult Blood 4+ (Negative); Urine Specific Gravity 1.015 (<1.030); Urine Urobilinogen Negative (Neg - 1+)
[2024-04-24 20:29] LABS: Urine Bacteria Moderate (Negative); Urine Red Blood Cell 16-20 /HPF (0-2); Urine Squamous Cell 26-30 /LPF (Few)
[2024-04-24 21:13] LABS: % Basophils 0.1 % (0-2); % Eosinophils 0.2 % (0-6); % Immature Granulocytes 1.3 % (0-0.5); % Lymphocytes 8.2 % (20.5-51.1); % Monocytes 4.8 % (1.7-9.3); % Neutrophils 85.4 % (42.2-75.2); Absolute Immature Granulocytes 0.1 10^3/uL (0-0.05); Absolute Lymphocytes 0.8 10^3/uL (1.2-3.4); Absolute Monocytes 0.5 10^3/uL (0.1-0.6); Absolute Neutrophils 8.7 10^3/uL (1.4-6.5); Hematocrit 30.8 % (37.0-47.0); Hemoglobin 10.3 g/dL (12.0-16.0); Mean Corp Hgb Conc. 33.4 g/dL (33.0-37.0); Mean Corpuscular Hgb 36.5 pg (27.0-31.0); Mean Corpuscular Volume 109.2 fL (81.0-99.0); Mean Platelet Volume 10.5 fL (7.4-10.4); Nucleated Red Blood Cells % 0.3 %; Platelet Count 38 10^3/uL (130-400); Red Blood Cell Count 2.82 10^6/uL (4.20-5.40); Red Cell Dist. Width 19.2 % (11.5-14.5); White Blood Cell Count 10.1 10^3/uL (4.8-10.8)
[2024-04-24 21:21] LABS: INR 1.04; PT 13.9 Sec (11.4-14.6)
[2024-04-24 21:22] LABS: ALT (SGPT) 111 U/L (0-35); AST (SGOT) 85 U/L (14-36); Albumin 2.3 g/dl (3.5-5.0); Alkaline Phosphatase 98 U/L (38-126); Blood Urea Nitrogen 35 mg/dl (7-17); Calcium 8.9 mg/dl (8.4-10.2); Carbon Dioxide 17 mmol/L (22-30); Chloride 107 mmol/L (98-107); Estimated Creatinine Clearance 56 ml/min; Glucose 97 mg/dl (70-99); Sodium 132 mmol/L (135-145); Total Bilirubin 2.3 mg/dl (0.2-1.3); eGFR > 60.00
[2024-04-24 21:23] LABS: Ammonia < 9 umol/L (9-30)
--- NOTE | 2024-04-24 22:11 | HPS.HSE ---
Family Physician
-
Family Physician: NOT KNOW UNKNOWN - PT DOES
Chief Complaint
-
urinary symptoms
History of Present Illness
Patient is a 73-year-old female with past medical history significant for essential hypertension, hyperlipidemia, renal artery stenosis, nonischemic cardiomyopathy, nonobstructive CAD and anxiety/depression who presented to [facility] ED
for evaluation of potential UTI. Patient resides at home and grandson is primary caregiver, he called EMS today to bring patient for evaluation. Patient reportedly arrived covered in urine an feces, now unstageable sacral wound, scratches on torso
and thighs. Patient complained he does not care for her appropriately. Patient denies any recent fever, chills, cough, shortness of breath, chest pain, nausea, vomiting, constipation, diarrhea or urinary symptoms.
Medical History
Past Medical History
Past Medical History: Reports Other
Additional Past Medical History:
essential hypertension
hyperlipidemia
renal artery stenosis
nonischemic cardiomyopathy
nonobstructive CAD
mild mitral regurgitation
mild aortic insufficiency
gastritis without bleeding
anxiety/depression
Hx hemorrhagic CVA
Hx UGIB with grade II EV with banding
Hx portal vein thrombosis
Hx ETOH dependency
Hx hepatitis with portal fibrosis mild bile duct proliferation liver biopsy (2018)
Past Surgical History: Reports Other
Additional Past Surgical History:
partial hysterectomy
bilateral tubal ligation
right ankle ORIF
lap Cholecystectomy
endoscopy
liver biopsy
Social History
Tobacco: Non-smoker
Alcohol: Former (drank heavily, stopped drinking 01/2024)
Drug: None
Personal: Single
Living: With Family
Employment: Retired
Family History
Family History: Not pertinent
Allergies / Home Medications
Allergies reflects when Allergies were last updated in [employer].
Home Medications with original date entered in [employer]
Allergy/Medication List:
Allergies
Allergy/AdvReac Type Severity Reaction Status Date / Time
No Known Drug Allergies Allergy Unknown Verified 04/24/24 21:23
Home Medications
amlodipine 10 mg tablet 10 mg PO DAILY Blood pressure 10/21/20
carvedilol 3.125 mg tablet 3.125 mg PO BID Heart Failure 10/21/20
lisinopril 20 mg tablet 20 mg PO HS Blood pressure 10/23/20
gabapentin 400 mg capsule 800 mg PO HS pain 09/30/23
therapeutic multivitamin 1 tab PO DAILY Supplement 02/21/24
acetaminophen 500 mg tablet (Tylenol Extra Strength) 1,000 mg PO Q6HPRN PRN mild pain 04/09/24
gabapentin 100 mg capsule 100 mg PO DAILYPRN PRN if 800mg dose ineffective 04/09/24
potassium chloride 10 mEq tablet,extended release 5 meq PO BID 04/09/24
lactulose 10 gram/15 mL oral solution 20 g (30 mL) PO BID #1,500 mL 04/14/24
pantoprazole 40 mg tablet,delayed release 40 mg PO DAILY #30 tabs 04/14/24
Review of Systems
-
History Source: Patient
Constitutional: Reports No Symptoms
EENT: Reports No Symptoms
Respiratory: Reports No Symptoms
Cardiac: Reports No Symptoms
Abdomen/GI: Reports No Symptoms
: Reports No Symptoms
Musculoskeletal: Reports No Symptoms
Skin: Reports No Symptoms
Neurological: Reports No Symptoms
Endocrine: Reports No Symptoms
Hematologic/Lymphatic: Reports No Symptoms
Psych: Reports No Symptoms
Physical Exam
Vital Signs
Vital Signs
Temp Pulse Resp BP Pulse Ox
97.6 F 73 17 96/58 100
04/24/24 19:36 04/24/24 21:23 04/24/24 21:23 04/24/24 20:03 04/24/24 21:23
Physical Exam
General: Well Developed, Well Nourished, Conversant, Pain and Obese
HEENT: NormoCephalic, Moist mucous membranes, Atraumatic, [place] Conjunctivae, Nose Appears Normal and Ears Appear Normal
Respiratory: Clear and Non Labored Respirations
Cardiac: S1/S2 and Regular Rhythm; No Murmur, Rub or Gallop
GI: Soft, Non Tender, Non Distended and Normal Bowel Sounds; No Organomegaly
Rectal: Deferred by Provider
Genito-urinary: Deferred by me
Musculoskeletal: No Clubbing, No Cyanosis and No Edema
Skin: Warm, Ulcers (sacral unstageable ) and IV/Catheter Site
Neuro: Awake, Alert, AO x 3, Nonfocal/grossly intact and Other (left wrist drop, left arm contracture, bilateral foot drop, functional quadriplegia from CVA)
Psych: Agitated
Laboratory Results
-
04/24/24 21:00
04/24/24 21:00
Laboratory Results
PT 13.9 Sec (11.4-14.6) 04/24/24 21:00
INR 1.04 04/24/24 21:00
Total Bilirubin 2.3 mg/dl (0.2-1.3) H 04/24/24 21:00
AST 85 U/L (14-36) H 04/24/24 21:00
ALT 111 U/L (0-35) H 04/24/24 21:00
Alkaline Phosphatase 98 U/L (38-126) 04/24/24 21:00
Data Reviewed
-
Lab Data: Labs Reviewed by me (Plt 38, BUN 35, Creat 0.9, tot bili 2.3, AST 85, ALT 111)
Impression/Plan
-
IMPRESSION/PLAN:
#chronic adult failure to thrive
2 new unstageable sacral wounds with black eschar
chronically bed-to chair with assistance
functional quadriplegia
- admit to med/surg
- continue with palliative care
- Consult case management
- wound care consult
#Transaminitis
#Hx hepatitis with portal fibrosis mild bile duct proliferation liver biopsy (2018)
#Hx ETOH dependency
#Hypersplenism with associated severe thrombocytopenia
#Known chronic pancytopenia
#HX Hepatic encephalopathy
tot bili 2.3, AST 85, ALT 111
- trend LFTs
- follow platelets
- continue lactulose and gabapentin
- consult GI
- states last drink 01/2024
#essential hypertension
- continue amlodipine, carvedilol and lisinopril
#nonischemic cardiomyopathy - resolved
#nonobstructive CAD
#mild mitral regurgitation
#mild aortic insufficiency
ECHO (11/30/2017): Normal left ventricular size, wall thickness and systolic function. No regional wall motion abnormalities are seen. Estimated ejection fraction is 55-60%.
Mild aortic regurgitation.
No prior study available for comparison.
- follows with [facility]
#gastritis without bleeding
hgb 10.3/hct 30.8
- monitor h/h
- monitor for s/s bleeding
#Hx portal vein thrombosis
- not anticoagulant candidate 2/2 thrombocytopenia
#anxiety/depression
#hyperlipidemia
#renal artery stenosis
#Hx hemorrhagic CVA
#Hx UGIB with grade II EV with banding
Code status: DNR
DVT prophylaxis: SCDs
--- NOTE | 2024-04-24 22:18 | W.PN.UPDATE ---
Update Note
Progress Note Update
I could not get any information from the patient as
Information gathered by chart review and speaking with the ER staff and the care program director son
This note serves as an addendum to the H&P by social worker delinquency prevention AMANDA
Becki Gao
HPI
73F from home with 24 hr care program director son, bed bound, Former alcohol use disorder , Complex PMHX decompensate ETOH Cirrhosis, Chronic pancytopenia, recent Esophageal varices requiring banding due to UGIB , Acute blood loss anemia, HX vein thrombosis,
Transaminitis, Chronic hepatitis with portal fibrosis, HX CVA BiB EMS:
- Grandson reports ? UTI
- Note recent admissions (04/09/24 - 04/15/24) for UGIB,ABLA, required esophageal varices requiring banding
- son reports new bed sores
- son as well as 24hr caregiver exprsss he unable to care for her.
- Sh is on palliative care at home
PHX; see as above
VS
04/24/24
19:36
Temp 97.6 F
Pulse 112
Resp Rate 20
SaO2 99
Oxygen Mode of Delivery Room air
PE
Gen: BMI 27 suggest overweight , awake and not toxic looking
HEENT: anicteric
Neck: supple
Lungs: symmetric AE
Cor: RRR S1 S2
Abdomen: obese
RESERVATIONS AGENT: AAO3 , chronic Lt sided weakness
MS:Lt UE flexion contracture
Derm: 2 adjacent large upregulate sacral decub covered by black eschars; Unstageable
Psych: Laboratory Tests
04/13/24 04/15/24 04/24/24
05:52 05:05 20:02
WBC
Hgb 10.2 L
MCV
Plt Count 35 L D
INR
Sodium
Potassium
Carbon Dioxide
BUN
Creatinine
eGFR
Total Bilirubin 1.4 H
AST 45 H
ALT 25
Alkaline Phosphatase
Ammonia
Albumin
Urine Nitrite (Reflex) Negative
Leukocyte Esterase Rfl 1+ A
Urine RBC 16-20 A
Urine WBC (Reflex) 11-15 A
Ur Squamous Epith Cells 26-30
Urine Bacteria (Reflex) Moderate A
04/24/24
21:00
WBC 10.1
Hgb 10.3 L
MCV 109.2 H
Plt Count 38 L
INR 1.04
Sodium 132 L
Potassium 5.0
Carbon Dioxide 17 L
BUN 35 H
Creatinine 0.9
eGFR > 60.00
Total Bilirubin 2.3 H
AST 85 H
ALT 111 H
Alkaline Phosphatase 98
Ammonia < 9 L
Albumin 2.3 L
Urine Nitrite (Reflex)
Leukocyte Esterase Rfl
Urine RBC
Urine WBC (Reflex)
Ur Squamous Epith Cells
Urine Bacteria (Reflex)
Last hospitalist admission: Date of Admission: 04/09/24 - Date of Discharge: 04/15/24
Principal Discharge diagnosis :
Esophageal varices requiring banding
Upper gastrointestinal bleed
Acute blood loss anemia
Anion gap metabolic acidosis
Hypokalemia, Hypomagnesemia
ASSESSMENT & PLAN
Pending Rx reconciliation
Weakness multifactorial origins with superimposed severe deconditioning
Questionable UTI PE
- f/u UCx
- IV CFP base upon prior Microdata
Chr FTT with new bed sores : 2 adjacent large irregulare unstageable sacral decub ulcers covered by black eschars
Chronically Bed bound &-wheelchair-bound
HX CVA with left-sided weakness
Functional quadriplegia
Multiple comorbidities
- 24hr caregiver Son admitted that he is unable to care for her.
- Granddaughter Marie on file is the person of contact
- cont.- palliative care
- CRM consult
- Wd care consult
Worsening interval Transaminitis
HX chronic Hepatitis with portal fibrosis mild bile duct proliferation liver biopsy 2017
HX decompensate ETOH Cirrhosis wit synthetic dysfunction ( hypoalbuminemia, coagulopathy )
Hypersplenism with associated severe thrombocytopenia
Known chronic pancytopenia
HX Hepatic encephalopathy
- Trend LFTs
- f/u platelet
- c/w Lactulose
- GI consult
HX Portal vein thrombosis, probable cirrhosis
- Repeat Doppler study on 04/10 could not visualize main portal vein/part of hepatic vein
- not AC candidate due to severe thromcytopenia -heme was consulted January 2024
Former alcohol use disorder stopped January 2024
- denies any current alcohol use
- cont gabapentin
HX recovered NICM
11/30/2017 TTE: EF 55 to 60%, normal LVS LVSF, no wall abnormalities, mild AR
12/31/2009 TTE: 30%, global hypokinesis, concentric LVH
- c/w LOSS PREVENTION DETECTIVE Carvedilol and Lisinopril
Aortic stenosis
Non obstructive CAD
HLD
- Follows with [facility]
Essential HTN
- c/w Carvedilol
Anxiety/depression
Chronic overgrown toenails
Gastroparesis with GJ tube and removal
ERCP status post stent placement 10/02/2023
Lap cholecystectomy 10/06/2023
choledocholithiasis
DVT Px: SCD
DNR
IP MS
[2024-04-24] MEDS: FLUSH (NSS) 1 FLUSH IV (22:32)
[2024-04-24] MEDS: MAXIPIME 1000 MG IV (22:32)
[2024-04-25 00:30] VITALS: BP 111/79
[2024-04-25 00:58] VITALS: BMI 29.2
[2024-04-25 01:17] VITALS: BMI 29.2
--- NOTE | 2024-04-25 01:52 | TRANSFER ---
Pt arrived to floor via stretcher w dx of acute UTI, Chronic adult FTT. Pt was pulled over into bed, pt has hx of CVA w left sided weakness and left sided contractures. VS WNL. Assessment as documented. Bed in lowest position, call casarez within
reach.
[2024-04-25 06:16] LABS: Hematocrit 30.2 % (37.0-47.0); Hemoglobin 10.2 g/dL (12.0-16.0); Mean Corp Hgb Conc. 33.8 g/dL (33.0-37.0); Mean Corpuscular Volume 106.7 fL (81.0-99.0); Mean Platelet Volume 9.8 fL (7.4-10.4); Platelet Count 35 10^3/uL (130-400); Red Blood Cell Count 2.83 10^6/uL (4.20-5.40); Red Cell Dist. Width 19.1 % (11.5-14.5); White Blood Cell Count 8.2 10^3/uL (4.8-10.8)
[2024-04-25 06:38] LABS: ALT (SGPT) 105 U/L (0-35); AST (SGOT) 80 U/L (14-36); Albumin 2.2 g/dl (3.5-5.0); Alkaline Phosphatase 88 U/L (38-126); Blood Urea Nitrogen 36 mg/dl (7-17); Calcium 8.9 mg/dl (8.4-10.2); Carbon Dioxide 16 mmol/L (22-30); Chloride 108 mmol/L (98-107); Estimated Creatinine Clearance 58 ml/min; Glucose 85 mg/dl (70-99); Potassium 4.8 mmol/L (3.5-5.1); Sodium 133 mmol/L (135-145); eGFR > 60.00
[2024-04-25 07:29] VITALS: BP 86/58
[2024-04-25] MEDS: THERAGRAN PO ×2 (07:42→13:32)
[2024-04-25] MEDS: KCL PO ×2 (07:42→07:59)
[2024-04-25] MEDS: DUPHALAC/CHRONULAC PO ×2 (07:42→07:59)
[2024-04-25] MEDS: DESENEX/MITRAZOL/ZEASORB 1 APPLIC TOPICAL (07:44)
[2024-04-25] MEDS: COREG PO ×2 (07:44→21:27)
[2024-04-25] MEDS: TYLENOL PO ×2 (07:46→13:03)
--- NOTE | 2024-04-25 07:57 | PTCARENOTE ---
BP low this morning (86/58) - hospitalist aware and will hold antihypertensives. Attempted to give other PO meds but pt vomited several times after taking one pill.
[2024-04-25] MEDS: PROTONIX IV 40 MG IV ×2 (08:04→21:28)
[2024-04-25] MEDS: NSS (PRESERVATIVE FREE) 10 ML IV ×2 (08:04→21:28)
--- NOTE | 2024-04-25 08:30 | CON.GI ---
Addendum entered and electronically signed by Romana Vela MD 04/25/24 16:42:
I saw and examined the patient.
The FARMER AND GRAZIER's note was reviewed and I agree with the note.
Impression:
Nausea/vomiting
Periumbilical abdominal discomfort
Failure to thrive
Sacral decubitus
Cirrhosis
Esophageal varices grade 2 status post banding 04/12/2024
Portal hypertensive gastropathy
Portal vein thrombosis
History of alcohol abuse quit January 2024
Thrombocytopenia
plan
Lipase normal.
Patient refused ultrasound abdomen today
Elevated liver test can be secondary to her liver cirrhosis. She needs outpatient GI follow-up for liver cirrhosis. Repeat EGD in 2 to 4 weeks for variceal surveillance if patient is agreeable
Continue lactulose/Coreg
PPI twice daily
Goals of care discussion versus hospice care as per medical team
No further GI recommendation at this point. Will sign off. Please call us back if any questions
Original Note:
Consultation
-
Date/Time Consultation Requested: 04/25/24 0039
Date/Time Consultation Performed: 04/25/2430
Requesting Provider: JESÚS Bran
Performing Provider: Dr. Vela/JESÚS Javier
Reason for Consultation: increased LFTs
Medical History
Chief Complaint / HPI
Chief Complaint: urinary symptoms
History of Present Illness:
73yo with hx CVA with left sided weakness, wheelchair bound, , HTN, hypercholesterolemia, depression, nonischemic CM, prior GJ tube gastroparesis with removal, c-diff, pancreatitis, ETOH use, pancytopenia, s/p ERCP 10/02/23 with stent placement, lap
cholecystectomy 10/06/23 who was recently hospitalized January 2024 for nausea and vomiting. She was found to have a nonocclusive thrombus in the main portal vein, cirrhosis, EGD on 04/12/24 which found grade II esophageal varices. Completed
eradicated with banding. Portal HTN gastropathy, normal duodenum who presents to the ER with urinary complaints. Unfortunately the patient was covered in her own urine, feces and had self inflicted scratches to her body as well as an unstageable
sacral wound. The son reports he cannot take care of her, she is on palliative care at home. We are asked to evaluate for increased LFTs. Patient states that she came in as she was having some abdominal pain the other day, however cannot localize
the area. She states that she has only been able to drink juices and water. She cannot state how long this has been going on. She states at the present time she does not have any abdominal pain however speaking to her nurse he states that she
vomited up all her pills this morning. The patient appears awake alert and oriented however has poor insight to events. She knows she is in [facility], she knows it is 2024. She does not know the month. She does not recall that she
vomited this morning. She does not recall having an endoscopy in March. I did discuss with her having a repeat endoscopy for banding follow-up. At this time she wants to decline. However I stated I wanted to involve her family in this
decision making process. She was also declining this however I did discuss with her that I think this is important after discussion on my rationalization for this. She agreed that her send 'Lauri' would be the one she would want to participate
in these discussions. The patient denies any fevers, chills, nausea, vomiting (however she did vomit this morning), melena, hematochezia, dysphagia or odynophagia, early satiety or unintentional weight loss. She states her bowel movements are
daily and soft. She denies any Tylenol use or alcohol use. I am going to have to call family to confirm all of this. She denies any recent alcohol intake. She does have abdominal tenderness on exam in the periumbilical region. I did try to
place a call to her son Lauri [phone] however his phone has been disconnected. Secondary contact Marie Patrick (granddaughter) [phone] was able to give me information regarding her grandmother. She does not live with her however
was able to provide me with information as she visits her. She was supposed to be bring her to her follow-up office visit with me tomorrow. She does state that her grandmother has not been eating or drinking much. She states that she was told
that she did have an episode of vomiting a couple days ago. She does not live with her. She does state that her uncle Mehrdad and her uncle Lauri her only 2 living children live at her home. She states she does go over to visit. She states she
uses Tylenol for discomfort as well as gabapentin. She denies any NSAID use that she is aware of. She denies any recent alcohol use that she is aware of.
Past Medical History
Past Medical History: CVA, HTN, Hypercholesterolemia, Valvular Disease (), Psychiatric (depression) and Other (Nonischemic cardiomyopathy, gastroparesis, esophagitis, C-diff, gastritis, duodenitis, chronic thrombocytopenia)
Past Surgical History: Gynecological (hysterectomy) and Other (GJ tube)
Social History
Tobacco: Non-Smoker
Alcohol: Occasional
Drug: None
Living: With Family
Family History
Family History: Reviewed & Not Pertinent
Allergies / Home Medications
Allergy/AdvReac Type Severity Reaction Status Date / Time
No Known Drug Allergies Allergy Unknown Verified 04/24/24 21:23
�Medication �Instructions �Recorded
amlodipine 10 mg tablet 10 mg PO DAILY Blood pressure 10/21/20
carvedilol 3.125 mg tablet 3.125 mg PO BID Heart Failure 10/21/20
lisinopril 20 mg tablet 20 mg PO HS Blood pressure 10/23/20
gabapentin 400 mg capsule 800 mg PO HS pain 09/30/23
therapeutic multivitamin 1 tab PO DAILY Supplement 02/21/24
acetaminophen 500 mg tablet 1,000 mg PO Q6HPRN PRN mild pain 04/09/24
(Tylenol Extra Strength)
gabapentin 100 mg capsule 100 mg PO DAILYPRN PRN if 800mg 04/09/24
dose ineffective
potassium chloride 10 mEq 5 meq PO BID 04/09/24
tablet,extended release
lactulose 10 gram/15 mL oral 20 g (30 mL) PO BID #1,500 mL 04/14/24
solution
pantoprazole 40 mg tablet,delayed 40 mg PO DAILY #30 tabs 04/14/24
release
Review of Systems
-
All other systems: A 12 pt ROS was Negative except as stated above in HPI
Vital Signs
Temp Pulse Resp BP Pulse Ox
97.6 F 80 15 86/58 100
04/25/24 07:29 04/25/24 07:29 04/25/24 07:29 04/25/24 07:29 04/25/24 07:29
Physical Exam
Exam
General: No Apparent Distress
HEENT: Anicteric
Respiratory: Clear (anterior)
Cardiac: Regular Rhythm
GI: Soft, Non Distended, Normal Bowel Sounds and Tender (periumbilical )
Skin: Warm and Dry
Neuro: Awake and Alert (oriented to person, place, year. Poor insight to health or daily occurances)
Psych: Calm
Results
WBC 8.2 10^3/uL (4.8-10.8) 04/25/24 05:51
Hgb 10.2 g/dL (12.0-16.0) L 04/25/24 05:51
Hct 30.2 % (37.0-47.0) L 04/25/24 05:51
MCV 106.7 fL (81.0-99.0) H 04/25/24 05:51
Plt Count 35 10^3/uL (130-400) L 04/25/24 05:51
Absolute Neuts (auto) 8.7 10^3/uL (1.4-6.5) H 04/24/24 21:00
PT 13.9 Sec (11.4-14.6) 04/24/24 21:00
INR 1.04 04/24/24 21:00
Sodium 133 mmol/L (135-145) L 04/25/24 05:51
Potassium 4.8 mmol/L (3.5-5.1) 04/25/24 05:51
Chloride 108 mmol/L (98-107) H 04/25/24 05:51
Carbon Dioxide 16 mmol/L (22-30) L 04/25/24 05:51
BUN 36 mg/dl (7-17) H 04/25/24 05:51
Creatinine 0.9 mg/dL (0.6-1.0) 04/25/24 05:51
Calcium 8.9 mg/dl (8.4-10.2) 04/25/24 05:51
Total Bilirubin 2.0 mg/dl (0.2-1.3) H 04/25/24 05:51
AST 80 U/L (14-36) H 04/25/24 05:51
ALT 105 U/L (0-35) H 04/25/24 05:51
Alkaline Phosphatase 88 U/L (38-126) 04/25/24 05:51
Diagnostic Image Results:
none
Prior GI Procedures:
EGD: 04/12/24 (Do) - Grade II esophageal varices. Completely eradicated.
Banded.
- Portal hypertensive gastropathy.
- Normal examined duodenum.
- No specimens collected.
EGD: 12/2017 - Normal duodenal bulb and second portion of the
duodenum.
- Erythematous mucosa in the greater curvature of the
gastric body and lesser curvature of the gastric body.
Biopsied.
- Small hiatal hernia.
- LA Grade A reflux esophagitis.
- 300 ml of bilious gastric fluid.
- A gastric tube was found in the stomach.
- S/P placement of 3 T fasteners percutaneously using
endoscopic guidance by Dr Tony
Colonoscopy: 11/2017 - Non-bleeding external and internal hemorrhoids.
- Poor prep unable to rule out small <5mm polyps
- No specimens collected.
ERCP 10/05/2023 (Dr. Berman): - One stent from the biliary tree was seen in the
major papilla.
- Multiple filling defects consistent with stones were
seen on the cholangiogram.
- The upper third of the main bile duct was mildly
dilated.
- Choledocholithiases were found. Complete removal was
accomplished by biliary sphincterotomy and balloon
extraction.
- One stent was removed from the biliary tree.
- A biliary sphincterotomy was performed.
- The biliary tree was swept.
Assessment / Plan
-
73yo with hx CVA with left sided weakness, wheelchair bound, , HTN, hypercholesterolemia, depression, nonischemic CM, prior GJ tube gastroparesis with removal, c-diff, pancreatitis, ETOH use, pancytopenia, s/p ERCP 10/02/23 with stent placement, lap
cholecystectomy 10/06/23 who was recently hospitalized January 2024 for nausea and vomiting. She was found to have a nonocclusive thrombus in the main portal vein, cirrhosis, EGD on 04/12/24 which found grade II esophageal varices. Completed
eradicated with banding. Portal HTN gastropathy, normal duodenum who presents to the ER with urinary complaints. Unfortunately the patient was covered in her own urine, feces and had self inflicted scratches to her body as well as an unstageable
sacral wound. The son reports he cannot take care of her, she is on palliative care at home. We are asked to evaluate for increased LFTs. Patient states that she came in as she was having some abdominal pain the other day, however cannot localize
the area. She states that she has only been able to drink juices and water. She cannot state how long this has been going on. She states at the present time she does not have any abdominal pain however speaking to her nurse he states that she
vomited up all her pills this morning(clear vomit, without any signs of coffee grounds or bleeding). The patient appears awake alert and oriented (to person, place and year, not to month) however has poor insight to events. She does not recall
having endoscopy in March. She does not recall vomiting this morning. Attempted to reach patient's son Lauri [phone] however phone is disconnected(he and his brother Mehrdad Patrick live at the patient's house). I did reach her
granddaughter Marie Patrick who is her second contact [phone] (who does not live with the grandmother) who was involved with the grandmother and was planning to take her to her follow-up appoint with me tomorrow who gave me insight to her
current situation the best she can. Patient has not been eating or drinking much at home, has been using Tylenol intermittently for discomfort, states that her grandmother has had confusion at home as well (family members have told her that she is
calling out for her grandfather who is ).
Impression:
Nausea/vomiting
Periumbilical abdominal discomfort
Failure to thrive
Sacral decubitus
Cirrhosis
Esophageal varices grade 2 status post banding 04/12/2024
Portal hypertensive gastropathy
Portal vein thrombosis
History of alcohol abuse quit January 2024
Thrombocytopenia
Plan:
-Fractionate Bilirubin, Check Lipase
-Trend LFTs, INR, CBC, BMP daily
-Increase Pantoprazole to BID
-Discussed with patient repeat EGD, she is declining at this time. She does need follow up for varices repeat in 2-4 weeks
-Consider other abdominal imaging with recurrent vomiting since patient refusing EGD. Will await Lipase and D bili.
-Will obtain US Abdomen with dopplers
-Continue Coreg 3.125 BID
-continue Lactulose BID
-Further recommendations to be forhtcoming
-
-
Thank you for consultation and allowing me to participate in the patient's care. Please call the aviation technician aircraft GI physician during the after hours with any questions or concerns.
--- NOTE | 2024-04-25 09:05 | VNURNOTE ---
Chart reviewed. Patient is current with [facility] nursing. Will continue to follow hospital course and DC plans.
[2024-04-25 10:10] LABS: Direct Bilirubin 0.9 mg/dl (0.0-0.4); Lipase 217 U/L (23-300)
--- NOTE | 2024-04-25 10:26 | CM ---
Reviewed the chart notes and spoke with the patient at the bedside and granddaughter Marie via telephone. Attempted to contact son Lauri crystal, phone number is no longer active. The patient was recently hospitalized (04/09-04/15) for UGIB and
was discharged to home with [facility] services. The patient resides with her two sons and grandchildren in a one story home with a ramp to enter. The patient has a wheelchair, hospital bed, shower chair and grab bars in home. Patient has been unable
to use the shower in years. The patient reports no SNF in the past. The patient confirmed her pharmacy of choice is the [facility]. Discussed are SNFs with the granddaughter. Permission received to send referrals to are SNFs. CM
continues to be available to patient/family and is monitoring medical plan for needs at discharge.
Plan: Discharge to SNF/rehab once bed found. Precert will be required.
[2024-04-25 11:08] VITALS: BMI 29.2
[2024-04-25 12:42] VITALS: BP 91/60
[2024-04-25] MEDS: TIGAN 200 MG IM (13:03)
[2024-04-25] MEDS: NSS 250 IV (13:20)
[2024-04-25 13:30] LABS: Urine Albumin 2+ (Neg - Trace); Urine Bilirubin 1+ (Negative); Urine Character Clear (Clear); Urine Color Yellow; Urine Glucose Negative (Negative); Urine Ketone 2+ (Negative); Urine Leukocyte 2+ (Negative); Urine Nitrite Negative (Negative); Urine Occult Blood 4+ (Negative); Urine Specific Gravity 1.015 (<1.030); Urine Urobilinogen Negative (Neg - 1+)
[2024-04-25] MEDS: TYLENOL 650 MG PO (13:37)
[2024-04-25 14:22] LABS: Urine Bacteria Few (Negative); Urine Mucus Few; Urine Red Blood Cell 21-25 /HPF (0-2)
--- NOTE | 2024-04-25 15:16 | WOUNDNOTE ---
R FOOT/ANKLE (LATERAL)
--- NOTE | 2024-04-25 15:17 | WOUNDNOTE ---
[facility] RN note: Patient admitted with chronic failure to thrive, thrombocytopenia. Patient lives with her grandson who is her caregiver.
See H&P for complete history.
PMH: HTN, renal artery stenosis, CM, CAD, anxiety, CVA, UGIB, partial vein thrombosis, ETOH dependent, R ankle ORIF, R foot drop contracture, lap cholecystectomy, C diff, pancreatitis.
Wound Location and type/assessment: Patient admitted with: Unstageable R sacral iliac and sacral pressure injury. R heel DTI. Multiple ecchymotic areas on arms and legs. L lateral ankle black scabbed stage 2 pressure injury vs unstageable vs
scabbed abrasion. MASD susy/buttocks/groin skin.
Appetite: poor.
Pressure redistribution devices in place: Waffle air overlay mattress.
Plan: Patient incontinent of large loose dark brown stool. Susy care given. Patient turned to R semi side lying position with help from BRANDON Gaona and WANG Glover. Heels off bed with pillow with air chair cushion on top. Patient is not a heel relief
boot candidate d/t R foot contracture.
Updated and confirmed orders with Dr. Woodward and Dr. Tamayo and discussed with WANG Glover.
Care plan to be updated and will follow as needed.
Note to case management of equipment requested for discharge: Hospital bed with air mattress if not already in place.
Recommend follow up at wound care center upon discharge.
[2024-04-25 15:50] VITALS: BP 96/57
--- NOTE | 2024-04-25 16:24 | W.PN.HOSP.TC ---
Addendum entered and electronically signed by Joao Woodward MD 04/25/24 17:21:
Seen and examined by me independently in collaboration with the medical imaging specialist.
Lab data and imaging data reviewed.
Addendum as below :
Patient with complex medical history as below and bedbound at home presents with failure to thrive and nausea with dry heaves.
Also complains of abdominal discomfort. Oral intake has been poor.
Abdomen is soft and general discomfort but no rebound guarding rigidity.
She is alert and oriented x 3.
She has been refusing studies including ultrasound of the abdomen today.
She wants her nausea to be self as before any testing. Will treat with Zofran. Follow on telemetry. QTc noted.
I would benefit his CT of the abdomen pelvis when she is agreeable.
Appt GI input.
Original Note:
Today's Communication/Plan
-
supportive care
Assessment / Plan
Assessment / Plan
73 F with history of hemorrhagic CVA with left-sided weakness, essential hypertension, renal artery stenosis, hyperlipidemia, nonischemic cardiomyopathy, nonobstructive CAD, anxiety/depression, hx of alcohol use disorder, cirrhosis, esophageal
varices/upper GI bleed status post banding, who presents with concern for UTI, upper abdominal discomfort.
Urinary symptoms:
Foul smelling urine reported on arrival. Unclear if other urinary complaints.
-Urinalysis not very helpful, possibly contaminated. Will recheck urinalysis and culture.
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
Portal hypertensive gastropathy:
Transaminitis:
-Appreciate GI recs
-Continue Lactulose, high dose ppi
Abdominal pain, nausea/vomiting:
Upper quadrants pain
-Tigan not effective, will switch to zofran
-Hx of prolonged QTc, will put on telemetry
-pain control with tramadol prn
-Pt declined abd US at this time. If symptoms persist, will offer again.
Bicytopenia:
Chronic anemia and thrombocytopenia, appears stable at baseline
-secondary to cirrhosis and splenic sequestration
-follow CBC. Consider transfusion if hgb<7, if plt <20, or bleeding
-No evidence of bleeding
Wounds:
Unstageable sacral pressure wounds, POA
bilateral heel pressure wounds, POA
-Appreciate wound care
Bed-bound:
Patient appears to be without adequate care at home. Will benefit from care arrangements/placement
-Appreciate CM.
Essential hypertension: Hold antihypertensives (amlodipine, carvedilol, lisinopril) while pressures low
Mild mitral regurgitation
Mild aortic regurg
nonobstructive CAD
Non-ischemic cardiomyopathy
Hx of alcohol use disorder - last alc drink months ago
Anticipated Discharge: 24 - 48 hours
Subjective/Interval History
-
Date of Service: April 25, 2024
Ongoing complaints of abdominal discomfort and vomiting
Objective Data
-
Labs:
Laboratory Results
04/25/24
05:51
WBC 8.2
Hgb 10.2 L
Hct 30.2 L
Plt Count 35 L
Sodium 133 L
Potassium 4.8
Chloride 108 H
Carbon Dioxide 16 L
BUN 36 H
Creatinine 0.9
Glucose 85
Calcium 8.9
Total Bilirubin 2.0 H
AST 80 H
ALT 105 H
Alkaline Phosphatase 88
Vital Signs:
Vital Signs
Temp Pulse Resp BP Pulse Ox
97.5 F 86 18 96/57 100
04/25/24 15:50 04/25/24 15:50 04/25/24 15:50 04/25/24 15:50 04/25/24 15:50
I&O
04/24/24 04/25/24 04/26/24
06:59 06:59 06:59
Intake Total 180 / 180
Output Total 200 / 200
Balance 180 / 180 -200 / -200
Review of Systems
-
History Source: Patient
Respiratory: Denies Trouble Breathing
Cardiac: Denies Chest Pain
Abdomen/GI: Reports Abdominal Pain, Nausea and Vomiting; Denies Diarrhea or Constipated
Genitourinary: Denies Dysuria or Difficulty Voiding
Physical Exam
-
General: Other (appears uncomfortable)
HEENT: Normocephalic, Atraumatic and Anicteric; Negative Moist Mucous Membranes
Respiratory: Clear to Auscultation and Non Labored Respirations; Negative Wheezes, Rales, Rhonchi or Crackles
Cardiac: Regular Rhythm and S1/S2; Negative Murmur, Rub or Calf Tenderness
GI: Soft and Tender (upper quadrants)
Skin: Warm and Dry
Neuro: Awake and Alert
Psych: Calm
[2024-04-25 19:00] VITALS: BP 107/59
[2024-04-25] MEDS: DUPHALAC/CHRONULAC 20 GRAMS PO (21:28)
[2024-04-25] MEDS: KCL 5 MEQ PO (21:29)
--- NOTE | 2024-04-25 22:38 | VATNOTE ---
Both peripheral IV's not working; right arm midline attempted ,as did sev. weeks ago on last admission, by this VAT RN; multiple vessels attempted and unable to thread guidewire. Procedure aborted after multiple sticks. Another VAT RN able to gain
IV access peripherally.
[2024-04-25 23:15] VITALS: BP 95/45
[2024-04-25] MEDS: NEURONTIN PO (23:30)
--- NOTE | 2024-04-25 23:49 | W.PN.UPDATE ---
Update Note
Progress Note Update
BP soft 90's/40's MAP 62-64 HR 70's. Ox2 asymptomatic, per RN haven't been drinking any thing. Will order 250 CC I V bolus and monitor. Repeat BP 96/47 HR 90
2 hours later Repeat BP 79/46, 78/51 HR 90. Patient seen and evaluated, mild pale, OX3, unsure of her medical condition. Addressed the hypotensive episodes. Patient denies dizziness lightheadedness, or any pain. Lungs diminished RR 18, O2sat RA.
Addressed will bolus again, if low BP continues will need to place patient on pressors and transfer to IMU. Patient nodded no at present. Addressed the importance of tests and treatment. Refusing PO medications.
250 IV bolus ordered
RN also addressed recurrent PVC's, EKG NSR, lab results noted, drop in hgb noted. no active bleeding. Patient continuos to refuse CT scan of abdomen or US of abdomen. Will hemetest stools, may consider GI again if she agrees. On Protonix 40mg IV BID.
Repeat BP 96.68 HR 83 100 % RA 20, afebrile.
[2024-04-26] VITALS (8 sets, daily range): BP systolic 76–128; BP diastolic 46–73
[2024-04-26] MEDS: NSS 250 IV ×2 (00:09→03:16)
[2024-04-26] MEDS: NEURONTIN PO (00:24)
[2024-04-26 04:14] LABS: Hematocrit 25.3 % (37.0-47.0); Hemoglobin 8.7 g/dL (12.0-16.0); Mean Corp Hgb Conc. 34.4 g/dL (33.0-37.0); Mean Corpuscular Hgb 36.3 pg (27.0-31.0); Mean Corpuscular Volume 105.4 fL (81.0-99.0); Mean Platelet Volume 11.3 fL (7.4-10.4); Platelet Count 43 10^3/uL (130-400); Red Cell Dist. Width 19.1 % (11.5-14.5); White Blood Cell Count 7.6 10^3/uL (4.8-10.8)
[2024-04-26 04:46] LABS: Blood Urea Nitrogen 35 mg/dl (7-17); Calcium 8.6 mg/dl (8.4-10.2); Carbon Dioxide 15 mmol/L (22-30); Chloride 107 mmol/L (98-107); Estimated Creatinine Clearance 65 ml/min; Glucose 86 mg/dl (70-99); Potassium 4.5 mmol/L (3.5-5.1); Sodium 133 mmol/L (135-145); eGFR > 60.00
--- NOTE | 2024-04-26 07:13 | PTCARENOTE ---
Pt's blood pressure 90s/40s, then 70s/40s EDUCATION ASSISTANT Josse made aware - ordered 500mL NSS bolus altogether. Rechecked after boluses completed = BP was 96/47 then 96/68 . Also made EDUCATION ASSISTANT aware that pt had run of VTach and at a separate time a run of multiple
PVS - EKG was ordered and completed. EDUCATION ASSISTANT also ordered STAT labs, hgb was 8.7 - EDUCATION ASSISTANT ordered to heme test all stool and serial H&H.
[2024-04-26] MEDS: DUPHALAC/CHRONULAC 20 GRAMS PO ×2 (08:29→20:57)
[2024-04-26] MEDS: HYDROPHOR 1 APPLIC TOPICAL (08:29)
[2024-04-26] MEDS: KCL 5 MEQ PO ×2 (08:30→20:56)
[2024-04-26] MEDS: NSS (PRESERVATIVE FREE) 10 ML IV ×2 (08:30→20:58)
[2024-04-26] MEDS: PROTONIX IV 40 MG IV ×2 (08:30→20:57)
[2024-04-26] MEDS: THERAGRAN 1 TABLET PO (08:31)
[2024-04-26] MEDS: SANTYL OINTMENT 1 APPLIC TOPICAL (08:31)
[2024-04-26] MEDS: COREG PO (08:40)
[2024-04-26] MEDS: ZOFRAN 4 MG IV (08:49)
[2024-04-26] MEDS: NSS 500 IV (10:14)
[2024-04-26 10:25] LABS: Hematocrit 29.4 % (37.0-47.0); Hemoglobin 9.9 g/dL (12.0-16.0)
[2024-04-26 10:45] LABS: Lactic Acid 1.5 mmol/L (0.7-2.0)
[2024-04-26 12:19] LABS: Cortisol, Random 36.2 ug/dl; TSH 4.06 uIU/ml (0.47-4.68)
--- NOTE | 2024-04-26 14:55 | W.PN.UPDATE ---
Update Note
Progress Note Update
Seen and examined by me independently in collaboration with the medical office asst.
Lab data and imaging data reviewed.
Addendum as below :
Patient is alert and oriented.
She persist to have nausea and has poor oral intake. Nonspecific abdominal discomfort on the right side but no rebound guarding rigidity.
She has been refusing tests and when asked why she says she does not think she needs them. Told the patient that I cannot explain the GI symptoms without further testing and a CT of the abdomen pelvis with contrast would be helpful in further
evaluation. She was not further open to discussions about the next step in evaluation. Did try and understand her goals of care but she could not clarify. Brother was present at bedside.
Chronic hypotension suspect may be secondary to liver disease. Lactic acid normal. Clinically afebrile and white count normal. Urinalysis negative. No obvious signs of infection but needs a CT of the abdomen pelvis for further evaluation. Tried
fluid boluses without much benefit. DC her antihypertensives. Start on midodrine. Check TSH and cortisol.
Will discuss with family regarding goals of care going forward for her.
[2024-04-26] MEDS: OMNIPAQUE 50 ML PO (15:06)
--- NOTE | 2024-04-26 15:59 | CM ---
Reviewed the chart notes. Per notes, patient refusing testing and PT/OT evaluation. CM continues to be available to patient/family and is monitoring medical plan for needs at discharge.
Plan: Discharge plans will depend on the patient's progress. Family want placement. Will need precert for SNF.
--- NOTE | 2024-04-26 16:41 | W.PN.HOSP.TC ---
Today's Communication/Plan
-
supportive care
Assessment / Plan
Assessment / Plan
73 F with history of hemorrhagic CVA with left-sided weakness, essential hypertension, renal artery stenosis, hyperlipidemia, nonischemic cardiomyopathy, nonobstructive CAD, anxiety/depression, hx of alcohol use disorder, cirrhosis, esophageal
varices/upper GI bleed status post banding, who presents with concern for UTI, upper abdominal discomfort.
Urinary symptoms:
Foul smelling urine reported on arrival. Unclear if other urinary complaints.
-Urinalysis not very helpful, possibly contaminated. Will recheck urinalysis and culture.
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
Portal hypertensive gastropathy:
Transaminitis:
-Appreciate GI recs
-Continue Lactulose, high dose ppi
Abdominal pain, nausea/vomiting:
Generalized abdominal pain
-Prn zofran, monitor for prolonged QTc
-pain control with tramadol prn
-Pt declined abd US or CT to evaluate symptoms. She states that she did not need to be brought to the hospital and does not like being here. She denied abdominal pain and nausea when I asked about her symptoms. when I pointed out her emesis bag and
palpated abdomen, she endorsed tenderness and nausea. Her goal of care not clear as she has little interest in engaging with the discussion.
-Psych consult to help establish capacity
Bicytopenia:
Chronic anemia and thrombocytopenia, appears stable at baseline
-secondary to cirrhosis and splenic sequestration
-follow CBC. Consider transfusion if hgb<7, if plt <20, or bleeding
-No evidence of bleeding
Wounds:
Unstageable sacral pressure wounds, POA
bilateral heel pressure wounds, POA
-Appreciate wound care
Bed-bound:
Patient appears to be without adequate care at home. Will benefit from care arrangements/placement
-Appreciate CM.
Essential hypertension: Hold antihypertensives (amlodipine, carvedilol, lisinopril) while pressures low
Mild mitral regurgitation
Mild aortic regurg
nonobstructive CAD
Non-ischemic cardiomyopathy
Hx of alcohol use disorder - last alc drink months ago
Code status: DNR
DVT ppx: SCDs
Anticipated Discharge: Within 24 hours
Subjective/Interval History
-
Date of Service: April 26, 2024
Objective Data
-
Labs:
Laboratory Results
04/26/24 04/26/24 04/26/24
03:36 10:08 16:00
Hgb 9.9 L Cancelled
Hct 29.4 L Cancelled
Sodium 133 L
Potassium 4.5
Chloride 107
Carbon Dioxide 15 L
BUN 35 H
Creatinine 0.8
Glucose 86
Calcium 8.6
04/26/24
22:00
Hgb Cancelled
Hct Cancelled
Sodium
Potassium
Chloride
Carbon Dioxide
BUN
Creatinine
Glucose
Calcium
Vital Signs:
Vital Signs
Temp Pulse Resp BP Pulse Ox
97.4 F 91 17 94/55 100
04/26/24 14:20 04/26/24 14:20 04/26/24 14:20 04/26/24 14:20 04/26/24 14:20
I&O
04/25/24 04/26/24 04/27/24
06:59 06:59 06:59
Intake Total 180 / 180 490 / 490 500 / 500
Output Total 450 / 450
Balance 180 / 180 40 / 40 500 / 500
Review of Systems
-
History Source: Patient
Respiratory: Denies Trouble Breathing
Cardiac: Denies Chest Pain or Palpitations
Abdomen/GI: Denies Abdominal Pain, Nausea or Vomiting
Physical Exam
-
HEENT: Normocephalic, Atraumatic and Moist Mucous Membranes
Respiratory: Clear to Auscultation and Non Labored Respirations; Negative Wheezes, Rales, Rhonchi or Crackles
Cardiac: Regular Rhythm and S1/S2; Negative Murmur or Rub
GI: Tender (generalized tenderness) and Distended (mildly)
Neuro: Awake, Alert and Oriented
Psych: Calm
[2024-04-26] MEDS: ProAmatine 5 MG PO (17:33)
[2024-04-26] MEDS: COREG 3.125 MG PO (20:57)
[2024-04-26] MEDS: NEURONTIN 800 MG PO (20:57)
[2024-04-27] VITALS (31 sets, daily range): BP systolic 67–103; BP diastolic 38–72
[2024-04-27 08:29] LABS: Hematocrit 24.4 % (37.0-47.0); Hemoglobin 8.1 g/dL (12.0-16.0); Mean Corp Hgb Conc. 33.2 g/dL (33.0-37.0); Mean Corpuscular Hgb 35.7 pg (27.0-31.0); Mean Corpuscular Volume 107.5 fL (81.0-99.0); Mean Platelet Volume 11.5 fL (7.4-10.4); Platelet Count 22 10^3/uL (130-400); Red Blood Cell Count 2.27 10^6/uL (4.20-5.40); Red Cell Dist. Width 19.3 % (11.5-14.5); White Blood Cell Count 3.3 10^3/uL (4.8-10.8)
[2024-04-27 08:55] LABS: ALT (SGPT) 85 U/L (0-35); AST (SGOT) 91 U/L (14-36); Albumin 1.8 g/dl (3.5-5.0); Alkaline Phosphatase 83 U/L (38-126); Blood Urea Nitrogen 32 mg/dl (7-17); Calcium 8.4 mg/dl (8.4-10.2); Carbon Dioxide 9 mmol/L (22-30); Chloride 110 mmol/L (98-107); Estimated Creatinine Clearance 58 ml/min; Glucose 71 mg/dl (70-99); Potassium 4.5 mmol/L (3.5-5.1); Sodium 131 mmol/L (135-145); Total Bilirubin 1.6 mg/dl (0.2-1.3); Total Protein 5.4 g/dl (6.3-8.2); eGFR > 60.00
[2024-04-27 08:56] LABS: Glucose - Point of Care 81 mg/dl (70-99)
[2024-04-27] MEDS: NSS 500 IV (08:59)
--- NOTE | 2024-04-27 09:05 | PTCARENOTE ---
Pt is lethargic - refusing to open eyes. Does respond verbally but is just saying 'no' or 'leave me alone.' Pt also hypotensive. Hospitalist made aware of situation. Giving 500mL NSS bolus.
[2024-04-27 09:45] LABS: Cortisol, Random 24.2 ug/dl
[2024-04-27] MEDS: COREG PO ×2 (09:53→20:08)
[2024-04-27] MEDS: ProAmatine 5 MG PO (09:54)
[2024-04-27] MEDS: KCL 5 MEQ PO (09:54)
[2024-04-27] MEDS: NSS (PRESERVATIVE FREE) 10 ML IV ×2 (09:55→20:16)
[2024-04-27] MEDS: PROTONIX IV 40 MG IV ×2 (09:55→20:15)
[2024-04-27] MEDS: SANTYL OINTMENT 1 APPLIC TOPICAL (09:55)
[2024-04-27] MEDS: DUPHALAC/CHRONULAC 20 GRAMS PO (09:56)
[2024-04-27] MEDS: HYDROPHOR 1 APPLIC TOPICAL (09:56)
[2024-04-27] MEDS: THERAGRAN 1 TABLET PO (09:56)
[2024-04-27] MEDS: DESENEX/MITRAZOL/ZEASORB 1 APPLIC TOPICAL (09:57)
[2024-04-27] MEDS: ULTRAM 50 MG PO (09:58)
--- NOTE | 2024-04-27 09:59 | CM ---
Reviewed the chart notes and spoke with the patient at the bedside. Patient lethargic, would not open eyes, but did answer appropriately. Patient is refusing to participate in any activity for potential rehab. Precert would be required for rehab.
Per RN, poor oral intake, refusing meds. CM continues to be available to patient/family and is monitoring medical plan for needs at discharge.
Plan: Discharge plans will depend on the patient's progress. Will not be able to obtain a precert for SNF/rehab if patient is unable to participate in PT/OT.
[2024-04-27 10:27] LABS: TSH Reflex To Free T4 2.18 uIU/ml (0.47-4.68)
--- NOTE | 2024-04-27 10:32 | PTCARENOTE ---
Pt perked up after IV fluids. Opening eyes, talking to staff, able to take PO meds. Drinking water but still refusing to eat.
--- NOTE | 2024-04-27 12:27 | W.PN.UPDATE ---
Update Note
Progress Note Update
patient seen chart reviewed. discussed w nursing and with dr nava. patient is a 73 year old woman who has a host of medical issues and comes to with complaint of ftt abdominal pain urinary sx and inability to care for herself. she lives in her
own home in the company of many family members who reside with her. they do not feel at this point they can continue to care for her. dr rafi walls md describes that patient was 'covered w stool and urine' at the time of admission. please see med
hx below for a list of current and past medical problems. patient's treating physician has recommended gi workup but patient has refused most of the recommendations. this consult ordered for ? of capacity for medical decision making. it was
nearly impossible to engage mrs fletcher in an ongoing conversation. she was clearly awake and would partially open her eyes when i spoke then rapidly close them again. with the help of nursing i was able to ascertain that she is oriented x3. we
were also able to get her to make a few comments when we pointed out certain things to her such as her refusal to comply with testing to workup her medical issues. the comments provided proof that she does not understand the seriousness of her
medical condition, 'there is nothing wrong with me'....'there is nothing seriously wrong with me.' essentially she also said not to bother her when she was sleeping but according to nsg she sleeps much of the day. the patient demonstrated NO
understanding of the serious medical issues she is facing and no ability to participate in her own care and medical decision making.
Past psych hx there is some notation in the record that patient has hx of depression although that could not be substantiated from today's interview. for what it is worth in [address] cisse's assessment any hx of depression or
psychiatric treatment. the patient does have a long hx of etoh abuse and is sober reportedly since january of 2024
past medical hx patient w numerous medical problems. she is anemic (hgb 8.1) tcp (pl 22k) hyponatremic (131) macrocytosis (do not see b12 and folate in chart but presumably related to etoh use) qtc 479 tsh ok ua looked infected but urine c and
s no growth. hx cirrhosis hx esophageal varices and gi bleed htn cardiac valvular impairment cardiomyopathy hx cva with serious sequelae hx c diff hld htn (recently hypotension has been an issue) high random cortisol tsh ok
fh non contributory
substance abuse etoh see above
social resides in home with many family members. she reportedly owns the home. they are at this point unable to continue to care for her
mse alert and ox3 but not at all cooperative with this interview. patient feigned sleep. she did tell me emphatically that there is NOTHING wrong with her despite all evidence to the contrary. unclear what this represents....eg denial, dementia
depression etc etc.i would suspect there is an element of cognitive decline here that might represent dementia. insight judgment lacking unable to assess mood. patient is not suicidal from what i could gather. there is nothing to suggest overt
psychosis
dx r/o dementia
plan at this point i would have to say patient does NOT have capacity for medical decision making. she cannot explain to me the medical issues she is facing at this point denying completely that she is seriously ill. i would suggest there needs to
be a medical power of personal injury attorney or guardian to make medical decisions on her behalf. palliative care or hospice might be considered. psych will sign off.
[2024-04-27 13:02] LABS: Venous Blood Gas B.E. -11.5 mmol/L (-4 to +4); Venous Blood Gas O2 Sat % 90.4 %; Venous Blood Gas pCO2 42 mmHg (35-48); Venous Blood Gas pO2 64 mmHg (30-50)
[2024-04-27 13:06] LABS: Venous Blood Gas pH 7.19 (7.32-7.43)
[2024-04-27] MEDS: ProAmatine 10 MG PO (13:14)
--- NOTE | 2024-04-27 14:10 | W.PN.HOSP.TC ---
Addendum entered and electronically signed by Joao Woodward MD 04/27/24 16:33:
Seen and examined by me independently in collaboration with the medical office specialist.
Lab data and imaging data reviewed.
Addendum as below :
Patient today disinclined to participate in a conversation. Despite my best efforts and persuasion she did not talk to me.
No acute respiratory distress. Chest anteriorly clear. Abdomen soft.
Blood pressure fluctuating. Improved yesterday with midodrine but today lower. She is becoming more acidotic and pH 7.19 on venous draw. Will check a lactic acid and procalcitonin. Transferred to IMU for vasopressor support. Will start on
empirical antibiotics and if no further obvious sources of infection will Ascites. Obtain a chest x-ray and blood cultures.
Appreciate psychiatry input-patient does not have medical decision capacity.
Discussed with granddaughter Marie who is the point person for communication. Explained to have the end-stage liver disease and failure to thrive and now worsening acid-base situation and hypotension.
Patient now has 2 sons who are living and Marie is going to call them and have a family meeting tomorrow at 2:00 pm.
Total time spent on today's encounter was 52 minutes which included time spent in counseling the patient/family regarding diagnosis and treatment plan as listed above, goals of care, and symptom management. Case was discussed with nursing staff,
specialists, and care coordinators/case management. All labs and imaging personally reviewed by me. Remainder the time spent in detailed review of previous records, lab data, imaging, and other medical provider documentation.
Original Note:
Today's Communication/Plan
-
Check lactate, potentially start pressors
Assessment / Plan
Assessment / Plan
73 F with history of hemorrhagic CVA with left-sided weakness, essential hypertension, renal artery stenosis, hyperlipidemia, nonischemic cardiomyopathy, nonobstructive CAD, anxiety/depression, hx of alcohol use disorder, cirrhosis, esophageal
varices/upper GI bleed status post banding, who presents with concern for UTI, upper abdominal discomfort.
Hypotension:
- Some readings taken from lower extremity. Will repeat for upper extremity
- Potentially secondary to liver pathology but will investigate reversible causes. Cortisol and TSH wnl. New non-anion gap metab acidosis.
- Gave NS bolus and midodrine. If no response will transfer to IMU and start pressors
Non-anion gap metabolic acidosis:
-VBG with pH 7.19
-Start Bicarb. Will check lactate
Urinary symptoms:
Foul smelling urine reported on arrival. Unclear if other urinary complaints.
-Urinalysis unremarkable
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
Portal hypertensive gastropathy:
Transaminitis:
-Appreciate GI recs
-Continue Lactulose, high dose ppi
Abdominal pain, nausea/vomiting:
Generalized abdominal pain, patient reports no pain today.
-Prn zofran, monitor for prolonged QTc
-pain control with tramadol prn
-Abd CT showed moderate ascites present which is new compared to CT. No acute changes. No rebound/guarding.
-Psych consult to help establish capacity
Bicytopenia:
Chronic anemia and thrombocytopenia, appears stable at baseline
-secondary to cirrhosis and splenic sequestration
-follow CBC. Consider transfusion if hgb<7, if plt <20, or bleeding
-No evidence of bleeding
Wounds:
Unstageable sacral pressure wounds, POA
bilateral heel pressure wounds, POA
-Appreciate wound care
Adult failure to thrive:
Severe chronic liver disease and functional paraplegia. Patient appears to be without adequate care at home. Family states they cannot care for her at home. Will benefit from care arrangements/placement
She is often uninterested in discussing care plan or placement.
-Appreciate psych input to establish capacity
-Palliative care consult
-Appreciate CM.
Essential hypertension: Hold antihypertensives (amlodipine, carvedilol, lisinopril) while pressures low
Mild mitral regurgitation
Mild aortic regurg
nonobstructive CAD
Non-ischemic cardiomyopathy
Hx of alcohol use disorder - last alc drink months ago
Code status: DNR
DVT ppx: SCDs
Anticipated Discharge: > 48 hours
Subjective/Interval History
-
Date of Service: April 27, 2024
Pt not cooperative with exam today. She states 'Can you leave me alone please?'
Objective Data
-
Labs:
Laboratory Results
04/27/24 04/27/24 04/27/24
07:08 07:09 08:06
WBC Cancelled 3.3 L
Hgb Cancelled 8.1 L
Hct Cancelled 24.4 L
Plt Count Cancelled 22 L* D
Sodium 131 L
Potassium 4.5
Chloride 110 H
Carbon Dioxide 9 L*
BUN 32 H
Creatinine 0.9
Glucose 71
Calcium 8.4
Total Bilirubin 1.6 H
AST 91 H
ALT 85 H
Alkaline Phosphatase 83
Vital Signs:
Vital Signs
Temp Pulse Resp BP Pulse Ox
97.8 F 70 15 74/49 99
04/27/24 13:13 04/27/24 13:13 04/27/24 13:13 04/27/24 13:13 04/27/24 13:13
I&O
04/26/24 04/27/24 04/28/24
06:59 06:59 06:59
Intake Total 490 / 490 1600 / 1600
Output Total 450 / 450
Balance 40 / 40 1600 / 1600
Review of Systems
-
History Source: Patient
Abdomen/GI: Denies Nausea or Vomiting
Physical Exam
-
General: No Apparent Distress and Comfortable
HEENT: Normocephalic and Atraumatic
Respiratory: Clear to Auscultation (anteriorly); Negative Wheezes, Rales, Rhonchi or Crackles
Cardiac: Regular Rhythm and S1/S2; Negative Murmur or Rub
GI: Soft, Nontender and Nondistended
Musculoskeletal: No Clubbing, No Cyanosis and No Edema
Skin: Warm and Dry
Neuro: Other (Asleep, easily rousable)
Hematologic / Lymphatic: Other (R arm bruising)
Psych: Calm
[2024-04-27] MEDS: SODIUM BICARBONATE 1150 MEQ IV (14:31)
[2024-04-27 15:07] LABS: Blood Urea Nitrogen 32 mg/dl (7-17); Calcium 8.2 mg/dl (8.4-10.2); Carbon Dioxide 17 mmol/L (22-30); Chloride 108 mmol/L (98-107); Estimated Creatinine Clearance 65 ml/min; Glucose 111 mg/dl (70-99); Lactic Acid 1.2 mmol/L (0.7-2.0); Potassium 4.1 mmol/L (3.5-5.1); Sodium 131 mmol/L (135-145); eGFR > 60.00
--- NOTE | 2024-04-27 16:40 | VATNOTE ---
Notified by PCN that pt would need additional IV access for levophed. Per VAT RN note from 04/26, unable to pass wire for midline yesterday and on last admission. #20x2' ultrasound guided IV placed in pt's RUE at this time with + blood return. L arm
is restricted due to previous stroke. Notified PCN that we should get an IR consult for IJ placement as pt's R arm vasculature is difficult, arm is severely bruised from previous IV attempts, and we cannot use the LUE. PCN will contact MD to place
IR consult.
[2024-04-27] MEDS: LEVOPHED 250 IV (16:44)
--- NOTE | 2024-04-27 17:31 | PHA.VAN.IN ---
Assessment
- Assessment
Renal Function: Appears elevated from baseline (04/15/24 BASELINE SCR: 0.4)
- Previous Dosing Experience
Previous Regimen: NONE
Plan
- Plan
Initial / Loading Dose: 2GM
Maintenance Regimen: DOSING BY RANDOM LEVEL
Monitoring: RANDOM VANCOMYCIN LEVEL 04/28/24 AM
Pharmacokinetics Vancomycin I
- -
Patient Age: 73
Patient Sex: Female
Vancomycin Day #: 1
Indication: Gi / Intra-Abdominal
Requesting Provider: TAMIKO
Height / Weight:
Height 5 ft 4 in
Actual Weight 77.111 kg
Pertinent Past Medical History: END STAGE LIVER DISEASE
- Vital Signs / Lab Results
Temp Pulse Resp BP Pulse Ox
97.5 F 63 14 95/38 95
04/27/24 15:37 04/27/24 15:37 04/27/24 15:37 04/27/24 17:03 04/27/24 15:37
Lab Results - Hematology
04/24/24 04/25/24 04/26/24
21:00 05:51 03:36
WBC 10.1 8.2 7.6
04/27/24 04/27/24
07:08 08:06
WBC Cancelled 3.3 L
Lab Results - Chemistry
04/24/24 04/25/24 04/26/24
21:00 05:51 03:36
BUN 35 H 36 H 35 H
Creatinine 0.9 0.9 0.8
Estimated Creat Clear 56 58 65
Albumin 2.3 L 2.2 L
04/27/24 04/27/24
07:09 14:47
BUN 32 H 32 H
Creatinine 0.9 0.8
Estimated Creat Clear 58 65
Albumin 1.8 L
04/26/24 04/27/24
10:08 14:47
Lactic Acid 1.5 1.2
Lab Results - Urine
04/24/24 04/25/24
20:02 13:18
Urine Nitrite (Reflex) Negative Negative
Leukocyte Esterase Rfl 1+ A 2+ A
Urine WBC (Reflex) 11-15 A 3-5
Ur Squamous Epith Cells 26-30 11-15
Urine Bacteria (Reflex) Moderate A Few A
Microbiology Results
04/24/24 20:02 Urine Culture - Final
Urine NO GROWTH
04/25/24 13:18 Urine Culture - Final
Urine NO GROWTH
--- NOTE | 2024-04-27 18:13 | PTCARENOTE ---
Received patient on transfer from via bed with levophed infusing at 2mcg/min. Initial MAP 65 but then dropped to 53 and 51; levophed increased to 4mcg/min. CXR completed prior to transfer. Patient ordered BCx2 and IVAB; she is a very difficulty
stick. TT sent to both Dr Woodward and Dr Tamayo; ok to draw BC at 19:00 and start IVAB after. BP has been taken in R calf d/t b/l upper extremity limb restrictions (R arm completely ecchymotic and L arm d/t history of CVA per report). Confirmed with
Dr Woodward that we may use L arm for BP. Current BP 98/64 with MAP 76.
--- NOTE | 2024-04-27 18:20 | PTCARENOTE ---
Patient incontinent of large amount liquid brown stool that was continuously draining; rectal trumpet placed.
[2024-04-27] MEDS: ProAmatine PO (18:38)
[2024-04-27] MEDS: KCL PO (20:08)
[2024-04-27] MEDS: DUPHALAC/CHRONULAC PO (20:08)
[2024-04-27] MEDS: VANCOCIN 540 MG IV (20:11)
[2024-04-27] MEDS: ZOSYN 50 IV (20:16)
[2024-04-27] MEDS: NEURONTIN PO (20:25)
[2024-04-27 20:37] LABS: Blood Urea Nitrogen 30 mg/dl (7-17); Calcium 8.4 mg/dl (8.4-10.2); Carbon Dioxide 19 mmol/L (22-30); Chloride 103 mmol/L (98-107); Estimated Creatinine Clearance 58 ml/min; Glucose 122 mg/dl (70-99); Potassium 3.9 mmol/L (3.5-5.1); Sodium 130 mmol/L (135-145); eGFR > 60.00
[2024-04-27 20:54] LABS: Procalcitonin 0.91 ng/ml (0.0-0.25)
--- NOTE | 2024-04-27 21:25 | PTCARENOTE ---
per order, BMP results reported to nighttime [employer]UNDR[employer] HOUSEKEEPER. no new orders at this time.
--- NOTE | 2024-04-27 21:33 | PTCARENOTE ---
assumed care of patient, pt is AAOx3 but lethargic and drowsy. pt does awaken when name is called. pt remains on levophed gtt to be titrated to keep MAP >65. q2t. sacrum wound care done per order. pt too lethargic to safely take any PO pills at this
time. rectal tube intact draining liquid mucoid stool. stool specimen sent down, pt placed on enhanced precautions until results are back. blood cultures from dayshift sent down. noted a nursing to place order to tell nighttime [employer]ING [employer] BMP results....
noted no order for a BMP at that time. covering J[employer]ING [employer] placed order and BMP sent down. notified of results. IV fluids infusing. IV antibiotics hung. left arm is contracted with limb alert band on. right foot drop noted. bed alarm on. care ongoing.
[2024-04-28] VITALS (61 sets, daily range): BP systolic 69–127; BP diastolic 52–88; BMI 28.6
[2024-04-28] MEDS: ZOSYN 50 IV ×4 (01:02→20:34)
[2024-04-28 04:00] LABS: % Basophils 0.1 % (0-2); % Eosinophils 1.4 % (0-6); % Immature Granulocytes 1.4 % (0-0.5); % Lymphocytes 14.1 % (20.5-51.1); % Monocytes 7.6 % (1.7-9.3); % Neutrophils 75.4 % (42.2-75.2); Absolute Eosinophils 0.1 10^3/uL (0-0.7); Absolute Immature Granulocytes 0.1 10^3/uL (0-0.05); Absolute Lymphocytes 1.2 10^3/uL (1.2-3.4); Absolute Monocytes 0.6 10^3/uL (0.1-0.6); Absolute Neutrophils 6.2 10^3/uL (1.4-6.5); Hematocrit 26.4 % (37.0-47.0); Hemoglobin 9.2 g/dL (12.0-16.0); Mean Corp Hgb Conc. 34.8 g/dL (33.0-37.0); Mean Corpuscular Hgb 36.5 pg (27.0-31.0); Mean Corpuscular Volume 104.8 fL (81.0-99.0); Mean Platelet Volume 10.6 fL (7.4-10.4); Nucleated Red Blood Cells % 0.2 %; Platelet Count 62 10^3/uL (130-400); Red Blood Cell Count 2.52 10^6/uL (4.20-5.40); Red Cell Dist. Width 18.8 % (11.5-14.5); White Blood Cell Count 8.3 10^3/uL (4.8-10.8)
[2024-04-28 04:20] LABS: Vancomycin Random 21.9 ug/ml
[2024-04-28 04:37] LABS: ALT (SGPT) 86 U/L (0-35); AST (SGOT) 102 U/L (14-36); Albumin 1.9 g/dl (3.5-5.0); Alkaline Phosphatase 96 U/L (38-126); Blood Urea Nitrogen 29 mg/dl (7-17); Calcium 8.1 mg/dl (8.4-10.2); Carbon Dioxide 21 mmol/L (22-30); Chloride 103 mmol/L (98-107); Estimated Creatinine Clearance 64 ml/min; Glucose 190 mg/dl (70-99); Magnesium 1.8 mg/dl (1.6-2.3); Potassium 3.8 mmol/L (3.5-5.1); Sodium 132 mmol/L (135-145); Total Bilirubin 1.7 mg/dl (0.2-1.3); Total Protein 5.5 g/dl (6.3-8.2); eGFR > 60.00
[2024-04-28] MEDS: LEVOPHED 250 IV ×2 (05:37→20:41)
--- NOTE | 2024-04-28 08:12 | PHA.VAN.FU ---
Vancomycin Assessment / Plan
- Assessment
Renal Function: SCR Decreasing
WBC's are: WNL
In the past 24 hrs, patient has been: Afebrile
Concomitant Antimicrobials: Pip/Tazo 3.375gm Q6H
- Assessment - Therapeutic Drug Monitoring
Random Level: 04/28 @03:39 21.9
- Dosing Plan
Dosing by Level: Hold off on dosing today
- Monitoring Plan
Random Level: Ordered for 04/29 @0600
- Follow Up
Pharmacy will continue to follow.
Vancomycin Follow UP
- -
Patient Age: 73
Patient Sex: Female
Vancomycin Day #: 2
Indication: Gi / Intra-Abdominal
Requesting Provider: TAMIKO
Height / Weight:
Height 5 ft 4 in
Actual Weight 75.5 kg
Pertinent Past Medical History: END STAGE LIVER DISEASE
- Vital Signs / Lab Results
Temp Pulse Resp BP Pulse Ox
97.9 F 72 13 99/52 95
04/28/24 07:54 04/28/24 06:00 04/28/24 06:00 04/28/24 06:00 04/28/24 06:00
Lab Results - Hematology
04/26/24 04/27/24 04/27/24
03:36 07:08 08:06
WBC 7.6 Cancelled 3.3 L
04/28/24
03:39
WBC 8.3
Lab Results - Chemistry
04/26/24 04/27/24 04/27/24
03:36 07:09 14:47
BUN 35 H 32 H 32 H
Creatinine 0.8 0.9 0.8
Estimated Creat Clear 65 58 65
Albumin 1.8 L
04/27/24 04/28/24
20:07 03:39
BUN 30 H 29 H
Creatinine 0.9 0.8
Estimated Creat Clear 58 64
Albumin 1.9 L
04/26/24 04/27/24
10:08 14:47
Lactic Acid 1.5 1.2
Microbiology Results
04/24/24 20:02 Urine Culture - Final
Urine NO GROWTH
04/25/24 13:18 Urine Culture - Final
Urine NO GROWTH
Therapeutic Drug Monitoring
Random Vancomycin 21.9 ug/ml 04/28/24 03:39
[2024-04-28] MEDS: COREG PO ×2 (08:48→20:37)
[2024-04-28] MEDS: THERAGRAN 1 TABLET PO (08:49)
[2024-04-28] MEDS: ProAmatine 10 MG PO ×3 (08:49→17:08)
[2024-04-28] MEDS: KCL 5 MEQ PO ×2 (08:49→20:33)
[2024-04-28] MEDS: DUPHALAC/CHRONULAC 20 GRAMS PO ×2 (08:49→20:33)
[2024-04-28] MEDS: PROTONIX IV 40 MG IV ×2 (08:50→20:34)
[2024-04-28] MEDS: NSS (PRESERVATIVE FREE) 10 ML IV ×2 (08:50→20:33)
[2024-04-28] MEDS: SANTYL OINTMENT TOPICAL (08:51)
[2024-04-28] MEDS: HYDROPHOR 1 APPLIC TOPICAL (08:55)
[2024-04-28] MEDS: DESENEX/MITRAZOL/ZEASORB 1 APPLIC TOPICAL (08:58)
--- NOTE | 2024-04-28 08:59 | W.PN.HOSP.TC ---
Addendum entered and electronically signed by Joao Woodward MD 04/28/24 15:36:
Family meeting
2 sons who are next of kin, sister, brother, Anita the granddaughter, Constantine the grandson and another granddaughter present.
They will see some improvement in her today compared to the days before admission.
Apparently at home patient was reluctant to get help. She did not want to be tossed or turned. With great difficulty one of his son cleaned her and then she was not cooperative next day.
They see a general decline in her overall as well. She wasnt eating much either at home.
Explained to them about the socks situation requiring pressors and concern for infection and ongoing evaluation to look for the source of infection. Explained to them she has an end organ dysfunction with decompensated liver disease with ascites
and varices. Most importantly had bedridden status is the biggest indicator of progressive decline and poor prognosis.
They want see if she would get better with current treatments but if she were to decline medically further they would want to consider comfort as a goal. Broached the topic of hospice which they would like to explore. She is a DNR.
One of the son wants to take her home if she were to get stable and consider hospice at home.
Other members not sure if they are able to provide needed care at home for her at this point. Will continue to explore dispo planning.
Addendum entered and electronically signed by Joao Woodward MD 04/28/24 13:13:
Seen and examined by me independently in collaboration with the biomedical instrument technician.
Lab data and imaging data reviewed.
Addendum as below :
Today her demeanor is better-apparently was speaking with nurse and also was little bit more conversive with me.
Her only question was when she is going home.
She is denying any nausea or abdominal pain.
Denies any shortness of breath. She is on room air.
Afebrile. Blood pressure systolics better on pressors at 5 mcg of Levophed.
Abdomen soft but seem distended. Nontender.
Chest anteriorly clear.
Hypotension with concern of shock. Responding to vasopressors. Echo with normal EF. Cortisol is okay. Rule out sepsis. So for diagnostic data evident of focal source. Elevated procalcitonin noted.. Obtain a diagnostic paracentesis and follow
blood culture data. Continue with current antibiotics and follow. Continue with midodrine.
Non-anion gap metabolic acidosis. Patient with loose stools but not significant rectal output noted. Lactate is normal. Renal function is ok. Improved HCO3 -DC bicarb fluids.
End-stage liver disease with decompensation/ascites. No evidence of hepatic encephalopathy ammonia was less than 9.
Patient with failure to thrive at home ;she is essentially bed bound at house and family has raised concerns of care at home .Pt wants to go home but seems to have poor insight into her disease process and care needed. She is deemed incompetent with
regards to medical decision capacity.
Plan to have a family meeting today regarding goals of care.
DNR
Original Note:
Today's Communication/Plan
-
Paracentesis, IV Abx, Goals of care discussion with family
Assessment / Plan
Assessment / Plan
73 F with history of hemorrhagic CVA with left-sided weakness, essential hypertension, renal artery stenosis, hyperlipidemia, nonischemic cardiomyopathy, nonobstructive CAD, anxiety/depression, hx of alcohol use disorder, cirrhosis, esophageal
varices/upper GI bleed status post banding, who presents with concern for UTI, upper abdominal discomfort.
Shock:
- Ongoing
- Potentially secondary to liver pathology but will investigate reversible causes. Cortisol and TSH wnl. New non-anion gap metab acidosis, now resolved
- Gave NS bolus and midodrine with no improvement. Now on pressors, IVF
- Procalc was elevated. Explore infectious causes. Blood cultures pending. Ascites on Abd/pel CT, Check diagnostic paracentesis
- Continue Vanc and zosyn
Non-anion gap metabolic acidosis:
-VBG with pH 7.19. Lactate normal.
-Status post bicarb drip. Resolved
-Changed bicarb drip to NSS
Urinary symptoms:
Foul smelling urine reported on arrival. Unclear if other urinary complaints.
-Urinalysis unremarkable, urine cx negative
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
Portal hypertensive gastropathy:
Transaminitis:
-Appreciate GI recs
-Continue Lactulose, high dose ppi
Abdominal pain, nausea/vomiting:
Generalized abdominal pain, patient reports no pain today. PE
-Prn zofran, monitor for prolonged QTc
-pain control with tramadol prn
-Abd CT showed moderate ascites present which is new compared to CT. No acute changes. No rebound/guarding.
Bicytopenia:
Chronic anemia and thrombocytopenia, appears stable at baseline
-secondary to cirrhosis and splenic sequestration
-follow CBC. Consider transfusion if hgb<7, if plt <20, or bleeding
-No evidence of bleeding
Wounds:
Unstageable sacral pressure wounds, POA
bilateral heel pressure wounds, POA
-Appreciate wound care
Adult failure to thrive:
Severe chronic liver disease and functional paraplegia. Patient appears to be without adequate care at home. Family states they cannot care for her at home. Will benefit from care arrangements/placement
She is often uninterested in discussing care plan or placement.
-Appreciate psych input to establish capacity
-Palliative care consult
-Appreciate CM.
Essential hypertension: Hold antihypertensives (amlodipine, carvedilol, lisinopril) while pressures low
Mild mitral regurgitation
Mild aortic regurg
nonobstructive CAD
Non-ischemic cardiomyopathy
Hx of alcohol use disorder - last alc drink months ago
Code status: DNR
DVT ppx: SCDs
Anticipated Discharge: > 48 hours
Subjective/Interval History
-
Date of Service: April 28, 2024
Pt stated 'I feel awful' but did not elaborate upon further questioning.
Objective Data
-
Labs:
Laboratory Results
04/28/24
03:39
WBC 8.3
Hgb 9.2 L
Hct 26.4 L
Plt Count 62 L D
Sodium 132 L
Potassium 3.8
Chloride 103
Carbon Dioxide 21 L
BUN 29 H
Creatinine 0.8
Glucose 190 H
Calcium 8.1 L
Total Bilirubin 1.7 H
AST 102 H
ALT 86 H
Alkaline Phosphatase 96
Vital Signs:
Vital Signs
Temp Pulse Resp BP Pulse Ox
97.9 F 82 13 86/71 95
04/28/24 07:54 04/28/24 08:49 04/28/24 06:00 04/28/24 08:49 04/28/24 06:00
I&O
04/27/24 04/28/24 04/29/24
06:59 06:59 06:59
Intake Total 1600 / 1600 700 / 700
Output Total 50 / 50
Balance 1600 / 1600 650 / 650
Review of Systems
-
History Source: Patient
Physical Exam
-
General: Comfortable; Negative Respiratory Distress
Respiratory: Clear to Auscultation and Non Labored Respirations; Negative Wheezes, Rales, Rhonchi or Crackles
Cardiac: Regular Rhythm and S1/S2; Negative Murmur or Rub
GI: Soft, Nontender, Nondistended and Normal Bowel Sounds
Musculoskeletal: Edema, Right Lower Extrem and Edema, Left Lower Extrem
Neuro: Other (sleeping, rousable but goes back to sleep. )
[2024-04-28] MEDS: NSS 1000 IV ×2 (10:40→23:56)
--- NOTE | 2024-04-28 11:08 | PTCARENOTE ---
Assumed care of patient this morning. She initially was very hard to fully wake up. Pt kept stating 'not now,' with all care. Pt did seems to wake up for a short time while administering morning medications. She answered all orientation questions.
She was able to tell me that she was looking forward to her granddaughter's wedding but she has not set a date yet. We talked about her diet. She states that she does not like to eat breakfast, if she does then she usually eats Trix cereal. RN
stated but Trix are for kids, and patient joked 'I am a kid.' Pt declined any other breakfast options offered. Felt Finishing Supervisor then came in after RN to speak with patient. Pt remains on Levo @ 5 mcg/min. BP's still soft. Assessment, care and VS as
charted.
--- NOTE | 2024-04-28 11:55 | W.CON.PAL ---
Consultation
-
Date/Time Consultation Requested: 04/27
Date/Time Consultation Performed: 04/28
Requesting Provider: Roni
Performing Provider: Loraine Hutchins
Reason for Consult: Goals of Care Discussion
Primary Diagnosis: liver disease
Reason for Admission
Illness Course/HPI
73 year old F with PMH of etoh cirrhosis c/b esophageal varices s/p banding, portal vein thrombosis not on AC due to thrombocytopenia, CVA 2012 with functional quadriplegia, , CAD, ERCP with stent 10/2023. Recent admission at for coffee ground
emesis s/p EGD with grade 2 varices s/p banding. Discharged home with family.
Seen by me for outpatient palliative initial visit last week. Lives with multiple family members including son Lauri who is apparently her paid caregiver. Poor insight into her disease (both her and her son).
Now presents back to ER with concerns for UTI. Apparently arrived covered in feces and urine with a now unstageable sacral wound (previously large blood blister). Patient reports son unable to care for her effectively. Patient does not want to be in
the hospital and wants to go home, refusing testing, PT and has poor insight into her disease. Team spoke with patients granddaughter Marie - family possibly looking into placement and La Vernia plans to talk with patients sons today at 2pm.
Consult for GOC.
Patient seen at bedside. Reports she feels okay, theres nothing wrong with her and she wants to go home. Adamantly refuses a retirement and wants to stay home, says she'll get more help. Seen by psych yesterday and lacks capacity for decision
making.
Pain & Symptom Assessment
[place] Symptom Scale 0=none, 10=worst
Pain: 0
Objective Data
-
Objective Data:
Vital Signs
Temp Pulse Resp BP Pulse Ox
97.4 F 74 17 92/60 96
04/28/24 11:38 04/28/24 11:00 04/28/24 11:00 04/28/24 11:01 04/28/24 11:00
Laboratory Results
04/28/24 03:39
04/28/24 03:39
PT 13.9 Sec (11.4-14.6) 04/24/24 21:00
INR 1.04 04/24/24 21:00
Ammonia < 9 umol/L (9-30) L 04/24/24 21:00
Total Protein 5.5 g/dl (6.3-8.2) L 04/28/24 03:39
Albumin 1.9 g/dl (3.5-5.0) L 04/28/24 03:39
TSH 4.06 uIU/ml (0.47-4.68) 04/26/24 03:36
Urine Color Yellow 04/25/24 13:18
Urine Clarity Clear (Clear) 04/25/24 13:18
Urine pH 6.0 (5.0-9.0) 04/25/24 13:18
Ur Specific [place] 1.015 (<1.030) 04/25/24 13:18
Urine Ketones 2+ (Negative) A 04/25/24 13:18
Urine Bilirubin 1+ (Negative) A 04/25/24 13:18
Palliative Performance Scale
Palliative Performance Scale:
PPS Level Ambulation Activity & Evidence of Disease Self Care Intake Conscious Level
100% Full Normal Activity & Work; Full Intake Full
No Evidence of Disease
90% Full Normal Activity & Work; Full Normal Full
Some Evidence of Disease
80% Full Normal Activity with Effort Full Normal or Full
Some Evidence of Disease Reduced
70% Reduced Unable Normal Job/Work Full Normal or Full
Significant Disease Reduced
60% Reduced Unable Hobby/Housework Occasional Normal or Full or Confusion
Significant Disease Assistance Reduced
50% Mainly Sit/Lie Unable to do Any Work Considerable Normal or Full or Confusion
Extensive Disease Assistance Req'd Reduced
40% Mainly in Bed Unable to do Most Activity Mainly Assistance Normal or Full or Drowsy;
Extensive Disease Reduced +/- Confusion
30% Totally Bed Unable to do Any Activity Total Care Normal or Full or Drowsy;
Bound Extensive Disease Reduced +/- Confusion
20% Totally Bed Bound Unable to do Any Activity Total Care Minimal to Full or Drowsy;
Extensive Disease Sips +/- Confusion
10% Totally Bed Bound Unable to do Any Activity Total Care Mouth Care Drowsy or Coma;
Extensive Disease Only +/- Confusion
0%
PPS Score Level:
Physical Exam
-
General: Appears Chronically Ill and Obese
HEENT: Normocephalic
Respiratory: Clear to Auscultation
Cardiac: Regular Rhythm
GI: Soft and Tender
Rectal: Brown
Skin: Warm
Neuro: Awake and Alert
Psych: Calm
Assessment / Plan
-
Assessment/Plan:
73 year old F with etoh cirrhosis admitted with possible UTI. Multiple admissions, family unable to care for her.
- spoke with luke Salazar via phone - states there is a meeting today at 2pm to discuss next steps
- will await outcome of meeting and follow up as needed
- would benefit from placement
Care Reviewed
Data Reviewed
Radiology procedure: Image Reviewed
Medical Tests: I reviewed
Reviewed with: Patient, Family and Physician
--- NOTE | 2024-04-28 14:47 | PTCARENOTE ---
Patient taken to [facility] for possible paracentesis. Levo @ 4mcg/min. IRJEMMA RN aware.
[2024-04-28 16:17] LABS: Body Fluid Mononuclear 84.2 %; Body Fluid Polymorphonuclear 15.8 %; Body Fluid WBC 171 /CUMM
[2024-04-28 16:22] LABS: Body Fluid Second Tech EYM
[2024-04-28 16:24] LABS: Body Fluid Albumin < 1.0 g/dl; Body Fluid Protein < 2.0 g/dl
--- NOTE | 2024-04-28 16:39 | CM ---
Patient with Hx End-stage liver disease with Dx Failure to Thrive, ascites. Paracentesis today. Room air. Receiving Levophed gtt, IV Abx, IVF. Noting Family Meeting today with Hospitalist for Goals of Care.
CM Consult: Hospice
Unable to reach son Lauri who is listed as primary contact - his phone is out of service.
Spoke with Marie, grand-daughter;
explained hospice philosophy & benefits.
Marie vounteers that the patient would be unable to return home as she lives alone, and she is unsure what arrangement she would want for her.
She agrees to speaking with Hospice nurse.
Referral to [facility].
Plan follow up after seen by Hospice.
--- NOTE | 2024-04-28 17:06 | HOSPNOTE ---
Hospice referral received. Will reach out to granddaughter tomorrow morning to discuss hospice and options. More information to follow.
--- NOTE | 2024-04-28 17:26 | PTCARENOTE ---
Patient returned from [facility]. Pt now has a R TL IJ in place. Levophed moved to this line, tubing changed.
[2024-04-28] MEDS: MAGNESIUM OXIDE 500 MG PO (20:33)
[2024-04-28] MEDS: NEURONTIN PO (21:15)
--- NOTE | 2024-04-28 22:37 | PTCARENOTE ---
assumed care of patient. pt is AAOx3 but drowsy and lethargic, does wake to verbal and tactile stimuli. pt on levophed to keep MAP >65, weaned as able. pt did have an 18 beat run of v-tach at start of shift. pt was asymptomatic, sleeping, no c/o
chest pain. notified covering [employer]- orders to give patient PO K and PO magnesium. pt was able to take those pills without issues. on RA 95%. q2t. rectal tube dislodged, reinserted with liquid stool coming out. pt continuously asking to be left alone
and that she 'wants to go home'. positive environment maintained. bed alarm on. care ongoing.
[2024-04-29] VITALS (25 sets, daily range): BP systolic 80–113; BP diastolic 50–79; BMI 28.1
[2024-04-29] MEDS: ZOSYN 50 IV ×2 (01:27→08:23)
--- NOTE | 2024-04-29 03:05 | PTCARENOTE ---
tried to wean pt off levophed gtt. BP dropping throughout shift, MAP below 65. pt noted to be more lethargic. notified covering [employer], levophed gtt back on at 2mcg/min to keep MAP >65. care ongoing.
[2024-04-29 05:57] LABS: Hemoglobin 8.2 g/dL (12.0-16.0); Mean Corp Hgb Conc. 35.7 g/dL (33.0-37.0); Mean Corpuscular Hgb 37.1 pg (27.0-31.0); Mean Corpuscular Volume 104.1 fL (81.0-99.0); Mean Platelet Volume 11.1 fL (7.4-10.4); Platelet Count 34 10^3/uL (130-400); Red Blood Cell Count 2.21 10^6/uL (4.20-5.40); White Blood Cell Count 5.5 10^3/uL (4.8-10.8)
[2024-04-29 06:16] LABS: Vancomycin Random 16.3 ug/ml
[2024-04-29 06:24] LABS: ALT (SGPT) 64 U/L (0-35); AST (SGOT) 71 U/L (14-36); Albumin 1.7 g/dl (3.5-5.0); Alkaline Phosphatase 92 U/L (38-126); Blood Urea Nitrogen 25 mg/dl (7-17); Calcium 8.1 mg/dl (8.4-10.2); Carbon Dioxide 21 mmol/L (22-30); Chloride 108 mmol/L (98-107); Estimated Creatinine Clearance 57 ml/min; Glucose 92 mg/dl (70-99); Potassium 3.3 mmol/L (3.5-5.1); Sodium 132 mmol/L (135-145); Total Bilirubin 1.3 mg/dl (0.2-1.3); Total Protein 4.8 g/dl (6.3-8.2); eGFR > 60.00
[2024-04-29] MEDS: KCL 5 MEQ PO (08:14)
[2024-04-29] MEDS: DUPHALAC/CHRONULAC 20 GRAMS PO (08:14)
[2024-04-29] MEDS: ProAmatine 10 MG PO (08:14)
[2024-04-29] MEDS: THERAGRAN 1 TABLET PO (08:14)
[2024-04-29] MEDS: COREG PO (08:15)
[2024-04-29] MEDS: DESENEX/MITRAZOL/ZEASORB 1 APPLIC TOPICAL (08:23)
[2024-04-29] MEDS: SANTYL OINTMENT 1 APPLIC TOPICAL (08:23)
[2024-04-29] MEDS: HYDROPHOR 1 APPLIC TOPICAL (08:24)
[2024-04-29] MEDS: PROTONIX IV 40 MG IV (08:24)
[2024-04-29] MEDS: NSS (PRESERVATIVE FREE) 10 ML IV (08:24)
[2024-04-29] MEDS: FLUSH (NSS) 4 FLUSH IV (08:26)
--- NOTE | 2024-04-29 08:28 | W.PN.HOSP.TC ---
Today's Communication/Plan
-
DC to inpatient hospice
Assessment / Plan
Assessment / Plan
73 F with history of hemorrhagic CVA with left-sided weakness, essential hypertension, renal artery stenosis, hyperlipidemia, nonischemic cardiomyopathy, nonobstructive CAD, anxiety/depression, hx of alcohol use disorder, cirrhosis, esophageal
varices/upper GI bleed status post banding, who presents with concern for UTI, upper abdominal discomfort.
Shock:
- Ongoing
- Potentially secondary to liver pathology but will investigate reversible causes. Cortisol and TSH wnl. New non-anion gap metab acidosis, resolved
- Continues to require pressors, IVF
- Procalc was elevated. Blood cultures NGin24. Ascites on Abd/pel CT, No growth in 14-24hrs, WBC 170, PMN 15. No evidence of SBP. SAAG 0.9
- Continue Vanc and zosyn
GOC discussion with family yesterday. After meeting with hospice service, family has chosen inpatient hospice care
Non-anion gap metabolic acidosis:
-VBG with pH 7.19. Lactate normal.
-Status post bicarb drip. Resolved
Urinary symptoms:
Foul smelling urine reported on arrival. Unclear if other urinary complaints.
-Urinalysis unremarkable, urine cx negative
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
Portal hypertensive gastropathy:
Transaminitis:
-Appreciate GI recs
-Continue Lactulose, high dose ppi
Abdominal pain, nausea/vomiting:
Generalized abdominal pain, patient reports no pain today. PE
-Prn zofran, monitor for prolonged QTc
-pain control with tramadol prn
-Abd CT showed moderate ascites present which is new compared to CT. No acute changes. No rebound/guarding.
Bicytopenia:
Chronic anemia and thrombocytopenia, appears stable at baseline
-secondary to cirrhosis and splenic sequestration
-follow CBC. Consider transfusion if hgb<7, if plt <20, or bleeding
-No evidence of bleeding
Wounds:
Unstageable sacral pressure wounds, POA
bilateral heel pressure wounds, POA
-Appreciate wound care
Adult failure to thrive:
Severe chronic liver disease and functional paraplegia. Patient appears to be without adequate care at home. Family states they cannot care for her at home. Will benefit from care arrangements/placement
She is often uninterested in discussing care plan or placement.
-Pt does not have capacity for medical decision making per psych eval
-Family has chosen hospice care
Severe protein calorie malnutrition
Essential hypertension: Hold antihypertensives (amlodipine, carvedilol, lisinopril) while pressures low
Mild mitral regurgitation
Mild aortic regurg
nonobstructive CAD
Non-ischemic cardiomyopathy
Hx of alcohol use disorder - last alc drink months ago
Code status: DNR
DVT ppx: SCDs
Anticipated Discharge: Today
Subjective/Interval History
-
Date of Service: April 29, 2024
Poor appetite, refusing food. Asks to sleep. Ongoing hypotension requiring pressors
Objective Data
-
Labs:
Laboratory Results
04/29/24
05:29
WBC 5.5
Hgb 8.2 L
Hct 23.0 L
Plt Count 34 L D
Sodium 132 L
Potassium 3.3 L
Chloride 108 H
Carbon Dioxide 21 L
BUN 25 H
Creatinine 0.9
Glucose 92
Calcium 8.1 L
Total Bilirubin 1.3
AST 71 H
ALT 64 H
Alkaline Phosphatase 92
Vital Signs:
Vital Signs
Temp Pulse Resp BP Pulse Ox
97.7 F 101 21 89/79 98
04/29/24 07:40 04/29/24 08:15 04/29/24 06:00 04/29/24 08:15 03/07/25 06:00
I&O
04/28/24 04/29/24 04/30/24
06:59 06:59 06:59
Intake Total 700 / 700 2059
Output Total 50 / 50 475 / 475
Balance 650 / 650 1585 / 1585
Review of Systems
-
History Source: Patient
Constitutional: Reports No Appetite
Respiratory: Denies Trouble Breathing
Cardiac: Denies Chest Pain
Abdomen/GI: Denies Abdominal Pain, Nausea or Vomiting
Physical Exam
-
General: No Apparent Distress and Comfortable
HEENT: Atraumatic and Anicteric
Respiratory: Clear to Auscultation (anteriorly) and Non Labored Respirations; Negative Wheezes, Rales, Rhonchi or Crackles
Cardiac: Regular Rhythm and S1/S2; Negative Murmur or Rub
GI: Soft, Nontender, Nondistended and Normal Bowel Sounds
Musculoskeletal: Edema, Right Lower Extrem and Edema, Left Lower Extrem
Skin: Warm and Dry
Neuro: Awake (sleepy but rousable) and Alert
Psych: Calm
--- NOTE | 2024-04-29 08:28 | PHA.VAN.FU ---
Vancomycin Assessment / Plan
- Assessment
Renal Function: Stable
WBC's are: WNL
In the past 24 hrs, patient has been: Afebrile
Concomitant Antimicrobials: piperacillin/tazobactam
- Assessment - Therapeutic Drug Monitoring
Random Level: 16.3 - drawn ~25.8H after previous level of 21.9
Calculated ke: 0.0114
Calculated half life (H): 60.6
- Dosing Plan
Dosing by Level: Hold off on dosing today (based on current PK, level expected to maintain > 10 for ~43H)
- Monitoring Plan
Random Level: 04/30 0600
- Follow Up
Pharmacy will continue to follow.
Vancomycin Follow UP
- -
Patient Age: 73
Patient Sex: Female
Vancomycin Day #: 3
Indication: Gi / Intra-Abdominal
Requesting Provider: Dr. Tamayo (resident)
Pertinent Antimicrobial Allergies:
NKDA
Height / Weight:
Height 5 ft 4 in
Actual Weight 74.3 kg
Pertinent Past Medical History: ESLD, functional quadriplegia
- Vital Signs / Lab Results
Temp Pulse Resp BP Pulse Ox
97.7 F 101 21 89/79 98
04/29/24 07:40 04/29/24 08:15 04/29/24 06:00 04/29/24 08:15 04/29/24 06:00
Lab Results - Hematology
04/27/24 04/27/24 04/28/24
07:08 08:06 03:39
WBC Cancelled 3.3 L 8.3
04/29/24
05:29
WBC 5.5
Lab Results - Chemistry
04/27/24 04/27/24 04/27/24
07:09 14:47 20:07
BUN 32 H 32 H 30 H
Creatinine 0.9 0.8 0.9
Estimated Creat Clear 58 65 58
Albumin 1.8 L
04/28/24 04/29/24
03:39 05:29
BUN 29 H 25 H
Creatinine 0.8 0.9
Estimated Creat Clear 64 57
Albumin 1.9 L 1.7 L
04/26/24 04/27/24
10:08 14:47
Lactic Acid 1.5 1.2
Microbiology Results
04/27/24 20:03 Blood Culture - Preliminary
Blood/Venous No Growth in 24 hours- Final report to follow
04/27/24 20:03 Blood Culture - Preliminary
Blood/Venous No Growth in 24 hours- Final report to follow
04/28/24 15:51 Gram Stain - Preliminary
Peritoneal Fluid
04/27/24 20:50 C. difficile GDH Antigen & Toxins - Final
Feces/Stool C. difficile antigen positive, toxin negative.
Clostridium difficile present, but toxin not detected.
Patient may be a carrier, colonized with nontoxinogenic
strain or the level of toxin in sample is below detection
limits. This information should be used in conjunction with
the patient's clinical history.
- Final
Negative for Norovirus GI and GII.
Therapeutic Drug Monitoring
Random Vancomycin 16.3 ug/ml 04/29/24 05:29
--- NOTE | 2024-04-29 09:50 | HOSPNOTE ---
Addendum entered by Rose Marie Ann RN 04/29/24 11:23:
Granddaughter and son are at beside. Magan Das is meeting with them. More information to follow. Elizabeth, attending and primary nurse aware.
Original Note:
Referral received. I called and spoke to varun Salazar and reviewed that patient is eligible for inpatient hospice. She believes that is what they would all want, she just wants to call patients son and discuss and make sure everyone is on
the same page. She is aware we could begin today. She will call me back after she speaks to the patients son. ELIZABETH, attending and primary nurse aware. More information to follow.
[2024-04-29] MEDS: KCL 100 IV (10:19)
[2024-04-29] MEDS: ULTRAM 50 MG PO (12:07)
--- NOTE | 2024-04-29 12:53 | CM ---
Patient with Hx End-stage liver disease with Dx Failure to Thrive, ascites.
Notified by [facility] that [facility] met with the son and grand-daughter Marie who agreed to inpatient hospice.
Plan [facility].
--- NOTE | 2024-04-29 17:05 | W.DCSUMMARY ---
Discharge Summary
Discharge Data
Date of Admission: 04/24/24
Date of Discharge: 04/29/24
-
Pending Results: No
Hospital Course
Discharging Physician : Colleen Tamayo MD., Joao Woodward MD.
Disposition : Inpatient hospice
Principal Discharge diagnosis/procedure : Shock, ascites, failure to thrive
Chronic Discharge diagnosis : essential hypertension, hyperlipidemia, renal artery stenosis, nonischemic cardiomyopathy, nonobstructive CAD, mild mitral regurgitation, mild aortic insufficiency, gastritis without bleeding, anxiety/depression, hx of
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
Hospital Course :
73-year-old female with above past medical history presented to [facility] ED for evaluation of potential UTI. Patient resides at home and grandson is primary caregiver, he called EMS to bring patient for evaluation. An unstageable sacral
wound was noted, and scratches on torso and thighs were present. In the ED, vitals were stable, Hgb 10.3, platelets 38, Na 132, bili 2.3, AST 85, ALT 111.
Pt reported abdominal pain and nausea with poor appetite. Unfortunately, patient frequently refused medication or imaging and denied any symptoms or reasons for hospitalization. Psych evaluation for capacity showed lack of capacity for decision
making. Abdominal CT revealed moderate ascites with no other acute changes. Nausea and abdominal pain was controlled. Wound care was observed throughout stay. Home antihypertensives were held for low blood pressures with IVF boluses to sustain
pressures. While liver pathology could explain hypotension, it was important to explore infectious cause. A new metabolic acidosis was also noted. Blood and urine cultures were drawn, lactate was normal, procalcitonin was elevated, And Vancomycin
and Zosyn were started. She received bicarb drip with subsequent resolution of acidosis. When blood pressures were unresponsive to IVFs and Midodrine, she was transferred to IMU and Levophed was started. Blood cultures were negative, Stool was
negative for norovirus and toxigenic C-diff. Thoracentesis was done with 2200cc of ascitic fluid removed. fluid analysis showed no evidence of SBP and culture was negative.
Home medications were continued as appropriate. Oral intake continued to be minimal. Goals of care discussions were ongoing, and meeting with family conducted on 04/28/2024. Family met with hospice service to discuss options given poor prognosis,
and on 04/29/2024, the family chose to pursue inpatient hospice care. She was then discharged to inpatient hospice.
Important imaging findings :
Abdominal Ultrasound 04/25/2024:
Very limited images of the abdomen, as the patient requested that the study be aborted
CT abd/pel 04/26/2024:
-Aortic valvular calcification is present, which appears moderate to severe. Please correlate with any clinical signs or symptoms that would suggest significant aortic stenosis.
-Cirrhotic liver contour. No evidence for hepatic mass lesion. The main portal vein and its branches appear patent as well as the splenic vein and the SMV. Hepatic veins appear patent.
-Moderate ascites is present which is new compared to CT examination of April 09, 2024.
-Thickening of the wall the right side of the colon, which likely represents portal colonopathy.
-Varices within the wall the distal esophagus and the upper stomach.
-Numerous bilateral nephroliths including calcifications within the renal pelves bilaterally, but no evidence for significant calyceal dilation or significant obstructive uropathy.
-Small calcification within the bladder compatible with bladder calculi.
-Status post hysterectomy. Bilateral ovarian cysts which appear stable from examination dating back to February 21, 2024.
-Moderate subcutaneous emphysema, slightly greater on the left compared to the right.
CXR 04/27/2024:
Mild to moderate elevation right hemidiaphragm. Mild linear atelectasis in the right lower lung.
Procedure findings :
Paracentesis 04/28/2024:
Successful ultrasound-guided paracentesis, yielding 2200 milliliters of ascitic fluid. Fluid was sent for laboratory analysis.
US guided placement of right internal jugular central venous catheter 04/28/2024:
Successful placement of right internal jugular central venous catheter. Catheter is ready for use.
Discharge Plan
-
Patient Disposition: Hospice - Inpatient DH
Discharge Orders:
Discharge Patient (As Directed); Ordered 04/29/24
Ordered By: Colleen Tamayo
Discharge Date and Time
Discharge Date/Time: 04/29/24 13:08
Print Language: MONGOLIAN
== END 2024-04-29 13:08 | disposition hospice, inpatient (51) | DRG 314 ==
LOC: IMU 23:14
PROVIDERS: Nurse Practitioner Family; Nurse Practitioner Gerontology; Radiology Vascular & Interventional Radiology; Student in an Organized Health Care Education/Training Program; ADMITTING PHYSICIAN Internal Medicine; ATTENDING PHYSICIAN Internal Medicine; CONSULT PHYSICIAN Internal Medicine Gastroenterology; EMERGENCY PHYSICIAN Student in an Organized Health Care Education/Training Program
PROC: B5131ZA Fluoroscopy of Right Jugular Veins using Low Osmolar Contrast, Guidance (ICD-10-PCS; 2024-04-28)
PROC: 0W9G3ZZ Drainage of Peritoneal Cavity, Percutaneous Approach (ICD-10-PCS; 2024-04-28)
PROC: 05HM33Z Insertion of Infusion Device into Right Internal Jugular Vein, Percutaneous Approach (ICD-10-PCS; 2024-04-28)
DX: I95.9 Hypotension, unspecified (principal); E43 Unspecified severe protein-calorie malnutrition; I81 Portal vein thrombosis; R53.2 Functional quadriplegia; R57.9 Shock, unspecified; D61.818 Other pancytopenia; E87.20 Acidosis, unspecified; K76.6 Portal hypertension; I69.354 Hemiplegia and hemiparesis following cerebral infarction affecting left non-dominant side; J98.11 Atelectasis; T79.7XXA Traumatic subcutaneous emphysema, initial encounter; I42.8 Other cardiomyopathies; K70.31 Alcoholic cirrhosis of liver with ascites; Z51.5 Encounter for palliative care; D63.8 Anemia in other chronic diseases classified elsewhere; L89.150 Pressure ulcer of sacral region, unstageable; R62.7 Adult failure to thrive; I10 Essential (primary) hypertension; I25.10 Atherosclerotic heart disease of native coronary artery without angina pectoris; Z66 Do not resuscitate; F10.11 Alcohol abuse, in remission; L89.626 Pressure-induced deep tissue damage of left heel; L89.616 Pressure-induced deep tissue damage of right heel; Z68.28 Body mass index [BMI] 28.0-28.9, adult; E78.00 Pure hypercholesterolemia, unspecified; I70.1 Atherosclerosis of renal artery; F41.9 Anxiety disorder, unspecified; F32.A Depression, unspecified; K31.84 Gastroparesis; Z90.711 Acquired absence of uterus with remaining cervical stump; D73.1 Hypersplenism; Z99.3 Dependence on wheelchair; K21.00 Gastro-esophageal reflux disease with esophagitis, without bleeding; Z79.899 Other long term (current) drug therapy; N21.0 Calculus in bladder; N32.89 Other specified disorders of bladder; Z74.01 Bed confinement status
CPT/HCPCS: 88305; 36556; 49083; 71045; 74177; 76700; 76937; 77001; 80048; 80053; 80202; 81003; 81015; 82042; 82140; 82248; 82533; 82805; 82962; 83605; 83690; 83735; 84145; 84157; 84443; 85014; 85018; 85025; 85027; 85610; 87015; 87040; 87070; 87086; 87205; 87324; 87449; 87798; 88112; 89051; 93005; 93306; 93975; 96374; 99285; C1751; Q9967

== ENCOUNTER 2024-04-29 13:09 | Inpatient (IN) | payer OTHER, SELFPAY ==
[2024-04-29 13:39] VITALS: BP 105/71
--- NOTE | 2024-04-29 14:00 | PN.CDI ---
CDI
- -
CDI:
Physician Documentation Request
Admit Date: 04/29/24 13:09
Dear Doctor Roni,
Please review the following and provide your response in the progress notes.
Clinical Indicators:
Pt admitted with adult failure to thrive, shock.
04/29 follow up initial assessment: 'Follow up 04/29.
Meal intake: patient refusing all meals (nurse's documentation)
Current BW: (04/28) 166lb 7.184oz BMI 28 overwt/ht, (04/25) 170 lbs. Suspect weight fluctuations due to fluid loss/retention related to ascites
Weight hx per records- (04/15) 146lb, (02/23) 160lb, (10/08/23) 205lb, (09/30/23) 189lb
Pt has experienced 23% weight loss over the past 6-7months with reported FTT, bedbound status at home. Pt meets criteria for severe protein calorie malnutrition of chronic illness with >10% weight loss over the past 6 months, prolonged poor intake
prior to admit and at time of follow up visit <75% for > 1month.
Based on the above information and your assessment, which of the following most accurately represents the patient's nutritional status?
Severe Protein Calorie Malnutrition
Other (please specify)
Rolfe Criteria (ACP Hospitalist 2017)
2 or more criteria must be present for either
non severe or severe malnutrition
Note that the criteria differs related to the
presence of an acute or chronic illness
Chronic Illness
Energy Intake Non Severe: <75% for >1 month
Severe: <75% for >1 month
Weight Loss Non Severe: 5% over 1 month
7.5% over 3 months
10% over 6 months
20% over 1 year
Severe: >5% over 1 month
>7.5% over 3 months
>10% over 6 months
>20% over 1 year
Body Fat Non Severe: Mild Loss
Severe: Severe Loss
Additional criteria that can be used to Determine if Mild or Moderate Malnutrition (Merck Manual 2018)
Use of terms such as suspected, likely, concern for, or probable (associated with a specific diagnosis that is being evaluated, monitored, or treated as if it exists) are acceptable and can be coded in the inpatient setting, when documented at the
time of discharge.
Thank you,
Deysi Daniel RN, BSN
CDI Specialist
[place] [employer]
Please use your independent medical judgment in providing your response.
--- NOTE | 2024-04-29 14:16 | HOSPNOTE ---
Patient was admitted onto [facility] Hospice services. She would not allow for a physical assessment. She indicated moderate pain in her left leg. She will remain [facility] due to symptoms not being able to be managed outside of the hospital setting.
--- NOTE | 2024-04-29 14:49 | W.PN.UPDATE ---
Update Note
Progress Note Update
Seen and examined by me independently in collaboration with the medical coding instructor.
Lab data and imaging data reviewed.
Addendum as below :
Patient is alert and oriented but not as sharp as yesterday. Family noticed the same that she is bit confused compared to yesterday.
Her hemodynamics still are low needing to go up on her Levophed.
Afebrile but tachycardic.
Chest anteriorly clear.
Abdomen soft.
White count normal. Remains anemic. Platelets dropped to 34 again today.
Hypokalemic. Improved bicarbonate. Creatinine 0.9.
Diagnostic paracentesis negative for SBP.
Persistent shock suspect possibly multifactorial. She has end-stage liver disease which could be playing a role. Cannot rule out underlying sepsis. No obvious focal infective source evident so far. Remains vasopressor dependent.
Patient still with persistent generalized aches and pains and poor oral intake. Has not had anything much orally.
Seen by family discussion yesterday.
Granddaughter and son at bedside. With end-stage organ dysfunction and generalized decline with her health and failure to thrive and now with persistent vasopressor dependent shock they understand the prognosis is poor. In keeping with patient's
goals of care they want her to be comfortable.
Hospice was consulted and they had discussions with hospice and signed in the patient for inpatient hospice.
Discharge patient from inpatient care to inpatient hospice at [facility]
Total time of discharge 35 minutes.
Discussed with hospice team.
--- NOTE | 2024-04-29 15:24 | PTCARENOTE ---
Patient transfer from IMU to . Pt on hospice. Pt denies pain at this time. Pt refused VS. Family members at bedside. Plan of care ongoing. call casarez within reach.
[2024-04-29 16:26] VITALS: BP 115/65
[2024-04-29] MEDS: MORPHINE SULFATE 2 MG IV ×2 (16:29→17:06)
[2024-04-29] MEDS: MORPHINE 100 IV (17:18)
--- NOTE | 2024-04-29 17:30 | PTCARENOTE ---
Patient in room 2124 under hospice care was observed and verbally stating # 10 on pain scale and moaning in pain. Gave 2mg prn morphine iv as ordered with no relief. Received a verbal order to advance the morphine drip to step 1 as ordered. Order
verified and morphine drip initiated at step 1 as ordered. Family at bedside and updated on the change in pain management. will continue to assess and provide comfort measures as needed. plan of care ongoing.call casarez within reach.
--- NOTE | 2024-04-29 18:23 | PTCARENOTE ---
Patient noted resting comfortably at this time, family at bedside. plan of care ongoing.
--- NOTE | 2024-04-29 18:42 | HPS.HSE ---
Family Physician
-
Family Physician: NOT KNOW UNKNOWN - PT DOES
Chief Complaint
-
Inpatient hospice
History of Present Illness
73-year-old female with above past medical history presented to [facility] ED for evaluation of potential UTI. Patient resides at home and grandson is primary caregiver, he called EMS to bring patient for evaluation. An unstageable sacral
wound was noted, and scratches on torso and thighs were present. In the ED, vitals were stable, Hgb 10.3, platelets 38, Na 132, bili 2.3, AST 85, ALT 111.
Pt reported abdominal pain and nausea with poor appetite. Unfortunately, patient frequently refused medication or imaging and denied any symptoms or reasons for hospitalization. Psych evaluation for capacity showed lack of capacity for decision
making. Abdominal CT revealed moderate ascites with no other acute changes. Nausea and abdominal pain was controlled. Wound care was observed throughout stay. Home antihypertensives were held for low blood pressures with IVF boluses to sustain
pressures. While liver pathology could explain hypotension, it was important to explore infectious cause. A new metabolic acidosis was also noted. Blood and urine cultures were drawn, lactate was normal, procalcitonin was elevated, And Vancomycin
and Zosyn were started. She received bicarb drip with subsequent resolution of acidosis. When blood pressures were unresponsive to IVFs and Midodrine, she was transferred to IMU and Levophed was started. Blood cultures were negative, Stool was
negative for norovirus and toxigenic C-diff. Thoracentesis was done with 2200cc of ascitic fluid removed. fluid analysis showed no evidence of SBP and culture was negative.
Home medications were continued as appropriate. Oral intake continued to be minimal. Goals of care discussions were ongoing, and meeting with family conducted on 04/28/2024. Family met with hospice service to discuss options given poor prognosis,
and on 04/29/2024, the family chose to pursue inpatient hospice care. She was then discharged to inpatient hospice.
Medical History
Past Medical History
Past Medical History: Reports Other (essential hypertension, hyperlipidemia, renal artery stenosis, nonischemic cardiomyopathy, nonobstructive CAD, mild mitral regurgitation, mild aortic insufficiency, gastritis without bleeding, anxiety/depression,
hx of hemorrhagic CVA, hx of upper GI bleed with grade II EV with banding, hx of portal)
Past Surgical History: Reports Other (partial hysterectomy bilateral tubal ligation right ankle ORIF lap Cholecystectomy endoscopy liver biopsy )
Social History
Unable to obtain full social history at this time due to: Acuity
Family History
Family History: Not pertinent
Allergies / Home Medications
Allergies reflects when Allergies were last updated in [facility].
Home Medications with original date entered in [facility]
Allergy/Medication List:
Home Medications Table - record
�Medication �Instructions �Recorded �Confirmed
amlodipine 10 mg tablet 10 mg PO DAILY Blood pressure 10/21/20 04/09/24
carvedilol 3.125 mg tablet 3.125 mg PO BID Heart Failure 10/21/20 04/09/24
lisinopril 20 mg tablet 20 mg PO HS Blood pressure 10/23/20 04/09/24
gabapentin 400 mg capsule 800 mg PO HS pain 09/30/23 04/09/24
therapeutic multivitamin 1 tab PO DAILY Supplement 02/21/24 04/09/24
acetaminophen 500 mg tablet 1,000 mg PO Q6HPRN PRN mild pain 04/09/24 04/09/24
(Tylenol Extra Strength)
gabapentin 100 mg capsule 100 mg PO DAILYPRN PRN if 800mg 04/09/24 04/09/24
dose ineffective
potassium chloride 10 mEq 5 meq PO BID 04/09/24 04/09/24
tablet,extended release
lactulose 10 gram/15 mL oral 20 g (30 mL) PO BID #1,500 mL 04/14/24
solution
pantoprazole 40 mg tablet,delayed 40 mg PO DAILY #30 tabs 04/14/24
release
Allergies
Allergy/AdvReac Type Severity Reaction Status Date / Time
No Known Drug Allergies Allergy Unknown Verified 04/24/24 21:23
Review of Systems
-
Unable to obtain full review of systems at this time due to: Acuity
Physical Exam
Vital Signs
Vital Signs
Temp Pulse Resp BP Pulse Ox
98.2 F 90 16 115/65 99
04/29/24 16:26 04/29/24 16:26 04/29/24 16:26 04/29/24 16:26 04/29/24 16:26
Physical Exam
General: Comfortable
Respiratory: Clear (anteriorly) and Non Labored Respirations; No Wheezes, Rales, Rhonchi or Crackles
Cardiac: S1/S2 and Regular Rhythm; No Murmur or Rub
GI: Soft, Non Tender and Non Distended
Musculoskeletal: Edema, Left Lower Extremity and Edema, Right Lower Extremity
Neuro: Awake and Alert
Psych: Calm
Impression/Plan
-
73 year old female with Shock, ascites, failure to thrive
PLAN:
Hospice measures
[2024-04-29 19:12] VITALS: BP 94/59
[2024-04-30] MEDS: MORPHINE SULFATE 2 MG IV (03:19)
[2024-04-30 07:10] VITALS: BP 103/48
--- NOTE | 2024-04-30 09:08 | HOSPNOTE ---
SN received patient in bed with eyes closed, patient non responsive to SN verbalization or gentle touch. Patient upper bilateral extremities cool to touch. Patient lungs CTA, diminshed breath sounds noted. Patient having 10 seconds of apnea during
visit. Patient abdomen soft, no response from patient when SN palpated abdomen. Patient at times moved right arm over abdomen. With assistance SN assessed patient sacrum, stage 1 noted on sacrum. Patient has heel protectors on bilateral heels,
intact. Patient more responsive with eyes after repositioning, fell back to sleep at end of visit. SN coordinated with RN, no new concerns at this time states patient appears comfortable. Reinforced to call office with any questions or concerns,
expresses understanding. Updated granddaughter after visit. Patient remains inpatient appropriate for management of pain and anxiety that is unable to be managed in an outside setting. Discharge planning continues.
--- NOTE | 2024-04-30 09:30 | W.PN.UPDATE ---
Update Note
Progress Note Update
Admitted to inpatient hospice.
Currently on comfort care medications.
Hospice nurse at bedside.
Patient is lethargic and opens eyes barely. She apparently is better without much of moaning or groaning with movements.
Some apnea noted. No respiratory distress.
Continue the current hospice level of care.
--- NOTE | 2024-04-30 10:08 | CHAP ---
Addendum entered by Bakari Medel 04/30/24 11:54:
Fr. Martel of [facility] came to provide the Sacrament, as requested.
Original Note:
Sonya was sleeping peacefully, non-responsive, and did not show signs of pain. No family was present. Planetarium Technician provided emotional and spiritual support through presence, words of comfort, and prayer. Spoke with granddaughter, Marie, by phone,
and she requested Sacrament of the Sick for Sonya. Planetarium Technician called [facility] emergency buckle stapler line with this request, and also texted Fr. Rincon. Planetarium Technician will continue support through weekly visits, and will remain available to the family as needed.
--- NOTE | 2024-04-30 12:00 | CHAP ---
Father Donn Rincon of [facility] in [place] anointed Sonya and gave her a [facility]. Exact time uncertain.
[2024-04-30 19:46] VITALS: BP 43/29
[2024-04-30 22:08] VITALS: BP 95/75
--- NOTE | 2024-05-01 05:53 | PTCARENOTE ---
Patient had no urine output overnight, performed bladder scan which showed 268cc of urine, TT LOFTER for order to place Murphy Cath since patient is likely going to just retain, order for Murphy given for end of life care. Number 16fr Murphy placed w/o
difficulty, patient continues to rest comfortably
[2024-05-01 07:15] VITALS: BP 91/65
[2024-05-01] MEDS: ATIVAN 0.5 MG IV (07:54)
[2024-05-01] MEDS: MORPHINE SULFATE 2 MG IV ×2 (07:54→10:11)
--- NOTE | 2024-05-01 14:01 | CM ---
Patient chart reviewed
Hospice
PLAN: Remains on hospice services
--- NOTE | 2024-05-01 14:34 | W.PN.UPDATE ---
Update Note
Progress Note Update
On hospice
Patient currently on morphine drip for comfort. Apneic episodes noted.
No respiratory distress. Looks comfortable.
Continue with current hospice level of care.
Discussed with sister at bedside and as well as RN.
--- NOTE | 2024-05-01 14:44 | HOSPNOTE ---
Assessed patient in the bed unresponsive, FLACC 0. Comfortable on Morphine drip. Patient is actively dying. RR 6 with 15-20 sec periods of apnea, mottling to lower extremities. Absent bowel sounds. Sister and grandson at bedside, very tearful. Much
emotional support provided. Discussed limited life expectancy is down to hours/day. Answered all questions they had at this time regarding when she passes. Patient will remain GIP for management of symptoms that can not be managed in the outpatient
setting.
--- NOTE | 2024-05-01 15:55 | CHAP ---
Sonya was sleeping comfortably, non-responsive. Her sister and two grandchildren were present, along with one great-grandchild. They shared their grief. Emotional and spiritual support provided.
[2024-05-01] MEDS: ROBINUL 0.2 MG IV (17:35)
[2024-05-01 19:56] VITALS: BP 64/45
[2024-05-02 07:15] VITALS: BP 70/43
--- NOTE | 2024-05-02 10:06 | CM ---
Patient chart reviewed
PLAN: Patient remains on hospice
[2024-05-02] MEDS: MORPHINE SULFATE 2 MG IV ×4 (10:16→18:18)
[2024-05-02] MEDS: ROBINUL 0.2 MG IV ×2 (10:19→16:14)
--- NOTE | 2024-05-02 10:49 | W.PN.HOSP.TC ---
Addendum entered and electronically signed by Angel Roque MD 05/03/24 00:47:
Attending Addendum-
I saw and evaluated the patient. I reviewed the resident�s note and agree with findings and plan as documented in the resident�s note. Sub: Seen with family present. Patient unresponsive ROS unobtainable Exam: Vitals reviewed in chart
GEN-comfortable nonresponsive heart RRR lungs clear Neuro nonresponsive to commands
Shock:
- unclear etiology
- cont hospice care
- comfort measures cont morphine gtt
Non-anion gap metabolic acidosis:
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
Portal hypertensive gastropathy:
Transaminitis
Bicytopenia
Chronic anemia and thrombocytopenia
Wounds:Unstageable sacral pressure wounds, POA
bilateral heel pressure wounds, POA
Adult failure to thrive:
Severe chronic liver disease and functional paraplegia.
Severe protein calorie malnutrition
Essential hypertension
Non-ischemic cardiomyopathy
Hx of alcohol use disorder - last alc drink months ago
DVT ppx: SCDs
Time spent coordinating care, review of plan of care with resident, personally reviewed records in EMR, med rec, consults, notes, d/w nursing CM and family � 35 mins
Original Note:
Today's Communication/Plan
-
* Continue hospice care.
Assessment / Plan
Assessment / Plan
Sonya Patrick, 73-year-old female, presented to the hospital due to a UTI and failure to thrive on 04-24-24. The patient's condition continued to worsen in setting of patient's refusal for medications and imaging, and goals of care discussions
were held given poor prognosis. The family chose to pursue inpatient hospice care on 04-29-24.
Currently on morphine drip. Intermittent apneic episodes and vitals stable. Comfortable and in no distress.
Anticipated Discharge: 24 - 48 hours
Subjective/Interval History
-
Date of Service: May 02, 2024
Stable, no overnight events.
Objective Data
-
Vital Signs:
Vital Signs
Temp Pulse Resp BP Pulse Ox
97.7 F 111 10 70/43 90
05/02/24 07:15 05/02/24 07:15 05/02/24 07:15 05/02/24 07:15 05/02/24 07:15
I&O
05/01/24 05/02/24 05/03/24
06:59 06:59 06:59
Intake Total 0 / 0
Output Total 115 / 115
Balance -115 / -115
Review of Systems
-
Unable to obtain full review of systems at this time due to: Other (on hospice)
Physical Exam
-
General: No Apparent Distress and Comfortable
--- NOTE | 2024-05-02 11:34 | HOSPNOTE ---
Patient is actively dying, no family was present during my visit. Patient continues on a morphine drip for pain. Shallow breaths noted continue with PRN doses when needed. Patient will be seen daily by hospice nurse.
--- NOTE | 2024-05-02 14:17 | HOSPNOTE ---
Assistant Boiler Operator visited with 73 year old patient who is currently placed on GIP Level of Care, to conduct the Initial HOSPITALITY RECRUITER Assessment. Patient was admitted onto Hospice Services with the Primary Diagnosis of Cirrhosis of the Liver. HOSPITALITY RECRUITER spoke
with patient's nurse prior to entering the room. Nurse reported patient is comfortable. Nurse reported patient has family at the bedside. HOSPITALITY RECRUITER knocked on the door and entered patient's room. HOSPITALITY RECRUITER greeted the family, introduced herself and explained
her role on the Hospice Team. Patient was asleep and resting comfortably. Patient was non-responsive when HOSPITALITY RECRUITER greeted the patient. Patient's granddaughter Marie and patient's oldest sibling Sravanthi were present at patient's bedside. Sravanthi
reported it was 9 children and 4 of the children are still alive 2 sisters and 2 brothers. Sravanthi reported patient is the baby girl of the family. Marie reported patient is a fighter and stubborn. Emotional Support provided. Marie reported
patient had 3 children 2 sons and 1 daughter, daughter is . Marie reported patient has 5 grandchildren and 6 great grandchildren. Sravanthi and Marie reported patient's son Lauri is active in his addiction and Mehrdad is having a
difficult time accepting his mother's status. Emotional Support provided. Marie and Sravanthi reported the family is supportive and coping appropriately. Bereavement is low, family declined Bereavement Services at this time. Patient was a
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 Patient's spouse was a [employer] and served for 10 years and in the [place] War. Patient was Christianity and haven't participated in a while. Patient will be cremated and placed with her spouse at
[facility]. Family will utilize [facility] in [place]. Patient meets the criteria for [facility] Level of Care for SN assessments, management of pain, dyspnea, and anxiety that could not be managed at home and/or in a outpatient
setting. HOSPITALITY RECRUITER will visit patient weekly to provide supportive supports and monitor for additional services as needed.
--- NOTE | 2024-05-02 16:28 | PTCARENOTE ---
Patient medicated with PRN morphine throughout shift for labored breathing/grimacing when providing care and turning/repositioning; patient unresponsive with long periods of apnea, occasional gurgling, medicated with PRN marcel SIMS. Morphine
gtt infusing at step 1 through R IJ. Sacrum foam intact, assessed by this RN, patient's B/L upper extremities with +2 edema, weeping moderate amount of drainage, foams and absorbent pads placed. Family present at bedside updated on plan of care.
[2024-05-02] MEDS: MORPHINE 100 IV (16:54)
[2024-05-02 22:34] VITALS: BP 56/34
[2024-05-03 07:07] VITALS: BP 75/42
--- NOTE | 2024-05-03 07:42 | W.PN.HOSP.TC ---
Addendum entered and electronically signed by Angel Roque MD 05/04/24 00:14:
Attending Addendum-
I saw and evaluated the patient. I reviewed the resident�s note and agree with findings and plan as documented in the resident�s note. Sub: Seen with family present. Patient unresponsive ROS unobtainable Exam: Vitals reviewed in chart
GEN-comfortable nonresponsive heart RRR lungs clear Neuro nonresponsive to commands slowed respirations
Shock:
- unclear etiology
- cont hospice care
- comfort measures increase morphine gtt
- imminent over next 24-48hrs
Non-anion gap metabolic acidosis:
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
Portal hypertensive gastropathy:
Transaminitis
Bicytopenia
Chronic anemia and thrombocytopenia
Wounds:Unstageable sacral pressure wounds, POA
bilateral heel pressure wounds, POA
Adult failure to thrive:
Severe chronic liver disease and functional paraplegia.
Severe protein calorie malnutrition
Essential hypertension
Non-ischemic cardiomyopathy
Hx of alcohol use disorder - last alc drink months ago
DVT ppx: SCDs
Time spent coordinating care, review of plan of care with resident, personally reviewed records in EMR, med rec, notes, d/w nursing CM and family � 36 mins
Original Note:
Today's Communication/Plan
-
* Continue hospice care.
Assessment / Plan
Assessment / Plan
Sonya Patrick, 73-year-old female, presented to the hospital due to a UTI and failure to thrive on 04-24-24. The patient's condition continued to worsen in setting of patient's refusal for medications and imaging, and goals of care discussions
were held given poor prognosis. The family chose to pursue inpatient hospice care on 04-29-24.
Currently on morphine drip. Intermittent apneic episodes and vitals stable. Comfortable and in no distress.
Pertinent medical history, prior to hospice care:
End-stage hepatic failure
Liver cirrhosis
Esophageal varices
Portal hypertension
Alcohol use disorder
History of cerebrovascular accident
Functional paraplegia
Anemia of chronic disease
Chronic thrombocytopenia
Failure to thrive in adult
Severe protein calorie malnutrition
Non-anion gap metabolic acidosis
Acute urinary tract infection
Unstageable sacral pressure wound
Anticipated Discharge: 24 - 48 hours
Subjective/Interval History
-
Date of Service: May 03, 2024
No overnight events. Stable and comfortable. Granddaughter at bedside.
Objective Data
-
Vital Signs:
Vital Signs
Temp Pulse Resp BP Pulse Ox
100 F 110 15 75/42 90
05/03/24 07:07 05/03/24 07:07 05/03/24 07:07 05/03/24 07:07 05/03/24 07:07
I&O
05/02/24 05/03/24 05/04/24
06:59 06:59 06:59
Intake Total 0 / 0 0 / 0
Output Total 115 / 115 20 / 20
Balance -115 / -115 -20 / -20
Review of Systems
-
Unable to obtain full review of systems at this time due to: Other (on hospice)
Physical Exam
-
General: No Apparent Distress and Comfortable
--- NOTE | 2024-05-03 10:16 | PTCARENOTE ---
Addendum entered by Mera Garcia RN 05/03/24 16:37:
pt received hot soap and water bed bath. wound care changed. prn pain medication given through R IJ site. pt remains on step 1 gtt.
Original Note:
pt with 15-20 second periods of apnea, hypotensive and nonverbal at this time. no prn needed at this time pt remains on step 1 morphine gtt.
--- NOTE | 2024-05-03 12:14 | HOSPNOTE ---
Patient is actively dying and emotional support provided to [facility]. Patient is having long periods of apnea. Patient is on a morphine drip and PRN doses given prior to any care or repositioning. Mouth care completed. Patient will be seen daily
by hospice nurse.
--- NOTE | 2024-05-03 14:13 | CM ---
chart reviewed
plan: remains on hospice
[2024-05-03] MEDS: MORPHINE SULFATE 2 MG IV (16:26)
[2024-05-03 19:35] VITALS: BP 67/44
[2024-05-04 07:15] VITALS: BP 71/43
--- NOTE | 2024-05-04 08:12 | W.PN.HOSP.TC ---
Addendum entered and electronically signed by Angel Roque MD 05/05/24 00:13:
Attending Addendum-
I saw and evaluated the patient. I reviewed the resident�s note and agree with findings and plan as documented in the resident�s note. Sub: Seen with family present. Patient unresponsive ROS unobtainable Exam: Vitals reviewed in chart
GEN-comfortable nonresponsive heart RRR lungs clear Neuro nonresponsive to commands slowed respirations
#Shock secondary to UTI:
- cont hospice care
- comfort measures increase morphine gtt prn
- imminent over next 24-48hrs
Non-anion gap metabolic acidosis:
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
Portal hypertensive gastropathy:
Transaminitis
Bicytopenia
Chronic anemia and thrombocytopenia
Wounds:Unstageable sacral pressure wounds, POA
bilateral heel pressure wounds, POA
Adult failure to thrive:
Severe chronic liver disease and functional paraplegia.
Severe protein calorie malnutrition
Essential hypertension
Non-ischemic cardiomyopathy
Hx of alcohol use disorder - last alc drink months ago
DVT ppx: SCDs
Time spent coordinating care, review of plan of care with resident, personally reviewed records in EMR, med rec, notes, d/w nursing CM and sister in law � 35 mins
Original Note:
Today's Communication/Plan
-
* Continue hospice care.
Assessment / Plan
Assessment / Plan
Sonya Patrick, 73-year-old female, presented to the hospital due to a UTI and failure to thrive on 04-24-24. The patient's condition continued to worsen in setting of patient's refusal for medications and imaging, and goals of care discussions
were held given poor prognosis. The family chose to pursue inpatient hospice care on 04-29-24.
Currently on morphine drip. Intermittent apneic episodes and vitals stable. Comfortable and in no distress.
Pertinent medical history, prior to hospice care:
End-stage hepatic failure
Liver cirrhosis
Esophageal varices
Portal hypertension
Alcohol use disorder
History of cerebrovascular accident
Functional paraplegia
Anemia of chronic disease
Chronic thrombocytopenia
Failure to thrive in adult
Severe protein calorie malnutrition
Shock, unclear etiology
Non-anion gap metabolic acidosis
Acute urinary tract infection
Unstageable sacral pressure wound
Anticipated Discharge: 24 - 48 hours
Subjective/Interval History
-
Date of Service: May 04, 2024
No changes overnight. Comfortable.
Objective Data
-
Vital Signs:
Vital Signs
Temp Pulse Resp BP Pulse Ox
97.6 F 98 14 67/44 88
05/03/24 19:35 05/03/24 19:35 05/03/24 19:35 05/03/24 19:35 05/03/24 19:35
I&O
05/03/24 05/04/24 05/05/24
06:59 06:59 06:59
Intake Total 0 / 0
Output Total
Balance -20 / -
Review of Systems
-
Unable to obtain full review of systems at this time due to: Other (on hospice)
Physical Exam
-
General: No Apparent Distress and Comfortable
--- NOTE | 2024-05-04 10:54 | HOSPNOTE ---
Patient was seen no family present at this time. Patient is imminent. Will continue to see patient daily.
--- NOTE | 2024-05-04 11:53 | CM ---
chart reviewed
PLAN: remains on hospice
[2024-05-04] MEDS: MORPHINE 100 IV (16:55)
[2024-05-04] MEDS: MORPHINE SULFATE 2 MG IV (17:56)
[2024-05-04 19:05] VITALS: BP 73/43
[2024-05-05] MEDS: MORPHINE SULFATE 2 MG IV ×8 (05:30→23:43)
[2024-05-05 07:15] VITALS: BP 82/39
[2024-05-05] MEDS: ROBINUL 0.2 MG IV (12:10)
--- NOTE | 2024-05-05 12:57 | CM ---
Patient chart reviewed
PLAN: Remains on hospice
--- NOTE | 2024-05-05 13:30 | HOSPNOTE ---
Patient is imminent. No family present. Patient will be seen daily.
--- NOTE | 2024-05-05 14:34 | W.PN.HOSP.TC ---
Addendum entered and electronically signed by Angel Roque MD 05/05/24 23:13:
Attending Addendum-
I saw and evaluated the patient. I reviewed the resident�s note and agree with findings and plan as documented in the resident�s note. Sub: Patient unresponsive ROS unobtainable Exam: Vitals reviewed in chart GEN-comfortable nonresponsive heart RRR
lungs clear Neuro nonresponsive to commands slowed respirations
#Shock secondary to UTI:
- cont hospice care
- comfort measures will increase morphine gtt prn
- imminent over next 24-48hrs
Non-anion gap metabolic acidosis:
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
Portal hypertensive gastropathy:
Transaminitis
Bicytopenia
Chronic anemia and thrombocytopenia
Wounds:Unstageable sacral pressure wounds, POA
bilateral heel pressure wounds, POA
Adult failure to thrive:
Severe chronic liver disease and functional paraplegia.
Severe protein calorie malnutrition
Essential hypertension
Non-ischemic cardiomyopathy
Hx of alcohol use disorder - last alc drink months ago
DVT ppx: SCDs
Time spent coordinating care, review of plan of care with resident, personally reviewed records in EMR, med rec, notes, d/w nursing CM� 35 mins
Original Note:
Today's Communication/Plan
-
* Continue hospice care.
Assessment / Plan
Assessment / Plan
Sonya Patrick, 73-year-old female, presented to the hospital due to a UTI and failure to thrive on 04-24-24. The patient's condition continued to worsen in setting of patient's refusal for medications and imaging, and goals of care discussions
were held given poor prognosis. The family chose to pursue inpatient hospice care on 04-29-24.
Currently on morphine drip. Intermittent apneic episodes and vitals stable. Comfortable and in no distress.
Pertinent medical history, prior to hospice care:
End-stage hepatic failure
Liver cirrhosis
Esophageal varices
Portal hypertension
Alcohol use disorder
History of cerebrovascular accident
Functional paraplegia
Anemia of chronic disease
Chronic thrombocytopenia
Failure to thrive in adult
Severe protein calorie malnutrition
Shock, unclear etiology
Non-anion gap metabolic acidosis
Acute urinary tract infection
Unstageable sacral pressure wound
Anticipated Discharge: 24 - 48 hours
Subjective/Interval History
-
Date of Service: May 05, 2024
Stable. No change.
Objective Data
-
Vital Signs:
Vital Signs
Temp Pulse Resp BP Pulse Ox
97.3 F 92 10 82/39 89
05/04/24 19:05 05/05/24 07:15 05/05/24 07:15 05/05/24 07:15 05/05/24 09:56
I&O
05/04/24 05/05/24 05/06/24
06:59 06:59 06:59
Intake Total 36 / 36 0 / 0
Output Total 55 / 55
Balance - / -55
Review of Systems
-
Unable to obtain full review of systems at this time due to: Other (on hospice)
Physical Exam
-
General: No Apparent Distress and Comfortable
[2024-05-05 18:58] VITALS: BP 47/28
[2024-05-05 19:56] VITALS: BP 47/28
[2024-05-06] MEDS: MORPHINE SULFATE 2 MG IV ×6 (00:50→05:47)
[2024-05-06] MEDS: ATIVAN 0.5 MG IV (04:16)
[2024-05-06] MEDS: NSS (PRESERVATIVE FREE) 0.25 ML IV (04:16)
[2024-05-06 07:36] VITALS: BP 66/42
[2024-05-06] MEDS: MORPHINE SULFATE 4 MG IV (08:45)
--- NOTE | 2024-05-06 11:03 | HOSPNOTE ---
Addendum entered by Pippa Dey RN 05/06/24 15:42:
Patient and family was called and will be coming to see patient. Family will be calling [facility].
Original Note:
Patient continues to be imminent. Patient will be seen daily.
[2024-05-06] MEDS: MORPHINE 100 IV (12:17)
--- NOTE | 2024-05-06 13:48 | W.PN.HOSP.TC ---
Addendum entered and electronically signed by Angel Roque MD 05/06/24 22:40:
Attending Addendum-
I saw and evaluated the patient. I reviewed the resident�s note and agree with findings and plan as documented in the resident�s note. Sub: Patient unresponsive ROS unobtainable Exam: Vitals reviewed in chart GEN-comfortable nonresponsive heart RRR
lungs clear Neuro nonresponsive to commands slowed respirations
--pronounced shortly after seeing patinet.
#Shock secondary to UTI:
- cont hospice care
- comfort measures will increase morphine gtt prn
- imminent over next 24-48hrs
Non-anion gap metabolic acidosis:
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
Portal hypertensive gastropathy:
Transaminitis
Bicytopenia
Chronic anemia and thrombocytopenia
Wounds:Unstageable sacral pressure wounds, POA
bilateral heel pressure wounds, POA
Adult failure to thrive:
Severe chronic liver disease and functional paraplegia.
Severe protein calorie malnutrition
Essential hypertension
Non-ischemic cardiomyopathy
Hx of alcohol use disorder - last alc drink months ago
DVT ppx: SCDs
Time spent on cert review with resident d/w family- 31 minutes
Original Note:
Today's Communication/Plan
-
* Continue hospice care.
Assessment / Plan
Assessment / Plan
Sonya Patrick, 73-year-old female, presented to the hospital due to a UTI and failure to thrive on 04-24-24. The patient's condition continued to worsen in setting of patient's refusal for medications and imaging, and goals of care discussions
were held given poor prognosis. The family chose to pursue inpatient hospice care on 04-29-24.
Currently on morphine drip, 4 mg now. Intermittent apneic episodes and vitals stable. Comfortable and in no distress.
Pertinent medical history, prior to hospice care:
End-stage hepatic failure
Liver cirrhosis
Esophageal varices
Portal hypertension
Alcohol use disorder
History of cerebrovascular accident
Functional paraplegia
Anemia of chronic disease
Chronic thrombocytopenia
Failure to thrive in adult
Severe protein calorie malnutrition
Shock, unclear etiology
Non-anion gap metabolic acidosis
Acute urinary tract infection
Unstageable sacral pressure wound
Anticipated Discharge: 24 - 48 hours
Subjective/Interval History
-
Date of Service: May 06, 2024
Stable and comfortable.
Objective Data
-
Vital Signs:
Vital Signs
Temp Pulse Resp BP Pulse Ox
97.6 F 98 16 66/42 97
05/06/24 07:36 05/06/24 07:36 05/06/24 07:36 05/06/24 07:36 05/06/24 12:06
I&O
05/05/24 05/06/24 05/07/24
06:59 06:59 06:59
Intake Total 0 / 0
Output Total 55 / 55 0 / 0
Balance -55 / -55
Review of Systems
-
Unable to obtain full review of systems at this time due to: Other (on hospice)
Physical Exam
-
General: No Apparent Distress and Comfortable
--- NOTE | 2024-05-06 15:39 | W.PN.DEATH ---
Addendum entered and electronically signed by Angel Roque MD 05/06/24 22:39:
read reviewed and agree. pronounced with family present. very appreciative of care provided.
Sunday Roque MD
Original Note:
Pronouncement of
-
Called to see patient to pronounce.
No spontaneous heart tones or respirations noted.
Patient not responsive to verbal stimuli.
Patient is pronounced .
Time of : 14:30
Date of : 05/06/24
Cause of : End-stage hepatic failure
Family Notified: Yes (at bedside)
--- NOTE | 2024-05-06 17:08 | PTCARENOTE ---
pt at 1430. [facility] called. mccoy catheter taken out. family notified and has been at bedside since 1500.
--- NOTE | 2024-05-06 17:26 | W.DCSUMMARY ---
Addendum entered and electronically signed by Angel Roque MD 05/06/24 22:37:
Read, reviewed, and agree. See same day progress note for additional details.
Sunday Roque MD
Original Note:
Documented by User: Rafa Brink MD, Resident 05/06/24 17:30
Discharge Summary
Discharge Data
Date of Admission: 04/29/24
Date of Discharge: 05/06/24
-
Pending Results: No
Hospital Course
Discharge diagnoses prior to :
End-stage hepatic failure
Liver cirrhosis
Esophageal varices
Portal hypertension
Alcohol use disorder
History of cerebrovascular accident
Functional paraplegia
Anemia of chronic disease
Chronic thrombocytopenia
Failure to thrive in adult
Severe protein calorie malnutrition
Shock, unclear etiology
Non-anion gap metabolic acidosis
Acute urinary tract infection
Unstageable sacral pressure wound
Hospital course
Sonya Patrick, 73-year-old female, presented to the hospital due to failure to thrive on 04-24-24. The patient's condition continued to worsen in setting of patient's refusal for medications and imaging, and goals of care discussions were held
given poor prognosis. The family chose to pursue inpatient hospice care on 04-29-24. The patient peacefully on 05-06-24. Family was notified and arrived soon.
Discharge Plan
-
Patient Disposition:
Date/Time
Date/Time: 05/06/24 14:30
Discharge Date and Time
Discharge Date/Time: 05/06/24 14:30
Print Language: EQUATORIAL GUINEAN

Documented by User: Angel Roque MD 05/06/24 22:36
Discharge Summary
Discharge Data
Date of Admission: 04/29/24
Date of Discharge: 05/06/24
Discharge Plan
-
Patient Disposition:
Date/Time
Date/Time: 05/06/24 14:30
Discharge Date and Time
Discharge Date/Time: 05/06/24 14:30
Print Language: EQUATORIAL GUINEAN
== END 2024-05-06 14:30 | disposition expired | DRG 951 ==
LOC: 2 NORTH 13:09
PROVIDERS: ADMITTING PHYSICIAN Internal Medicine; ATTENDING PHYSICIAN Family Medicine
DX: Z51.5 Encounter for palliative care (principal); E43 Unspecified severe protein-calorie malnutrition; I85.10 Secondary esophageal varices without bleeding; K76.6 Portal hypertension; R57.9 Shock, unspecified; E87.20 Acidosis, unspecified; N39.0 Urinary tract infection, site not specified; I42.8 Other cardiomyopathies; R18.8 Other ascites; K72.90 Hepatic failure, unspecified without coma; K74.60 Unspecified cirrhosis of liver; F10.10 Alcohol abuse, uncomplicated; Z86.73 Personal history of transient ischemic attack (TIA), and cerebral infarction without residual deficits; D63.8 Anemia in other chronic diseases classified elsewhere; D69.6 Thrombocytopenia, unspecified; R62.7 Adult failure to thrive; L89.150 Pressure ulcer of sacral region, unstageable; F44.4 Conversion disorder with motor symptom or deficit; I11.9 Hypertensive heart disease without heart failure; I25.10 Atherosclerotic heart disease of native coronary artery without angina pectoris; E78.5 Hyperlipidemia, unspecified; I70.1 Atherosclerosis of renal artery; Z90.711 Acquired absence of uterus with remaining cervical stump